=== PATIENT | female | born 1995 | race African-American/Black ===

== ENCOUNTER 2017-05-15 10:48 | Emergency (ER) | payer OTHER ==
[2017-05-15 11:00] VITALS: RESP 18
[2017-05-15] MEDS ORDERED: SODIUM CHLORIDE 0.9% 500 ML IV STA (11:07)
[2017-05-15] MEDS ORDERED: ONDANSETRON 4 MG/2 ML VIAL IVP STA (11:07)
--- NOTE | 2017-05-15 11:17 | ED ---
Abdominal Pain HPI - General Chief Complaint: Abdominal Pain Stated Complaint: right side pain Time Seen by Provider: 05/15/17 11:05 Source: patient, RN notes reviewed Mode of arrival: ambulatory Limitations: no limitations - History of Present Illness Initial Comments: This a 21-year-old female presents emergency Department chief complaint of lower abdominal pain. Patient states started 3 days ago with nausea. Patient states that the pain is nonradiating but states the pain is now migrating to the right side to the left side. Patient denies any dysuria, hematuria, vaginal bleeding, vaginal discharge. She states that her last mental cycle was 2 weeks ago. Patient denies any surgeries in her abdomen the past. She states nothing seems to make the pain feel better or worse. Patient denies vomiting, diarrhea or constipation. - Related Data Home Medications Medication Instructions Recorded Confirmed Insulin Glargine [Lantus] 30 unit SQ HS 12/29/13 05/15/17 Insulin Aspart [NovoLOG] See Protocol SQ ACHS 03/10/15 05/15/17 Previous Rx's Medication Instructions Recorded Ciprofloxacin HCl [Cipro] 500 mg PO Q12HR #14 tablet 05/15/17 Ondansetron Odt [Zofran Odt] 4 mg PO Q8HR PRN #10 tab 05/15/17 Allergies Allergy/AdvReac Type Severity Reaction Status Date / Time No Known Allergies Allergy Verified 05/15/17 11:22 Review of Systems ROS Statement: Those systems with pertinent positive or pertinent negative responses have been documented in the HPI. ROS Other: All systems not noted in ROS Statement are negative. Past Medical History Past Medical History: Diabetes Mellitus History of Any Multi-Drug Resistant Organisms: None Reported Past Surgical History: No Surgical Hx Reported Past Psychological History: No Psychological Hx Reported Smoking Status: Never smoker Past Alcohol Use History: None Reported Past Drug Use History: None Reported General Exam Limitations: no limitations General appearance: alert, in no apparent distress Head exam: Present: atraumatic, normocephalic, normal inspection Respiratory exam: Present: normal lung sounds bilaterally. Absent: respiratory distress, wheezes, rales, rhonchi, stridor Cardiovascular Exam: Present: regular rate, normal rhythm, normal heart sounds. Absent: systolic murmur, diastolic murmur, rubs, gallop, clicks GI/Abdominal exam: Present: soft, tenderness (Mild suprapubic tenderness), normal bowel sounds. Absent: distended, guarding, rebound, rigid Back exam: Absent: CVA tenderness (R), CVA tenderness (L) Skin exam: Present: warm, dry, intact, normal color. Absent: rash Course Vital Signs 05/15/17 05/15/17 10:58 11:40 Temperature 98.1 F Pulse Rate 92 83 Respiratory 18 18 Rate Blood Pressure 141/80 136/76 O2 Sat by Pulse 99 97 Oximetry Medical Decision Making - Medical Decision Making 21-year-old female presented for lower abdominal pain. Patient has urinary tract infection. Patient treated this with antibiotics. Patient also has some her glycemia secondary to her not taking any insulin this morning. Patient was given insulin here in emergency department and hydrated and given Rocephin. Patient will follow PCP tomorrow return parameters were discussed. - Lab Data Result diagrams: 05/15/17 11:35 05/15/17 11:35 Lab Results 05/15/17 05/15/17 05/15/17 Range/Units 11:35 11:35 11:35 WBC 9.4 (3.8-10.6) k/uL RBC 5.42 H (3.80-5.40) m/uL Hgb 13.3 (11.4-16.0) gm/dL Hct 43.4 (34.0-46.0) % MCV 80.2 (80.0-100.0) fL MCH 24.6 L (25.0-35.0) pg MCHC 30.7 L (31.0-37.0) g/dL RDW 14.5 (11.5-15.5) % Plt Count 353 (150-450) k/uL Neutrophils % 68 % Lymphocytes % 25 % Monocytes % 4 % Eosinophils % 2 % Basophils % 1 % Neutrophils # 6.4 (1.3-7.7) k/uL Lymphocytes # 2.3 (1.0-4.8) k/uL Monocytes # 0.4 (0-1.0) k/uL Eosinophils # 0.2 (0-0.7) k/uL Basophils # 0.1 (0-0.2) k/uL Sodium 133 L (137-145) mmol/L Potassium 4.7 (3.5-5.1) mmol/L Chloride 99 (98-107) mmol/L Carbon Dioxide 20 L (22-30) mmol/L Anion Gap 14 mmol/L BUN 6 L (7-17) mg/dL Creatinine 0.38 L (0.52-1.04) mg/dL Est GFR (MDRD) Af Amer >60 (>60 ml/min/1.73 sqM) Est GFR (MDRD) Non-Af >60 (>60 ml/min/1.73 sqM) Glucose 483 H* (74-99) mg/dL Calcium 9.7 (8.4-10.2) mg/dL Total Bilirubin 0.6 (0.2-1.3) mg/dL AST 13 L (14-36) U/L ALT 22 (9-52) U/L Alkaline Phosphatase 143 H (38-126) U/L Total Protein 8.5 H (6.3-8.2) g/dL Albumin 4.4 (3.5-5.0) g/dL Amylase <30 L (30-110) U/L Lipase 50 (23-300) U/L Urine Color Urine Appearance (Clear) Urine pH (5.0-8.0) Ur Specific [place] (1.001-1.035) Urine Protein (Negative) Urine Glucose (UA) (Negative) Urine Ketones (Negative) Urine Blood (Negative) Urine Nitrite (Negative) Urine Bilirubin (Negative) Urine Urobilinogen (<2.0) mg/dL Ur Leukocyte Esterase (Negative) Urine RBC (0-5) /hpf Urine WBC (0-5) /hpf Ur Squamous Epith Cells (0-4) /hpf Urine Bacteria (None) /hpf Urine HCG, Qual Not Detected (Not Detectd) 05/15/17 Range/Units 11:35 WBC (3.8-10.6) k/uL RBC (3.80-5.40) m/uL Hgb (11.4-16.0) gm/dL Hct (34.0-46.0) % MCV (80.0-100.0) fL MCH (25.0-35.0) pg MCHC (31.0-37.0) g/dL RDW (11.5-15.5) % Plt Count (150-450) k/uL Neutrophils % % Lymphocytes % % Monocytes % % Eosinophils % % Basophils % % Neutrophils # (1.3-7.7) k/uL Lymphocytes # (1.0-4.8) k/uL Monocytes # (0-1.0) k/uL Eosinophils # (0-0.7) k/uL Basophils # (0-0.2) k/uL Sodium (137-145) mmol/L Potassium (3.5-5.1) mmol/L Chloride (98-107) mmol/L Carbon Dioxide (22-30) mmol/L Anion Gap mmol/L BUN (7-17) mg/dL Creatinine (0.52-1.04) mg/dL Est GFR (MDRD) Af Amer (>60 ml/min/1.73 sqM) Est GFR (MDRD) Non-Af (>60 ml/min/1.73 sqM) Glucose (74-99) mg/dL Calcium (8.4-10.2) mg/dL Total Bilirubin (0.2-1.3) mg/dL AST (14-36) U/L ALT (9-52) U/L Alkaline Phosphatase (38-126) U/L Total Protein (6.3-8.2) g/dL Albumin (3.5-5.0) g/dL Amylase (30-110) U/L Lipase (23-300) U/L Urine Color Light Yellow Urine Appearance Cloudy H (Clear) Urine pH 5.5 (5.0-8.0) Ur Specific [place] 1.026 (1.001-1.035) Urine Protein Trace H (Negative) Urine Glucose (UA) 4+ H (Negative) Urine Ketones 2+ H (Negative) Urine Blood Small H (Negative) Urine Nitrite Negative (Negative) Urine Bilirubin Negative (Negative) Urine Urobilinogen <2.0 (<2.0) mg/dL Ur Leukocyte Esterase Large H (Negative) Urine RBC 13 H (0-5) /hpf Urine WBC 164 H (0-5) /hpf Ur Squamous Epith Cells 1 (0-4) /hpf Urine Bacteria Rare H (None) /hpf Urine HCG, Qual (Not Detectd) Disposition Clinical Impression: Hyperglycemia, Abdominal pain, Urinary tract infection Disposition: HOME SELF-CARE Condition: Stable Instructions: Urinary Tract Infection in Women (ED) Additional Instructions: Please return to the Emergency Department if symptoms worsen or any other concerns. Prescriptions: Ciprofloxacin HCl [Cipro] 500 mg PO Q12HR #14 tablet Ondansetron Odt [Zofran Odt] 4 mg PO Q8HR PRN #10 tab PRN Reason: Nausea Referrals: Nay Rodriguez MD [Primary Care Provider] - 1-2 days Time of Disposition: 13:20
[2017-05-15 11:47] LABS: Basophils # (A) 0.1 k/uL (0-0.2); Basophils % (A) 1 %; CH 25.4; CHCM 31.7; Eosinophils # (A) 0.2 k/uL (0-0.7); Eosinophils % (A) 2 %; HCT 43.4 % (34.0-46.0); HDW 2.54; HGB 13.3 gm/dL (11.4-16.0); Luc # (Auto) 0.09; Luc % (Auto) 1; Lymphocytes # (A) 2.3 k/uL (1.0-4.8); Lymphocytes % (A) 25 %; MCH 24.6 pg (25.0-35.0); MCHC 30.7 g/dL (31.0-37.0); MCV 80.2 fL (80.0-100.0); Mean Platelet Volume 8.6; Monocytes # (A) 0.4 k/uL (0-1.0); Monocytes % (A) 4 %; Neutrophils # (A) 6.4 k/uL (1.3-7.7); Neutrophils % (A) 68 %; RBC 5.42 m/uL (3.80-5.40); RDW 14.5 % (11.5-15.5); WBC 9.4 k/uL (3.8-10.6); WBC (Perox) 9.35
[2017-05-15 11:52] LABS: Appearance,Urine Cloudy (Clear); Bacteria,Urine Rare /hpf; Bilirubin,Urine Negative (Negative); Glucose,Urine (UA) 4+ (Negative); Leukocyte Esterase,Urine Large (Negative); Nitrite,Urine Negative (Negative); PH, Urine 5.5 (5.0-8.0); Particle Count 11541; Protein,Urine Trace (Negative); RBC,Urine 13 /hpf (0-5); Specific Gravity,Urine 1.026 (1.001-1.035); Squamous Epithelial Cell,Urine 1 /hpf (0-4); UA Billing (MACRO vs. MICRO) MICRO; Urobilinogen,Urine <2.0 mg/dL (<2.0); WBC,Urine 164 /hpf (0-5)
[2017-05-15 11:58] LABS: ALT 22 U/L (9-52); AST 13 U/L (14-36); Alkaline Phosphatase 143 U/L (38-126); Amylase <30 U/L (30-110); Anion Gap 14 mmol/L; Blood Urea Nitrogen 6 mg/dL (7-17); Calcium 9.7 mg/dL (8.4-10.2); Carbon Dioxide 20 mmol/L (22-30); Chloride 99 mmol/L (98-107); Non-African American GFR(MDRD) >60 (>60 ml/min/1.73 sqM); Potassium 4.7 mmol/L (3.5-5.1); Sodium 133 mmol/L (137-145); Total Bilirubin 0.6 mg/dL (0.2-1.3); Total Protein 8.5 g/dL (6.3-8.2)
[2017-05-15 12:07] LABS: Glucose 483 mg/dL (74-99)
[2017-05-15] MEDS ORDERED: SODIUM CHLORIDE 0.9% 1,000 ML IV ONE (12:07)
[2017-05-15] MEDS ORDERED: INSULIN REGULAR 100 UNIT/ML VIAL IV ONE (12:07)
--- NOTE | 2017-05-15 12:34 | US ---
EXAMINATION TYPE: US transvaginal DATE OF EXAM: 05/15/2017 COMPARISON: NONE CLINICAL HISTORY: Pain. TECHNIQUE: Transvaginal (TV) Date of LMP: 04-22-17 EXAM MEASUREMENTS: Uterus: 9.1 x 4.4 x 5.0 cm Endometrial Stripe: 1.7 cm Right Ovary: 3.0 x 1.8 x 2.8 cm Left Ovary: 2.9 x 1.8 x 1.8 cm 1. Uterus: Anteverted 2. Endometrium: thickened and somewhat heterogeneous 3. Right Ovary: wnl 4. Left Ovary: wnl Spectral, color and waveform doppler imaging shows good arterial and venous flow within the ovaries ; there is no evidence for ovarian torsion. 5. Bilateral Adnexa: wnl 6. Posterior cul-de-sac: Small amount of ff IMPRESSION: THICKENED ENDOMETRIAL STRIPE.
[2017-05-15 12:50] LABS: Ketones,Urine 2+ (Negative)
[2017-05-15] MEDS ORDERED: PHENAZOPYRIDINE 200 MG TAB PO STA (13:06)
--- NOTE | 2017-05-15 13:08 | XR ---
EXAMINATION TYPE: XR KUB , 2 VIEWS DATE OF EXAM ORDERED: 05/15/2017 HISTORY: abdominal pain. COMPARISON: Previous study dated 11/12/2013. FINDINGS: The lung bases are clear. Within the abdomen, the abdominal gas pattern is normal. There is no evidence of obstruction or free air. No unusual calcifications are seen. IMPRESSION: NO ACUTE INTRA-ABDOMINAL ABNORMALITY.
[2017-05-15] MEDS ORDERED: METOCLOPRAMIDE 5 MG/ML 2 ML VIAL IVP STA (13:49)
[2017-05-15 14:24] LABS: Glucose,Whole Blood 282 mg/dL (75-99)
[2017-05-15 14:41] VITALS: BP 149/71; PULSE 99; TEMP 97.8
== END 2017-05-15 14:41 | disposition home or self-care (01) ==
LOC: EC 10:48
DX: E11.65 Type 2 diabetes mellitus with hyperglycemia (principal); N39.0 Urinary tract infection, site not specified; Z79.4 Long term (current) use of insulin
CPT/HCPCS: 36415; 80053; 82150; 83690; 85025; 81001; 81025; 74000; 93975; 76830; 99284; 96365; 96375 ×2; 96361 ×2; J2765; J2405; J0696

== ENCOUNTER 2018-05-15 21:26 | Emergency (ER) | payer BC ==
[2018-05-15 22:05] VITALS: TEMP 98.3
[2018-05-15] MEDS ORDERED: diphenhydrAMINE 50 MG/ML 1 ML VIAL IVP STA (22:14)
[2018-05-15] MEDS ORDERED: FAMOTIDINE 20 MG/2 ML VIAL IV STA (22:14)
--- NOTE | 2018-05-15 22:32 | ED ---
Allergic Reaction HPI - General Source: patient, RN notes reviewed Mode of arrival: ambulatory Limitations: no limitations <Sangeeta Barajas - Last Filed: 05/15/18 23:53> <Christie Arana - Last Filed: 05/16/18 03:52> - General Chief complaint: Allergic Reaction Stated complaint: allergic reaction/rash & hurts to swallow Time Seen by Provider: 05/15/18 22:03 - History of Present Illness Initial Comments: This is a 22-year-old female who presents to the emergency department with chief complaint of allergic reaction. Patient states that yesterday she developed nausea and vomiting. She states that today at around 2 PM she developed hives. Patient denies any new medications. She states the only new food she has had is a strawberry cream cheese earlier today. She denies any difficulty breathing. She denies any new laundry detergents, soaps or lotions. Patient is unsure what she may be having an allergic reaction to. Denies any fevers or chills, chest pain or shortness of breath, abdominal pain, diarrhea. Patient is unsure if she may be . Patient does state that she took a dose of Benadryl at 4 PM this evening. (Sangeeta Barajas) - Related Data Home Medications Medication Instructions Recorded Confirmed Insulin Glargine [Lantus] 34 unit SQ W/SUPPER 12/29/13 05/15/18 Insulin Aspart [NovoLOG] See Protocol SQ TID-W/MEALS 03/10/15 05/15/18 Ergocalciferol [Vitamin D2] 50,000 unit PO TH 05/15/18 05/15/18 Ibuprofen [Motrin] 600 mg PO Q8HR PRN 05/15/18 05/15/18 glipiZIDE [Glucotrol] 5 mg PO BID 05/15/18 05/15/18 metFORMIN HCL 1,000 mg PO BID 05/15/18 05/15/18 Previous Rx's Medication Instructions Recorded Famotidine [Pepcid] 20 mg PO BID #6 tablet 05/15/18 diphenhydrAMINE [Benadryl] 50 mg PO BID #6 capsule 05/15/18 predniSONE 20 mg PO DAILY #3 tab 05/15/18 Allergies Allergy/AdvReac Type Severity Reaction Status Date / Time No Known Allergies Allergy Verified 05/15/18 22:16 Review of Systems ROS Other: All systems not noted in ROS Statement are negative. <Sangeeta Barajas - Last Filed: 05/15/18 23:53> ROS Other: All systems not noted in ROS Statement are negative. <Christie Arana - Last Filed: 05/16/18 03:52> ROS Statement: Those systems with pertinent positive or pertinent negative responses have been documented in the HPI. Past Medical History Past Medical History: Diabetes Mellitus History of Any Multi-Drug Resistant Organisms: ESBL Date of last positivie culture/infection: 02/20/18 MDRO Source:: ESBL URINE Past Surgical History: No Surgical Hx Reported Past Psychological History: No Psychological Hx Reported Smoking Status: Never smoker Past Alcohol Use History: None Reported Past Drug Use History: None Reported <Sangeeta Barajas - Last Filed: 05/15/18 23:53> General Exam Limitations: no limitations <Sangeeta Barajas - Last Filed: 05/15/18 23:53> <Christie Arana - Last Filed: 05/16/18 03:52> - General Exam Comments Initial Comments: General: Awake and alert, well-developed; in no apparent distress. HEENT: Head atraumatic, normocephalic. Pupils are equal, round and reactive to light. Extraocular movements intact. Oropharynx moist without erythema or exudate. Neck: Supple. Normal ROM. Cardiovascular: Regular rate and rhythm. No murmurs, rubs or gallops. Chest symmetrical. Respiratory: Lungs clear to auscultation bilaterally. No wheezes, rales or rhonchi. Normal respiratory effort with no use of accessory muscles. Musculoskeletal: Normal ROM, no tenderness bilateral upper and lower extremities. Ambulating normally. Skin: Urticaria noted to bilateral upper arms, chest, back and bilateral lower extremities. Overlying excoriations. Neurological: Alert and oriented x3. CN II-XII grossly intact. Speech is fluent and answers are appropriate. No focal neuro deficits. Psychiatric: Normal mood and affect. No overt signs of depression or anxiety noted. (Sangeeta Barajas) Vital Signs 05/15/18 05/15/18 22:02 23:44 Temperature 98.3 F Pulse Rate 116 H 88 Respiratory 20 17 Rate Blood Pressure 128/72 118/64 O2 Sat by Pulse 99 99 Oximetry Medical Decision Making <Sangeeta Barajas - Last Filed: 05/15/18 23:53> <Christie Arana - Last Filed: 05/16/18 03:52> - Medical Decision Making This is a 22-year-old female who presents to the emergency department with chief complaint of allergic reaction. Patient is unsure what she may be having an allergic reaction to. She reports nausea and vomiting as well as a rash. Patient has diffuse urticaria and had 2 episodes of vomiting while in the emergency department. Patient was given Solu-Medrol, Pepcid and Benadryl. She was also given Zofran and a fluid bolus. Patient states that her symptoms have improved. She wishes to be discharged home. Vital signs are stable and she is in no acute distress. She will be given a starter pack for Zofran, prescriptions for prednisone, Pepcid and Benadryl. She is in agreement with plan and voices understanding. All questions were answered. (Sangeeta Barajas) I was available for consultation in the emergency department. The history and physical exam were done by the Midlevel Provider. Medical decision making was done by the Midlevel Provider. The Midlevel Provider did not contact me for this patient's care. I was not directly involved in this patient's care. (Christie Arana) - Lab Data Lab Results 05/15/18 Range/Units 22:10 Urine HCG, Qual Not Detected (Not Detectd) Disposition Is patient prescribed a controlled substance at d/c from ED?: No Time of Disposition: 23:26 <Sangeeta Barajas - Last Filed: 05/15/18 23:53> <Christie Arana - Last Filed: 05/16/18 03:52> Clinical Impression: Urticaria Disposition: HOME SELF-CARE Instructions: Ondansetron (By mouth), Urticaria (ED) Prescriptions: diphenhydrAMINE [Benadryl] 50 mg PO BID #6 capsule Famotidine [Pepcid] 20 mg PO BID #6 tablet predniSONE 20 mg PO DAILY #3 tab Referrals: Tamica Nathan MD [Primary Care Provider] - 1-2 days
[2018-05-15] MEDS ORDERED: methylPREDNISolone SOD SUCCI 125 MG/2 ML VIAL IV STA (22:42)
[2018-05-15] MEDS ORDERED: ONDANSETRON 4 MG/2 ML VIAL IVP STA (22:54)
[2018-05-15] MEDS ORDERED: SODIUM CHLORIDE 0.9% 1,000 ML IV STA (22:55)
[2018-05-15] MEDS ORDERED: ONDANSETRON 4 MG ODT STARTER PACK 2 TAB BTL PO STA (23:24)
[2018-05-15 23:48] VITALS: BP 118/64; PULSE 88; RESP 17
== END 2018-05-15 23:44 | disposition home or self-care (01) ==
LOC: EC 21:26
DX: L50.9 Urticaria, unspecified (principal); R11.2 Nausea with vomiting, unspecified; E11.9 Type 2 diabetes mellitus without complications; Z79.4 Long term (current) use of insulin; Z79.84 Long term (current) use of oral hypoglycemic drugs; Z79.899 Other long term (current) drug therapy
CPT/HCPCS: 99283; 96374; 96375 ×3; 96361; 81025; J1200; J2930; J2405; S0119

== ENCOUNTER 2018-07-02 12:50 | Emergency (ER) | payer BC ==
[2018-07-02 12:55] VITALS: BP 139/85; PULSE 107; RESP 16; TEMP 98.1
[2018-07-02] MEDS ORDERED: SODIUM CHLORIDE 0.9% 1,000 ML IV STA ×2 (13:02→14:01)
[2018-07-02] MEDS ORDERED: ONDANSETRON 4 MG/2 ML VIAL IVP STA (13:02)
--- NOTE | 2018-07-02 13:19 | ED ---
General Adult HPI - General Chief complaint: Nausea/Vomiting/Diarrhea Stated complaint: Weakness/Cramps Time Seen by Provider: 07/02/18 12:59 Source: patient, RN notes reviewed Mode of arrival: ambulatory Limitations: no limitations - History of Present Illness Initial comments: Patient 22-year-old female significant past history for diabetes, presented to the emergency room today with a chief complaint of nausea vomiting over the last 2 days. She does admit to increased abdominal cramps. States that she started a cycle 2 days ago. Patient states no signs of blood in the emesis. Denies any diarrhea. Denies any other complaints. Patient denies any recent fever, chills, shortness of breath, chest pain, back pain, headaches or visual changes, or any other complaints. - Related Data Home Medications Medication Instructions Recorded Confirmed Insulin Glargine [Lantus] 34 unit SQ W/SUPPER 12/29/13 05/15/18 Insulin Aspart [NovoLOG] See Protocol SQ TID-W/MEALS 03/10/15 05/15/18 Ergocalciferol [Vitamin D2] 50,000 unit PO TH 05/15/18 05/15/18 Ibuprofen [Motrin] 600 mg PO Q8HR PRN 05/15/18 05/15/18 glipiZIDE [Glucotrol] 5 mg PO BID 05/15/18 05/15/18 metFORMIN HCL 1,000 mg PO BID 05/15/18 05/15/18 Previous Rx's Medication Instructions Recorded Famotidine [Pepcid] 20 mg PO BID #6 tablet 05/15/18 diphenhydrAMINE [Benadryl] 50 mg PO BID #6 capsule 05/15/18 predniSONE 20 mg PO DAILY #3 tab 05/15/18 Ondansetron Odt [Zofran ODT] 4 mg PO Q8HR PRN #20 tab 07/02/18 Allergies Allergy/AdvReac Type Severity Reaction Status Date / Time No Known Allergies Allergy Verified 07/02/18 12:55 Review of Systems ROS Statement: Those systems with pertinent positive or pertinent negative responses have been documented in the HPI. ROS Other: All systems not noted in ROS Statement are negative. Past Medical History Past Medical History: Diabetes Mellitus History of Any Multi-Drug Resistant Organisms: ESBL Date of last positivie culture/infection: 7/2/18 MDRO Source:: ESBL URINE Past Surgical History: No Surgical Hx Reported Past Psychological History: No Psychological Hx Reported Smoking Status: Never smoker Past Alcohol Use History: None Reported Past Drug Use History: None Reported General Exam - General Exam Comments Initial Comments: General: The patient is awake and alert, mild distress. Eye: Pupils are equal, round and reactive to light. Extra-ocular movements are intact. No nystagmus. There is normal conjunctiva bilaterally. No signs of icterus. Ears, nose, mouth and throat: There are moist mucous membranes and no oral lesions. Neck: The neck is supple, there is no tenderness or JVD. Cardiovascular: There is a regular rate and rhythm. No murmur, rub or gallop is appreciated. Respiratory: Lungs are clear to auscultation, respirations are non-labored, breath sounds are equal. No wheezes, stridor, rales, or rhonchi. Gastrointestinal: Soft on palpation. Patient does have tenderness both left and right lower quadrant. Mild tenderness CVA left right. No rebound, guarding. Musculoskeletal: Normal ROM, no tenderness. Sensation intact. Strength 5/5. Pulses equal bilaterally 2+. Neurological: A&O x 3. CN II-XII intact, There are no obvious motor or sensory deficits. Coordination appears grossly intact. Speech is normal. Skin: Skin is warm and dry and no rashes or lesions are noted. Psychiatric: Cooperative, appropriate mood & affect, normal judgment. Limitations: no limitations Course Vital Signs 07/02/18 12:53 Temperature 98.1 F Pulse Rate 107 H Respiratory 16 Rate Blood Pressure 139/85 O2 Sat by Pulse 98 Oximetry Medical Decision Making - Medical Decision Making Patient reexamined at this time shows no signs of distress. Blood work reviewed. Does show glucose to 16 after IV fluids. Was given insulin. Emergency room. Patient states feeling much better at this time. No vomiting. Abdomen soft on palpation. Patient acetone negative. Patient's urinalysis does show large amount of blood which she states she is on her menstrual cycle. Patient will be discharged home. Patient will be continued on nausea medication. Advised increased fluids. Advised to follow-up family doctor return to emergency room symptoms increase or worsen. - Lab Data Result diagrams: 07/02/18 13:13 07/02/18 13:13 Lab Results 07/02/18 07/02/18 07/02/18 Range/Units 13:13 13:13 13:23 WBC 6.7 (3.8-10.6) k/uL RBC 4.75 (3.80-5.40) m/uL Hgb 12.2 (11.4-16.0) gm/dL Hct 38.0 (34.0-46.0) % MCV 80.0 (80.0-100.0) fL MCH 25.7 (25.0-35.0) pg MCHC 32.1 (31.0-37.0) g/dL RDW 13.6 (11.5-15.5) % Plt Count 348 (150-450) k/uL Neutrophils % 57 % Lymphocytes % 35 % Monocytes % 4 % Eosinophils % 2 % Basophils % 1 % Neutrophils # 3.8 (1.3-7.7) k/uL Lymphocytes # 2.3 (1.0-4.8) k/uL Monocytes # 0.3 (0-1.0) k/uL Eosinophils # 0.1 (0-0.7) k/uL Basophils # 0.0 (0-0.2) k/uL Sodium 137 (137-145) mmol/L Potassium 4.0 (3.5-5.1) mmol/L Chloride 102 (98-107) mmol/L Carbon Dioxide 23 (22-30) mmol/L Anion Gap 12 mmol/L BUN 9 (7-17) mg/dL Creatinine 0.35 L (0.52-1.04) mg/dL Est GFR (CKD-EPI)AfAm >90 (>60 ml/min/1.73 sqM) Est GFR (CKD-EPI)NonAf >90 (>60 ml/min/1.73 sqM) Glucose 362 H (74-99) mg/dL POC Glucose (mg/dL) (75-99) mg/dL POC Glu [employer] ID Calcium 9.5 (8.4-10.2) mg/dL Total Bilirubin 0.7 (0.2-1.3) mg/dL AST 13 L (14-36) U/L ALT 26 (9-52) U/L Alkaline Phosphatase 100 (38-126) U/L Total Protein 8.0 (6.3-8.2) g/dL Albumin 4.2 (3.5-5.0) g/dL Amylase 54 (30-110) U/L Lipase 157 (23-300) U/L Urine Color Urine Appearance (Clear) Urine pH (5.0-8.0) Ur Specific [place] (1.001-1.035) Urine Protein (Negative) Urine Glucose (UA) (Negative) Urine Ketones (Negative) Urine Blood (Negative) Urine Nitrite (Negative) Urine Bilirubin (Negative) Urine Urobilinogen (<2.0) mg/dL Ur Leukocyte Esterase (Negative) Urine RBC (0-5) /hpf Urine WBC (0-5) /hpf Urine Mucus (None) /hpf Urine HCG, Qual Not Detected (Not Detectd) Acetone, Qual Negative (Negative) 07/02/18 07/02/18 Range/Units 13:23 14:04 WBC (3.8-10.6) k/uL RBC (3.80-5.40) m/uL Hgb (11.4-16.0) gm/dL Hct (34.0-46.0) % MCV (80.0-100.0) fL MCH (25.0-35.0) pg MCHC (31.0-37.0) g/dL RDW (11.5-15.5) % Plt Count (150-450) k/uL Neutrophils % % Lymphocytes % % Monocytes % % Eosinophils % % Basophils % % Neutrophils # (1.3-7.7) k/uL Lymphocytes # (1.0-4.8) k/uL Monocytes # (0-1.0) k/uL Eosinophils # (0-0.7) k/uL Basophils # (0-0.2) k/uL Sodium (137-145) mmol/L Potassium (3.5-5.1) mmol/L Chloride (98-107) mmol/L Carbon Dioxide (22-30) mmol/L Anion Gap mmol/L BUN (7-17) mg/dL Creatinine (0.52-1.04) mg/dL Est GFR (CKD-EPI)AfAm (>60 ml/min/1.73 sqM) Est GFR (CKD-EPI)NonAf (>60 ml/min/1.73 sqM) Glucose (74-99) mg/dL POC Glucose (mg/dL) 316 H (75-99) mg/dL POC Glu [employer] ID Justine Valerio Calcium (8.4-10.2) mg/dL Total Bilirubin (0.2-1.3) mg/dL AST (14-36) U/L ALT (9-52) U/L Alkaline Phosphatase (38-126) U/L Total Protein (6.3-8.2) g/dL Albumin (3.5-5.0) g/dL Amylase (30-110) U/L Lipase (23-300) U/L Urine Color Light Red Urine Appearance Clear (Clear) Urine pH 5.5 (5.0-8.0) Ur Specific [place] 1.020 (1.001-1.035) Urine Protein 1+ H (Negative) Urine Glucose (UA) 4+ H (Negative) Urine Ketones 2+ H (Negative) Urine Blood Large H (Negative) Urine Nitrite Negative (Negative) Urine Bilirubin Negative (Negative) Urine Urobilinogen <2.0 (<2.0) mg/dL Ur Leukocyte Esterase Moderate H (Negative) Urine RBC >182 H (0-5) /hpf Urine WBC 12 H (0-5) /hpf Urine Mucus Occasional H (None) /hpf Urine HCG, Qual (Not Detectd) Acetone, Qual (Negative) Disposition Clinical Impression: Nausea & vomiting Disposition: HOME SELF-CARE Condition: Good Instructions: Acute Nausea and Vomiting (ED) Additional Instructions: Please use medication as discussed. Please follow-up with family doctor in the next 2 days of symptoms have not improved. Please return to emergency room if the symptoms increase or worsen or for any other concerns. Prescriptions: Ondansetron Odt [Zofran ODT] 4 mg PO Q8HR PRN #20 tab PRN Reason: Nausea Is patient prescribed a controlled substance at d/c from ED?: No Referrals: Tamica Nathan MD [Primary Care Provider] - 1-2 days Time of Disposition: 14:45
[2018-07-02 13:26] LABS: Basophils % (A) 1 %; Eosinophils # (A) 0.1 k/uL (0-0.7); Eosinophils % (A) 2 %; HGB 12.2 gm/dL (11.4-16.0); Lymphocytes # (A) 2.3 k/uL (1.0-4.8); Lymphocytes % (A) 35 %; MCH 25.7 pg (25.0-35.0); MCHC 32.1 g/dL (31.0-37.0); Mean Platelet Volume 7.9; Monocytes # (A) 0.3 k/uL (0-1.0); Monocytes % (A) 4 %; Neutrophils # (A) 3.8 k/uL (1.3-7.7); Neutrophils % (A) 57 %; Platelet Count 348 k/uL (150-450); RBC 4.75 m/uL (3.80-5.40); RDW 13.6 % (11.5-15.5); WBC 6.7 k/uL (3.8-10.6)
[2018-07-02] MEDS ORDERED: KETOROLAC 30 MG/ML 1 ML VIAL IVP STA (13:29)
[2018-07-02 13:37] LABS: ALT 26 U/L (9-52); AST 13 U/L (14-36); Albumin 4.2 g/dL (3.5-5.0); Alkaline Phosphatase 100 U/L (38-126); Amylase 54 U/L (30-110); Anion Gap 12 mmol/L; Blood Urea Nitrogen 9 mg/dL (7-17); Calcium 9.5 mg/dL (8.4-10.2); Carbon Dioxide 23 mmol/L (22-30); Chloride 102 mmol/L (98-107); Glucose 362 mg/dL (74-99); Lipase 157 U/L (23-300); Sodium 137 mmol/L (137-145); Total Bilirubin 0.7 mg/dL (0.2-1.3)
[2018-07-02 13:41] LABS: Appearance,Urine Clear (Clear); Bilirubin,Urine Negative (Negative); Blood,Urine Large (Negative); Color,Urine Light Red; Glucose,Urine (UA) 4+ (Negative); Leukocyte Esterase,Urine Moderate (Negative); Mucus,Urine Occasional /hpf; Nitrite,Urine Negative (Negative); PH, Urine 5.5 (5.0-8.0); Protein,Urine 1+ (Negative); RBC,Urine >182 /hpf (0-5); Urobilinogen,Urine <2.0 mg/dL (<2.0)
[2018-07-02 13:44] LABS: Ketones,Urine 2+ (Negative)
[2018-07-02 14:06] LABS: Glucose,Whole Blood 316 mg/dL (75-99)
[2018-07-02] MEDS ORDERED: INSULIN ASPART 100 UNIT/ML 1 ML 10 ML VIAL SQ ONE (14:06)
[2018-07-03 11:11] LABS: Hemoglobin A1C 9.8 % (4.0-6.0)
== END 2018-07-02 15:04 | disposition home or self-care (01) ==
LOC: EC 12:50
DX: R11.2 Nausea with vomiting, unspecified (principal); R10.9 Unspecified abdominal pain; R19.7 Diarrhea, unspecified; R53.1 Weakness; E11.9 Type 2 diabetes mellitus without complications; Z79.4 Long term (current) use of insulin
CPT/HCPCS: 36415; 80053; 82150; 82009; 83690; 85025; 81001; 81025; 87086; 83036; 99284; 96374; 96375; 96361 ×2; J2405; J1885

== ENCOUNTER → 2018-07-24 | Outpatient (CLI) | payer BC ==
--- NOTE | 2018-07-24 17:52 | US ---
EXAMINATION TYPE: US transvaginal DATE OF EXAM: 07/24/2018 COMPARISON: US 2017 CLINICAL HISTORY: R10.31 Abdominal Pain, R10.32 Bilateral lower quad. Intermittent pelvic pain x coup le months, 0 TECHNIQUE: Transvaginal only per ordering physician. Date of LMP: 06/27/2018 EXAM MEASUREMENTS: Uterus: 8.6 x 4.2 x 5.3 cm Endometrial Stripe: 1.6 cm Right Ovary: 3.3 x 2.7 x 2.5 cm Left Ovary: 2.5 x 0.9 x 2.3 cm 1. Uterus: anteverted, mildly heterogenous 2. Endometrium: thickened, heterogeneous 3. Right Ovary: 2.4 x 1.9 x 2.0cm complex area 4. Left Ovary: wnl 5. Bilateral Adnexa: wnl 6. Posterior cul-de-sac: wnl IMPRESSION: No adnexal mass. Thickened endometrium could relate to hyperplasia. No free fluid.
== END | disposition home or self-care (01) ==
LOC: RADUSWWP 15:36
PROVIDERS: ATTEND Family Medicine
DX: R93.89 Abnormal findings on diagnostic imaging of other specified body structures (principal)
CPT/HCPCS: 76830

== ENCOUNTER 2018-08-16 17:10 | Emergency (ER) | payer BC ==
[2018-08-16 17:46] VITALS: PULSE 98
[2018-08-16 19:44] VITALS: RESP 16
[2018-08-16 19:56] LABS: Basophils # (A) 0.1 k/uL (0-0.2); Basophils % (A) 1 %; Eosinophils # (A) 0.2 k/uL (0-0.7); Eosinophils % (A) 2 %; HCT 38.9 % (34.0-46.0); HGB 11.9 gm/dL (11.4-16.0); Hypochromasia Slight; Lymphocytes # (A) 3.1 k/uL (1.0-4.8); Lymphocytes % (A) 40 %; MCH 23.8 pg (25.0-35.0); MCHC 30.5 g/dL (31.0-37.0); MCV 77.9 fL (80.0-100.0); Mean Platelet Volume 7.9; Monocytes # (A) 0.3 k/uL (0-1.0); Monocytes % (A) 3 %; Neutrophils % (A) 52 %; Platelet Count 367 k/uL (150-450); RBC 4.99 m/uL (3.80-5.40); RDW 13.3 % (11.5-15.5); WBC 7.7 k/uL (3.8-10.6)
[2018-08-16 19:58] LABS: Appearance,Urine Cloudy (Clear); Bilirubin,Urine Negative (Negative); Blood,Urine Moderate (Negative); Color,Urine Yellow; Glucose,Urine (UA) 4+ (Negative); Ketones,Urine Negative (Negative); Leukocyte Esterase,Urine Moderate (Negative); Mucus,Urine Rare /hpf; Nitrite,Urine Negative (Negative); Protein,Urine Trace (Negative); RBC,Urine 4 /hpf (0-5); Specific Gravity,Urine 1.024 (1.001-1.035); Squamous Epithelial Cell,Urine 9 /hpf (0-4); Urobilinogen,Urine <2.0 mg/dL (<2.0)
[2018-08-16 20:08] LABS: ALT 24 U/L (9-52); AST 15 U/L (14-36); Alkaline Phosphatase 85 U/L (38-126); Anion Gap 10 mmol/L; Blood Urea Nitrogen 9 mg/dL (7-17); Carbon Dioxide 27 mmol/L (22-30); Chloride 100 mmol/L (98-107); Glucose 286 mg/dL (74-99); Potassium 4.3 mmol/L (3.5-5.1); Sodium 137 mmol/L (137-145); Total Bilirubin 0.4 mg/dL (0.2-1.3); Total Protein 7.6 g/dL (6.3-8.2)
--- NOTE | 2018-08-16 21:05 | US ---
EXAMINATION TYPE: US transvaginal DATE OF EXAM: 08/16/2018 COMPARISON: NONE CLINICAL HISTORY: Pain. Abnormal bleeding and pain. TECHNIQUE: Transvaginal (TV). EXAM MEASUREMENTS: Uterus: 8.9 x 4.2 x 6.0 cm Endometrial Stripe: 2.2 cm Right Ovary: 3.5 x 2.5 x 2.0 Cm Left Ovary: 2.1 x 1.7 x 1.9 cm 1. Uterus: Anteverted wnl 2. Endometrium: Enlarged 3. Right Ovary: wnl 4. Left Ovary: wnl Spectral, color and waveform doppler imaging shows good arterial and venous flow within the ovaries ; there is no evidence for ovarian torsion. 5. Bilateral Adnexa: wnl 6. Posterior cul-de-sac: wnl IMPRESSION: Endometrium measures 2.1 cm. No mass seen. This is consistent with hyperplasia. no evide nce of ovarian torsion.
--- NOTE | 2018-08-16 21:27 | CT ---
EXAMINATION TYPE: CT abdomen pelvis w con DATE OF EXAM: 08/16/2018 COMPARISON: 07/25/2013 HISTORY: pain, vaginal/rectal bleeding CT DLP: 1234.6 mGycm Automated exposure control for dose reduction was used. TECHNIQUE: Helical acquisition of images was performed from the lung bases through the pelvis. CONTRAST: Performed without Oral Contrast and with IV Contrast, patient injected with 100 mL of Isovue 300. FINDINGS: Lung bases are clear. There is no pleural effusion. Heart size is normal. There is no pericardial eff usion. Liver shows no focal defect. Spleen pancreas gallbladder appear normal. Bile ducts are not dilated. The bony pelvis is intact. Lumbar spine is intact. There is no adrenal mass. Kidneys show normal size and contour. There is normal contrast opacificatio n of the kidneys. There is no hydronephrosis. Ureters are not dilated. There is no evidence of a karma l calculus. There is no retroperitoneal adenopathy. There is small umbilical hernia that contains fat . Appendix appears normal. Bladder distends smoothly. Uterus is anteverted. I see no evidence of a ananth wel obstruction. There is no evidence of inguinal hernia. There is no mesenteric edema. There are a f ew mesenteric lymph nodes. There is no evidence of a bowel obstruction. IMPRESSION: NORMAL APPENDIX. NO SIGN OF ACUTE ABDOMEN AND PELVIS. NO RENAL STONE OR OBSTRUCTION. NO ADVERSE HARE E COMPARED TO OLD EXAM.
[2018-08-16] MEDS ORDERED: FLUCONAZOLE 150 MG TAB PO STA (22:31)
[2018-08-16] MEDS ORDERED: cefTRIAXone 250 MG VIAL IM STA (22:31)
--- NOTE | 2018-08-16 22:34 | ED ---
Female Urogenital HPI - General Chief complaint: Vaginal Bleeding Stated complaint: Vaginal bleeding Source: patient Mode of arrival: ambulatory Limitations: no limitations - History of Present Illness Initial comments: 22-year-old female with PMH of DMII presenting today for chief complaint of abnormal vaginal bleeding, lower pelvic pressure/cramping and external irritation of the vagina. Patient states that for the past 2 days she has been experiencing vaginal bleeding however she states he menses ended July 29 and this is not scheduled time. Patient does admit to lower pelvic pressure and cramping. Patient states at times it is sharp and stabbing. Patient notes that she has seen clots the toilet with bowel movement, she is concerned this is coming from the rectum. Patient denies any cold intolerance, palpitations. Patient denies any severe abdominal pain, back pain, nausea, vomiting, breast tenderness, risk of . Patient denies vaginal discharge or pain with sex. Pt has noted irritation of external vagina, stating she is concerned for yeast infection. Pt states she did notice blood in toilet with BM yesterday. Denies heavy rectal bleeding. Pt denies fever, chills or nightweats, urgency, or dysuria. Remainder of ROS (-). Pt well appearing. VS within acceptable limits. Last Menstrual Period: 07/29/18 - Related Data Home Medications Medication Instructions Recorded Confirmed Insulin Glargine [Lantus] 34 unit SQ AC-SUPPER 12/29/13 08/16/18 Insulin Aspart [NovoLOG] See Protocol SQ TID-W/MEALS 03/10/15 08/16/18 Ergocalciferol [Vitamin D2] 50,000 unit PO TH 05/15/18 08/16/18 metFORMIN HCL 1,000 mg PO BID 05/15/18 08/16/18 glipiZIDE [Glucotrol] 20 mg PO AC-BRKFST 08/16/18 08/16/18 Previous Rx's Medication Instructions Recorded Cephalexin [Keflex] 500 mg PO Q12HR 5 Days #10 cap 08/16/18 Allergies Allergy/AdvReac Type Severity Reaction Status Date / Time No Known Allergies Allergy Verified 08/16/18 19:34 Review of Systems ROS Statement: Those systems with pertinent positive or pertinent negative responses have been documented in the HPI. ROS Other: All systems not noted in ROS Statement are negative. Constitutional: Denies: fever, chills, night sweats ENT: Denies: ear pain, throat pain Respiratory: Denies: cough, dyspnea, wheezes Cardiovascular: Denies: chest pain, palpitations Endocrine: Denies: fatigue Gastrointestinal: Reports: abdominal pain, hematochezia. Denies: nausea, vomiting, diarrhea, constipation, hematemesis, melena Genitourinary: Reports: frequency, abnormal menses. Denies: urgency, dysuria, hematuria, discharge, dyspareunia Musculoskeletal: Denies: back pain Skin: Denies: rash, lesions Neurological: Denies: headache, weakness, numbness, paresthesias, confusion Past Medical History Past Medical History: Diabetes Mellitus History of Any Multi-Drug Resistant Organisms: ESBL Date of last positivie culture/infection: 02/20/18 MDRO Source:: ESBL URINE Past Surgical History: No Surgical Hx Reported Past Psychological History: No Psychological Hx Reported Smoking Status: Never smoker Past Alcohol Use History: None Reported Past Drug Use History: None Reported General Exam - General Exam Comments Initial Comments: General: The patient is awake and alert, in no distress, and does not appear acutely ill. Eye: Pupils are equal, round and reactive to light, extra-ocular movements are intact. No nystagmus. There is normal conjunctiva bilaterally. No signs of icterus. Ears, nose, mouth and throat: There are moist mucous membranes and no oral lesions. Neck: The neck is supple, there is no tenderness or JVD. Cardiovascular: There is a regular rate and rhythm. No murmur, rub or gallop is appreciated. Respiratory: Lungs are clear to auscultation, respirations are non-labored, breath sounds are equal. No wheezes, stridor, rales, or rhonchi. Gastrointestinal: Soft, non-distended, abdomen without masses or organomegaly noted. Mild tenderness to palpation of the LLQ and pevlic region with deep palpation. There is no rebound or guarding present. No CVA tenderness. Bowel sounds are unremarkable. Musculoskeletal: Normal ROM, no tenderness. Strength 5/5. Sensation intact. Pulses equal bilaterally 2+. Neurological: A&O x 3. CN II-XII intact, There are no obvious motor or sensory deficits. Coordination appears grossly intact. Speech is normal. Skin: Skin is warm and dry and no rashes or lesions are noted. Psychiatric: Cooperative, appropriate mood & affect, normal judgment. Normal female hair pattern. Vaginal mucosa is moist, pink and well rugated area there is no noted external vaginal lesions, mild erythema of the external vagina. Small amount of vaginal discharge in vault, clots coming from eyes. Cervix pink without lesions. No cervical motion tenderness or adnexal tenderness noted. Limitations: no limitations Course Vital Signs 08/16/18 08/16/18 08/16/18 17:44 19:43 23:09 Temperature 98.1 F 98.6 F Pulse Rate 98 98 Respiratory 18 16 16 Rate Blood Pressure 140/79 127/87 O2 Sat by Pulse 98 97 Oximetry Medical Decision Making - Medical Decision Making Laboratory studies revealed an elevated glucose, remainder within acceptable limits. Urinalysis revealed findings concerning for infection. Patient be started on Keflex patient does admit to frequency. Pelvic ultrasound revealed thickened endometrium however remainder unremarkable. No free fluid evidence of torsion or ectopic . Urine hCG negative. Pelvic exam revealed blood in vault small amount of discharge and clot compromise no cervical motion tenderness or adnexal tenderness. CT the abdomen and pelvis was obtained getting complaints of rectal bleeding with left lower quadrant abdominal pain on examination. CT negative for acute process. No hemorrhoids palpable on rectal exam. At this time we feel patient is stable for discharge. With OB/ [facility] primary care follow-up in the next 1-2 days. Patient is agreeable to plan. She states the pain has come and go throughout stay. Patient will be treated prophylactically to vaginal discharge on examination for STDs. Patient was only given ceftriaxone given findings were concerning for yeast infection rather than sexually transmitted disease. Patient will be contacted with results and azithromycin will be administered for positive findings. Rapid Trichomonas negative. Case discussed with Dr. ramsey who agreed with impression and plan. Pt discharged in stable condition appearing well. All return parameters discussed at length prior to discharge, patient verbalized understanding. Patient denies questions at this time - Lab Data Result diagrams: 08/16/18 19:31 08/16/18 19:31 Lab Results 08/16/18 08/16/18 08/16/18 Range/Units 19:31 19:31 19:31 WBC 7.7 (3.8-10.6) k/uL RBC 4.99 (3.80-5.40) m/uL Hgb 11.9 (11.4-16.0) gm/dL Hct 38.9 (34.0-46.0) % MCV 77.9 L (80.0-100.0) fL MCH 23.8 L (25.0-35.0) pg MCHC 30.5 L (31.0-37.0) g/dL RDW 13.3 (11.5-15.5) % Plt Count 367 (150-450) k/uL Neutrophils % 52 % Lymphocytes % 40 % Monocytes % 3 % Eosinophils % 2 % Basophils % 1 % Neutrophils # 4.0 (1.3-7.7) k/uL Lymphocytes # 3.1 (1.0-4.8) k/uL Monocytes # 0.3 (0-1.0) k/uL Eosinophils # 0.2 (0-0.7) k/uL Basophils # 0.1 (0-0.2) k/uL Hypochromasia Slight Sodium 137 (137-145) mmol/L Potassium 4.3 (3.5-5.1) mmol/L Chloride 100 (98-107) mmol/L Carbon Dioxide 27 (22-30) mmol/L Anion Gap 10 mmol/L BUN 9 (7-17) mg/dL Creatinine 0.39 L (0.52-1.04) mg/dL Est GFR (CKD-EPI)AfAm >90 (>60 ml/min/1.73 sqM) Est GFR (CKD-EPI)NonAf >90 (>60 ml/min/1.73 sqM) Glucose 286 H (74-99) mg/dL Calcium 10.0 (8.4-10.2) mg/dL Total Bilirubin 0.4 (0.2-1.3) mg/dL AST 15 (14-36) U/L ALT 24 (9-52) U/L Alkaline Phosphatase 85 (38-126) U/L Total Protein 7.6 (6.3-8.2) g/dL Albumin 4.0 (3.5-5.0) g/dL Urine Color Urine Appearance (Clear) Urine pH (5.0-8.0) Ur Specific [place] (1.001-1.035) Urine Protein (Negative) Urine Glucose (UA) (Negative) Urine Ketones (Negative) Urine Blood (Negative) Urine Nitrite (Negative) Urine Bilirubin (Negative) Urine Urobilinogen (<2.0) mg/dL Ur Leukocyte Esterase (Negative) Urine RBC (0-5) /hpf Urine WBC (0-5) /hpf Ur Squamous Epith Cells (0-4) /hpf Urine Mucus (None) /hpf Urine HCG, Qual Not Detected (Not Detectd) Trichomonas Ag (Rapid) (Negative) 08/16/18 08/16/18 Range/Units 19:31 22:30 WBC (3.8-10.6) k/uL RBC (3.80-5.40) m/uL Hgb (11.4-16.0) gm/dL Hct (34.0-46.0) % MCV (80.0-100.0) fL MCH (25.0-35.0) pg MCHC (31.0-37.0) g/dL RDW (11.5-15.5) % Plt Count (150-450) k/uL Neutrophils % % Lymphocytes % % Monocytes % % Eosinophils % % Basophils % % Neutrophils # (1.3-7.7) k/uL Lymphocytes # (1.0-4.8) k/uL Monocytes # (0-1.0) k/uL Eosinophils # (0-0.7) k/uL Basophils # (0-0.2) k/uL Hypochromasia Sodium (137-145) mmol/L Potassium (3.5-5.1) mmol/L Chloride (98-107) mmol/L Carbon Dioxide (22-30) mmol/L Anion Gap mmol/L BUN (7-17) mg/dL Creatinine (0.52-1.04) mg/dL Est GFR (CKD-EPI)AfAm (>60 ml/min/1.73 sqM) Est GFR (CKD-EPI)NonAf (>60 ml/min/1.73 sqM) Glucose (74-99) mg/dL Calcium (8.4-10.2) mg/dL Total Bilirubin (0.2-1.3) mg/dL AST (14-36) U/L ALT (9-52) U/L Alkaline Phosphatase (38-126) U/L Total Protein (6.3-8.2) g/dL Albumin (3.5-5.0) g/dL Urine Color Yellow Urine Appearance Cloudy H (Clear) Urine pH 6.0 (5.0-8.0) Ur Specific [place] 1.024 (1.001-1.035) Urine Protein Trace H (Negative) Urine Glucose (UA) 4+ H (Negative) Urine Ketones Negative (Negative) Urine Blood Moderate H (Negative) Urine Nitrite Negative (Negative) Urine Bilirubin Negative (Negative) Urine Urobilinogen <2.0 (<2.0) mg/dL Ur Leukocyte Esterase Moderate H (Negative) Urine RBC 4 (0-5) /hpf Urine WBC 17 H (0-5) /hpf Ur Squamous Epith Cells 9 H (0-4) /hpf Urine Mucus Rare H (None) /hpf Urine HCG, Qual (Not Detectd) Trichomonas Ag (Rapid) Negative (Negative) Disposition Clinical Impression: Vaginal bleeding Disposition: HOME SELF-CARE Condition: Good Instructions: Dysfunctional Uterine Bleeding (ED) Additional Instructions: Please use medication as discussed. Please follow-up with family doctor in the next 2 days, he is follow-up with your OBGYN in next 1-2 weeks. Please return to emergency room if the symptoms increase or worsen or for any other concerns. Prescriptions: Cephalexin [Keflex] 500 mg PO Q12HR 5 Days #10 cap Is patient prescribed a controlled substance at d/c from ED?: No Referrals: Tamica Nathan MD [Primary Care Provider] - 1-2 days Michele Miller DO [Doctor of Osteopathic Medicine] - 1-2 days Time of Disposition: 22:33
[2018-08-16 23:10] VITALS: BP 127/87; TEMP 98.6
[2018-08-18 14:02] LABS: N. gonorrhoeae,PCR Negative (Neg,Equiv); Neisseria Source Vagina
[2018-08-19 09:20] LABS: C. trachomatis,PCR Negative (Neg,Equiv); Chlamydia trachomatis Source Vagina
== END 2018-08-16 23:08 | disposition home or self-care (01) ==
LOC: EC 17:10
DX: N93.9 Abnormal uterine and vaginal bleeding, unspecified (principal); E11.65 Type 2 diabetes mellitus with hyperglycemia; R93.89 Abnormal findings on diagnostic imaging of other specified body structures; K62.5 Hemorrhage of anus and rectum; R10.32 Left lower quadrant pain; B37.9 Candidiasis, unspecified; Z79.4 Long term (current) use of insulin
CPT/HCPCS: 36415; 80053; 85025; 81001; 81025; 87808; 87491; 87591; 87070; 87086; 93975; 76830; 74177; 99284; 96372; J0696; Q9967; 87205

== ENCOUNTER 2019-01-22 06:52 | Emergency (ER) | payer BC ==
[2019-01-22] MEDS ORDERED: ONDANSETRON 4 MG/2 ML VIAL IVP STA ×2 (07:06→09:05)
[2019-01-22] MEDS ORDERED: SODIUM CHLORIDE 0.9% 1,000 ML IV STA ×2 (07:08→08:21)
--- NOTE | 2019-01-22 07:48 | ED ---
Nausea/Vomiting/Diarrhea HPI - General Chief complaint: Nausea/Vomiting/Diarrhea Stated complaint: Vomiting Time Seen by Provider: 01/22/19 06:59 Source: patient Mode of arrival: ambulatory Limitations: no limitations - History of Present Illness Initial comments: Patient is a 23-year-old female complaining of nausea and vomiting times yesterday. Admits to upper abdominal pain and lower abdominal cramping. States her menstrual cycle started yesterday, however her cramps are worse than normal. Denies abdominal surgeries in the past. Last bowel movement was yesterday and was normal. Denies eating anything out of the ordinary. Denies fever, chills, shortness of breath, headache. - Related Data Home Medications Medication Instructions Recorded Confirmed Insulin Glargine [Lantus] 37 unit SQ HS 12/29/13 01/22/19 INSULIN ASPART (NovoLOG) [NovoLOG 12 unit SQ AC-LUNCH 01/22/19 01/22/19 (formulary)] INSULIN ASPART (NovoLOG) [NovoLOG 26 unit SQ AC-SUPPER 01/22/19 01/22/19 (formulary)] INSULIN ASPART (NovoLOG) [NovoLOG 26 units SQ AC-BRKFST 01/22/19 01/22/19 (formulary)] metFORMIN HCL [Glucophage] 500 mg PO BID 01/22/19 01/22/19 Previous Rx's Medication Instructions Recorded Ondansetron Odt [Zofran Odt] 4 mg PO Q8HR PRN #10 tab 01/22/19 Allergies Allergy/AdvReac Type Severity Reaction Status Date / Time No Known Allergies Allergy Verified 01/22/19 07:46 Review of Systems ROS Statement: Those systems with pertinent positive or pertinent negative responses have been documented in the HPI. ROS Other: All systems not noted in ROS Statement are negative. Past Medical History Past Medical History: Diabetes Mellitus History of Any Multi-Drug Resistant Organisms: ESBL Date of last positivie culture/infection: 02/20/18 MDRO Source:: ESBL URINE Past Surgical History: No Surgical Hx Reported Past Psychological History: No Psychological Hx Reported Smoking Status: Never smoker Past Alcohol Use History: None Reported Past Drug Use History: None Reported General Exam - General Exam Comments Initial Comments: GENERAL: Well-appearing, well-nourished and in no acute distress. HEAD: Atraumatic, normocephalic. EYES: Pupils equal round and reactive to light, extraocular movements intact, sclera anicteric, conjunctiva are normal. ENT: TMs normal, nares patent, oropharynx clear without exudates. Moist mucous membranes. NECK: Normal range of motion, supple without lymphadenopathy or JVD. LUNGS: Breath sounds clear to auscultation bilaterally and equal. No wheezes rales or rhonchi. HEART: Regular rate and rhythm without murmurs, rubs or gallops. ABDOMEN: Generalized abdominal tenderness, increased tenderness and upper left and right quadrants .Soft, normoactive bowel sounds. No guarding, no rebound. No masses appreciated. : Deferred EXTREMITIES: Normal range of motion, no pitting or edema. No clubbing or cyanosis. NEUROLOGICAL: Cranial nerves II through XII grossly intact. Normal speech, normal gait. PSYCH: Normal mood, normal affect. SKIN: Warm, Dry, normal turgor, no rashes or lesions noted. Limitations: no limitations Course Vital Signs 01/22/19 01/22/19 01/22/19 06:55 08:55 08:58 Temperature 98.3 F 97.8 F Pulse Rate 91 85 Respiratory 18 16 Rate Blood Pressure 141/84 152/82 O2 Sat by Pulse 100 100 98 Oximetry 01/22/19 01/22/19 01/22/19 09:00 09:30 10:00 Temperature Pulse Rate Respiratory Rate Blood Pressure 152/82 139/80 135/81 O2 Sat by Pulse 95 98 97 Oximetry Medical Decision Making - Medical Decision Making Patient is a 23-year-old female complaining of nausea and vomiting times last night. Also admits to upper abdominal pain and generalized lower abdominal cramping. CT abdomen shows no acute changes. CBC, CMP were normal. UA showed glucose and ketones. Patient's symptoms improved with Toradol, Zofran, and fluids. Patient discharged home. - Lab Data Result diagrams: 01/22/19 07:37 01/22/19 07:37 Lab Results 01/22/19 01/22/19 01/22/19 Range/Units 07:37 07:37 07:37 WBC 7.7 (3.8-10.6) k/uL RBC 5.22 (3.80-5.40) m/uL Hgb 12.7 (11.4-16.0) gm/dL Hct 41.7 (34.0-46.0) % MCV 79.9 L (80.0-100.0) fL MCH 24.3 L (25.0-35.0) pg MCHC 30.5 L (31.0-37.0) g/dL RDW 15.5 (11.5-15.5) % Plt Count 333 (150-450) k/uL Neutrophils % 73 % Lymphocytes % 21 % Monocytes % 2 % Eosinophils % 2 % Basophils % 1 % Neutrophils # 5.6 (1.3-7.7) k/uL Lymphocytes # 1.6 (1.0-4.8) k/uL Monocytes # 0.2 (0-1.0) k/uL Eosinophils # 0.1 (0-0.7) k/uL Basophils # 0.1 (0-0.2) k/uL Hypochromasia Marked Sodium 139 (137-145) mmol/L Potassium 4.3 (3.5-5.1) mmol/L Chloride 103 (98-107) mmol/L Carbon Dioxide 24 (22-30) mmol/L Anion Gap 12 mmol/L BUN 8 (7-17) mg/dL Creatinine 0.38 L (0.52-1.04) mg/dL Est GFR (CKD-EPI)AfAm >90 (>60 ml/min/1.73 sqM) Est GFR (CKD-EPI)NonAf >90 (>60 ml/min/1.73 sqM) Glucose 326 H (74-99) mg/dL Calcium 9.5 (8.4-10.2) mg/dL Total Bilirubin 0.8 (0.2-1.3) mg/dL AST 14 (14-36) U/L ALT 17 (9-52) U/L Alkaline Phosphatase 110 (38-126) U/L Total Protein 8.0 (6.3-8.2) g/dL Albumin 4.5 (3.5-5.0) g/dL Lipase 113 (23-300) U/L Urine Color Yellow Urine Appearance Clear (Clear) Urine pH 8.0 (5.0-8.0) Ur Specific [place] 1.035 (1.001-1.035) Urine Protein Trace H (Negative) Urine Glucose (UA) 4+ H (Negative) Urine Ketones 3+ H (Negative) Urine Blood Moderate H (Negative) Urine Nitrite Negative (Negative) Urine Bilirubin Negative (Negative) Urine Urobilinogen <2.0 (<2.0) mg/dL Ur Leukocyte Esterase Trace H (Negative) Urine RBC >182 H (0-5) /hpf Ur Squamous Epith Cells 2 (0-4) /hpf Urine Bacteria Rare H (None) /hpf Urine Mucus Rare H (None) /hpf Disposition Clinical Impression: Gastroenteritis, Dehydration Disposition: HOME SELF-CARE Condition: Stable Instructions (If sedation given, give patient instructions): Acute Nausea and Vomiting (ED) Additional Instructions: Please return to the Emergency Department if symptoms worsen or any other concerns. Prescriptions: Ondansetron Odt [Zofran Odt] 4 mg PO Q8HR PRN #10 tab PRN Reason: Nausea Is patient prescribed a controlled substance at d/c from ED?: No Referrals: Nay Rodriguez MD [Primary Care Provider] - 1-2 days
[2019-01-22 08:09] LABS: Basophils # (A) 0.1 k/uL (0-0.2); Basophils % (A) 1 %; Eosinophils # (A) 0.1 k/uL (0-0.7); Eosinophils % (A) 2 %; HCT 41.7 % (34.0-46.0); HGB 12.7 gm/dL (11.4-16.0); Hypochromasia Marked; Lymphocytes # (A) 1.6 k/uL (1.0-4.8); Lymphocytes % (A) 21 %; MCH 24.3 pg (25.0-35.0); MCHC 30.5 g/dL (31.0-37.0); MCV 79.9 fL (80.0-100.0); Mean Platelet Volume 8.3; Monocytes # (A) 0.2 k/uL (0-1.0); Monocytes % (A) 2 %; Neutrophils # (A) 5.6 k/uL (1.3-7.7); Neutrophils % (A) 73 %; Platelet Count 333 k/uL (150-450); RBC 5.22 m/uL (3.80-5.40); RDW 15.5 % (11.5-15.5); WBC 7.7 k/uL (3.8-10.6)
[2019-01-22 08:17] LABS: ALT 17 U/L (9-52); AST 14 U/L (14-36); Albumin 4.5 g/dL (3.5-5.0); Alkaline Phosphatase 110 U/L (38-126); Anion Gap 12 mmol/L; Appearance,Urine Clear (Clear); Bacteria,Urine Rare /hpf; Bilirubin,Urine Negative (Negative); Blood Urea Nitrogen 8 mg/dL (7-17); Blood,Urine Moderate (Negative); Calcium 9.5 mg/dL (8.4-10.2); Carbon Dioxide 24 mmol/L (22-30); Chloride 103 mmol/L (98-107); Color,Urine Yellow; Glucose 326 mg/dL (74-99); Glucose,Urine (UA) 4+ (Negative); Leukocyte Esterase,Urine Trace (Negative); Lipase 113 U/L (23-300); Mucus,Urine Rare /hpf; Nitrite,Urine Negative (Negative); Potassium 4.3 mmol/L (3.5-5.1); Protein,Urine Trace (Negative); RBC,Urine >182 /hpf (0-5); Sodium 139 mmol/L (137-145); Specific Gravity,Urine 1.035 (1.001-1.035); Squamous Epithelial Cell,Urine 2 /hpf (0-4); Total Bilirubin 0.8 mg/dL (0.2-1.3); Urobilinogen,Urine <2.0 mg/dL (<2.0)
[2019-01-22 08:20] LABS: Ketones,Urine 3+ (Negative)
[2019-01-22] MEDS ORDERED: KETOROLAC 30 MG/ML 1 ML VIAL IVP STA (08:43)
--- NOTE | 2019-01-22 08:47 | CT ---
EXAMINATION TYPE: CT abdomen pelvis wo con DATE OF EXAM: 01/22/2019 COMPARISON: Prior CT abdomen pelvis 08/16/2018 HISTORY: Nausea, vomiting, generalized pain CT DLP: 772.1 mGycm Automated exposure control for dose reduction was used. TECHNIQUE: Helical acquisition of images from the lung bases through the pelvis. FINDINGS: Lack of contrast may compromise sensitivity of the exam. LUNG BASES: No significant abnormality is appreciated. AORTA: No significant abnormality is addendum:. LIVER/GB: No significant abnormality is appreciated. PANCREAS: No significant abnormality is seen. SPLEEN: No significant abnormality is seen. ADRENALS: No significant abnormality is seen. KIDNEYS: No significant abnormality is seen. REPRODUCTIVE ORGANS: No significant abnormality is seen. URINARY BLADDER: Bladder wall thickening could be due to lack of distention, correlate to exclude cy stitis BOWEL: Difficult to exclude some nonspecific small bowel wall thickening. The appendix shows no infl ammatory change. FREE AIR: No Free Air is visible. ASCITES: None visible. PELVIC ADENOPATHY: None visualized. RETROPERITONEAL ADENOPATHY: No Retroperitoneal Adenopathy visible. OSSEOUS STRUCTURES: No significant abnormality is seen. IMPRESSION: CORRELATE FOR ENTERITIS, CYSTITIS. NONCONTRAST EXAM. FOLLOW-UP INDICATED.
[2019-01-22 09:00] VITALS: RESP 16; TEMP 97.8
[2019-01-22 10:20] VITALS: BP 125/76; PULSE 83
== END 2019-01-22 10:15 | disposition home or self-care (01) ==
LOC: EC 06:52
DX: K52.9 Noninfective gastroenteritis and colitis, unspecified (principal); E86.0 Dehydration; E11.9 Type 2 diabetes mellitus without complications; Z79.4 Long term (current) use of insulin
CPT/HCPCS: 36415; 80053; 83690; 85025; 81001; 74176; 99284; 96374; 96375; 96376; 96361 ×2; J2405; J1885

== ENCOUNTER 2019-01-22 17:20 | Inpatient (IN) | payer BC ==
[2019-01-22] MEDS ORDERED: PANTOPRAZOLE 40 MG/10 ML VIAL IVP ONE (18:12)
[2019-01-22] MEDS ORDERED: ONDANSETRON 4 MG/2 ML VIAL IVP STA (18:13)
[2019-01-22] MEDS ORDERED: SODIUM CHLORIDE 0.9% 1,000 ML IV STA (18:14)
[2019-01-22] MEDS ORDERED: MORPHINE SULFATE 4 MG/ML SYRINGE IV STA (18:14)
[2019-01-22 18:54] LABS: Basophils % (A) 0 %; Eosinophils # (A) 0.2 k/uL (0-0.7); Eosinophils % (A) 2 %; HCT 38.5 % (34.0-46.0); HGB 11.7 gm/dL (11.4-16.0); Hypochromasia Moderate; Lymphocytes # (A) 1.7 k/uL (1.0-4.8); Lymphocytes % (A) 24 %; MCH 24.1 pg (25.0-35.0); MCHC 30.4 g/dL (31.0-37.0); MCV 79.4 fL (80.0-100.0); Mean Platelet Volume 7.4; Monocytes # (A) 0.3 k/uL (0-1.0); Monocytes % (A) 4 %; Neutrophils # (A) 5.1 k/uL (1.3-7.7); Neutrophils % (A) 69 %; Platelet Count 335 k/uL (150-450); RBC 4.85 m/uL (3.80-5.40); RDW 15.5 % (11.5-15.5); WBC 7.3 k/uL (3.8-10.6)
--- NOTE | 2019-01-22 19:34 | XR ---
EXAMINATION TYPE: XR chest 2V DATE OF EXAM: 01/22/2019 COMPARISON: 06/11/2015 HISTORY: Nausea and vomiting TECHNIQUE: Frontal and lateral views of the chest are obtained. FINDINGS: Heart and mediastinum are normal. Lungs are clear. Diaphragm is normal. Bony thorax is int act. IMPRESSION: Normal chest. No change.
[2019-01-22] MEDS ORDERED: ONDANSETRON 4 MG/2 ML VIAL IVP PRN (20:58)
[2019-01-22] MEDS ORDERED: NALOXONE 0.4 MG/ML 1 ML VIAL IV PRN (20:58)
--- NOTE | 2019-01-22 20:58 | ED ---
General Adult HPI - General Chief complaint: Nausea/Vomiting/Diarrhea Stated complaint: Vomiting Time Seen by Provider: 01/22/19 17:58 Source: patient, RN notes reviewed, old records reviewed Mode of arrival: wheelchair Limitations: no limitations - History of Present Illness Initial comments: 22-year-old female patient with past history of diabetes presents to ED with epigastric abdominal pain, nausea and vomiting. Patient states this is been ongoing for 2 days. Patient was seen in the emergency department earlier today at that time which displayed possible enteritis or cystitis. Patient is discharged with diagnosis of gastroenteritis. Patient returns to ER after getting to have nausea and vomiting at home and having 1 episode of hematemesis with bright red blood. Patient reports that she had a second episode of emesis that had blood streaks. Patient fourth that she has had emesis times without any blood in it. Patient went to the pain is in epigastric region. Patient denies any other complaints. Denies any chest pain shortness breath. Systemic: Pt denies fatigue, fever/chills, rash. Pt denies weakness, night sweats, weight loss. Neuro: Pt denies headache, visual disturbances, syncope or pre-syncope. HEENT: Pt denies ocular discharge or irritation, otalgia, rhinorrhea, pharyngitis or notable lymphadenopathy. Cardiopulmonary: Pt denies chest pain, SOB, heart palpitations, dyspnea on exertion. : Pt denies dysuria, burning w/ urination, frequency/urgency. Denies new onset urinary or bowel incontinence. MSK: Pt denies myalgia, loss of strength or function in extremities. Neuro: Pt denies new onset weakness, paresthesias. - Related Data Home Medications Medication Instructions Recorded Confirmed Insulin Glargine [Lantus] 37 unit SQ HS 12/29/13 01/22/19 INSULIN ASPART (NovoLOG) [NovoLOG 12 unit SQ AC-LUNCH 01/22/19 01/22/19 (formulary)] INSULIN ASPART (NovoLOG) [NovoLOG 26 unit SQ AC-SUPPER 01/22/19 01/22/19 (formulary)] INSULIN ASPART (NovoLOG) [NovoLOG 26 units SQ AC-BRKFST 01/22/19 01/22/19 (formulary)] Previous Rx's Medication Instructions Recorded Ondansetron Odt [Zofran Odt] 4 mg PO Q8HR PRN #10 tab 01/22/19 Allergies Allergy/AdvReac Type Severity Reaction Status Date / Time No Known Allergies Allergy Verified 01/22/19 17:57 Review of Systems ROS Statement: Those systems with pertinent positive or pertinent negative responses have been documented in the HPI. ROS Other: All systems not noted in ROS Statement are negative. Past Medical History Past Medical History: Diabetes Mellitus History of Any Multi-Drug Resistant Organisms: ESBL Date of last positivie culture/infection: 02/20/18 MDRO Source:: ESBL URINE Past Surgical History: No Surgical Hx Reported Past Psychological History: No Psychological Hx Reported Smoking Status: Never smoker Past Alcohol Use History: None Reported Past Drug Use History: None Reported General Exam - General Exam Comments Initial Comments: Constitutional: NAD, AOX3, Pt has pleasant affect. HEENT: NC/AT, trachea midline, neck supple, no lymphadenopathy. Posterior pharynx non erythematous, without exudates. External ears appear normal, without discharge. Mucous membranes moist. Eyes PERRLA, EOM intact. There is no scleral icterus. No pallor noted. Cardiopulmonary: RRR, no murmurs, rubs or gallops, no JVD noted. Lungs CTAB in anterior and posterior mosquera. No peripheral edema. Abdominal exam: Abdomen soft and non-distended. Abdomen mildly tender to palpation in epigastric region, no other areas of abdominal pain. No guarding no rigidity. Bowel sounds active in LLQ. No hepatosplenomegaly. No ecchymosis Neuro: CN II-XII grossly intact. No nuchal rigidity. No raccon eyes, no ovalle sign, no hemotympanum. No cervical spinal tenderness. MSK: No posterior calf tenderness bilaterally, homans sign negative bilaterally. Posterior tibialis and radial pulse +2 bilaterally. Sensation intact in upper an d lower extremities. Full active ROM in upper and lower extremities, 5/5 stregnth. Limitations: no limitations Course Vital Signs 01/22/19 17:36 Temperature 98.0 F Pulse Rate 80 Respiratory 18 Rate Blood Pressure 164/89 O2 Sat by Pulse 100 Oximetry Medical Decision Making - Medical Decision Making 22-year-old female patient with past history of diabetes presents to ED with epigastric abdominal pain, nausea and vomiting. Patient states this is been ongoing for 2 days. Patient was seen in the emergency department earlier today at that time which displayed possible enteritis or cystitis. Patient is discharged with diagnosis of gastroenteritis. Patient returns to ER after getting to have nausea and vomiting at home and having 1 episode of hematemesis with bright red blood. Patient reports that she had a second episode of emesis that had blood streaks. Patient fourth that she has had emesis times without any blood in it. Patient went to the pain is in epigastric region. Patient denies any other complaints. Denies any chest pain shortness breath. Patient vital signs stable, afebrile. Physical exam displayed: Abdomen soft and non- distended. Abdomen mildly tender to palpation in epigastric region, no other areas of abdominal pain. No guarding no rigidity. Laboratory nvestigations non-impressive. Urine hCG negative. Chest x-ray revealed no acute process. Patient be admitted for symptom control and GI consult. Patient started on Protonix. Case discussed with Dr. Healy. - Lab Data Result diagrams: 01/22/19 18:39 Lab Results 01/22/19 01/22/19 01/22/19 Range/Units 16:40 16:57 18:39 WBC 7.3 (3.8-10.6) k/uL RBC 4.85 (3.80-5.40) m/uL Hgb 11.7 (11.4-16.0) gm/dL Hct 38.5 (34.0-46.0) % MCV 79.4 L (80.0-100.0) fL MCH 24.1 L (25.0-35.0) pg MCHC 30.4 L (31.0-37.0) g/dL RDW 15.5 (11.5-15.5) % Plt Count 335 (150-450) k/uL Neutrophils % 69 % Lymphocytes % 24 % Monocytes % 4 % Eosinophils % 2 % Basophils % 0 % Neutrophils # 5.1 (1.3-7.7) k/uL Lymphocytes # 1.7 (1.0-4.8) k/uL Monocytes # 0.3 (0-1.0) k/uL Eosinophils # 0.2 (0-0.7) k/uL Basophils # 0.0 (0-0.2) k/uL Hypochromasia Moderate Urine HCG, Qual (Not Detectd) Blood Type B Positive Blood Type Confirm B Positive Blood Type Recheck CABO Indicated Antibody Screen NEGATIVE Spec Expiration Date 01/25/2019 - 233901/22/19 Range/Units 20:00 WBC (3.8-10.6) k/uL RBC (3.80-5.40) m/uL Hgb (11.4-16.0) gm/dL Hct (34.0-46.0) % MCV (80.0-100.0) fL MCH (25.0-35.0) pg MCHC (31.0-37.0) g/dL RDW (11.5-15.5) % Plt Count (150-450) k/uL Neutrophils % % Lymphocytes % % Monocytes % % Eosinophils % % Basophils % % Neutrophils # (1.3-7.7) k/uL Lymphocytes # (1.0-4.8) k/uL Monocytes # (0-1.0) k/uL Eosinophils # (0-0.7) k/uL Basophils # (0-0.2) k/uL Hypochromasia Urine HCG, Qual Not Detected (Not Detectd) Blood Type Blood Type Confirm Blood Type Recheck Antibody Screen Spec Expiration Date Disposition Clinical Impression: Gastritis Disposition: ADMITTED IP TO THIS [facility] Condition: Serious Is patient prescribed a controlled substance at d/c from ED?: No Referrals: Nay Rodriguez MD [Primary Care Provider] - 1-2 days
[2019-01-22 21:03] LABS: ALT 7 U/L (9-52); AST 28 U/L (14-36); Albumin 4.2 g/dL (3.5-5.0); Alkaline Phosphatase 102 U/L (38-126); Anion Gap 12 mmol/L; Blood Urea Nitrogen 9 mg/dL (7-17); Calcium 8.9 mg/dL (8.4-10.2); Carbon Dioxide 20 mmol/L (22-30); Chloride 106 mmol/L (98-107); Glucose 281 mg/dL (74-99); Potassium 4.8 mmol/L (3.5-5.1); Sodium 138 mmol/L (137-145); Total Bilirubin 1.1 mg/dL (0.2-1.3); Total Protein 7.8 g/dL (6.3-8.2)
[2019-01-22 23:11] VITALS: BMI 37.0
[2019-01-22] MEDS: SODIUM CHLORIDE 0.9% 1,000 ML IV SCH (23:13)
[2019-01-23] MEDS: MORPHINE SULFATE 4 MG/ML SYRINGE IV PRN ×2 (00:35→06:53)
[2019-01-23] MEDS: SODIUM CHLORIDE 0.9% 1,000 ML IV SCH ×2 (06:45→19:15)
[2019-01-23 06:47] LABS: Glucose,Whole Blood 228 mg/dL (75-99)
[2019-01-23] MEDS: INSULIN ASPART (NovoLOG) 100 UNIT/ML VIAL SQ SCH ×5 (06:56→21:10)
[2019-01-23] MEDS ORDERED: PANTOPRAZOLE 40 MG/10 ML VIAL IV SCH (09:00)
[2019-01-23] MEDS: HYDROcodone/APAP 5-325MG 1 EACH TAB PO PRN ×2 (12:00→22:44)
[2019-01-23 12:09] LABS: Glucose,Whole Blood 220 mg/dL (75-99)
--- NOTE | 2019-01-23 12:21 | P.CONS ---
History of Present Illness - Reason for Consult Consult date: 01/23/19 Epigastric pain nausea vomiting Requesting physician: Jesus Mcleod - Chief Complaint Epigastric pain nausea vomiting - History of Present Illness 23-year-old female with a history of insulin-dependent diabetes mellitus diagnosed at 14, occasional marijuana usage, presents with a three-day history of intractable epigastric pain nausea vomiting chills felt feverish and new onset of coffee-ground emesis. Patient was evaluated in the emergency room a few days ago and discharged. She returns with worsening epigastric pain new- onset of coffee-ground tinged emesis 1. No history of peptic ulcer disease. No aspirin and NSAIDs alcohol. No history of EGD. No diarrhea or constipation. Denies hematemesis or melena. Symptoms are improving since admission no further episodes of coffee-ground emesis. Requesting water. Pain is sharp localized to the epigastric region. Reports her blood glucose levels to be running higher than normal. Prior to onset of GI symptoms denies odynophagia dysphagia or heartburn. Hemoglobin last night 11.7. White count 7.3. Platelets 335. BUN 9. Creatinine 0.3. LFTs within normal limits. Acetone negative. Previous hemoglobin yesterday morning was 12.7. CT abdomen correlate for enteritis possible cystitis. Review of Systems Constitutional: Denies fever, chills, sweats, weight gain, or loss. HEENT: Negative for migraines, blurred vision or loss, earaches, drainage, tinnitus, oral mucosal lesions, dysphagia, or odynophagia. CARDIAC: Negative for chest pain, arrhythmias, or palpitation. RESPIRATORY: Negative for shortness of breath, hemoptysis, cough, or sputum production. GI: See HPI for pertinent findings. : Negative for hematuria, urgency, frequency, polyuria, or dysuria. GYNc: Denies possibility of . Negative vaginal discharge. MUSCULOSKELETAL: Negative for muscle aches, swelling, arthritis, and arthralgias. NEUROLOGIC: Negative for stroke or TIA. ENDOCRINE: Negative for thyroid problems. SKIN: Negative for rash or itching. PSYCHIATRIC: Negative history for depression and anxiety Past Medical History Past Medical History: Diabetes Mellitus History of Any Multi-Drug Resistant Organisms: ESBL Year Discovered:: 02/20/18 MDRO Source:: ESBL URINE Past Surgical History: No Surgical Hx Reported Past Psychological History: No Psychological Hx Reported Smoking Status: Never smoker Past Alcohol Use History: None Reported Past Drug Use History: None Reported - Past Family History Sister(s) Family Medical History: Thyroid Disorder Medications and Allergies Home Medications Medication Instructions Recorded Confirmed Type Insulin Glargine [Lantus] 37 unit SQ HS 12/29/13 01/22/19 History INSULIN ASPART (NovoLOG) [NovoLOG 12 unit SQ AC-LUNCH 01/22/19 01/22/19 History (formulary)] INSULIN ASPART (NovoLOG) [NovoLOG 26 unit SQ AC-SUPPER 01/22/19 01/22/19 History (formulary)] INSULIN ASPART (NovoLOG) [NovoLOG 26 units SQ AC-BRKFST 01/22/19 01/22/19 History (formulary)] Ondansetron Odt [Zofran Odt] 4 mg PO Q8HR PRN #10 tab 01/22/19 01/22/19 Rx Allergies Allergy/AdvReac Type Severity Reaction Status Date / Time No Known Allergies Allergy Verified 01/22/19 23:33 Physical Exam Vitals: Vital Signs Temp Pulse Pulse Resp BP BP Pulse Ox 01/23/19 08:17 98.3 F 84 20 115/75 97 01/23/19 07:00 98.2 F 80 16 111/67 96 01/22/19 23:51 75 16 01/22/19 23:00 98 F 75 16 129/83 98 01/22/19 21:00 79 18 117/71 100 01/22/19 20:35 98 F 75 16 129/83 98 01/22/19 17:36 98.0 F 80 18 164/89 100 Intake and Output 01/22/19 01/23/19 01/23/19 22:59 06:59 14:59 Other: Voiding Method Toilet # Voids 1 1 Weight 94.801 kg General appearance: The patient is alert, oriented, in no acute distress. HET: Head is normocephalic and atraumatic. Pupils are equal and reactive. Oropharynx is clear without lesions. Neck: Supple without lymphadenopathy. Trachea midline. Heart: S1 S2. Regular rate and rhythm. Lungs: No crackles or wheezes are heard. Abdomen: Soft, mild midepigastric tenderness, nondistended with bowel sounds. No peritoneal signs. No palpable organomegaly or masses. Extremities: Normal skin color and turgor. No cyanosis, rash, ulceration, clu bbing, or edema. Radial and pedal pulses are 2/4 bilaterally. Neurological: No focal deficits. Strength and sensation are grossly intact. Results CBC & Chem 7: 01/22/19 18:39 01/22/19 18:39 Labs: Abnormal Lab Results - Last 24 Hours (Table) 01/22/19 01/22/19 01/23/19 Range/Units 18:39 18:39 06:46 MCV 79.4 L (80.0-100.0) fL MCH 24.1 L (25.0-35.0) pg MCHC 30.4 L (31.0-37.0) g/dL Carbon Dioxide 20 L (22-30) mmol/L Creatinine 0.35 L (0.52-1.04) mg/dL Glucose 281 H (74-99) mg/dL POC Glucose (mg/dL) 228 H (75-99) mg/dL ALT 7 L (9-52) U/L 01/23/19 Range/Units 12:05 MCV (80.0-100.0) fL MCH (25.0-35.0) pg MCHC (31.0-37.0) g/dL Carbon Dioxide (22-30) mmol/L Creatinine (0.52-1.04) mg/dL Glucose (74-99) mg/dL POC Glucose (mg/dL) 220 H (75-99) mg/dL ALT (9-52) U/L CT scan - abdomen: report reviewed (Dr. Baires) Assessment and Plan (1) Epigastric abdominal pain Narrative/Plan: 23-year-old female underlying history of juvenile insulin dependent diabetes mellitus presents with a three-day history of epigastric pain nausea vomiting with isolated episode of coffee-ground emesis possible Nuvia-Mcpherson tear, CT abdomen reported features of enteritis suspect underlying gastroenteritis possible gastritis esophagitis duodenitis. Current Visit: Yes Status: Acute Code(s): R10.13 - EPIGASTRIC PAIN SNOMED Code(s): 24428289 (2) Insulin dependent diabetes mellitus Current Visit: Yes Status: Acute Code(s): E11.9 - TYPE 2 DIABETES MELLITUS WITHOUT COMPLICATIONS; Z79.4 - HALFWAY (CURRENT) USE OF INSULIN SNOMED Code(s): 78428095 Plan: 1. Symptomatically she is improving no further episodes of coffee-ground emesis, abdominal pain improving. No episodes of melena or hematochezia. Patient is requesting diet advancement. 2. Will allow clear liquid diet. Protonix 40 mg twice daily. Zofran 4 mg every 6 hours. The patient does not clinically improve inpatient EGD was discussed with reevaluate in a.m. Continue with synthetic supportive measures. Glycemic control. Thank you for this kind referral and the opportunity to participate in the care of your patient. This consultation was discussed with Dr. Baires. The impression and plan of care have been directed as dictated.
[2019-01-23] MEDS: ONDANSETRON 4 MG/2 ML VIAL IVP SCH ×2 (13:23→20:10)
--- NOTE | 2019-01-23 13:24 | P.HPIM ---
History of Present Illness Patient is a pleasant 23-year-old female with the insulin-dependent diabetes mellitus, marijuana usage came in with comments of nausea vomiting epigastric abdominal burning sensation with coffee-ground emesis patient came to ER was s ubsequently discharged came back again because of coffee-ground emesis. Patient was comparing of diffuse moderate amount of abdominal pain she cannot really dated from 1-10 no NSAID use. Patient denied any diarrhea, melena or hematochezia. Review of Systems REVIEW OF SYSTEMS: CONSTITUTIONAL: No fever, no malaise, no fatigue. HEENT: No recent visual problems or hearing problems. Denied any sore throat. CARDIOVASCULAR: No chest pain, orthopnea, PND, no palpitations, no syncope. PULMONARY: No shortness of breath, no cough, no hemoptysis. GASTROINTESTINAL: As mentioned in HPI NEUROLOGICAL: No headaches, no weakness, no numbness. HEMATOLOGICAL: Denies any bleeding or petechiae. GENITOURINARY: Denies any burning micturition, frequency, or urgency. MUSCULOSKELETAL/RHEUMATOLOGICAL: Denies any joint pain, swelling, or any muscle pain. ENDOCRINE: Denies any polyuria or polydipsia. The rest of the 14-point review of systems is negative. Past Medical History Past Medical History: Diabetes Mellitus History of Any Multi-Drug Resistant Organisms: ESBL Date of last positivie culture/infection: 02/20/18 MDRO Source:: ESBL URINE Past Surgical History: No Surgical Hx Reported Past Psychological History: No Psychological Hx Reported Smoking Status: Never smoker Past Alcohol Use History: None Reported Past Drug Use History: None Reported - Past Family History Sister(s) Family Medical History: Thyroid Disorder Medications and Allergies Home Medications Medication Instructions Recorded Confirmed Type Insulin Glargine [Lantus] 37 unit SQ HS 12/29/13 01/22/19 History INSULIN ASPART (NovoLOG) [NovoLOG 12 unit SQ AC-LUNCH 01/22/19 01/22/19 History (formulary)] INSULIN ASPART (NovoLOG) [NovoLOG 26 unit SQ AC-SUPPER 01/22/19 01/22/19 History (formulary)] INSULIN ASPART (NovoLOG) [NovoLOG 26 units SQ AC-BRKFST 01/22/19 01/22/19 History (formulary)] Ondansetron Odt [Zofran Odt] 4 mg PO Q8HR PRN #10 tab 01/22/19 01/22/19 Rx Allergies Allergy/AdvReac Type Severity Reaction Status Date / Time No Known Allergies Allergy Verified 01/22/19 23:33 Physical Exam Vitals: Vital Signs Temp Pulse Pulse Resp BP BP Pulse Ox 01/23/19 11:58 98.2 F 73 20 114/73 96 01/23/19 08:17 98.3 F 84 20 115/75 97 01/23/19 07:00 98.2 F 80 16 111/67 96 01/22/19 23:51 75 16 01/22/19 23:00 98 F 75 16 129/83 98 01/22/19 21:00 79 18 117/71 100 01/22/19 20:35 98 F 75 16 129/83 98 01/22/19 17:36 98.0 F 80 18 164/89 100 Intake and Output 01/22/19 01/23/19 01/23/19 22:59 06:59 14:59 Other: Voiding Method Toilet # Voids 1 1 Weight 94.801 kg PHYSICAL EXAMINATION: GENERAL: The patient is alert and oriented x3, not in any acute distress. Well developed, well nourished. HEENT: Pupils are round and equally reacting to light. EOMI. No scleral icterus. No conjunctival pallor. Normocephalic, atraumatic. No pharyngeal erythema. No thyromegaly. CARDIOVASCULAR: S1 and S2 present. No murmurs, rubs, or gallops. PULMONARY: Chest is clear to auscultation, no wheezing or crackles. ABDOMEN: Soft, very minimal diffuse tenderness, nondistended, normoactive bowel sounds. No palpable organomegaly. MUSCULOSKELETAL: No joint swelling or deformity. EXTREMITIES: No cyanosis, clubbing, or pedal edema. NEUROLOGICAL: Gross neurological examination did not reveal any focal deficits. SKIN: No rashes. Results CBC & Chem 7: 01/22/19 18:39 01/22/19 18:39 Labs: Abnormal Lab Results - Last 24 Hours (Table) 01/22/19 01/22/19 01/23/19 Range/Units 18:39 18:39 06:46 MCV 79.4 L (80.0-100.0) fL MCH 24.1 L (25.0-35.0) pg MCHC 30.4 L (31.0-37.0) g/dL Carbon Dioxide 20 L (22-30) mmol/L Creatinine 0.35 L (0.52-1.04) mg/dL Glucose 281 H (74-99) mg/dL POC Glucose (mg/dL) 228 H (75-99) mg/dL ALT 7 L (9-52) U/L 01/23/19 Range/Units 12:05 MCV (80.0-100.0) fL MCH (25.0-35.0) pg MCHC (31.0-37.0) g/dL Carbon Dioxide (22-30) mmol/L Creatinine (0.52-1.04) mg/dL Glucose (74-99) mg/dL POC Glucose (mg/dL) 220 H (75-99) mg/dL ALT (9-52) U/L Thrombosis Risk Factor Assmnt - Choose All That Apply Any of the Below Risk Factors Present?: Yes Each Factor Represents 1 point: Obesity (BMI >25) Other Risk Factors: No Other congenital or acquired thrombophilia - If yes, enter type in comment: No Thrombosis Risk Factor Assessment Total Risk Factor Score: 1 Thrombosis Risk Factor Assessment Level: Low Risk Assessment and Plan Plan: -Abdominal pain nausea vomiting: Probably viral gastroenteritis or gastritis along with hematemesis probably related to Nuvia-Mcpherson tear. Patient will c ontinue on Protonix. Will use [place] and Tylenol for pain. A she was started on diet advance as tolerated. -type 1 diabetes mellitus with elevated blood sugars now patient the diet will be bit different now since nausea and vomiting because of which I'll cut down pre-meal insulin to 12 units 3 times a day before meals and the 30 units at bedtime. Patient can does urine her regular regimen upon discharge. -Marijuana use: Counseling was provided DVT prophylaxis early ambulation
[2019-01-23 16:29] LABS: Appearance,Urine Cloudy (Clear); Bilirubin,Urine Negative (Negative); Blood,Urine Large (Negative); Color,Urine Light Red; Glucose,Urine (UA) 3+ (Negative); Leukocyte Esterase,Urine Moderate (Negative); Mucus,Urine Many /hpf; Nitrite,Urine Negative (Negative); Protein,Urine 1+ (Negative); RBC,Urine >182 /hpf (0-5); Specific Gravity,Urine 1.025 (1.001-1.035); Squamous Epithelial Cell,Urine 7 /hpf (0-4); Urobilinogen,Urine <2.0 mg/dL (<2.0); WBC,Urine 6 /hpf (0-5)
[2019-01-23 16:38] LABS: Ketones,Urine 2+ (Negative)
[2019-01-23] MEDS ORDERED: MORPHINE SULFATE 4 MG/ML SYRINGE IVP PRN (16:43)
[2019-01-23 17:49] LABS: Glucose,Whole Blood 170 mg/dL (75-99)
[2019-01-23 19:43] LABS: Glucose,Whole Blood 121 mg/dL (75-99)
[2019-01-23 20:59] LABS: Glucose,Whole Blood 116 mg/dL (75-99)
[2019-01-23] MEDS ORDERED: INSULIN DETEMIR (LEVEMIR) 100 UNIT/ML SYR SQ SCH (21:00)
[2019-01-23] MEDS: PANTOPRAZOLE 40 MG/10 ML VIAL IV SCH (21:10)
[2019-01-24] MEDS: ONDANSETRON 4 MG/2 ML VIAL IVP SCH ×2 (03:02→08:06)
[2019-01-24] MEDS: SODIUM CHLORIDE 0.9% 1,000 ML IV SCH (03:02)
[2019-01-24 07:07] LABS: Glucose,Whole Blood 95 mg/dL (75-99)
[2019-01-24] MEDS: PANTOPRAZOLE 40 MG/10 ML VIAL IV SCH (08:04)
[2019-01-24] MEDS: INSULIN ASPART (NovoLOG) 100 UNIT/ML VIAL SQ SCH ×2 (08:18)
--- NOTE | 2019-01-24 09:11 | P.PN ---
Subjective Progress Note Date: 01/24/19 Principal diagnosis: Gastroenteritis nausea vomiting epigastric pain Feeling better. No emesis. Pain improved. Tolerating advance diet. Afebrile. Objective - Vital Signs Vital signs: Vital Signs Temp 98.2 F 01/23/19 23:35 Pulse 83 01/23/19 23:35 Resp 16 01/23/19 23:35 BP 120/74 01/23/19 23:35 Pulse Ox 98 01/23/19 23:35 Intake & Output 01/23/19 01/24/19 01/24/19 18:59 06:59 18:59 Other: Voiding Method Toilet Toilet # Voids 2 1 - Exam General appearance: The patient is alert, oriented, in no acute distress. HET: Head is normocephalic and atraumatic. Pupils are equal and reactive. Oropharynx is clear without lesions. Neck: Supple without lymphadenopathy. Trachea midline. Heart: S1 S2. Regular rate and rhythm. Lungs: No crackles or wheezes are heard. Abdomen: Soft, mild midepigastric tenderness, nondistended with bowel sounds. No peritoneal signs. No palpable organomegaly or masses. Extremities: Normal skin color and turgor. No cyanosis, rash, ulceration, clubbing, or edema. Radial and pedal pulses are 2/4 bilaterally. Neurological: No focal deficits. Strength and sensation are grossly intact. - Labs CBC & Chem 7: 01/22/19 18:39 01/22/19 18:39 Labs: Abnormal Lab Results - Last 24 Hours (Table) 01/23/19 01/23/19 01/23/19 Range/Units 12:05 16:20 17:46 POC Glucose (mg/dL) 220 H 170 H (75-99) mg/dL Urine Appearance Cloudy H (Clear) Urine Protein 1+ H (Negative) Urine Glucose (UA) 3+ H (Negative) Urine Ketones 2+ H (Negative) Urine Blood Large H (Negative) Ur Leukocyte Esterase Moderate H (Negative) Urine RBC >182 H (0-5) /hpf Urine WBC 6 H (0-5) /hpf Ur Squamous Epith Cells 7 H (0-4) /hpf Urine Mucus Many H (None) /hpf 01/23/19 01/23/19 Range/Units 19:41 20:47 POC Glucose (mg/dL) 121 H 116 H (75-99) mg/dL Urine Appearance (Clear) Urine Protein (Negative) Urine Glucose (UA) (Negative) Urine Ketones (Negative) Urine Blood (Negative) Ur Leukocyte Esterase (Negative) Urine RBC (0-5) /hpf Urine WBC (0-5) /hpf Ur Squamous Epith Cells (0-4) /hpf Urine Mucus (None) /hpf Assessment and Plan (1) Epigastric abdominal pain Narrative/Plan: 23-year-old female underlying history of juvenile insulin dependent diabetes mellitus presents with a three-day history of epigastric pain nausea vomiting with isolated episode of coffee-ground emesis possible Nuvia-Mcpherson tear, CT abdomen reported features of enteritis suspect underlying gastroenteritis possible gastritis esophagitis duodenitis. Current Visit: Yes Status: Acute Code(s): R10.13 - EPIGASTRIC PAIN SNOMED Code(s): 04741129 (2) Insulin dependent diabetes mellitus Current Visit: Yes Status: Acute Code(s): E11.9 - TYPE 2 DIABETES MELLITUS WITHOUT COMPLICATIONS; Z79.4 - DETENTION (CURRENT) USE OF INSULIN SNOMED Code(s): 68145340 Plan: 1. Symptomatically she is improving no further episodes of coffee-ground emesis, abdominal pain improving. Agreeable for discharge. [place] diet for the next 2-3 days. We'll discharge with Protonix and Zofran. Follow-up in office in 2-3 weeks for reevaluation. Assessment and plan a care discussed with Dr. Condon
[2019-01-24 12:00] LABS: Glucose,Whole Blood 127 mg/dL (75-99)
--- NOTE | 2019-01-24 13:16 | P.DS ---
Providers Date of admission: 01/23/19 14:13 Attending physician: Jesus Mcleod Consults: 01/22/19 20:58 Consult Physician Stat Consulting Provider: Norman Zavala Consult Reason/Comments: gastritis Do you want consulting provider notified?: Yes Primary care physician: Jennifer Tee [facility] Course: Patient was admitted for nausea vomiting secondary to viral gastroenteritis leading to possible focal Nuvia Fernando tear or peptic ulcer disease. Patient has little bit of nausea coffee-ground emesis resolved patient is cleared from gastroenterology perspective patient will follow up with gastroenterology as an outpatient. Patient is being discharged on Zofran and Protonix. PHYSICAL EXAMINATION: GENERAL: The patient is alert and oriented x3, not in any acute distress. Well developed, well nourished. HEENT: Pupils are round and equally reacting to light. EOMI. No scleral icterus. No conjunctival pallor. Normocephalic, atraumatic. No pharyngeal erythema. No thyromegaly. CARDIOVASCULAR: S1 and S2 present. No murmurs, rubs, or gallops. PULMONARY: Chest is clear to auscultation, no wheezing or crackles. ABDOMEN: Soft, nontender, nondistended, normoactive bowel sounds. No palpable organomegaly. MUSCULOSKELETAL: No joint swelling or deformity. EXTREMITIES: No cyanosis, clubbing, or pedal edema. NEUROLOGICAL: Gross neurological examination did not reveal any focal deficits. SKIN: No rashes. The rest of the chronic medical problems and has physician course please refer to my HPI from yesterday Patient Condition at Discharge: Serious Plan - Discharge Summary Discharge Rx Participant: Yes New Discharge Prescriptions: New Pantoprazole [Protonix] 40 mg PO DAILY #30 tablet. Ondansetron [Zofran] 4 mg PO Q8HR PRN #15 tab PRN Reason: Nausea No Action Insulin Glargine [Lantus] 37 unit SQ HS INSULIN ASPART (NovoLOG) [NovoLOG (formulary)] 12 unit SQ AC-LUNCH INSULIN ASPART (NovoLOG) [NovoLOG (formulary)] 26 units SQ AC-BRKFST INSULIN ASPART (NovoLOG) [NovoLOG (formulary)] 26 unit SQ AC-SUPPER Ondansetron Odt [Zofran Odt] 4 mg PO Q8HR PRN #10 tab PRN Reason: Nausea Discharge Medication List Insulin Glargine [Lantus] 37 unit SQ HS 12/29/13 [History] INSULIN ASPART (NovoLOG) [NovoLOG (formulary)] 12 unit SQ AC-LUNCH 01/22/19 [History] INSULIN ASPART (NovoLOG) [NovoLOG (formulary)] 26 unit SQ AC-SUPPER 01/22/19 [History] INSULIN ASPART (NovoLOG) [NovoLOG (formulary)] 26 units SQ AC-BRKFST 01/22/19 [H istory] Ondansetron Odt [Zofran Odt] 4 mg PO Q8HR PRN #10 tab 01/22/19 [Rx] Ondansetron [Zofran] 4 mg PO Q8HR PRN #15 tab 01/24/19 [Rx] Pantoprazole [Protonix] 40 mg PO DAILY #30 tablet. 01/24/19 [Rx] Follow up Appointment(s)/Referral(s): Nay Rodriguez MD [Primary Care Provider] - 3 Days (TuesdayJanuary 29 1:50) Makeda Maurer PAC [REFERRING] - 02/20/19 1:15 pm Activity/Diet/Wound Care/Special Instructions: FOLLOW UP DIRECTED AND TAKE MEDS ADVISED. FOLLOW UP SOONER OR RETURN TO ER FOR WORSENING PROBLEMS OR CONCERNS. Discharge Disposition: HOME SELF-CARE
[2019-01-24 13:21] VITALS: BP 129/81; PULSE 70; RESP 20; TEMP 98.2
== END 2019-01-24 12:31 | disposition home or self-care (01) | DRG 391 ==
LOC: EC 17:20 → 6PED 20:35 → OBSVTOIN 01-23 14:13
PROVIDERS: ADMIT Hospitalist; ATTEND Hospitalist
DX: A08.4 Viral intestinal infection, unspecified (principal); K22.6 Gastro-esophageal laceration-hemorrhage syndrome; K27.4 Chronic or unspecified peptic ulcer, site unspecified, with hemorrhage; E10.65 Type 1 diabetes mellitus with hyperglycemia; F12.90 Cannabis use, unspecified, uncomplicated; Z71.51 Drug abuse counseling and surveillance of drug abuser; Z79.4 Long term (current) use of insulin
CPT/HCPCS: 36415; 71046; 80053; 81001; 81025; 82009; 85025; 86850; 86900; 86901; 96361; 96374; 96375; 99285

== ENCOUNTER 2019-02-20 01:24 | Emergency (ER) | payer BC ==
[2019-02-20 01:44] VITALS: RESP 18
[2019-02-20 02:48] VITALS: TEMP 97.6
[2019-02-20] MEDS ORDERED: ONDANSETRON ODT 4 MG TAB PO STA (03:54)
[2019-02-20] MEDS ORDERED: ONDANSETRON 4 MG ODT STARTER PACK 2 TAB BTL PO STA (03:54)
--- NOTE | 2019-02-20 04:09 | ED ---
General Adult HPI - General Chief complaint: Nausea/Vomiting/Diarrhea Stated complaint: Nausea/Chills/Abd Pain Time Seen by Provider: 02/20/19 02:15 Source: patient, RN notes reviewed, old records reviewed Mode of arrival: ambulatory Limitations: no limitations - History of Present Illness Initial comments: 23-year-old female patient passed no history of diabetes, gastritis parents to ED with nausea vomiting bodyaches, fevers and chills. Patient reports that this has been ongoing since today. Patient denies any abdominal pain. Patient denies any cough or congestion. Denies any chest pain shortness breath. Denies any other complaints at this time. Systemic: Pt denies fatigue, rash. Pt denies weakness, night sweats, weight loss. Neuro: Pt denies headache, visual disturbances, syncope or pre-syncope. HEENT: Pt denies ocular discharge or irritation, otalgia, rhinorrhea, pharyngitis or notable lymphadenopathy. Cardiopulmonary: Pt denies chest pain, SOB, heart palpitations, dyspnea on exertion. Abdominal/GI: Pt denies abdominal pain. : Pt denies dysuria, burning w/ urination, frequency/urgency. Denies new onset urinary or bowel incontinence. MSK: Pt denies myalgia, loss of strength or function in extremities. Neuro: Pt denies new onset weakness, paresthesias. - Related Data Home Medications Medication Instructions Recorded Confirmed Insulin Glargine [Lantus] 37 unit SQ HS 12/29/13 01/22/19 INSULIN ASPART (NovoLOG) [NovoLOG 12 unit SQ AC-LUNCH 01/22/19 01/22/19 (formulary)] INSULIN ASPART (NovoLOG) [NovoLOG 26 unit SQ AC-SUPPER 01/22/19 01/22/19 (formulary)] INSULIN ASPART (NovoLOG) [NovoLOG 26 units SQ AC-BRKFST 01/22/19 01/22/19 (formulary)] Previous Rx's Medication Instructions Recorded Ondansetron Odt [Zofran Odt] 4 mg PO Q8HR PRN #10 tab 01/22/19 Ondansetron [Zofran] 4 mg PO Q8HR PRN #15 tab 01/24/19 Pantoprazole [Protonix] 40 mg PO DAILY #30 tablet. 01/24/19 Allergies Allergy/AdvReac Type Severity Reaction Status Date / Time No Known Allergies Allergy Verified 02/20/19 01:44 Review of Systems ROS Statement: Those systems with pertinent positive or pertinent negative responses have been documented in the HPI. ROS Other: All systems not noted in ROS Statement are negative. Past Medical History Past Medical History: Diabetes Mellitus History of Any Multi-Drug Resistant Organisms: ESBL Date of last positivie culture/infection: 02/20/18 MDRO Source:: ESBL URINE Past Surgical History: No Surgical Hx Reported Past Psychological History: No Psychological Hx Reported Smoking Status: Never smoker Past Alcohol Use History: None Reported Past Drug Use History: None Reported - Past Family History Sister(s) Family Medical History: Thyroid Disorder General Exam - General Exam Comments Initial Comments: Constitutional: NAD, AOX3, Pt has pleasant affect. HEENT: NC/AT, trachea midline, neck supple, no lymphadenopathy. Posterior pharynx non erythematous, without exudates. External ears appear normal, without discharge. Mucous membranes moist. Eyes PERRLA, EOM intact. There is no scleral icterus. No pallor noted. Cardiopulmonary: RRR, no murmurs, rubs or gallops, no JVD noted. Lungs CTAB in anterior and posterior mosquera. No peripheral edema. Abdominal exam: Abdomen soft and non-distended. Abdomen non-tender to palpation in all 4 quadrants. Bowel sounds active in LLQ. No hepatosplenomegaly. No ecchymosis Neuro: CN II-XII grossly intact. No nuchal rigidity. No raccon eyes, no ovalle sign, no hemotympanum. No cervical spinal tenderness. MSK: No posterior calf tenderness bilaterally, homans sign negative bilaterally. Posterior tibialis and radial pulse +2 bilaterally. Sensation intact in upper and lower extremities. Full active ROM in upper and lower extremities, 5/5 stregnth. Limitations: no limitations Course Vital Signs 02/20/19 02/20/19 02/20/19 01:42 01:44 03:00 Temperature 98.8 F 97.6 F Pulse Rate 94 92 Respiratory 18 Rate Blood Pressure 144/80 146/81 O2 Sat by Pulse 97 98 Oximetry Medical Decision Making - Medical Decision Making 23-year-old female patient passed no history of diabetes, gastritis parents to ED with nausea vomiting bodyaches, fevers and chills. Patient reports that this has been ongoing since today. Patient denies any abdominal pain. Patient denies any cough or congestion. Denies any chest pain shortness breath. Denies any other complaints at this time. Patient also in stable, nonfebrile. Physical exam did not display acute pathology. Abdomen soft and nontender. Patient signed out with laboratory investigations and imaging pending to attending physician Dr. Arana. - Lab Data Result diagrams: 02/20/19 03:51 02/20/19 03:51 Lab Results 02/20/19 02/20/19 02/20/19 Range/Units 03:01 03:51 03:51 WBC 8.0 (3.8-10.6) k/uL RBC 5.28 (3.80-5.40) m/uL Hgb 13.1 (11.4-16.0) gm/dL Hct 41.1 (34.0-46.0) % MCV 77.8 L (80.0-100.0) fL MCH 24.9 L (25.0-35.0) pg MCHC 32.0 (31.0-37.0) g/dL RDW 14.3 (11.5-15.5) % Plt Count 332 (150-450) k/uL Neutrophils % 78 % Lymphocytes % 18 % Monocytes % 2 % Eosinophils % 1 % Basophils % 0 % Neutrophils # 6.2 (1.3-7.7) k/uL Lymphocytes # 1.4 (1.0-4.8) k/uL Monocytes # 0.2 (0-1.0) k/uL Eosinophils # 0.0 (0-0.7) k/uL Basophils # 0.0 (0-0.2) k/uL Sodium 138 (137-145) mmol/L Potassium 5.1 (3.5-5.1) mmol/L Chloride 102 (98-107) mmol/L Carbon Dioxide 21 L (22-30) mmol/L Anion Gap 15 mmol/L BUN 9 (7-17) mg/dL Creatinine 0.27 L (0.52-1.04) mg/dL Est GFR (CKD-EPI)AfAm >90 (>60 ml/min/1.73 sqM) Est GFR (CKD-EPI)NonAf >90 (>60 ml/min/1.73 sqM) Glucose 351 H (74-99) mg/dL Calcium 9.5 (8.4-10.2) mg/dL Total Bilirubin 0.7 (0.2-1.3) mg/dL AST 23 (14-36) U/L ALT 14 (9-52) U/L Alkaline Phosphatase 109 (38-126) U/L Total Protein 8.5 H (6.3-8.2) g/dL Albumin 4.7 (3.5-5.0) g/dL HCG, Qual Not Detected Urine Color Light Red Urine Appearance Cloudy H (Clear) Urine pH 8.0 (5.0-8.0) Ur Specific [place] 1.031 (1.001-1.035) Urine Protein 1+ H (Negative) Urine Glucose (UA) 4+ H (Negative) Urine Ketones 4+ H (Negative) Urine Blood Large H (Negative) Urine Nitrite Negative (Negative) Urine Bilirubin Negative (Negative) Urine Urobilinogen <2.0 (<2.0) mg/dL Ur Leukocyte Esterase Large H (Negative) Urine RBC >182 H (0-5) /hpf Urine WBC 15 H (0-5) /hpf Ur Squamous Epith Cells 4 (0-4) /hpf Urine Bacteria Rare H (None) /hpf Influenza Type A RNA (Not Detectd) Influenza Type B (PCR) (Not Detectd) 02/20/19 Range/Units 03:51 WBC (3.8-10.6) k/uL RBC (3.80-5.40) m/uL Hgb (11.4-16.0) gm/dL Hct (34.0-46.0) % MCV (80.0-100.0) fL MCH (25.0-35.0) pg MCHC (31.0-37.0) g/dL RDW (11.5-15.5) % Plt Count (150-450) k/uL Neutrophils % % Lymphocytes % % Monocytes % % Eosinophils % % Basophils % % Neutrophils # (1.3-7.7) k/uL Lymphocytes # (1.0-4.8) k/uL Monocytes # (0-1.0) k/uL Eosinophils # (0-0.7) k/uL Basophils # (0-0.2) k/uL Sodium (137-145) mmol/L Potassium (3.5-5.1) mmol/L Chloride (98-107) mmol/L Carbon Dioxide (22-30) mmol/L Anion Gap mmol/L BUN (7-17) mg/dL Creatinine (0.52-1.04) mg/dL Est GFR (CKD-EPI)AfAm (>60 ml/min/1.73 sqM) Est GFR (CKD-EPI)NonAf (>60 ml/min/1.73 sqM) Glucose (74-99) mg/dL Calcium (8.4-10.2) mg/dL Total Bilirubin (0.2-1.3) mg/dL AST (14-36) U/L ALT (9-52) U/L Alkaline Phosphatase (38-126) U/L Total Protein (6.3-8.2) g/dL Albumin (3.5-5.0) g/dL HCG, Qual Urine Color Urine Appearance (Clear) Urine pH (5.0-8.0) Ur Specific [place] (1.001-1.035) Urine Protein (Negative) Urine Glucose (UA) (Negative) Urine Ketones (Negative) Urine Blood (Negative) Urine Nitrite (Negative) Urine Bilirubin (Negative) Urine Urobilinogen (<2.0) mg/dL Ur Leukocyte Esterase (Negative) Urine RBC (0-5) /hpf Urine WBC (0-5) /hpf Ur Squamous Epith Cells (0-4) /hpf Urine Bacteria (None) /hpf Influenza Type A RNA Not Detected (Not Detectd) Influenza Type B (PCR) Not Detected (Not Detectd) Disposition Clinical Impression: Gastritis Disposition: HOME SELF-CARE Condition: Good Instructions (If sedation given, give patient instructions): Gastritis (ED) Is patient prescribed a controlled substance at d/c from ED?: No Referrals: Nay Rodriguez MD [Primary Care Provider] - 1-2 days
[2019-02-20 04:17] LABS: HCG,Qualitative Serum Not Detected
[2019-02-20 04:22] LABS: African American GFR (CKD) >90 (>60 ml/min/1.73 sqM); Albumin 4.7 g/dL (3.5-5.0); Anion Gap 15 mmol/L; Blood Urea Nitrogen 9 mg/dL (7-17); Calcium 9.5 mg/dL (8.4-10.2); Carbon Dioxide 21 mmol/L (22-30); Chloride 102 mmol/L (98-107); Glucose 351 mg/dL (74-99); Sodium 138 mmol/L (137-145); Total Bilirubin 0.7 mg/dL (0.2-1.3); Total Protein 8.5 g/dL (6.3-8.2)
[2019-02-20 04:27] LABS: ALT 14 U/L (9-52); AST 23 U/L (14-36); Alkaline Phosphatase 109 U/L (38-126); Potassium 5.1 mmol/L (3.5-5.1)
[2019-02-20 04:29] LABS: Basophils % (A) 0 %; Eosinophils % (A) 1 %; HCT 41.1 % (34.0-46.0); HGB 13.1 gm/dL (11.4-16.0); Lymphocytes # (A) 1.4 k/uL (1.0-4.8); Lymphocytes % (A) 18 %; MCH 24.9 pg (25.0-35.0); MCV 77.8 fL (80.0-100.0); Mean Platelet Volume 8.7; Monocytes # (A) 0.2 k/uL (0-1.0); Monocytes % (A) 2 %; Neutrophils # (A) 6.2 k/uL (1.3-7.7); Neutrophils % (A) 78 %; Platelet Count 332 k/uL (150-450); RBC 5.28 m/uL (3.80-5.40); RDW 14.3 % (11.5-15.5)
[2019-02-20 04:32] LABS: Appearance,Urine Cloudy (Clear); Bacteria,Urine Rare /hpf; Bilirubin,Urine Negative (Negative); Blood,Urine Large (Negative); Color,Urine Light Red; Glucose,Urine (UA) 4+ (Negative); Leukocyte Esterase,Urine Large (Negative); Nitrite,Urine Negative (Negative); Protein,Urine 1+ (Negative); RBC,Urine >182 /hpf (0-5); Specific Gravity,Urine 1.031 (1.001-1.035); Squamous Epithelial Cell,Urine 4 /hpf (0-4); Urobilinogen,Urine <2.0 mg/dL (<2.0); WBC,Urine 15 /hpf (0-5)
[2019-02-20 04:44] LABS: Ketones,Urine 4+ (Negative)
[2019-02-20] MEDS ORDERED: INSULIN ASPART (NovoLOG) 100 UNIT/ML VIAL SQ ONE (04:51)
[2019-02-20] MEDS ORDERED: METOCLOPRAMIDE 5 MG/ML 2 ML VIAL IVP STA (04:53)
[2019-02-20] MEDS ORDERED: diphenhydrAMINE 50 MG/ML 1 ML VIAL IVP STA (04:53)
[2019-02-20] MEDS ORDERED: PANTOPRAZOLE 40 MG/10 ML VIAL IVP STA (04:55)
--- NOTE | 2019-02-20 06:03 | XR ---
EXAM: XR Chest, 2 Views CLINICAL HISTORY: ITS.REASON XR Reason: Pain TECHNIQUE: Frontal and lateral views of the chest. COMPARISON: Chest radiograph on 01/22/2019 FINDINGS: Hardware: None. Lungs/pleura: Mild bibasilar atelectasis. No focal consolidation. No pleural effusion or pneumothorax. Heart/mediastinum: Normal. No cardiomegaly. Soft tissues: Unremarkable. Bones: No acute fracture. Upper abdomen: Normal. IMPRESSION: No acute disease identified.
[2019-02-20 06:30] VITALS: BP 146/81; PULSE 92
[2019-02-20] MEDS ORDERED: KETOROLAC 30 MG/ML 1 ML VIAL IVP STA (06:34)
== END 2019-02-20 06:53 | disposition home or self-care (01) ==
LOC: EC 01:24
DX: K29.70 Gastritis, unspecified, without bleeding (principal); E11.9 Type 2 diabetes mellitus without complications; Z79.4 Long term (current) use of insulin
CPT/HCPCS: 36415; 80053; 85025; 81001; 84703; 87502; 71046; 99284; 96374; 96375 ×3; J1200; J2765; J1885; S0119; C9113

== ENCOUNTER 2019-03-24 15:50 | Emergency (ER) | payer BC ==
[2019-03-24 16:35] LABS: Amorphous Sediment,Urine Rare /hpf; Appearance,Urine Cloudy (Clear); Bilirubin,Urine Negative (Negative); Blood,Urine Negative (Negative); Color,Urine Yellow; Glucose,Urine (UA) 4+ (Negative); Ketones,Urine 1+ (Negative); Leukocyte Esterase,Urine Small (Negative); Mucus,Urine Rare /hpf; Nitrite,Urine Negative (Negative); Protein,Urine Trace (Negative); RBC,Urine 5 /hpf (0-5); Specific Gravity,Urine 1.043 (1.001-1.035); Squamous Epithelial Cell,Urine 9 /hpf (0-4); Urobilinogen,Urine <2.0 mg/dL (<2.0)
--- NOTE | 2019-03-24 17:34 | ED ---
Female Urogenital HPI - General Chief complaint: Urogenital Stated complaint: Female Time Seen by Provider: 03/24/19 16:13 Source: patient, RN notes reviewed, old records reviewed Mode of arrival: ambulatory Limitations: no limitations - History of Present Illness Initial comments: Patient is a 23-year-old female who presents today with vaginal discharge 3 days. She is concerned for possible early bacterial vaginosis. She also states that she took a test over the past week and was faintly positive. Patient states that she's had no bleeding. She denies any abdominal pain or cramping. Patient denies any other significant complaints. Last Menstrual Period: 02/19/19 - Related Data Home Medications Medication Instructions Recorded Confirmed Insulin Glargine [Lantus] 37 unit SQ HS 12/29/13 01/22/19 INSULIN ASPART (NovoLOG) [NovoLOG 12 unit SQ AC-LUNCH 01/22/19 01/22/19 (formulary)] INSULIN ASPART (NovoLOG) [NovoLOG 26 unit SQ AC-SUPPER 01/22/19 01/22/19 (formulary)] INSULIN ASPART (NovoLOG) [NovoLOG 26 units SQ AC-BRKFST 01/22/19 01/22/19 (formulary)] Previous Rx's Medication Instructions Recorded Ondansetron Odt [Zofran Odt] 4 mg PO Q8HR PRN #10 tab 01/22/19 Ondansetron [Zofran] 4 mg PO Q8HR PRN #15 tab 01/24/19 Pantoprazole [Protonix] 40 mg PO DAILY #30 tablet. 01/24/19 Cephalexin [Keflex] 500 mg PO Q6HR 3 Days #12 cap 03/24/19 Clotrimazole [Clotrimazole 2% (3 1 applicator VAGINAL DAILY 7 Days 03/24/19 day)] Zna-Fsto-Dqdlm Acid 1 cap PO DAILY #20 cap 03/24/19 [-U Capsule (formulary)] Allergies Allergy/AdvReac Type Severity Reaction Status Date / Time No Known Allergies Allergy Verified 03/24/19 16:00 Review of Systems ROS Statement: Those systems with pertinent positive or pertinent negative responses have been documented in the HPI. ROS Other: All systems not noted in ROS Statement are negative. Past Medical History Past Medical History: Diabetes Mellitus History of Any Multi-Drug Resistant Organisms: ESBL Date of last positivie culture/infection: 02/20/18 MDRO Source:: ESBL URINE Past Surgical History: No Surgical Hx Reported Past Psychological History: No Psychological Hx Reported Smoking Status: Never smoker Past Alcohol Use History: None Reported Past Drug Use History: None Reported - Past Family History Sister(s) Family Medical History: Thyroid Disorder General Exam - General Exam Comments Initial Comments: This is a 23-year-old female. Alert and oriented. No distress. General: Well appearing, well nourished, in no distress. Oriented x 3, normal mood and affect . Ambulating without difficulty. Skin: Good turgor, no rash, unusual bruising or prominent lesions Hair: Normal texture and distribution. HEENT: Head: Normocephalic, atraumatic, no visible or palpable masses, depressions, or scaring. Eyes: Visual acuity intact, conjunctiva clear, sclera non-icteric, EOM intact, PERRL. Neck: Supple, without lesions, bruits, or adenopathy, thyroid non-enlarged and non-tender Heart: No cardiomegaly or thrills; regular rate and rhythm, no murmur or gallop Lungs: Clear to auscultation and percussion Abdomen: Bowel sounds normal, no tenderness, organomegaly, masses, or hernia Back: Spine normal without deformity or tenderness, no CVA tenderness Neurologic: CN 2-12 normal. Sensation to pain, touch, and proprioception normal. DTRs normal in upper and lower extremities. No pathologic reflexes. Psychiatric: Oriented X3, intact recent and remote memory, judgment and insight, normal mood and affect. Pelvic: Vagina and cervix with white adherent discharge. . Uterus and adnexa/parametria nontender without masses. Breast: No nipple abnormality, dominant masses, tenderness to palpation, axillary or supraclavicular adenopathy. Limitations: no limitations Course Vital Signs 03/24/19 03/24/19 15:58 18:02 Temperature 97.8 F 98.0 F Pulse Rate 95 106 H Respiratory 16 18 Rate Blood Pressure 142/93 125/85 O2 Sat by Pulse 100 98 Oximetry Medical Decision Making - Medical Decision Making This is a 23-year-old female presents today for evaluation with complaints of vaginal discharge, dysuria. At this time Patient was also observed possibly . Her urine hCG is positive. Patient pelvic exam did show some white adherent discharge concern for yeast infection. She is a diabetic. I did discuss the Patient was started on vitamins and discuss close follow-up with [facility]. Patient is advised to monitor blood sugars well. I discussed treating previous infection with intravaginal antifungal. - Lab Data Lab Results 03/24/19 03/24/19 03/24/19 Range/Units 16:20 16:20 16:30 Urine Color Yellow Urine Appearance Cloudy H (Clear) Urine pH 6.0 (5.0-8.0) Ur Specific [place] 1.043 H (1.001-1.035) Urine Protein Trace H (Negative) Urine Glucose (UA) 4+ H (Negative) Urine Ketones 1+ H (Negative) Urine Blood Negative (Negative) Urine Nitrite Negative (Negative) Urine Bilirubin Negative (Negative) Urine Urobilinogen <2.0 (<2.0) mg/dL Ur Leukocyte Esterase Small H (Negative) Urine RBC 5 (0-5) /hpf Urine WBC 5 (0-5) /hpf Ur Squamous Epith Cells 9 H (0-4) /hpf Amorphous Sediment Rare H (None) /hpf Urine Mucus Rare H (None) /hpf Urine HCG, Qual Detected (Not Detectd) Chlamydia Source Vagina Chlamydia DNA (PCR) Negative (Neg,Equiv) N. gonorrhoeae Source N.gonorrhoeae DNA Probe (Neg,Equiv) Trichomonas Ag (Rapid) (Negative) 03/24/19 03/24/19 Range/Units 16:30 16:30 Urine Color Urine Appearance (Clear) Urine pH (5.0-8.0) Ur Specific [place] (1.001-1.035) Urine Protein (Negative) Urine Glucose (UA) (Negative) Urine Ketones (Negative) Urine Blood (Negative) Urine Nitrite (Negative) Urine Bilirubin (Negative) Urine Urobilinogen (<2.0) mg/dL Ur Leukocyte Esterase (Negative) Urine RBC (0-5) /hpf Urine WBC (0-5) /hpf Ur Squamous Epith Cells (0-4) /hpf Amorphous Sediment (None) /hpf Urine Mucus (None) /hpf Urine HCG, Qual (Not Detectd) Chlamydia Source Chlamydia DNA (PCR) (Neg,Equiv) N. gonorrhoeae Source Vagina N.gonorrhoeae DNA Probe Negative (Neg,Equiv) Trichomonas Ag (Rapid) Negative (Negative) Disposition Clinical Impression: , Yeast infection, UTI (urinary tract infection) Disposition: HOME SELF-CARE Condition: Good Additional Instructions: Patient has a take antibiotic as prescribed. Have close follow-up with your primary care physician. Return to the emergency department if any alarming signs or symptoms occur. Prescriptions: Clotrimazole [Clotrimazole 2% (3 day)] 1 applicator VAGINAL DAILY 7 Days Cephalexin [Keflex] 500 mg PO Q6HR 3 Days #12 cap [id number]-[id number] Acid [-U Capsule (formulary)] 1 cap PO DAILY #20 cap Is patient prescribed a controlled substance at d/c from ED?: No Referrals: Nay Rodriguez MD [Primary Care Provider] - 1-2 days Time of Disposition: 17:31
[2019-03-24 18:03] VITALS: BP 125/85; PULSE 106; RESP 18; TEMP 98
[2019-03-25 14:57] LABS: N. gonorrhoeae,PCR Negative (Neg,Equiv); Neisseria Source Vagina
[2019-03-25 15:14] LABS: C. trachomatis,PCR Negative (Neg,Equiv); Chlamydia trachomatis Source Vagina
== END 2019-03-24 18:04 | disposition home or self-care (01) ==
LOC: EC 15:50
DX: O23.40 Unspecified infection of urinary tract in pregnancy, unspecified trimester (principal); O23.599 Infection of other part of genital tract in pregnancy, unspecified trimester; O24.319 Unspecified pre-existing diabetes mellitus in pregnancy, unspecified trimester; E11.9 Type 2 diabetes mellitus without complications; Z3A.00 Weeks of gestation of pregnancy not specified; Z79.4 Long term (current) use of insulin
CPT/HCPCS: 81001; 81025; 87070; 87205; 87491; 87591; 87808; 99284

== ENCOUNTER 2019-05-06 11:40 | Emergency (ER) | payer BC, OTHER ==
[2019-05-06 11:51] VITALS: RESP 18
[2019-05-06] MEDS ORDERED: SODIUM CHLORIDE 0.9% 1,000 ML IV ONE (11:53)
--- NOTE | 2019-05-06 12:21 | ED ---
Female Urogenital HPI - General Chief complaint: OB/Uterine Contractions Stated complaint: 11wks preg, abd pain Time Seen by Provider: 05/06/19 11:43 Source: patient, RN notes reviewed, old records reviewed Mode of arrival: ambulatory Limitations: no limitations - History of Present Illness Initial comments: This Patient is a 23-year-old female, who presents the emergency department today for evaluation with chief complaint of lower abdominal pain and cramping for the past day. Patient states she is approximately 11 weeks based off her last menstrual cycle. She is supposed to see a physician in [facility] starting next week but has not seen any turbine operator as of this time. This is her first . She denies any vaginal bleeding. - Related Data Home Medications Medication Instructions Recorded Confirmed Insulin Glargine [Lantus] 37 unit SQ HS 12/29/13 01/22/19 INSULIN ASPART (NovoLOG) [NovoLOG 12 unit SQ AC-LUNCH 01/22/19 01/22/19 (formulary)] INSULIN ASPART (NovoLOG) [NovoLOG 26 unit SQ AC-SUPPER 01/22/19 01/22/19 (formulary)] INSULIN ASPART (NovoLOG) [NovoLOG 26 units SQ AC-BRKFST 01/22/19 01/22/19 (formulary)] Previous Rx's Medication Instructions Recorded Ondansetron Odt [Zofran Odt] 4 mg PO Q8HR PRN #10 tab 01/22/19 Ondansetron [Zofran] 4 mg PO Q8HR PRN #15 tab 01/24/19 Pantoprazole [Protonix] 40 mg PO DAILY #30 tablet. 01/24/19 Cephalexin [Keflex] 500 mg PO Q6HR 3 Days #12 cap 03/24/19 Clotrimazole [Clotrimazole 2% (3 1 applicator VAGINAL DAILY 7 Days 03/24/19 day)] Uwa-Saei-Urjka Acid 1 cap PO DAILY #20 cap 03/24/19 [-U Capsule (formulary)] Allergies Allergy/AdvReac Type Severity Reaction Status Date / Time No Known Allergies Allergy Verified 03/24/19 16:00 Review of Systems ROS Statement: Those systems with pertinent positive or pertinent negative responses have been documented in the HPI. ROS Other: All systems not noted in ROS Statement are negative. Past Medical History Past Medical History: Diabetes Mellitus History of Any Multi-Drug Resistant Organisms: ESBL Date of last positivie culture/infection: 02/20/18 MDRO Source:: ESBL URINE Past Surgical History: No Surgical Hx Reported Past Psychological History: No Psychological Hx Reported Smoking Status: Never smoker Past Alcohol Use History: None Reported Past Drug Use History: None Reported - Past Family History Sister(s) Family Medical History: Thyroid Disorder General Exam - General Exam Comments Initial Comments: 23-year-old female. Alert and oriented. No significant distress. Limitations: no limitations General appearance: alert, in no apparent distress Head exam: Present: atraumatic, normocephalic, normal inspection Eye exam: Present: normal appearance, PERRL, EOMI. Absent: scleral icterus, conjunctival injection, periorbital swelling ENT exam: Present: normal exam, mucous membranes moist Neck exam: Present: normal inspection. Absent: tenderness, meningismus, lymph adenopathy Respiratory exam: Present: normal lung sounds bilaterally Cardiovascular Exam: Present: regular rate, normal rhythm, normal heart sounds. Absent: systolic murmur, diastolic murmur, rubs, gallop, clicks GI/Abdominal exam: Present: soft, normal bowel sounds. Absent: distended, tenderness, guarding, rebound, rigid Back exam: Present: normal inspection Neurological exam: Present: alert, oriented X3, CN II-XII intact Psychiatric exam: Present: normal affect, normal mood Skin exam: Present: warm, dry, intact, normal color. Absent: rash Course Vital Signs 05/06/19 05/06/19 11:46 14:41 Temperature 98.6 F 98 F Pulse Rate 90 80 Respiratory 18 18 Rate Blood Pressure 131/80 125/75 O2 Sat by Pulse 98 98 Oximetry Medical Decision Making - Medical Decision Making 23 year old female presents today with CC of lower abdominal cramping in . She is 11 weeks , and she denies vaginal bleeding. Patient has no other symptoms including vaginal bleeding. She has normal labs. UA shows contamination. PAtient has US showing IUP and small subchorionic bleed. Patient adamently denies bleeding and declines pelvic exam. Patient hasappt with OB next week. Discussed return parameters. Patient pain is likely due to uterine stretching. - Lab Data Result diagrams: 05/06/19 12:13 05/06/19 12:13 Lab Results 05/06/19 05/06/19 05/06/19 Range/Units 12:01 12:13 12:13 WBC (3.8-10.6) k/uL RBC (3.80-5.40) m/uL Hgb (11.4-16.0) gm/dL Hct (34.0-46.0) % MCV (80.0-100.0) fL MCH (25.0-35.0) pg MCHC (31.0-37.0) g/dL RDW (11.5-15.5) % Plt Count (150-450) k/uL Neutrophils % % Lymphocytes % % Monocytes % % Eosinophils % % Basophils % % Neutrophils # (1.3-7.7) k/uL Lymphocytes # (1.0-4.8) k/uL Monocytes # (0-1.0) k/uL Eosinophils # (0-0.7) k/uL Basophils # (0-0.2) k/uL Sodium 135 L (137-145) mmol/L Potassium 4.6 (3.5-5.1) mmol/L Chloride 104 (98-107) mmol/L Carbon Dioxide 19 L (22-30) mmol/L Anion Gap 12 mmol/L BUN 6 L (7-17) mg/dL Creatinine 0.30 L (0.52-1.04) mg/dL Est GFR (CKD-EPI)AfAm >90 (>60 ml/min/1.73 sqM) Est GFR (CKD-EPI)NonAf >90 (>60 ml/min/1.73 sqM) Glucose 170 H (74-99) mg/dL Calcium 9.3 (8.4-10.2) mg/dL HCG, Quant 91712.7 mIU/mL Urine Color Yellow Urine Appearance Clear (Clear) Urine pH 6.0 (5.0-8.0) Ur Specific [place] 1.017 (1.001-1.035) Urine Protein Negative (Negative) Urine Glucose (UA) 3+ H (Negative) Urine Ketones Negative (Negative) Urine Blood Negative (Negative) Urine Nitrite Negative (Negative) Urine Bilirubin Negative (Negative) Urine Urobilinogen <2.0 (<2.0) mg/dL Ur Leukocyte Esterase Small H (Negative) Urine RBC <1 (0-5) /hpf Urine WBC 1 (0-5) /hpf Ur Squamous Epith Cells 14 H (0-4) /hpf Urine Bacteria Many H (None) /hpf Hyaline Casts 2 (0-2) /lpf Urine Mucus Rare H (None) /hpf Blood Type B Positive Blood Type Recheck B Pos Bld Type Recheck Status No 05/06/19 Range/Units 12:13 WBC 7.9 (3.8-10.6) k/uL RBC 4.40 (3.80-5.40) m/uL Hgb 11.4 (11.4-16.0) gm/dL Hct 35.3 (34.0-46.0) % MCV 80.3 (80.0-100.0) fL MCH 25.8 (25.0-35.0) pg MCHC 32.1 (31.0-37.0) g/dL RDW 14.9 (11.5-15.5) % Plt Count 309 (150-450) k/uL Neutrophils % 57 % Lymphocytes % 33 % Monocytes % 3 % Eosinophils % 4 % Basophils % 1 % Neutrophils # 4.5 (1.3-7.7) k/uL Lymphocytes # 2.6 (1.0-4.8) k/uL Monocytes # 0.3 (0-1.0) k/uL Eosinophils # 0.3 (0-0.7) k/uL Basophils # 0.1 (0-0.2) k/uL Sodium (137-145) mmol/L Potassium (3.5-5.1) mmol/L Chloride (98-107) mmol/L Carbon Dioxide (22-30) mmol/L Anion Gap mmol/L BUN (7-17) mg/dL Creatinine (0.52-1.04) mg/dL Est GFR (CKD-EPI)AfAm (>60 ml/min/1.73 sqM) Est GFR (CKD-EPI)NonAf (>60 ml/min/1.73 sqM) Glucose (74-99) mg/dL Calcium (8.4-10.2) mg/dL HCG, Quant mIU/mL Urine Color Urine Appearance (Clear) Urine pH (5.0-8.0) Ur Specific [place] (1.001-1.035) Urine Protein (Negative) Urine Glucose (UA) (Negative) Urine Ketones (Negative) Urine Blood (Negative) Urine Nitrite (Negative) Urine Bilirubin (Negative) Urine Urobilinogen (<2.0) mg/dL Ur Leukocyte Esterase (Negative) Urine RBC (0-5) /hpf Urine WBC (0-5) /hpf Ur Squamous Epith Cells (0-4) /hpf Urine Bacteria (None) /hpf Hyaline Casts (0-2) /lpf Urine Mucus (None) /hpf Blood Type Blood Type Recheck Bld Type Recheck Status - Radiology Data Radiology results: report reviewed Viable uterine gestation with a gestational age of 10 weeks and 5 days. Estimated date of confinement based on this examination is 11/27/2019. Note is made of subchorionic bleed. Short term follow up may be worthwhile. Disposition Clinical Impression: Abdominal pain during Disposition: HOME SELF-CARE Condition: Good Instructions (If sedation given, give patient instructions): Abdominal Pain (ED) Additional Instructions: Follow Up with [facility]. Return to emergency department if any alarming signs or symptoms occur. Is patient prescribed a controlled substance at d/c from ED?: No Referrals: Nay Rodriguez MD [Primary Care Provider] - 1-2 days Time of Disposition: 14:16
[2019-05-06 12:31] LABS: Basophils # (A) 0.1 k/uL (0-0.2); Basophils % (A) 1 %; Eosinophils # (A) 0.3 k/uL (0-0.7); Eosinophils % (A) 4 %; HCT 35.3 % (34.0-46.0); HGB 11.4 gm/dL (11.4-16.0); Lymphocytes # (A) 2.6 k/uL (1.0-4.8); Lymphocytes % (A) 33 %; MCH 25.8 pg (25.0-35.0); MCHC 32.1 g/dL (31.0-37.0); MCV 80.3 fL (80.0-100.0); Mean Platelet Volume 7.6; Monocytes # (A) 0.3 k/uL (0-1.0); Monocytes % (A) 3 %; Neutrophils # (A) 4.5 k/uL (1.3-7.7); Neutrophils % (A) 57 %; Platelet Count 309 k/uL (150-450); RDW 14.9 % (11.5-15.5); WBC 7.9 k/uL (3.8-10.6)
[2019-05-06 12:38] LABS: African American GFR (CKD) >90 (>60 ml/min/1.73 sqM); Anion Gap 12 mmol/L; Blood Urea Nitrogen 6 mg/dL (7-17); Calcium 9.3 mg/dL (8.4-10.2); Carbon Dioxide 19 mmol/L (22-30); Chloride 104 mmol/L (98-107); Glucose 170 mg/dL (74-99); Sodium 135 mmol/L (137-145)
[2019-05-06 12:40] LABS: Bacteria,Urine Many /hpf; Hyaline Casts,Urine 2 /lpf (0-2); Mucus,Urine Rare /hpf; RBC,Urine <1 /hpf (0-5); Squamous Epithelial Cell,Urine 14 /hpf (0-4)
[2019-05-06 12:46] LABS: Potassium 4.6 mmol/L (3.5-5.1)
[2019-05-06 13:10] LABS: Appearance,Urine Clear (Clear); Bilirubin,Urine Negative (Negative); Blood,Urine Negative (Negative); Color,Urine Yellow; Glucose,Urine (UA) 3+ (Negative); Ketones,Urine Negative (Negative); Leukocyte Esterase,Urine Small (Negative); Nitrite,Urine Negative (Negative); Protein,Urine Negative (Negative); Specific Gravity,Urine 1.017 (1.001-1.035); Urobilinogen,Urine <2.0 mg/dL (<2.0)
--- NOTE | 2019-05-06 13:18 | US ---
EXAMINATION TYPE: Transabdominal DATE OF EXAM: 05/06/2019 1:04 PM COMPARISON: NONE CLINICAL HISTORY: pain. EC patient stated has pelvic cramping x 2 days; ; diabetic EXAM PERFORMED: Transabdominal (TA) EXAM MEASUREMENTS: GESTATIONAL AGE / DATING Physician Established: Not yet established Dates by LMP: (11 weeks/6 days) EDC: 11/19/2019 Dates by First Scan: No previous. Dates by Current Scan for: (10 weeks/ 5 days) EDC: 11/27/2019 MATERNAL ANATOMY Uterus: 12.7 x 8.4 x 7.3cm Right Ovary: 4.5 x 3.2 x 3.3cm Left Ovary: not seen Post CDS / Adnexa: wnl Presence of free fluid: no Presence of corpus luteal cyst: in right ovary = 2.6 x 1.6 x 2.4cm Presence of subchorionic bleed: hypoechoic are is seen superior subchorionic area = 2.2 x 1.5 x 1.1c m. GESTATION / SURVEY CRL: 3.8cm (10 weeks/5 days) Yolk Sac: not seen Heart Rate: 171 bpm Rhythm: Normal IUP: Single Date of LMP: 02/12/2019 Beta HcG (if available): NA Single, live IUP,10 weeks/ 5 days, EDC: 11/27/2019, [id number]; presence of subchorionic bleed is not ed superiorly. IMPRESSION: VIABLE UTERINE GESTATION WITH A GESTATIONAL AGE OF 10 WEEKS 5 DAYS +/- 5 DAYS. ESTIMATED DATE OF CONF INEMENT BASED ON THIS EXAMINATION IS 11/27/2019. NOTE IS MADE OF A SMALL SUBCHORIONIC BLEED. SHORT-TERM FOLLOW-UP MAY BE WORTHWHILE.
[2019-05-06 13:21] LABS: HCG,Quantitative Serum 71715.7 mIU/mL
[2019-05-06 14:42] VITALS: BP 125/75; PULSE 80; TEMP 98
== END 2019-05-06 14:41 | disposition home or self-care (01) ==
LOC: EC 11:40
DX: O99.89 Other specified diseases and conditions complicating pregnancy, childbirth and the puerperium (principal); R10.30 Lower abdominal pain, unspecified; O20.8 Other hemorrhage in early pregnancy; O99.281 Endocrine, nutritional and metabolic diseases complicating pregnancy, first trimester; E11.9 Type 2 diabetes mellitus without complications; Z53.29 Procedure and treatment not carried out because of patient's decision for other reasons; Z79.4 Long term (current) use of insulin; Z3A.10 10 weeks gestation of pregnancy
CPT/HCPCS: 36415; 76801; 80048; 81001; 84702; 85025; 86900; 86901; 96360; 99284

== ENCOUNTER → 2019-06-12 | Outpatient (CLI) | payer OTHER | END | disposition home or self-care (01) | LOC: LABWHC1 11:10 | PROVIDERS: ATTEND Obstetrics & Gynecology | DX: O24.912 Unspecified diabetes mellitus in pregnancy, second trimester (principal); Z3A.00 Weeks of gestation of pregnancy not specified | CPT/HCPCS: 36415; 93005 ==

== ENCOUNTER 2019-07-02 22:12 | Emergency (ER) | payer OTHER ==
[2019-07-02] MEDS ORDERED: SODIUM CHLORIDE 0.9% 1,000 ML IV STA (22:50)
[2019-07-02 23:13] LABS: Appearance,Urine Cloudy (Clear); Bacteria,Urine Many /hpf; Bilirubin,Urine Negative (Negative); Blood,Urine Negative (Negative); Color,Urine Yellow; Glucose,Urine (UA) 3+ (Negative); Ketones,Urine Negative (Negative); Leukocyte Esterase,Urine Small (Negative); Mucus,Urine Occasional /hpf; Nitrite,Urine Negative (Negative); Protein,Urine 1+ (Negative); RBC,Urine 1 /hpf (0-5); Specific Gravity,Urine 1.024 (1.001-1.035); Squamous Epithelial Cell,Urine 11 /hpf (0-4); WBC,Urine 2 /hpf (0-5)
[2019-07-02 23:25] LABS: Basophils % (A) 0 %; Eosinophils # (A) 0.2 k/uL (0-0.7); Eosinophils % (A) 2 %; HCT 32.9 % (34.0-46.0); HGB 10.8 gm/dL (11.4-16.0); Lymphocytes # (A) 2.8 k/uL (1.0-4.8); Lymphocytes % (A) 32 %; MCH 27.8 pg (25.0-35.0); MCHC 32.8 g/dL (31.0-37.0); MCV 84.8 fL (80.0-100.0); Mean Platelet Volume 6.9; Monocytes # (A) 0.4 k/uL (0-1.0); Monocytes % (A) 5 %; Neutrophils # (A) 5.1 k/uL (1.3-7.7); Neutrophils % (A) 59 %; Platelet Count 291 k/uL (150-450); RBC 3.88 m/uL (3.80-5.40); RDW 13.2 % (11.5-15.5); WBC 8.7 k/uL (3.8-10.6)
[2019-07-02 23:37] LABS: ALT 17 U/L (9-52); AST 16 U/L (14-36); African American GFR (CKD) >90 (>60 ml/min/1.73 sqM); Albumin 3.5 g/dL (3.5-5.0); Alkaline Phosphatase 56 U/L (38-126); Amylase 56 U/L (30-110); Anion Gap 5 mmol/L; Blood Urea Nitrogen 8 mg/dL (7-17); Calcium 9.3 mg/dL (8.4-10.2); Carbon Dioxide 22 mmol/L (22-30); Chloride 110 mmol/L (98-107); Glucose 115 mg/dL (74-99); Potassium 4.1 mmol/L (3.5-5.1); Sodium 137 mmol/L (137-145); Total Bilirubin 0.2 mg/dL (0.2-1.3); Total Protein 6.9 g/dL (6.3-8.2)
--- NOTE | 2019-07-03 00:36 | ED ---
Abdominal Pain HPI - General Chief Complaint: Abdominal Pain Stated Complaint: Lower Abd Pain-19 wks Time Seen by Provider: 07/02/19 22:33 Source: patient Mode of arrival: ambulatory Limitations: no limitations - History of Present Illness Initial Comments: 23-year-old female patient presents to the emergency department today for evaluation of lower abdominal pain and right flank pain. Patient is currently 19 weeks 3 days , . Patient states pain started earlier in the day today. States she does have some nausea however this has been present throughout her . She denies fever or chills. Denies any abnormal vaginal bleeding or discharge. Denies any hematuria, dysuria, urinary frequency, urinary urgency. Denies constipation or diarrhea. Patient denies any recent rash, shortness breath, chest pain, numbness, tingling, dizziness, weakness, headache, visual changes, or any other complaints. - Related Data Home Medications Medication Instructions Recorded Confirmed Insulin Glargine [Lantus] 37 unit SQ HS 12/29/13 01/22/19 INSULIN ASPART (NovoLOG) [NovoLOG 12 unit SQ AC-LUNCH 01/22/19 01/22/19 (formulary)] INSULIN ASPART (NovoLOG) [NovoLOG 26 unit SQ AC-SUPPER 01/22/19 01/22/19 (formulary)] INSULIN ASPART (NovoLOG) [NovoLOG 26 units SQ AC-BRKFST 01/22/19 01/22/19 (formulary)] Previous Rx's Medication Instructions Recorded Ondansetron Odt [Zofran Odt] 4 mg PO Q8HR PRN #10 tab 01/22/19 Ondansetron [Zofran] 4 mg PO Q8HR PRN #15 tab 01/24/19 Pantoprazole [Protonix] 40 mg PO DAILY #30 tablet. 01/24/19 Cephalexin [Keflex] 500 mg PO Q6HR 3 Days #12 cap 03/24/19 Clotrimazole [Clotrimazole 2% (3 1 applicator VAGINAL DAILY 7 Days 03/24/19 day)] Lqf-Bibf-Fcdwb Acid 1 cap PO DAILY #20 cap 03/24/19 [-U Capsule (formulary)] Cephalexin [Keflex] 500 mg PO Q6H #28 cap 07/03/19 Allergies Allergy/AdvReac Type Severity Reaction Status Date / Time No Known Allergies Allergy Verified 03/24/19 16:00 Review of Systems ROS Statement: Those systems with pertinent positive or pertinent negative responses have been documented in the HPI. ROS Other: All systems not noted in ROS Statement are negative. Past Medical History Past Medical History: Diabetes Mellitus History of Any Multi-Drug Resistant Organisms: ESBL Date of last positivie culture/infection: 02/20/18 MDRO Source:: ESBL URINE Past Surgical History: No Surgical Hx Reported Past Psychological History: No Psychological Hx Reported Smoking Status: Never smoker Past Alcohol Use History: None Reported Past Drug Use History: None Reported - Past Family History Sister(s) Family Medical History: Thyroid Disorder General Exam Limitations: no limitations General appearance: alert, in no apparent distress, other (This is a well- developed, well-nourished adult female patient in no acute distress. Vital signs upon presentation are temperature 97.6F, pulse 91, respirations 18, blood pressure 150/87, pulse ox 98% on room air.) Eye exam: Present: normal appearance, PERRL, EOMI. Absent: scleral icterus, conjunctival injection, periorbital swelling ENT exam: Present: normal exam, normal oropharynx, mucous membranes moist Respiratory exam: Present: normal lung sounds bilaterally. Absent: respiratory distress, wheezes, rales, rhonchi, stridor Cardiovascular Exam: Present: regular rate, normal rhythm, normal heart sounds. Absent: systolic murmur, diastolic murmur, rubs, gallop, clicks GI/Abdominal exam: Present: soft, tenderness (Suprapubic tenderness), normal bowel sounds. Absent: distended, guarding, rebound, rigid Back exam: Present: normal inspection, CVA tenderness (R). Absent: CVA tenderness (L) Neurological exam: Present: alert, oriented X3, CN II-XII intact Psychiatric exam: Present: normal affect, normal mood Skin exam: Present: warm, dry, intact, normal color. Absent: rash Course Vital Signs 07/02/19 07/03/19 07/03/19 22:23 00:34 01:50 Temperature 97.6 F 98.4 F 97.6 F Pulse Rate 91 96 72 Respiratory 18 16 18 Rate Blood Pressure 150/87 159/70 132/78 O2 Sat by Pulse 98 99 98 Oximetry Medical Decision Making - Medical Decision Making 23-year-old female patient presents to the emergency department today for evaluation of superpubic abdominal pain and right flank pain. Physical examina tion did reveal mild suprapubic abdominal tenderness. Labs reviewed and are unremarkable. Urinalysis did reveal bacteriuria. Ultrasound of the fetus was obtained and showed no, again process with satisfactory growth. I did discuss findings and results with the patient. We'll treat the bacteriuria with Keflex. She'll be discharged to follow up with her [facility]INSM[facility] APPRENTICE for recheck as an as possible. Return parameters discussed in detail. Verbalizes understanding and agree with this plan. - Lab Data Result diagrams: 07/02/19 23:04 07/02/19 23:04 Lab Results 07/02/19 07/02/19 07/02/19 Range/Units 23:00 23:04 23:04 WBC 8.7 (3.8-10.6) k/uL RBC 3.88 (3.80-5.40) m/uL Hgb 10.8 L (11.4-16.0) gm/dL Hct 32.9 L (34.0-46.0) % MCV 84.8 (80.0-100.0) fL MCH 27.8 (25.0-35.0) pg MCHC 32.8 (31.0-37.0) g/dL RDW 13.2 (11.5-15.5) % Plt Count 291 (150-450) k/uL Neutrophils % 59 % Lymphocytes % 32 % Monocytes % 5 % Eosinophils % 2 % Basophils % 0 % Neutrophils # 5.1 (1.3-7.7) k/uL Lymphocytes # 2.8 (1.0-4.8) k/uL Monocytes # 0.4 (0-1.0) k/uL Eosinophils # 0.2 (0-0.7) k/uL Basophils # 0.0 (0-0.2) k/uL Sodium 137 (137-145) mmol/L Potassium 4.1 (3.5-5.1) mmol/L Chloride 110 H (98-107) mmol/L Carbon Dioxide 22 (22-30) mmol/L Anion Gap 5 mmol/L BUN 8 (7-17) mg/dL Creatinine 0.26 L (0.52-1.04) mg/dL Est GFR (CKD-EPI)AfAm >90 (>60 ml/min/1.73 sqM) Est GFR (CKD-EPI)NonAf >90 (>60 ml/min/1.73 sqM) Glucose 115 H (74-99) mg/dL Calcium 9.3 (8.4-10.2) mg/dL Total Bilirubin 0.2 (0.2-1.3) mg/dL AST 16 (14-36) U/L ALT 17 (9-52) U/L Alkaline Phosphatase 56 (38-126) U/L Total Protein 6.9 (6.3-8.2) g/dL Albumin 3.5 (3.5-5.0) g/dL Amylase 56 (30-110) U/L Lipase 63 (23-300) U/L Urine Color Yellow Urine Appearance Cloudy H (Clear) Urine pH 7.0 (5.0-8.0) Ur Specific [place] 1.024 (1.001-1.035) Urine Protein 1+ H (Negative) Urine Glucose (UA) 3+ H (Negative) Urine Ketones Negative (Negative) Urine Blood Negative (Negative) Urine Nitrite Negative (Negative) Urine Bilirubin Negative (Negative) Urine Urobilinogen 2.0 (<2.0) mg/dL Ur Leukocyte Esterase Small H (Negative) Urine RBC 1 (0-5) /hpf Urine WBC 2 (0-5) /hpf Ur Squamous Epith Cells 11 H (0-4) /hpf Urine Bacteria Many H (None) /hpf Urine Mucus Occasional H (None) /hpf - Radiology Data Radiology results: report reviewed Ultrasound of the fetus was obtained. Report was reviewed in its entirety. Impression by Dr. Cowan shows satisfactory growth compared to previous exam of 05/06/2019. No complicating process seen. Disposition Clinical Impression: Abdominal pain, Flank pain, Bacteriuria during Disposition: HOME SELF-CARE Condition: Good Instructions (If sedation given, give patient instructions): Abdominal Pain (ED), Flank Pain (ED), Urinary Tract Infection in (ED) Additional Instructions: Increase fluids. Rest. Complete antibiotic prescription in full. Follow-up with your [facility]SM[facility] APPRENTICE for recheck as soon as possible. Follow up with your primary care physician for recheck in 1-2 days. Return to the emergency department immediately for any new, worsening, or concerning symptoms. Prescriptions: Cephalexin [Keflex] 500 mg PO Q6H #28 cap Is patient prescribed a controlled substance at d/c from ED?: No Referrals: Nay Rodriguez MD [Primary Care Provider] - 1-2 days Time of Disposition: 01:38
--- NOTE | 2019-07-03 00:45 | US ---
EXAMINATION TYPE: US OB >= 14 wk fetus DATE OF EXAM: 07/03/2019 COMPARISON: US 05/06/2019 CLINICAL HISTORY: back pain; abd painAbdominal and back pain x 2 days. . TECHNIQUE: Transabdominal (TA) GESTATIONAL AGE / DATING Physician Established: (19 weeks/1 day) EDC: 11/25/2019 Dates by LMP: ( weeks/ days) EDC: 11/19/2019 Dates by First Scan: (18 weeks/6 days) EDC: 11/27/2019 Dates by Current Scan: (18 weeks/6 days) EDC: 11/27/2019 SURVEY IUP: Single PLACENTA: Anterior PREVIA: No Previa seen TATYANA: 14.67 cm Normal CERVICAL LENGTH (transabdominal: norm > 3.0cm): 3.14 cm BIOMETRY PRESENTATION: Breech LIE: Transverse BPD: 4.39 cm 19 weeks / 2 days HC: 16.56 cm 19 weeks / 2 days AC: 13.63 cm 19 weeks / 1 day FL: 2.86 cm 18 weeks / 5 days ESTIMATED WEIGHT IN GRAMS: 267.79 grams ESTIMATED WEIGHT IN LBS/OZ: 0 lbs. 9 oz. WEIGHT PERCENTAGE BASED ON ESTABLISHED DATES: 36.2% HC/AC: 1.22 Normal FL/AC: 21.01 HEART RATE: 141 bpm RHYTHM: Normal IMPRESSION: There is satisfactory growth compared to previous exam of 05/06/2019. No complicating process seen.
[2019-07-03] MEDS ORDERED: CEPHALEXIN 500MG STARTER PACK 4 CAP BTL PO STA (01:36)
[2019-07-03 02:05] VITALS: BP 132/78; PULSE 72; RESP 18; TEMP 97.6
== END 2019-07-03 01:53 | disposition home or self-care (01) ==
LOC: EC 22:12
DX: O23.42 Unspecified infection of urinary tract in pregnancy, second trimester (principal); R82.71 Bacteriuria; O24.912 Unspecified diabetes mellitus in pregnancy, second trimester; Z79.4 Long term (current) use of insulin; Z3A.18 18 weeks gestation of pregnancy
CPT/HCPCS: 36415; 76805; 80053; 81001; 82150; 83690; 85025; 96360; 96361; 99284

== ENCOUNTER 2019-08-04 07:25 | Emergency (ER) | payer OTHER ==
[2019-08-04 07:36] VITALS: RESP 18
[2019-08-04] MEDS ORDERED: TOPICAL SKIN ADHESIVE 1 EACH AMP TOPICAL ONE (07:58)
--- NOTE | 2019-08-04 08:00 | ED ---
Wound/Laceration HPI - General Chief Complaint: Wound/Laceration Stated Complaint: Hand Lac-24 wks Time Seen by Provider: 08/04/19 07:38 Source: patient, RN notes reviewed, old records reviewed Mode of arrival: ambulatory Limitations: no limitations - History of Present Illness Initial Comments: Patient is a 23-year-old female presents today for evaluation for a cut to her left second digit. Patient reports that she cut on the glass screen per of her phone. She reports that she has full range motion her finger. Tetanus is up-to-date. She is 24 weeks . - Related Data Home Medications Medication Instructions Recorded Confirmed Insulin Glargine [Lantus] 37 unit SQ HS 12/29/13 01/22/19 INSULIN ASPART (NovoLOG) [NovoLOG 12 unit SQ AC-LUNCH 01/22/19 01/22/19 (formulary)] INSULIN ASPART (NovoLOG) [NovoLOG 26 unit SQ AC-SUPPER 01/22/19 01/22/19 (formulary)] INSULIN ASPART (NovoLOG) [NovoLOG 26 units SQ AC-BRKFST 01/22/19 01/22/19 (formulary)] Previous Rx's Medication Instructions Recorded Ondansetron Odt [Zofran Odt] 4 mg PO Q8HR PRN #10 tab 01/22/19 Ondansetron [Zofran] 4 mg PO Q8HR PRN #15 tab 01/24/19 Pantoprazole [Protonix] 40 mg PO DAILY #30 tablet. 01/24/19 Cephalexin [Keflex] 500 mg PO Q6HR 3 Days #12 cap 03/24/19 Clotrimazole [Clotrimazole 2% (3 1 applicator VAGINAL DAILY 7 Days 03/24/19 day)] Rct-Klnn-Ytdhe Acid 1 cap PO DAILY #20 cap 03/24/19 [-U Capsule (formulary)] Cephalexin [Keflex] 500 mg PO Q6H #28 cap 07/03/19 Allergies Allergy/AdvReac Type Severity Reaction Status Date / Time No Known Allergies Allergy Verified 08/04/19 07:36 Review of Systems ROS Statement: Those systems with pertinent positive or pertinent negative responses have been documented in the HPI. ROS Other: All systems not noted in ROS Statement are negative. Past Medical History Past Medical History: Diabetes Mellitus History of Any Multi-Drug Resistant Organisms: ESBL Date of last positivie culture/infection: 02/20/18 MDRO Source:: ESBL URINE Past Surgical History: No Surgical Hx Reported Past Psychological History: No Psychological Hx Reported Smoking Status: Never smoker Past Alcohol Use History: None Reported Past Drug Use History: None Reported - Past Family History Sister(s) Family Medical History: Thyroid Disorder General Exam Limitations: no limitations General appearance: alert, in no apparent distress Head exam: Present: atraumatic, normocephalic, normal inspection Eye exam: Present: normal appearance, PERRL, EOMI. Absent: scleral icterus, conjunctival injection, periorbital swelling ENT exam: Present: normal exam, mucous membranes moist Neck exam: Present: normal inspection. Absent: tenderness, meningismus, lymphadenopathy Respiratory exam: Present: normal lung sounds bilaterally. Absent: respiratory distress, wheezes, rales, rhonchi, stridor Cardiovascular Exam: Present: regular rate, normal rhythm, normal heart sounds. Absent: systolic murmur, diastolic murmur, rubs, gallop, clicks GI/Abdominal exam: Present: soft, normal bowel sounds. Absent: distended, tenderness, guarding, rebound, rigid Extremities exam: Present: normal inspection, full ROM, normal capillary refill, other (Patient is a less than 1 cm abrasion over the proximal aspect of the left second digit. Full range of motion noted. The wound is not gaping.). Absent: tenderness, pedal edema, joint swelling, calf tenderness Back exam: Present: normal inspection Neurological exam: Present: alert, oriented X3, CN II-XII intact Psychiatric exam: Present: normal affect, normal mood Skin exam: Present: warm, dry, intact, normal color. Absent: rash Course Vital Signs 08/04/19 07:35 Temperature 98.2 F Pulse Rate 89 Respiratory 18 Rate Blood Pressure 149/82 O2 Sat by Pulse 97 Oximetry Medical Decision Making - Medical Decision Making 23-year-old female with a minor laceration of her left digit. She reports she cut it on the screen of her cell phone with cracked glass. She has a small abr asion at the proximal left second digit interphalangeal joint. Patient has full range of motion. Tetanus up-to-date. The wound was cleaned. A small amount Dermabond was placed over this. A bandage was applied. Patient discharged home. Disposition Clinical Impression: Finger abrasion Disposition: HOME SELF-CARE Condition: Good Instructions (If sedation given, give patient instructions): Abrasion (ED) Additional Instructions: Patient advised to allow the skin glue to follow up on its own. Please follow up with family doctor if symptoms have not improved over the next two days. Please return to the emergency room if your symptoms increase or worsen or for any other concerns. Is patient prescribed a controlled substance at d/c from ED?: No Referrals: Nay Rodriguez MD [Primary Care Provider] - 1-2 days Time of Disposition: 08:00
[2019-08-04 08:50] VITALS: BP 128/74; PULSE 69; TEMP 97.4
== END 2019-08-04 08:48 | disposition home or self-care (01) ==
LOC: EC 07:25
DX: O9A.212 Injury, poisoning and certain other consequences of external causes complicating pregnancy, second trimester (principal); S60.411A Abrasion of left index finger, initial encounter; O24.312 Unspecified pre-existing diabetes mellitus in pregnancy, second trimester; E11.9 Type 2 diabetes mellitus without complications; Z79.4 Long term (current) use of insulin; W25.XXXA Contact with sharp glass, initial encounter; Z3A.24 24 weeks gestation of pregnancy
CPT/HCPCS: 12001; 99283

== ENCOUNTER 2019-09-10 04:55 | Outpatient (CLI) | payer BC, OTHER ==
[2019-09-10 05:19] LABS: Glucose,Whole Blood 125 mg/dL (75-99)
[2019-09-10 06:01] LABS: Appearance,Urine Clear (Clear); Bilirubin,Urine Negative (Negative); Blood,Urine Negative (Negative); Color,Urine Light Yellow; Glucose,Urine (UA) Negative (Negative); Ketones,Urine Negative (Negative); Leukocyte Esterase,Urine Negative (Negative); Nitrite,Urine Negative (Negative); PH, Urine 6.5 (5.0-8.0); Protein,Urine Trace (Negative); Specific Gravity,Urine 1.004 (1.001-1.035); Urobilinogen,Urine <2.0 mg/dL (<2.0)
--- NOTE | 2019-09-10 07:51 | US ---
EXAMINATION TYPE: US OB >= 14 wk fetus Third trimester ultrasound DATE OF EXAM: 09/10/2019 COMPARISON: US second trimester July 02, 2019. CLINICAL HISTORY: Bleeding 1 episode of spotting 2 hours prior to exam, 1 TECHNIQUE: Transabdominal (TA) GESTATIONAL AGE / DATING Physician Established: (29 weeks/1 days) EDC: 11/25/2019 Dates by LMP: (30 weeks/0 days) EDC: 11/19/2019 Dates by First Scan: (28 weeks/6 days) EDC: 11/27/2019 Dates by Current Scan: (28 weeks/6 days) EDC: 11/27/2019 SURVEY IUP: Single PLACENTA: Anterior PREVIA: No Previa TATYANA: 14.6 cm Normal CERVICAL LENGTH (transabdominal: norm > 3.0cm): 3.4 cm BIOMETRY PRESENTATION: Vertex BPD: 7.5 cm 30 weeks / 0 days HC: 27.3 cm 29 weeks / 5 days AC: 24.6 cm 28 weeks / 6 days FL: 5.4 cm 28 weeks / 4 days ESTIMATED WEIGHT IN GRAMS: 1304 grams ESTIMATED WEIGHT IN LBS/OZ: 2 lbs. 14 oz. WEIGHT PERCENTAGE BASED ON ESTABLISHED DATES: 29% HC/AC: 1.11 Normal FL/AC: 21.95 Normal HEART RATE: 144 bpm RHYTHM: Normal MATERNAL WALL MEASUREMENT: 4.6 cm from skin to anterior uterine wall (if exam limited due to body hab itus). Viable single IUP measuring 28 weeks 6 days with a heart rate of 144bpm and estimated delivery date o f 11/27/2019. Redemonstration of single live intrauterine gestation. Normal cephalad presentation on current study. No cervical thinning. No placenta previa. Calculated amniotic fluid index within normal limits. Feta l biometry measurements are congruent and within normal limits. IMPRESSION: As above. Satisfactory interval progression.
[2019-09-10 08:05] VITALS: BP 137/82; PULSE 97; RESP 16; TEMP 96.8
--- NOTE | 2019-10-02 11:48 | P.MSEPDOC ---
Presenting Problems - Arrival Data Date of Arrival on Unit: 09/10/19 Time of Arrival on Unit: 05:01 Mode of Transport: Wheelchair - Complaint OB-Reason for Admission/Chief Complaint: Vaginal Bleeding Medical History - Information : 1 Para: 0 Term: 0 : 0 Abortions: Spontaneous or Elective: 0 Number of Living Children: 0 - Gestational Age Gestational Age by CATHERINE (wks/days): 29 Weeks and 2 Days - History Comment: diabetes type 1 Review of Systems - Review of Systems Constitutional: No problems Breast: No problems ENT: No problems Cardiovascular: No problems Respiratory: No problems Gastrointestinal: No problems Genitourinary: No problems Musculoskeletal: No problems Neurological: No problems Skin: No problems Vital Signs - Temperature Temperature: 96.8 F Temperature Source: Temporal Artery Scan - Pulse Right Sitting Pulse Rate: 97 Pulse Assessment Method: Auscultation - Respirations Respiratory Rate: 16 Oxygen Delivery Method: Room Air - Blood Pressure Right Arm Blood Pressure: 137/82 Blood Pressure Mean: 100 Blood Pressure Source: Automatic Cuff Medical Screen Scoring (Pre) - Cervical Exam Dilation: Exam Deferred Effacement: Exam Deferred Membranes: Intact - Uterine Contractions Frequency: N/A - Maternal Vital Signs Maternal Temperature: N/A Maternal Blood Pressure: N/A Signs of Preeclampsia: N/A Maternal Respirations: N/A - Maternal Trauma Maternal Trauma: N/A - Assessment - Baby A Baseline FHR: 140 Heart Rate - NICHD Category: Category I (Normal) = 0 NST: Reactive Position: N/A Station: N/A - Total Score - Baby A Total Score - Baby A: 0 - Total Score - Baby B Total Score - Baby B: 0 - Total Score - Baby C Total Score - Baby C: 0 - Level of Risk - Baby A Level of Risk - Baby A: Low (0-5) - Level of Risk - Baby B Level of Risk - Baby B: Low (0-5) - Level of Risk - Baby C Level of Risk - Baby C: Low (0-5) Physician Notification (Pre) - Physician Notified Physician Notified Date: 09/10/19 Physician Notified Time: 07:42 New Order Received: Yes (D/c home if no bleeding noted on spec exam) Disposition - Disposition OB Disposition: Discharge to home Discharge Date: 01/20/20 Discharge Time: 07:53 I agree with the RN Medical Screening Exam: No Physician's MSE Comment: inadequate documentation Risk & Benefit of care provided described in d/c instruction: No Diagnosis: vaginal bleeding in
== END 2019-09-10 07:53 | disposition home or self-care (01) ==
LOC: FBPOP 04:55
PROVIDERS: ATTEND Obstetrics & Gynecology
DX: O46.93 Antepartum hemorrhage, unspecified, third trimester (principal); Z3A.28 28 weeks gestation of pregnancy
CPT/HCPCS: 59025; 76805; 81003; 99213

== ENCOUNTER → 2019-10-16 | Outpatient (CLI) | payer OTHER ==
[2019-10-17 01:53] LABS: Hemoglobin A1C 6.7 % (4.0-6.0)
== END | disposition home or self-care (01) ==
LOC: LABWHC1 16:03
PROVIDERS: ATTEND Internal Medicine Endocrinology, Diabetes & Metabolism
DX: E10.65 Type 1 diabetes mellitus with hyperglycemia (principal)
CPT/HCPCS: 36415; 83036

== ENCOUNTER 2019-11-09 09:48 | Outpatient (CLI) | payer BC, OTHER ==
[2019-11-09 10:38] LABS: Glucose,Whole Blood 124 mg/dL (75-99)
[2019-11-09 10:46] LABS: Appearance,Urine Cloudy (Clear); Bacteria,Urine Many /hpf; Bilirubin,Urine Negative (Negative); Blood,Urine Negative (Negative); Color,Urine Yellow; Glucose,Urine (UA) Negative (Negative); Ketones,Urine 4+ (Negative); Leukocyte Esterase,Urine Large (Negative); Mucus,Urine Few /hpf; Nitrite,Urine Negative (Negative); PH, Urine 6.5 (5.0-8.0); Protein,Urine 2+ (Negative); RBC,Urine 2 /hpf (0-5); Specific Gravity,Urine 1.014 (1.001-1.035); Squamous Epithelial Cell,Urine 16 /hpf (0-4); Urobilinogen,Urine <2.0 mg/dL (<2.0); WBC,Urine 27 /hpf (0-5)
[2019-11-09] MEDS ORDERED: ONDANSETRON 4 MG/2 ML VIAL IVP STA (11:35)
[2019-11-09] MEDS: LACTATED RINGERS 1,000 ML IV SCH ×3 (12:00→13:00)
[2019-11-09 15:59] VITALS: BP 137/76; PULSE 90; RESP 16; TEMP 98.1
== END 2019-11-09 14:10 | disposition home or self-care (01) ==
LOC: FBPOP 09:48
PROVIDERS: ATTEND Obstetrics & Gynecology
DX: O99.89 Other specified diseases and conditions complicating pregnancy, childbirth and the puerperium (principal); E86.0 Dehydration; Z3A.37 37 weeks gestation of pregnancy
CPT/HCPCS: 59025; 99214; 96361; 96374; 81001; J2405; 96360; 96375

== ENCOUNTER 2019-12-15 19:34 | Emergency (ER) | payer BC, OTHER ==
[2019-12-15 19:46] VITALS: BP 136/96; PULSE 112; RESP 20; TEMP 98.2
--- NOTE | 2019-12-15 20:04 | ED ---
General Adult HPI - General Chief complaint: Extremity Problem,Nontraumatic Stated complaint: Toe pain Time Seen by Provider: 12/15/19 19:38 Source: patient, RN notes reviewed Mode of arrival: ambulatory Limitations: no limitations - History of Present Illness Initial comments: 24-year-old female presents to the emergency department for a chief complaint of toenail injury. Patient states that 2 weeks ago she cracked the toenail on her left foot and when she was taking off her sock it pulled part of her nail off. States she saw her doctor was given antibiotics. States that she thinks that there is still some nail left in the proximal nail fold and then immediately because appears in pain. She denies any redness drainage or swelling. Patient has no other complaints at this time including shortness of breath, chest pain, abdominal pain, nausea or vomiting, headache, or visual changes. - Related Data Home Medications Medication Instructions Recorded Confirmed Insulin Glargine,Hum.rec.anlog 44 unit SQ HS 09/10/19 11/09/19 [Basaglar Kwikpen U-100] Insulin Lispro [Admelog] 20 unit SQ AC-TID 09/10/19 11/09/19 Previous Rx's Medication Instructions Recorded Aaw-Auyc-Dxqpn Acid 1 cap PO DAILY #20 cap 03/24/19 [-U Capsule (formulary)] Allergies Allergy/AdvReac Type Severity Reaction Status Date / Time No Known Allergies Allergy Verified 12/15/19 19:46 Review of Systems ROS Statement: Those systems with pertinent positive or pertinent negative responses have been documented in the HPI. ROS Other: All systems not noted in ROS Statement are negative. Past Medical History Past Medical History: Diabetes Mellitus History of Any Multi-Drug Resistant Organisms: ESBL Date of last positivie culture/infection: 02/20/18 MDRO Source:: ESBL URINE Past Surgical History: No Surgical Hx Reported Past Psychological History: No Psychological Hx Reported Smoking Status: Never smoker Past Alcohol Use History: None Reported Past Drug Use History: None Reported - Past Family History Sister(s) Family Medical History: Thyroid Disorder General Exam Limitations: no limitations General appearance: alert, in no apparent distress Head exam: Present: atraumatic, normocephalic, normal inspection Eye exam: Present: normal appearance, PERRL, EOMI. Absent: scleral icterus, conjunctival injection, periorbital swelling ENT exam: Present: normal exam, mucous membranes moist Neck exam: Present: normal inspection. Absent: tenderness, meningismus, lymphadenopathy Respiratory exam: Present: normal lung sounds bilaterally. Absent: respiratory distress, wheezes, rales, rhonchi, stridor Cardiovascular Exam: Present: regular rate, normal rhythm, normal heart sounds. Absent: systolic murmur, diastolic murmur, rubs, gallop, clicks Extremities exam: Present: other (DD pulse 2+. Medial nail fold of the left toenail does appear to be avulsed. I do not see any signs of infection. I do not see any obvious ingrown toenail. At this) Course Vital Signs 12/15/19 19:40 Temperature 98.2 F Pulse Rate 112 H Respiratory 20 Rate Blood Pressure 136/96 O2 Sat by Pulse 96 Oximetry Medical Decision Making - Medical Decision Making HPI and physical exam is documented. There is no sign of acute infection or ingrown toenail. Patient will follow up with podiatry and primary care. She'll return for any worsening symptoms. Disposition Clinical Impression: Toenail avulsion Disposition: HOME SELF-CARE Condition: Good Instructions (If sedation given, give patient instructions): Nail Avulsion (ED) Additional Instructions: Please follow up with primary care or podiatry. If you have any worsening symptoms return to the emergency department. Is patient prescribed a controlled substance at d/c from ED?: No Referrals: Nay Rodriguez MD [Primary Care Provider] - 1-2 days Seun Moore DPM [STAFF PHYSICIAN] - 1-2 days Time of Disposition: 20:02
== END 2019-12-15 20:20 | disposition home or self-care (01) ==
LOC: EC 19:34
DX: S91.202A Unspecified open wound of left great toe with damage to nail, initial encounter (principal); E11.9 Type 2 diabetes mellitus without complications; Z79.4 Long term (current) use of insulin; X58.XXXA Exposure to other specified factors, initial encounter; Y93.89 Activity, other specified
CPT/HCPCS: 99283

== ENCOUNTER 2020-03-05 17:32 | Emergency (ER) | payer BC, OTHER ==
[2020-03-05 17:37] VITALS: RESP 18; TEMP 97.8
[2020-03-05] MEDS ORDERED: SODIUM CHLORIDE 0.9% 500 ML 500 ML IV ONE (17:54)
[2020-03-05 18:18] LABS: Basophils % (A) 0 %; Eosinophils # (A) 0.3 k/uL (0-0.7); Eosinophils % (A) 3 %; HCT 39.8 % (34.0-46.0); HGB 13.1 gm/dL (11.4-16.0); Lymphocytes # (A) 3.4 k/uL (1.0-4.8); Lymphocytes % (A) 37 %; MCH 28.2 pg (25.0-35.0); MCV 85.4 fL (80.0-100.0); Mean Platelet Volume 8.1; Monocytes # (A) 0.2 k/uL (0-1.0); Monocytes % (A) 3 %; Neutrophils # (A) 5.2 k/uL (1.3-7.7); Neutrophils % (A) 56 %; Platelet Count 291 k/uL (150-450); RBC 4.66 m/uL (3.80-5.40); RDW 12.8 % (11.5-15.5); WBC 9.2 k/uL (3.8-10.6)
[2020-03-05 18:19] LABS: Appearance,Urine Clear (Clear); Bilirubin,Urine Negative (Negative); Blood,Urine Negative (Negative); Color,Urine Light Yellow; Glucose,Urine (UA) 4+ (Negative); Ketones,Urine Negative (Negative); Leukocyte Esterase,Urine Negative (Negative); Nitrite,Urine Negative (Negative); Protein,Urine Negative (Negative); Specific Gravity,Urine 1.022 (1.001-1.035); Urobilinogen,Urine <2.0 mg/dL (<2.0)
[2020-03-05 18:32] LABS: ALT 15 U/L (4-34); AST 20 U/L (14-36); African American GFR (CKD) >90 (>60 ml/min/1.73 sqM); Albumin 4.1 g/dL (3.5-5.0); Alkaline Phosphatase 92 U/L (38-126); Anion Gap 8 mmol/L; Blood Urea Nitrogen 9 mg/dL (7-17); Calcium 9.6 mg/dL (8.4-10.2); Carbon Dioxide 24 mmol/L (22-30); Chloride 100 mmol/L (98-107); Glucose 285 mg/dL (74-99); Non-African American GFR(CKD) >90 (>60 ml/min/1.73 sqM); Potassium 3.7 mmol/L (3.5-5.1); Sodium 132 mmol/L (137-145); Total Bilirubin 0.5 mg/dL (0.2-1.3); Total Protein 7.4 g/dL (6.3-8.2)
[2020-03-05 18:49] LABS: HCG,Quantitative Serum 13134.6 mIU/mL
[2020-03-05] MEDS ORDERED: INSULIN REGULAR 100 UNIT/ML VIAL SQ ONE (18:55)
--- NOTE | 2020-03-05 19:20 | US ---
EXAMINATION TYPE: Transabdominal DATE OF EXAM: 03/05/2020 6:54 PM COMPARISON: US, first for this . CLINICAL HISTORY: /cramping. Cramping x 2 days.. EXAM PERFORMED: Transvaginal (TV) and Transabdominal (TA) EXAM MEASUREMENTS: GESTATIONAL AGE / DATING Physician Established: Not yet established. Dates by LMP: (6 weeks/5 days) EDC: 10/24/2020 Dates by First Scan: This is first scan Dates by Current Scan for: (6 weeks/2 days) EDC: 10/27/2020 MATERNAL ANATOMY Uterus: 10.9 x 8.4 x 7.5 cm. Right Ovary: 3.3 x 2.2 x 2.4 cm. Left Ovary: 2.5 x 1.3 x 1.2 cm. Post CDS / Adnexa: Appear wnl Presence of free fluid: Not seen Presence of corpus luteal cyst: Area of mixed echogenicity and peripheral vascularity seen within rig ht ovary: 2.2 x 1.8 x 2.3 cm. Presence of subchorionic bleed: Not seen GESTATION / SURVEY CRL: 0.54 cm (6 weeks/2 days) Yolk Sac (normal less than 6mm): 3.2 mm. Heart Rate: 127 bpm, second measure TV: 132 bpm. Rhythm: Normal IUP: Viable IUP Date of LMP: 01/18/2020 Beta HcG (if available): 13,134.6 IMPRESSION: 1. Single viable intrauterine . 2. Possible hemorrhagic cyst right ovary.
--- NOTE | 2020-03-05 19:34 | ED ---
Abdominal Pain HPI - General Chief Complaint: Abdominal Pain Stated Complaint: Rt sided flank pain Time Seen by Provider: 03/05/20 17:39 Source: patient Mode of arrival: ambulatory Limitations: no limitations - History of Present Illness Initial Comments: 24-year-old female G 3 presenting for right lower pelvic pain and . Patient is a type I diabetic insulin-dependent she states her sugars have been slightly higher for the past day. She states she recently was treated for urinary tract infections as a dysuria urgency frequency. Patient that she completed antibiotics 2 days ago. Patient states that she positive test last week schedule appointment with her [employer]PA[employer] HELPER for March 20. Patient states that the pain started today. Denies any vaginal bleeding. Patient denies upper abdominal pain, vomiting,or nausea. Patient denies diarrhea or fevers. patient has no additional complaints. Upon arrival patient appears well no acute distress. - Related Data Home Medications Medication Instructions Recorded Confirmed Insulin Glargine,Hum.rec.anlog 44 unit SQ HS 09/10/19 11/09/19 [Basaglar Kwikpen U-100] Insulin Lispro [Admelog] 20 unit SQ AC-TID 09/10/19 11/09/19 Previous Rx's Medication Instructions Recorded Gba-Vxvm-Epoah Acid 1 cap PO DAILY #20 cap 03/24/19 [-U Capsule (formulary)] Allergies Allergy/AdvReac Type Severity Reaction Status Date / Time No Known Allergies Allergy Verified 03/05/20 17:37 Review of Systems ROS Statement: Those systems with pertinent positive or pertinent negative responses have been documented in the HPI. ROS Other: All systems not noted in ROS Statement are negative. Past Medical History Past Medical History: Diabetes Mellitus History of Any Multi-Drug Resistant Organisms: ESBL Date of last positivie culture/infection: 02/20/18 MDRO Source:: ESBL URINE Past Surgical History: No Surgical Hx Reported Past Psychological History: No Psychological Hx Reported Smoking Status: Never smoker Past Alcohol Use History: None Reported Past Drug Use History: None Reported - Past Family History Sister(s) Family Medical History: Thyroid Disorder General Exam - General Exam Comments Initial Comments: General: The patient is awake and alert, in no distress Eye: +3 mmp pupils are equal, round and reactive to light, extra-ocular movements are intact. No nystagmus. There is normal conjunctiva bilaterally. No signs of icterus. Cardiovascular: There is a regular rate and rhythm. No murmur, rub or gallop is appreciated. Respiratory: Lungs are clear to auscultation, respirations are non-labored, breath sounds are equal. No wheezes, stridor, rales, or rhonchi. Gastrointestinal: Soft, non-distended, mild tenderness right lower pelvic region of abdomen without masses or organomegaly noted. There is no rebound or guarding present. Refused pelvic. Musculoskeletal: Normal ROM, no tenderness. Strength 5/5. Sensation intact. Radial pulses equal bilaterally 2+. Neurological: A&O x 3. CN II-XII intact grossly, There are no obvious motor or sensory deficits. Coordination appears grossly intact. Speech is normal. Skin: Skin is warm and dry and no rashes or lesions are noted. Psychiatric: Cooperative, appropriate mood & affect, normal judgment. Limitations: no limitations Course Vital Signs 03/05/20 17:33 Temperature 97.8 F Pulse Rate 98 Respiratory 18 Rate Blood Pressure 139/80 O2 Sat by Pulse 98 Oximetry Medical Decision Making - Medical Decision Making Abdomen mild tenderness, No vaginal bleeding. UA glucose. Anion gap closed. No Ketones in urine. Patient Given 1 dose SQ insulin. Patient states that she is currently at a high risk clinic. Patient US revealed IUP with a HR and proportionate HCG. Patient US also revealed an ovarian cyst likely cause of pain. Patient otherwise appears well pain controlled. I recommend OBGYN In next week, return for worsening symptoms. Tylenol for pain, and close monitoring of sugars with PCP and OB. Patient is agreeable to care plan and is attending Dr. Singh. Patient discharged appearing well agreeable to care plan. - Lab Data Result diagrams: 03/05/20 18:07 03/05/20 18:07 Lab Results 03/05/20 03/05/20 03/05/20 Range/Units 18:07 18:07 18:07 WBC 9.2 (3.8-10.6) k/uL RBC 4.66 (3.80-5.40) m/uL Hgb 13.1 (11.4-16.0) gm/dL Hct 39.8 (34.0-46.0) % MCV 85.4 (80.0-100.0) fL MCH 28.2 (25.0-35.0) pg MCHC 33.0 (31.0-37.0) g/dL RDW 12.8 (11.5-15.5) % Plt Count 291 (150-450) k/uL Neutrophils % 56 % Lymphocytes % 37 % Monocytes % 3 % Eosinophils % 3 % Basophils % 0 % Neutrophils # 5.2 (1.3-7.7) k/uL Lymphocytes # 3.4 (1.0-4.8) k/uL Monocytes # 0.2 (0-1.0) k/uL Eosinophils # 0.3 (0-0.7) k/uL Basophils # 0.0 (0-0.2) k/uL Sodium 132 L (137-145) mmol/L Potassium 3.7 (3.5-5.1) mmol/L Chloride 100 (98-107) mmol/L Carbon Dioxide 24 (22-30) mmol/L Anion Gap 8 mmol/L BUN 9 (7-17) mg/dL Creatinine 0.35 L (0.52-1.04) mg/dL Est GFR (CKD-EPI)AfAm >90 (>60 ml/min/1.73 sqM) Est GFR (CKD-EPI)NonAf >90 (>60 ml/min/1.73 sqM) Glucose 285 H (74-99) mg/dL Calcium 9.6 (8.4-10.2) mg/dL Total Bilirubin 0.5 (0.2-1.3) mg/dL AST 20 (14-36) U/L ALT 15 (4-34) U/L Alkaline Phosphatase 92 (38-126) U/L Total Protein 7.4 (6.3-8.2) g/dL Albumin 4.1 (3.5-5.0) g/dL HCG, Quant 93165.6 mIU/mL Urine Color Light Yellow Urine Appearance Clear (Clear) Urine pH 6.0 (5.0-8.0) Ur Specific [place] 1.022 (1.001-1.035) Urine Protein Negative (Negative) Urine Glucose (UA) 4+ H (Negative) Urine Ketones Negative (Negative) Urine Blood Negative (Negative) Urine Nitrite Negative (Negative) Urine Bilirubin Negative (Negative) Urine Urobilinogen <2.0 (<2.0) mg/dL Ur Leukocyte Esterase Negative (Negative) Disposition Clinical Impression: Right ovarian cyst, Elevated glucose, Early stage of , Glucose found in urine on examination Disposition: HOME SELF-CARE Condition: Good Instructions (If sedation given, give patient instructions): Abdominal Pain in (ED) Additional Instructions: Please use medication as discussed. Please follow-up with OBGYN in the week. Please return to emergency room if the symptoms increase or worsen or for any other concerns. Is patient prescribed a controlled substance at d/c from ED?: No Referrals: Nay Rodriguez MD [Primary Care Provider] - 1-2 days Time of Disposition: 19:33
[2020-03-05 20:13] VITALS: BP 154/98; PULSE 82
== END 2020-03-05 20:11 | disposition home or self-care (01) ==
LOC: EC 17:32
DX: O34.80 Maternal care for other abnormalities of pelvic organs, unspecified trimester (principal); N83.201 Unspecified ovarian cyst, right side; O99.89 Other specified diseases and conditions complicating pregnancy, childbirth and the puerperium; R81 Glycosuria; O24.019 Pre-existing type 1 diabetes mellitus, in pregnancy, unspecified trimester; E10.65 Type 1 diabetes mellitus with hyperglycemia; Z3A.00 Weeks of gestation of pregnancy not specified
CPT/HCPCS: 36415; 76801; 76817; 80053; 81003; 84702; 85025; 99284

== ENCOUNTER 2020-03-25 18:32 | Emergency (ER) | payer OTHER ==
[2020-03-25 18:40] VITALS: RESP 16; TEMP 98.5
[2020-03-25] MEDS ORDERED: METOCLOPRAMIDE 5 MG/ML 2 ML VIAL IVP STA (19:17)
[2020-03-25] MEDS ORDERED: SODIUM CHLORIDE 0.9% 1,000 ML IV STA (19:17)
--- NOTE | 2020-03-25 19:18 | ED ---
General Adult HPI - General Chief complaint: Abdominal Pain Stated complaint: 9weeks Preg, discharge Time Seen by Provider: 03/25/20 19:05 Source: patient, RN notes reviewed Mode of arrival: ambulatory Limitations: no limitations - History of Present Illness Initial comments: Patient is a 24-year-old female female currently estimated to be about 9 weeks presents to the emergency department for a chief complaint of spotting. Patient reports that she started to have dark brown spotting earlier today. She does not have any pain or cramping with this. Denies any heavy bleeding. Patient reports she has had an ultrasound here however it did not show a fetus at that time. Reports this was at about 5 weeks. 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 Patient has no other complaints at this time including shortness of breath, chest pain, abdominal pain, nausea or vomiting, headache, or visual changes. - Related Data Home Medications Medication Instructions Recorded Confirmed Insulin Glargine,Hum.rec.anlog 40 unit SQ HS 09/10/19 03/25/20 [Basaglar Kwikpen U-100] Insulin Lispro [Admelog] See Protocol SQ AC-TID 09/10/19 03/25/20 Previous Rx's Medication Instructions Recorded Zem-Oqlr-Bfddy Acid 1 cap PO DAILY #20 cap 03/24/19 [-U Capsule (formulary)] Allergies Allergy/AdvReac Type Severity Reaction Status Date / Time No Known Allergies Allergy Verified 03/25/20 19:55 Review of Systems ROS Statement: Those systems with pertinent positive or pertinent negative responses have been documented in the HPI. ROS Other: All systems not noted in ROS Statement are negative. Past Medical History Past Medical History: Diabetes Mellitus History of Any Multi-Drug Resistant Organisms: ESBL Date of last positivie culture/infection: 02/20/18 MDRO Source:: ESBL URINE Past Surgical History: No Surgical Hx Reported Past Psychological History: No Psychological Hx Reported Smoking Status: Never smoker Past Alcohol Use History: None Reported Past Drug Use History: None Reported - Past Family History Sister(s) Family Medical History: Thyroid Disorder General Exam Limitations: no limitations General appearance: alert, in no apparent distress Head exam: Present: atraumatic, normocephalic, normal inspection Eye exam: Present: normal appearance, PERRL, EOMI. Absent: scleral icterus, conjunctival injection, periorbital swelling ENT exam: Present: normal exam, mucous membranes moist Neck exam: Present: normal inspection, full ROM. Absent: tenderness, meningi smus, lymphadenopathy Respiratory exam: Present: normal lung sounds bilaterally. Absent: respiratory distress, wheezes, rales, rhonchi, stridor Cardiovascular Exam: Present: regular rate, normal rhythm, normal heart sounds. Absent: bradycardia, tachycardia, irregular rhythm GI/Abdominal exam: Present: soft, normal bowel sounds. Absent: distended, tenderness, guarding, rebound, rigid Course Vital Signs 03/25/20 03/25/20 18:39 19:38 Temperature 98.5 F Pulse Rate 99 90 Respiratory 16 16 Rate Blood Pressure 133/80 141/77 O2 Sat by Pulse 97 94 L Oximetry Medical Decision Making - Medical Decision Making Vitals are stable. CBC is unremarkable. CMP does show hyperglycemia of 278 with 4+ glucose in the urine. Anion gap of 9. Patient is a type I diabetic and takes insulin. Ultrasound shows gestational age of 9 weeks and 4 days. Possible small subchorionic hemorrhage. Slightly elevated heart rate. These were discussed with her. I did give patient a liter of fluids and Reglan and her nausea has significantly improved. I did recommend rechecking patient's glucose but she reports she does not this done and wants to go home so she can eat and then take her insulin as she normally does. She does not want insulin here right now. States she has been managing her diabetes for several years and this is what is best for her. She does have an appointment with her OB tomorrow. She will return if she has any worsening symptoms. - Lab Data Result diagrams: 03/25/20 19:25 03/25/20 19:25 Lab Results 03/25/20 03/25/20 03/25/20 Range/Units 19:25 19:25 19:25 WBC 8.1 (3.8-10.6) k/uL RBC 4.65 (3.80-5.40) m/uL Hgb 12.3 (11.4-16.0) gm/dL Hct 39.2 (34.0-46.0) % MCV 84.3 (80.0-100.0) fL MCH 26.5 (25.0-35.0) pg MCHC 31.5 (31.0-37.0) g/dL RDW 12.5 (11.5-15.5) % Plt Count 316 (150-450) k/uL Neutrophils % 61 % Lymphocytes % 32 % Monocytes % 3 % Eosinophils % 2 % Basophils % 1 % Neutrophils # 4.9 (1.3-7.7) k/uL Lymphocytes # 2.6 (1.0-4.8) k/uL Monocytes # 0.3 (0-1.0) k/uL Eosinophils # 0.1 (0-0.7) k/uL Basophils # 0.1 (0-0.2) k/uL Sodium 133 L (137-145) mmol/L Potassium 4.3 (3.5-5.1) mmol/L Chloride 101 (98-107) mmol/L Carbon Dioxide 23 (22-30) mmol/L Anion Gap 9 mmol/L BUN 6 L (7-17) mg/dL Creatinine 0.32 L (0.52-1.04) mg/dL Est GFR (CKD-EPI)AfAm >90 (>60 ml/min/1.73 sqM) Est GFR (CKD-EPI)NonAf >90 (>60 ml/min/1.73 sqM) Glucose 278 H (74-99) mg/dL Calcium 9.6 (8.4-10.2) mg/dL Total Bilirubin 0.4 (0.2-1.3) mg/dL AST 17 (14-36) U/L ALT 13 (4-34) U/L Alkaline Phosphatase 76 (38-126) U/L Total Protein 7.2 (6.3-8.2) g/dL Albumin 3.9 (3.5-5.0) g/dL Amylase 34 (30-110) U/L Lipase 68 (23-300) U/L HCG, Quant 34270.4 mIU/mL Urine Color Yellow Urine Appearance Clear (Clear) Urine pH 6.5 (5.0-8.0) Ur Specific [place] 1.021 (1.001-1.035) Urine Protein 1+ H (Negative) Urine Glucose (UA) 4+ H (Negative) Urine Ketones 1+ H (Negative) Urine Blood Negative (Negative) Urine Nitrite Negative (Negative) Urine Bilirubin Negative (Negative) Urine Urobilinogen <2.0 (<2.0) mg/dL Ur Leukocyte Esterase Negative (Negative) Urine WBC 2 (0-5) /hpf Ur Squamous Epith Cells 4 (0-4) /hpf Urine Bacteria Rare H (None) /hpf Urine Mucus Occasional H (None) /hpf Blood Type Blood Type Recheck Bld Type Recheck Status 03/25/20 Range/Units 19:25 WBC (3.8-10.6) k/uL RBC (3.80-5.40) m/uL Hgb (11.4-16.0) gm/dL Hct (34.0-46.0) % MCV (80.0-100.0) fL MCH (25.0-35.0) pg MCHC (31.0-37.0) g/dL RDW (11.5-15.5) % Plt Count (150-450) k/uL Neutrophils % % Lymphocytes % % Monocytes % % Eosinophils % % Basophils % % Neutrophils # (1.3-7.7) k/uL Lymphocytes # (1.0-4.8) k/uL Monocytes # (0-1.0) k/uL Eosinophils # (0-0.7) k/uL Basophils # (0-0.2) k/uL Sodium (137-145) mmol/L Potassium (3.5-5.1) mmol/L Chloride (98-107) mmol/L Carbon Dioxide (22-30) mmol/L Anion Gap mmol/L BUN (7-17) mg/dL Creatinine (0.52-1.04) mg/dL Est GFR (CKD-EPI)AfAm (>60 ml/min/1.73 sqM) Est GFR (CKD-EPI)NonAf (>60 ml/min/1.73 sqM) Glucose (74-99) mg/dL Calcium (8.4-10.2) mg/dL Total Bilirubin (0.2-1.3) mg/dL AST (14-36) U/L ALT (4-34) U/L Alkaline Phosphatase (38-126) U/L Total Protein (6.3-8.2) g/dL Albumin (3.5-5.0) g/dL Amylase (30-110) U/L Lipase (23-300) U/L HCG, Quant mIU/mL Urine Color Urine Appearance (Clear) Urine pH (5.0-8.0) Ur Specific [place] (1.001-1.035) Urine Protein (Negative) Urine Glucose (UA) (Negative) Urine Ketones (Negative) Urine Blood (Negative) Urine Nitrite (Negative) Urine Bilirubin (Negative) Urine Urobilinogen (<2.0) mg/dL Ur Leukocyte Esterase (Negative) Urine WBC (0-5) /hpf Ur Squamous Epith Cells (0-4) /hpf Urine Bacteria (None) /hpf Urine Mucus (None) /hpf Blood Type B Positive Blood Type Recheck B Pos Bld Type Recheck Status No Disposition Clinical Impression: Vaginal bleeding during Disposition: HOME SELF-CARE Condition: Good Instructions (If sedation given, give patient instructions): Threatened Miscarriage (ED) Additional Instructions: please drink plenty of fluids. Make sure to closely manage her glucose. Follow-up with your OB at your scheduled appointment tomorrow. Return here to the emergency room for any worsening symptoms. Is patient prescribed a controlled substance at d/c from ED?: No Referrals: Nay Rodriguez MD [Primary Care Provider] - 1-2 days Time of Disposition: 21:30
[2020-03-25 19:44] LABS: Basophils # (A) 0.1 k/uL (0-0.2); Basophils % (A) 1 %; Eosinophils # (A) 0.1 k/uL (0-0.7); Eosinophils % (A) 2 %; HCT 39.2 % (34.0-46.0); HGB 12.3 gm/dL (11.4-16.0); Lymphocytes # (A) 2.6 k/uL (1.0-4.8); Lymphocytes % (A) 32 %; MCH 26.5 pg (25.0-35.0); MCHC 31.5 g/dL (31.0-37.0); MCV 84.3 fL (80.0-100.0); Mean Platelet Volume 8.2; Monocytes # (A) 0.3 k/uL (0-1.0); Monocytes % (A) 3 %; Neutrophils # (A) 4.9 k/uL (1.3-7.7); Neutrophils % (A) 61 %; Platelet Count 316 k/uL (150-450); RBC 4.65 m/uL (3.80-5.40); RDW 12.5 % (11.5-15.5); WBC 8.1 k/uL (3.8-10.6)
[2020-03-25 19:45] LABS: ALT 13 U/L (4-34); AST 17 U/L (14-36); African American GFR (CKD) >90 (>60 ml/min/1.73 sqM); Albumin 3.9 g/dL (3.5-5.0); Alkaline Phosphatase 76 U/L (38-126); Amylase 34 U/L (30-110); Anion Gap 9 mmol/L; Appearance,Urine Clear (Clear); Bacteria,Urine Rare /hpf; Bilirubin,Urine Negative (Negative); Blood Urea Nitrogen 6 mg/dL (7-17); Blood,Urine Negative (Negative); Calcium 9.6 mg/dL (8.4-10.2); Carbon Dioxide 23 mmol/L (22-30); Chloride 101 mmol/L (98-107); Color,Urine Yellow; Glucose 278 mg/dL (74-99); Glucose,Urine (UA) 4+ (Negative); Ketones,Urine 1+ (Negative); Leukocyte Esterase,Urine Negative (Negative); Mucus,Urine Occasional /hpf; Nitrite,Urine Negative (Negative); Non-African American GFR(CKD) >90 (>60 ml/min/1.73 sqM); PH, Urine 6.5 (5.0-8.0); Potassium 4.3 mmol/L (3.5-5.1); Protein,Urine 1+ (Negative); Sodium 133 mmol/L (137-145); Specific Gravity,Urine 1.021 (1.001-1.035); Squamous Epithelial Cell,Urine 4 /hpf (0-4); Total Bilirubin 0.4 mg/dL (0.2-1.3); Total Protein 7.2 g/dL (6.3-8.2); Urobilinogen,Urine <2.0 mg/dL (<2.0); WBC,Urine 2 /hpf (0-5)
[2020-03-25 20:34] LABS: HCG,Quantitative Serum 58191.4 mIU/mL
--- NOTE | 2020-03-25 21:04 | US ---
EXAMINATION TYPE: Transabdominal DATE OF EXAM: 03/25/2020 8:45 PM COMPARISON: US 2019 CLINICAL HISTORY: spotting. Spotting x 1 day. G 2 P1. Hx ovarian cyst. EXAM PERFORMED: Transabdominal (TA) *No transvaginal ultrasound necessary per PA. EXAM MEASUREMENTS: GESTATIONAL AGE / DATING Physician Established: (9 weeks/4 days) EDC: 10/24/2020 Dates by LMP: (9 weeks/4 days) EDC: 10/24/2020 Dates by First Scan: (9 weeks/1 day) EDC: 10/27/2020 Dates by Current Scan for: (9 weeks/4 days) EDC: 10/24/2020 MATERNAL ANATOMY Uterus: 11.3 x 7.8 x 7.5 cm. Slightly hypoechoic, ill-defined area seen adjacent to the gestational s ac measurin.9 x 3.6 x 2.9 cm. Right Ovary: 2.9 x 2.0 x 2.0 cm. Left Ovary: Not seen Post CDS / Adnexa: Appear wnl Presence of free fluid: Not seen Presence of corpus luteal cyst: Not seen Presence of subchorionic bleed: Possible. As mentioned above: Slightly hypoechoic, ill-defined area s een adjacent to the gestational sac measurin.9 x 3.6 x 2.9 cm. GESTATION / SURVEY CRL: 2.71 cm. (9 weeks/4 days) Yolk Sac (normal less than 6mm): 3.9 mm Heart Rate: 171 bpm, Second and third measurement at 168 bpm. Rhythm: Slightly elevated heart rate first measurement. IUP: Viable IUP Date of LMP: 01/18/2020 Beta HcG (if available): 58,191.4 IMPRESSION: The ultrasound gestational age is 9 weeks and 4 days. This possible small subchorionic hemorrhage.
[2020-03-25 21:49] VITALS: BP 152/100; PULSE 96
[2020-03-26 14:33] LABS: C. trachomatis,PCR Negative (Neg,Equiv); Chlamydia trachomatis Source Urine; N. gonorrhoeae,PCR Negative (Neg,Equiv); Neisseria Source Urine
== END 2020-03-25 21:50 | disposition home or self-care (01) ==
LOC: EC 18:32
DX: O20.9 Hemorrhage in early pregnancy, unspecified (principal); O99.89 Other specified diseases and conditions complicating pregnancy, childbirth and the puerperium; O24.911 Unspecified diabetes mellitus in pregnancy, first trimester; E10.65 Type 1 diabetes mellitus with hyperglycemia; R00.0 Tachycardia, unspecified; Z79.4 Long term (current) use of insulin; Z3A.09 9 weeks gestation of pregnancy
CPT/HCPCS: 36415; 86900; 86901; 80053; 82150; 83690; 85025; 81001; 84702; 87491; 87591; 76801; 99284; 96374; 96361 ×2; J2765

== ENCOUNTER 2020-04-01 12:23 | Emergency (ER) | payer OTHER ==
[2020-04-01 12:45] VITALS: BP 138/91; PULSE 96; RESP 18
--- NOTE | 2020-04-01 13:25 | ED ---
General Adult HPI - General Chief complaint: Upper Respiratory Infection Stated complaint: 10 wks Preg Nausea Time Seen by Provider: 04/01/20 12:45 Source: patient, RN notes reviewed, old records reviewed Mode of arrival: ambulatory Limitations: no limitations - History of Present Illness Initial comments: This is a 24-year-old female presents emergency Department stating she is 11 weeks . Patient states over the last few days she's been having an increased cough and as of this morning she is coughing up some sputum. Patient denies any fever. Patient denies shortness of breath. Patient states she occasionally has had some chest pain when she is coughing really hard or taking a very deep breath. Patient states aside from those to time she has no chest pain. Patient states the chest pain is very sharp and transient only lasting 1- 2 seconds. Patient denies any swelling to her legs or calf tenderness. Patient denies any lightheadedness or dizziness. Patient denies any vomiting or diarrhea. Patient denies abdominal pain. - Related Data Home Medications Medication Instructions Recorded Confirmed Insulin Glargine,Hum.rec.anlog 40 unit SQ HS 09/10/19 03/25/20 [Basaglar Kwikpen U-100] Insulin Lispro [Admelog] See Protocol SQ AC-TID 09/10/19 03/25/20 Previous Rx's Medication Instructions Recorded Cjb-Bmhl-Qqjpd Acid 1 cap PO DAILY #20 cap 03/24/19 [-U Capsule (formulary)] Azithromycin [Zithromax Tri-Berhane] 500 mg PO DAILY #3 tab 04/01/20 Allergies Allergy/AdvReac Type Severity Reaction Status Date / Time No Known Allergies Allergy Verified 04/01/20 12:45 Review of Systems ROS Statement: Those systems with pertinent positive or pertinent negative responses have been documented in the HPI. ROS Other: All systems not noted in ROS Statement are negative. Past Medical History Past Medical History: Diabetes Mellitus History of Any Multi-Drug Resistant Organisms: ESBL Date of last positivie culture/infection: 02/20/18 MDRO Source:: ESBL URINE Past Surgical History: No Surgical Hx Reported Past Psychological History: No Psychological Hx Reported Smoking Status: Never smoker Past Alcohol Use History: None Reported Past Drug Use History: None Reported - Past Family History Sister(s) Family Medical History: Thyroid Disorder General Exam - General Exam Comments Initial Comments: GENERAL: Patient is well-developed and well-nourished. Patient is nontoxic and well- hydrated and is in mild distress. ENT: Neck is soft and supple. No significant lymphadenopathy is noted. Oropharynx is clear. Moist mucous membranes. Neck has full range of motion without eliciting any pain. EYES: The sclera were anicteric and conjunctiva were pink and moist. Extraocular movements were intact and pupils were equal round and reactive to light. Eyelids were unremarkable. PULMONARY: Unlabored respirations. Good breath sounds bilaterally. No audible rales rhonchi or wheezing was noted. CARDIOVASCULAR: There is a regular rate and rhythm without any murmurs gallops or rubs. ABDOMEN: Soft and nontender with normal bowel sounds. SKIN: Skin is clear with no lesions or rashes and otherwise unremarkable. NEUROLOGIC: Patient is alert and oriented x3. Cranial nerves II through XII are grossly intact. Motor and sensory are also intact. Normal speech, volume and content. Symmetrical smile. Cerebellar exam grossly intact. MUSCULOSKELETAL: Normal extremities with adequate strength and full range of motion. No lower extremity swelling or edema. No calf tenderness. LYMPHATICS: No significant lymphadenopathy is noted PSYCHIATRIC: Normal psychiatric evaluation. Limitations: no limitations Course Vital Signs 04/01/20 12:41 Temperature 97.8 F Pulse Rate 96 Respiratory 18 Rate Blood Pressure 138/91 O2 Sat by Pulse 100 Oximetry Medical Decision Making - Medical Decision Making Patient refuses x-ray. Disposition Clinical Impression: Acute bronchitis Disposition: HOME SELF-CARE Condition: Good Instructions (If sedation given, give patient instructions): Acute Bronchitis (ED) Prescriptions: Azithromycin [Zithromax Tri-Berhane] 500 mg PO DAILY #3 tab Is patient prescribed a controlled substance at d/c from ED?: No Referrals: Nay Rodriguez MD [Primary Care Provider] - 1-2 days Time of Disposition: 13:25
[2020-04-01 13:32] VITALS: TEMP 98.3
== END 2020-04-01 13:35 | disposition home or self-care (01) ==
LOC: EC 12:23
DX: O24.911 Unspecified diabetes mellitus in pregnancy, first trimester (principal); O99.511 Diseases of the respiratory system complicating pregnancy, first trimester; J20.9 Acute bronchitis, unspecified; Z3A.11 11 weeks gestation of pregnancy; Z79.4 Long term (current) use of insulin
CPT/HCPCS: 99283

== ENCOUNTER 2020-04-17 18:36 | Emergency (ER) | payer OTHER ==
[2020-04-17 18:46] VITALS: RESP 18
[2020-04-17 19:34] LABS: Basophils % (A) 0 %; Eosinophils # (A) 0.3 k/uL (0-0.7); Eosinophils % (A) 3 %; HCT 37.8 % (34.0-46.0); HGB 12.2 gm/dL (11.4-16.0); Lymphocytes % (A) 31 %; MCH 27.4 pg (25.0-35.0); MCHC 32.2 g/dL (31.0-37.0); MCV 85.1 fL (80.0-100.0); Mean Platelet Volume 8.1; Monocytes # (A) 0.3 k/uL (0-1.0); Monocytes % (A) 3 %; Neutrophils % (A) 62 %; Platelet Count 317 k/uL (150-450); RBC 4.44 m/uL (3.80-5.40); RDW 12.4 % (11.5-15.5); WBC 9.7 k/uL (3.8-10.6)
[2020-04-17 19:44] LABS: Appearance,Urine Cloudy (Clear); Bacteria,Urine Many /hpf; Bilirubin,Urine Negative (Negative); Blood,Urine Negative (Negative); Color,Urine Yellow; Glucose,Urine (UA) Negative (Negative); Ketones,Urine Negative (Negative); Leukocyte Esterase,Urine Small (Negative); Mucus,Urine Few /hpf; Nitrite,Urine Negative (Negative); Protein,Urine 1+ (Negative); RBC,Urine 1 /hpf (0-5); Specific Gravity,Urine 1.023 (1.001-1.035); Squamous Epithelial Cell,Urine 6 /hpf (0-4); Urobilinogen,Urine <2.0 mg/dL (<2.0); WBC,Urine 4 /hpf (0-5)
[2020-04-17 19:50] LABS: ALT 14 U/L (4-34); AST 18 U/L (14-36); African American GFR (CKD) >90 (>60 ml/min/1.73 sqM); Albumin 3.7 g/dL (3.5-5.0); Alkaline Phosphatase 68 U/L (38-126); Anion Gap 8 mmol/L; Blood Urea Nitrogen 8 mg/dL (7-17); Calcium 9.5 mg/dL (8.4-10.2); Carbon Dioxide 24 mmol/L (22-30); Chloride 104 mmol/L (98-107); Glucose 132 mg/dL (74-99); Non-African American GFR(CKD) >90 (>60 ml/min/1.73 sqM); Potassium 4.3 mmol/L (3.5-5.1); Sodium 136 mmol/L (137-145); Total Bilirubin 0.3 mg/dL (0.2-1.3); Total Protein 7.1 g/dL (6.3-8.2)
--- NOTE | 2020-04-17 20:07 | XR ---
EXAMINATION: XR chest 2V DATE AND TIME: 04/17/2020 7:29 PM CLINICAL INDICATION: PHH; cough TECHNIQUE: Departmental protocol COMPARISON: 02/20/2019 FINDINGS: Limitation: The overlying soft tissues are prominent. The lungs appear to be clear. The pleural spaces are negative. The cardiac silhouette is not enlarged. The remainder of the mediastinal silhouette is unremarkable. The skeletal structures and soft tissues are negative for acute findings. IMPRESSION: No acute radiographic process.
[2020-04-17 20:49] LABS: HCG,Quantitative Serum 72234.6 mIU/mL
[2020-04-17] MEDS ORDERED: CEPHALEXIN 500 MG CAP PO STA (20:54)
[2020-04-17 21:06] VITALS: BP 139/95; PULSE 102; TEMP 96.8
--- NOTE | 2020-04-17 21:08 | ED ---
General Adult HPI - General Chief complaint: Upper Respiratory Infection Stated complaint: Cough, SOB Time Seen by Provider: 04/17/20 19:00 Source: patient Mode of arrival: ambulatory Limitations: no limitations - History of Present Illness Initial comments: 24-year-old female patient presents to ED for evaluation for cough. Patient fourth that she has had a persistent cough for the last 5 weeks or so. She denies any chest pain. She reports that sometimes when she walks around her low bit of shortness of breath. Denies any chest pain shortness of breath this time. She denies any abdominal pain and vaginal bleeding. She reports that somebody cough that she has low bit of cramping. Patient does report that she had a previous ultrasound that displayed a intrauterine about 2 weeks ago. Reports that she is taking prenatals. Systemic: Pt denies fatigue, fever/chills, rash. Pt denies weakness, night sweats, weight loss. Neuro: Pt denies headache, visual disturbances, syncope or pre-syncope. HEENT: Pt denies ocular discharge or irritation, otalgia, rhinorrhea, pharyngitis or notable lymphadenopathy. Cardiopulmonary: Pt denies chest pain, heart palpitations, dyspnea on exertion. Abdominal/GI: Pt denies abdominal pain, n/v/d. : Pt denies dysuria, burning w/ urination, frequency/urgency. Denies new onset urinary or bowel incontinence. MSK: Pt denies myalgia, loss of strength or function in extremities. Neuro: Pt denies new onset weakness, paresthesias. - Related Data Home Medications Medication Instructions Recorded Confirmed Insulin Glargine,Hum.rec.anlog 40 unit SQ HS 09/10/19 03/25/20 [Basaglar Kwikpen U-100] Insulin Lispro [Admelog] See Protocol SQ AC-TID 09/10/19 03/25/20 Previous Rx's Medication Instructions Recorded Hwe-Twcb-Cjinj Acid 1 cap PO DAILY #20 cap 03/24/19 [-U Capsule (formulary)] Azithromycin [Zithromax Tri-Berhane] 500 mg PO DAILY #3 tab 04/01/20 Albuterol Inhaler [Ventolin Hfa 1 puff INHALATION RT-QID PRN #1 04/17/20 Inhaler] inhaler Cephalexin [Keflex] 500 mg PO Q12HR 3 Days #6 cap 04/17/20 Allergies Allergy/AdvReac Type Severity Reaction Status Date / Time No Known Allergies Allergy Verified 04/17/20 18:45 Review of Systems ROS Statement: Those systems with pertinent positive or pertinent negative responses have been documented in the HPI. ROS Other: All systems not noted in ROS Statement are negative. Past Medical History Past Medical History: Diabetes Mellitus History of Any Multi-Drug Resistant Organisms: ESBL Date of last positivie culture/infection: 02/20/18 MDRO Source:: ESBL URINE Past Surgical History: No Surgical Hx Reported Past Psychological History: No Psychological Hx Reported Smoking Status: Never smoker Past Alcohol Use History: None Reported Past Drug Use History: None Reported - Past Family History Sister(s) Family Medical History: Thyroid Disorder General Exam - General Exam Comments Initial Comments: Constitutional: NAD, AOX3, Pt has pleasant affect. HEENT: NC/AT, trachea midline, neck supple, no lymphadenopathy. External ears appear normal, without discharge. Mucous membranes moist. Eyes PERRLA, EOM intact. There is no scleral icterus. No pallor noted. Cardiopulmonary: RRR, no murmurs, rubs or gallops, no JVD noted. Lungs CTAB in a nterior and posterior mosquera. No peripheral edema. Abdominal exam: Abdomen soft and non-distended. Abdomen non-tender to palpation in all 4 quadrants. Bowel sounds active in LLQ. No hepatosplenomegaly. No ecchymosis Neuro: CN II-XII grossly intact. MSK: No posterior calf tenderness bilaterally, homans sign negative bilaterally. Posterior tibialis and radial pulse +2 bilaterally. Sensation intact in upper and lower extremities. Full active ROM in upper and lower extremities, 5/5 stregnth. Limitations: no limitations Course Vital Signs 04/17/20 18:43 Temperature 98.3 F Pulse Rate 100 Respiratory 18 Rate Blood Pressure 141/84 O2 Sat by Pulse 99 Oximetry Medical Decision Making - Medical Decision Making 24-year-old female patient presents to ED for evaluation for cough. Patient fourth that she has had a persistent cough for the last 5 weeks or so. She denies any chest pain. She reports that sometimes when she walks around her low bit of shortness of breath. Denies any chest pain shortness of breath this time. She denies any abdominal pain and vaginal bleeding. She reports that somebody cough that she has low bit of cramping. Patient does report that she had a previous ultrasound that displayed a intrauterine about 2 weeks ago. Pt VSS, afebrile. Physical exam did not display acute pathology. Lungs are clear. Chest x-ray revealed no acute process. UA did display a few white blood cells. laboratory investigations unremarkable otherwise. D-dimer is negative. Patient was treated with Keflex. Patient experiencing bronchitis will be advised to use honey and water or dextromorphan without alcohol and then will be given emergency inhaler to use. Patient does have a history of bronchospasm and reports she has had some wheezing at home. I did advise patient to only use the inhaler as needed and caution about overuse. Pt is declining ultrasound. Patient will f/u with PCP and traveling plant operator tomorrow and return to ED with any worsening symptoms. Case disucssed with Dr. Campos. - Lab Data Result diagrams: 04/17/20 19:20 04/17/20 19:20 Lab Results 04/17/20 04/17/20 04/17/20 Range/Units 19:20 19:20 19:20 WBC 9.7 (3.8-10.6) k/uL RBC 4.44 (3.80-5.40) m/uL Hgb 12.2 (11.4-16.0) gm/dL Hct 37.8 (34.0-46.0) % MCV 85.1 (80.0-100.0) fL MCH 27.4 (25.0-35.0) pg MCHC 32.2 (31.0-37.0) g/dL RDW 12.4 (11.5-15.5) % Plt Count 317 (150-450) k/uL Neutrophils % 62 % Lymphocytes % 31 % Monocytes % 3 % Eosinophils % 3 % Basophils % 0 % Neutrophils # 6.0 (1.3-7.7) k/uL Lymphocytes # 3.0 (1.0-4.8) k/uL Monocytes # 0.3 (0-1.0) k/uL Eosinophils # 0.3 (0-0.7) k/uL Basophils # 0.0 (0-0.2) k/uL D-Dimer (<0.60) mg/L FEU Sodium 136 L (137-145) mmol/L Potassium 4.3 (3.5-5.1) mmol/L Chloride 104 (98-107) mmol/L Carbon Dioxide 24 (22-30) mmol/L Anion Gap 8 mmol/L BUN 8 (7-17) mg/dL Creatinine 0.37 L (0.52-1.04) mg/dL Est GFR (CKD-EPI)AfAm >90 (>60 ml/min/1.73 sqM) Est GFR (CKD-EPI)NonAf >90 (>60 ml/min/1.73 sqM) Glucose 132 H (74-99) mg/dL Calcium 9.5 (8.4-10.2) mg/dL Total Bilirubin 0.3 (0.2-1.3) mg/dL AST 18 (14-36) U/L ALT 14 (4-34) U/L Alkaline Phosphatase 68 (38-126) U/L Total Protein 7.1 (6.3-8.2) g/dL Albumin 3.7 (3.5-5.0) g/dL HCG, Quant 42730.6 mIU/mL Urine Color Yellow Urine Appearance Cloudy H (Clear) Urine pH 6.0 (5.0-8.0) Ur Specific [place] 1.023 (1.001-1.035) Urine Protein 1+ H (Negative) Urine Glucose (UA) Negative (Negative) Urine Ketones Negative (Negative) Urine Blood Negative (Negative) Urine Nitrite Negative (Negative) Urine Bilirubin Negative (Negative) Urine Urobilinogen <2.0 (<2.0) mg/dL Ur Leukocyte Esterase Small H (Negative) Urine RBC 1 (0-5) /hpf Urine WBC 4 (0-5) /hpf Ur Squamous Epith Cells 6 H (0-4) /hpf Urine Bacteria Many H (None) /hpf Urine Mucus Few H (None) /hpf 04/17/20 Range/Units 19:20 WBC (3.8-10.6) k/uL RBC (3.80-5.40) m/uL Hgb (11.4-16.0) gm/dL Hct (34.0-46.0) % MCV (80.0-100.0) fL MCH (25.0-35.0) pg MCHC (31.0-37.0) g/dL RDW (11.5-15.5) % Plt Count (150-450) k/uL Neutrophils % % Lymphocytes % % Monocytes % % Eosinophils % % Basophils % % Neutrophils # (1.3-7.7) k/uL Lymphocytes # (1.0-4.8) k/uL Monocytes # (0-1.0) k/uL Eosinophils # (0-0.7) k/uL Basophils # (0-0.2) k/uL D-Dimer 0.36 (<0.60) mg/L FEU Sodium (137-145) mmol/L Potassium (3.5-5.1) mmol/L Chloride (98-107) mmol/L Carbon Dioxide (22-30) mmol/L Anion Gap mmol/L BUN (7-17) mg/dL Creatinine (0.52-1.04) mg/dL Est GFR (CKD-EPI)AfAm (>60 ml/min/1.73 sqM) Est GFR (CKD-EPI)NonAf (>60 ml/min/1.73 sqM) Glucose (74-99) mg/dL Calcium (8.4-10.2) mg/dL Total Bilirubin (0.2-1.3) mg/dL AST (14-36) U/L ALT (4-34) U/L Alkaline Phosphatase (38-126) U/L Total Protein (6.3-8.2) g/dL Albumin (3.5-5.0) g/dL HCG, Quant mIU/mL Urine Color Urine Appearance (Clear) Urine pH (5.0-8.0) Ur Specific [place] (1.001-1.035) Urine Protein (Negative) Urine Glucose (UA) (Negative) Urine Ketones (Negative) Urine Blood (Negative) Urine Nitrite (Negative) Urine Bilirubin (Negative) Urine Urobilinogen (<2.0) mg/dL Ur Leukocyte Esterase (Negative) Urine RBC (0-5) /hpf Urine WBC (0-5) /hpf Ur Squamous Epith Cells (0-4) /hpf Urine Bacteria (None) /hpf Urine Mucus (None) /hpf - EKG Data -: EKG Interpreted by Me (and Dr. Campos) EKG Comments: Ventricular rate 98, GA interval 130, QRS 80, QT/QTC 330/412. Normal sinus rhythm, normal EKG, no concern for acute ischemia. Disposition Clinical Impression: Cough Disposition: HOME SELF-CARE Condition: Stable Instructions (If sedation given, give patient instructions): Acute Bronchitis (ED) Additional Instructions: Follow up with PCP and traveling plant operator tomorrow. You may use over the counter Delsym (dextromorphan). Make sure that the medication you buy does not contain alcohol and is safe in . Confirm with pharmacist prior to your purchase. Use th e albuterol inhaler as needed for wheezing. Return to ED with any worsening symptoms. Recommend self quarantined until results from Covid test. Prescriptions: Cephalexin [Keflex] 500 mg PO Q12HR 3 Days #6 cap Albuterol Inhaler [Ventolin Hfa Inhaler] 1 puff INHALATION RT-QID PRN #1 inhaler PRN Reason: wheezing Is patient prescribed a controlled substance at d/c from ED?: No Referrals: Nay Rodriguez MD [Primary Care Provider] - 1-2 days
== END 2020-04-17 21:13 | disposition home or self-care (01) ==
LOC: EC 18:36
DX: R05 Cough (principal); R06.02 Shortness of breath; J40 Bronchitis, not specified as acute or chronic; E11.9 Type 2 diabetes mellitus without complications; Z79.4 Long term (current) use of insulin
CPT/HCPCS: 36415; 93005; 85379; 80053; 85025; 81001; 84702; 71046; 99284; U0003

== ENCOUNTER 2020-04-25 14:29 | Emergency (ER) | payer OTHER ==
[2020-04-25 14:39] VITALS: TEMP 97.9
[2020-04-25] MEDS ORDERED: diphenhydrAMINE 50 MG/ML 1 ML VIAL IVP STA (14:42)
[2020-04-25] MEDS ORDERED: METOCLOPRAMIDE 5 MG/ML 2 ML VIAL IVP STA (14:42)
[2020-04-25] MEDS ORDERED: SODIUM CHLORIDE 0.9% 1,000 ML IV STA (14:42)
--- NOTE | 2020-04-25 14:44 | ED ---
Abdominal Pain HPI - General Chief Complaint: Abdominal Pain Stated Complaint: 14 wks pregant - Abd Pain, Vomiting Time Seen by Provider: 04/25/20 14:40 Source: patient Mode of arrival: ambulatory Limitations: no limitations - History of Present Illness Initial Comments: Patient is a 24-year-old female, , 14 week presenting to emergency Department with a chief complaint of abdominal cramping nausea vomiting. Patient reports her symptoms initially began with an onset of nausea and vomiting approximately 3 hours prior to arrival. Patient reports after having several nonbilious and nonbloody vomiting episodes, she developed the lower abdominal cramping. Patient reports the cramping is constant with no alleviating or aggravating factors. States the cramping is not postprandial. States she is not able to tolerate any orals at this time. Denies dysuria, increased urgency or frequency. Denies any vaginal discharge, bleeding or foul smell. She denies any night sweats fevers or chills. Denies chest pain shortness of breath. - Related Data Home Medications Medication Instructions Recorded Confirmed Insulin Glargine,Hum.rec.anlog 35 unit SQ HS 09/10/19 04/25/20 [Basaglar Kwikpen U-100] Insulin Lispro [Admelog] See Protocol SQ AC-TID 09/10/19 04/25/20 Previous Rx's Medication Instructions Recorded Xge-Atsb-Hhyru Acid 1 cap PO DAILY #20 cap 03/24/19 [-U Capsule (formulary)] Cephalexin [Keflex] 500 mg PO BID 5 Days #10 cap 04/25/20 Allergies Allergy/AdvReac Type Severity Reaction Status Date / Time No Known Allergies Allergy Verified 04/25/20 14:56 Review of Systems ROS Statement: Those systems with pertinent positive or pertinent negative responses have been documented in the HPI. ROS Other: All systems not noted in ROS Statement are negative. Past Medical History Past Medical History: Diabetes Mellitus History of Any Multi-Drug Resistant Organisms: ESBL Date of last positivie culture/infection: 02/20/18 MDRO Source:: ESBL URINE Past Surgical History: No Surgical Hx Reported Past Psychological History: No Psychological Hx Reported Smoking Status: Never smoker Past Alcohol Use History: None Reported Past Drug Use History: None Reported - Past Family History Sister(s) Family Medical History: Thyroid Disorder General Exam Limitations: no limitations General appearance: alert, in no apparent distress Head exam: Present: atraumatic, normocephalic, normal inspection Eye exam: Present: normal appearance, PERRL, EOMI Pupils: Present: normal accommodation ENT exam: Present: normal exam, normal oropharynx, mucous membranes moist Neck exam: Present: normal inspection, full ROM. Absent: tenderness Respiratory exam: Present: normal lung sounds bilaterally. Absent: respiratory distress, wheezes, rales, rhonchi, stridor, decreased breath sounds Cardiovascular Exam: Present: regular rate, normal rhythm, normal heart sounds GI/Abdominal exam: Present: soft, tenderness (Mild lower abdominal tenderness). Absent: distended, guarding, rebound, rigid Extremities exam: Present: normal inspection, full ROM, normal capillary refill, other (+2 ulnar and radial pulse and laterally.). Absent: tenderness, pedal edema, joint swelling, calf tenderness Back exam: Present: normal inspection, full ROM, CVA tenderness (R) (Mild right CVA tenderness). Absent: tenderness, CVA tenderness (L) Neurological exam: Present: alert, oriented X3, CN II-XII intact, normal gait Psychiatric exam: Present: normal affect, normal mood Skin exam: Present: warm, dry, intact, normal color Course Vital Signs 04/25/20 14:37 Temperature 97.9 F Pulse Rate 93 Respiratory 20 Rate Blood Pressure 131/79 O2 Sat by Pulse 99 Oximetry Medical Decision Making - Medical Decision Making Patient is a 24-year-old female, , 14 week presenting to the emergency room a chief complaint abdominal cramping and nausea and vomiting. On exam patient does have mild lower abdominal tenderness. CBC is unremarkable. CMP reveals mild hyponatremia with slight decrease in BUN and creatinine. Patient is diabetic and is seeing a high-risk physician. States her glucose levels are controlled well with insulin. Blood glucose is 160. Patient has +3 ketones in the urine suggesting dehydration. Anion gap is 7, low c oncern for DKA. Patient given fluids, Reglan and Benadryl. Reevaluation patient reports great improvement in symptoms. States the cramping and nausea has resolved. Patient offered pelvic examination, she declined. Ultrasound reveals a single, live intrauterine with no complications seen. Ultrasound dates the baby at 13 weeks. Patient already has an appointment with her OB, Dr.Garima, on Tuesday. UA did show asymptomatic bacteriuria and will be treated with Keflex. Return parameters were thoroughly discussed with patient was worsening and agreeable. Case discussed with physician. - Lab Data Result diagrams: 04/25/20 14:56 04/25/20 14:56 Lab Results 04/25/20 04/25/20 04/25/20 Range/Units 14:56 14:56 14:56 WBC 9.0 (3.8-10.6) k/uL RBC 4.68 (3.80-5.40) m/uL Hgb 12.5 (11.4-16.0) gm/dL Hct 39.2 (34.0-46.0) % MCV 83.7 (80.0-100.0) fL MCH 26.7 (25.0-35.0) pg MCHC 31.9 (31.0-37.0) g/dL RDW 12.3 (11.5-15.5) % Plt Count 297 (150-450) k/uL Neutrophils % 65 % Lymphocytes % 27 % Monocytes % 3 % Eosinophils % 3 % Basophils % 1 % Neutrophils # 5.8 (1.3-7.7) k/uL Lymphocytes # 2.5 (1.0-4.8) k/uL Monocytes # 0.3 (0-1.0) k/uL Eosinophils # 0.2 (0-0.7) k/uL Basophils # 0.1 (0-0.2) k/uL Sodium 133 L (137-145) mmol/L Potassium 4.4 (3.5-5.1) mmol/L Chloride 106 (98-107) mmol/L Carbon Dioxide 20 L (22-30) mmol/L Anion Gap 7 mmol/L BUN 5 L (7-17) mg/dL Creatinine 0.32 L (0.52-1.04) mg/dL Est GFR (CKD-EPI)AfAm >90 (>60 ml/min/1.73 sqM) Est GFR (CKD-EPI)NonAf >90 (>60 ml/min/1.73 sqM) Glucose 160 H (74-99) mg/dL Calcium 9.4 (8.4-10.2) mg/dL Total Bilirubin 0.6 (0.2-1.3) mg/dL AST 20 (14-36) U/L ALT 15 (4-34) U/L Alkaline Phosphatase 82 (38-126) U/L Total Protein 7.7 (6.3-8.2) g/dL Albumin 4.0 (3.5-5.0) g/dL Lipase 58 (23-300) U/L Urine Color Yellow Urine Appearance Cloudy H (Clear) Urine pH 7.0 (5.0-8.0) Ur Specific [place] 1.026 (1.001-1.035) Urine Protein 2+ H (Negative) Urine Glucose (UA) Negative (Negative) Urine Ketones 3+ H (Negative) Urine Blood Negative (Negative) Urine Nitrite Negative (Negative) Urine Bilirubin Negative (Negative) Urine Urobilinogen 2.0 (<2.0) mg/dL Ur Leukocyte Esterase Negative (Negative) Urine RBC 2 (0-5) /hpf Urine WBC 3 (0-5) /hpf Ur Squamous Epith Cells 21 H (0-4) /hpf Urine Bacteria Moderate H (None) /hpf Hyaline Casts 1 (0-2) /lpf Urine Mucus Moderate H (None) /hpf Disposition Clinical Impression: Abdominal cramping, Nausea & vomiting Disposition: HOME SELF-CARE Condition: Stable Instructions (If sedation given, give patient instructions): Gestational Diabetes (ED) Additional Instructions: Take prescribed medication as directed. Drink plenty of fluids. Follow with her OB. Return to emergency department if symptoms worsen. Prescriptions: Cephalexin [Keflex] 500 mg PO BID 5 Days #10 cap Is patient prescribed a controlled substance at d/c from ED?: No Referrals: Nay Rodriguez MD [Primary Care Provider] - 1-2 days Time of Disposition: 16:30
[2020-04-25] MEDS ORDERED: ACETAMINOPHEN TAB 325 MG TAB PO STA (14:51)
[2020-04-25 15:09] LABS: Basophils # (A) 0.1 k/uL (0-0.2); Basophils % (A) 1 %; Eosinophils # (A) 0.2 k/uL (0-0.7); Eosinophils % (A) 3 %; HCT 39.2 % (34.0-46.0); HGB 12.5 gm/dL (11.4-16.0); Lymphocytes # (A) 2.5 k/uL (1.0-4.8); Lymphocytes % (A) 27 %; MCH 26.7 pg (25.0-35.0); MCHC 31.9 g/dL (31.0-37.0); MCV 83.7 fL (80.0-100.0); Mean Platelet Volume 8.1; Monocytes # (A) 0.3 k/uL (0-1.0); Monocytes % (A) 3 %; Neutrophils # (A) 5.8 k/uL (1.3-7.7); Neutrophils % (A) 65 %; Platelet Count 297 k/uL (150-450); RBC 4.68 m/uL (3.80-5.40); RDW 12.3 % (11.5-15.5)
[2020-04-25 15:15] LABS: ALT 15 U/L (4-34); AST 20 U/L (14-36); African American GFR (CKD) >90 (>60 ml/min/1.73 sqM); Alkaline Phosphatase 82 U/L (38-126); Anion Gap 7 mmol/L; Blood Urea Nitrogen 5 mg/dL (7-17); Calcium 9.4 mg/dL (8.4-10.2); Carbon Dioxide 20 mmol/L (22-30); Chloride 106 mmol/L (98-107); Glucose 160 mg/dL (74-99); Non-African American GFR(CKD) >90 (>60 ml/min/1.73 sqM); Potassium 4.4 mmol/L (3.5-5.1); Sodium 133 mmol/L (137-145); Total Bilirubin 0.6 mg/dL (0.2-1.3); Total Protein 7.7 g/dL (6.3-8.2)
[2020-04-25 15:16] LABS: Appearance,Urine Cloudy (Clear); Bacteria,Urine Moderate /hpf; Bilirubin,Urine Negative (Negative); Blood,Urine Negative (Negative); Color,Urine Yellow; Glucose,Urine (UA) Negative (Negative); Hyaline Casts,Urine 1 /lpf (0-2); Ketones,Urine 3+ (Negative); Leukocyte Esterase,Urine Negative (Negative); Mucus,Urine Moderate /hpf; Nitrite,Urine Negative (Negative); Protein,Urine 2+ (Negative); RBC,Urine 2 /hpf (0-5); Specific Gravity,Urine 1.026 (1.001-1.035); Squamous Epithelial Cell,Urine 21 /hpf (0-4); WBC,Urine 3 /hpf (0-5)
--- NOTE | 2020-04-25 16:04 | US ---
EXAMINATION TYPE: Transabdominal DATE OF EXAM: 04/25/2020 3:49 PM COMPARISON: Pelvic OB ultrasound 03/25/2020. CLINICAL HISTORY: abd cramping. EXAM PERFORMED: Transabdominal (TA) EXAM MEASUREMENTS: GESTATIONAL AGE / DATING Physician Established: Not yet established ( Dates by LMP: 14 weeks/0 days) EDC: 10/24/2020 Dates by First Scan: No previous this is first scan Dates by Current Scan for: (13 weeks/0 days) EDC: 10/31/2020 MATERNAL ANATOMY Uterus: 13.5 x 8.7 x 9.4 cm Right Ovary: 2.2 x 1.8 x 1.6 cm Left Ovary: 2.2 x 1.2 x 2.3 cm Post CDS / Adnexa: wnl Presence of free fluid: wnl Presence of corpus luteal cyst: No Presence of subchorionic bleed: No GESTATION / SURVEY CRL: 6.7cm (13 weeks/0 days) Heart Rate: 158 bpm Rhythm: Normal IUP: Viable IUP Date of LMP: Unsure Beta HcG (if available): Not available at this time Viable IUP with an CATHERINE of 10/31/2020. Hypoechoic lesion of the posterior uterus may represent fibroid, measuring 1.5 x 1.0 x 1.7 cm normal grayscale appearance of the bilateral ovaries. IMPRESSION: 1. Single live intrauterine , heart rate of 150 bpm. Estimated ultrasound gestational age 13 weeks 0 days. 2. Normal ovaries bilaterally. 3. No free fluid.
[2020-04-25 16:40] VITALS: BP 152/88; PULSE 95; RESP 16
== END 2020-04-25 16:42 | disposition home or self-care (01) ==
LOC: EC 14:29
DX: O21.9 Vomiting of pregnancy, unspecified (principal); O99.89 Other specified diseases and conditions complicating pregnancy, childbirth and the puerperium; R10.30 Lower abdominal pain, unspecified; O24.912 Unspecified diabetes mellitus in pregnancy, second trimester; O99.282 Endocrine, nutritional and metabolic diseases complicating pregnancy, second trimester; O23.92 Unspecified genitourinary tract infection in pregnancy, second trimester; Z3A.14 14 weeks gestation of pregnancy; Z79.4 Long term (current) use of insulin
CPT/HCPCS: 99284; 96374; 96375; 96361; 36415; 80053; 83690; 85025; 81001; 76801; J1200; J2765

== ENCOUNTER 2020-09-01 | Inpatient (IN) | payer OTHER ==
[2020-09-01] MEDS ORDERED: LACTATED RINGERS 1,000 ML IV ONE (00:38)
[2020-09-01] MEDS ORDERED: CITRIC ACID-SODIUM CITRATE 15 ML CUP PO ONE (00:38)
[2020-09-01] MEDS ORDERED: LACTATED RINGERS 1,000 ML IV SCH (00:45)
[2020-09-01 00:55] LABS: Basophils % (A) 0 %; Eosinophils # (A) 0.1 k/uL (0-0.7); Eosinophils % (A) 1 %; HCT 35.9 % (34.0-46.0); HGB 11.4 gm/dL (11.4-16.0); Lymphocytes # (A) 2.2 k/uL (1.0-4.8); Lymphocytes % (A) 17 %; MCH 26.7 pg (25.0-35.0); MCHC 31.6 g/dL (31.0-37.0); MCV 84.4 fL (80.0-100.0); Mean Platelet Volume 8.7; Monocytes # (A) 0.5 k/uL (0-1.0); Monocytes % (A) 4 %; Neutrophils # (A) 10.4 k/uL (1.3-7.7); Neutrophils % (A) 78 %; Platelet Count 258 k/uL (150-450); RBC 4.26 m/uL (3.80-5.40); WBC 13.3 k/uL (3.8-10.6)
[2020-09-01] MEDS ORDERED: SODIUM CHLORIDE 0.9% 100 ML BAG ONE (00:59)
[2020-09-01] MEDS ORDERED: ONDANSETRON 4 MG/2 ML VIAL ONE (00:59)
[2020-09-01] MEDS ORDERED: ceFAZolin 1,000 MG VIAL ONE (00:59)
[2020-09-01] MEDS ORDERED: SUCCINYLCHOLINE CHLORIDE 100 MG/5 ML SYR IV ONE (00:59)
[2020-09-01] MEDS ORDERED: PROPOFOL 10 MG/ML 20 ML VIAL IV ONE (00:59)
[2020-09-01] MEDS ORDERED: fentaNYL (PF) 50 MCG/ML 2 ML AMP ONE (00:59)
--- NOTE | 2020-09-01 02:26 | P.HPOB ---
History of Present Illness H&P Date: 09/01/20 Chief Complaint: Contractions This is a 24-year-old female 2 para 1, with an estimated date of confinement of 10/28/2020, estimated gestational age of 31-3/7 weeks, who presented to labor and delivery with complaints of contractions. She stated she had been feeling Schaller Linder contractions all day but then began feeling strong contractions approximately 1 hour higher to her arrival. Upon arrival to triage, she had spontaneous rupture membranes with clear fluid noted. She had heart tones in the 170s to 180s with minimal variability and variable decelerations. No accelerations were noted. She stated she had care with a doctor down in [place] and had been getting regular care. She stated her last ultrasound was this past Tuesday and baby was estimated at 3-1/2 pounds. She is diabetic and is on insulin. Obstetrical history: . History of 1 vaginal delivery at full-term with no complications. Review of Systems Constitutional: Denies chills, Denies fever Eyes: denies blurred vision, denies pain Ears, nose, mouth and throat: Denies headache, Denies sore throat Cardiovascular: Denies chest pain, Denies shortness of breath Respiratory: Denies cough Gastrointestinal: Reports abdominal pain (Contractions) Genitourinary: Reports pelvic pain, Reports Musculoskeletal: Reports low back pain Past Medical History Past Medical History: Diabetes Mellitus History of Any Multi-Drug Resistant Organisms: ESBL Date of last positivie culture/infection: 02/20/18 MDRO Source:: ESBL URINE Past Surgical History: No Surgical Hx Reported Past Psychological History: No Psychological Hx Reported Smoking Status: Never smoker Past Alcohol Use History: None Reported Past Drug Use History: None Reported - Past Family History Sister(s) Family Medical History: Thyroid Disorder Medications and Allergies Home Medications Medication Instructions Recorded Confirmed Type Jup-Akgg-Cxprh Acid 1 cap PO DAILY #20 cap 03/24/19 04/25/20 Rx [-U Capsule (formulary)] Insulin Lispro [Admelog] See Protocol SQ AC-TID 09/10/19 04/25/20 History Insulin Glargine,Hum.rec.anlog 40 unit SQ HS 09/01/20 09/01/20 History [Lantus Solostar] Metoclopramide HCl [Reglan] 10 mg PO PRN 09/01/20 History Allergies Allergy/AdvReac Type Severity Reaction Status Date / Time No Known Allergies Allergy Verified 09/01/20 00:07 Exam Osteopathic Statement: *. No significant issues noted on an osteopathic structural exam other than those noted in the History and Physical/Consult. Intake and Output 08/31/20 08/31/20 09/01/20 14:59 22:59 06:59 Other: Weight 108.862 kg Gen.: Well-developed well-nourished -[place] female in mild distress HEENT: Within normal limits Heart: Regular rate and rhythm Lungs: Clear to auscultation bilaterally Abdomen: Cervix: 3-1/2 cm/7080%/-2 station, vertex, grossly ruptured clear fluid heart tones: 170s to 180s with minimal variability and variable decelerations. No accelerations seen. Contractions: Every 3-4 minutes Extremities: Negative Homans Results Result Diagrams: 09/01/20 00:36 Abnormal Lab Results - Last 24 Hours (Table) 09/01/20 Range/Units 00:36 WBC 13.3 H (3.8-10.6) k/uL Neutrophils # 10.4 H (1.3-7.7) k/uL Assessment and Plan (1) 31 weeks gestation of Current Visit: Yes Status: Acute Code(s): Z3A.31 - 31 WEEKS GESTATION OF SNOMED Code(s): 15383867 (2) distress affecting delivery of second Current Visit: Yes Status: Acute Code(s): O77.9 - LABOR AND DELIVERY COMPLICATED BY STRESS, UNSPECIFIED SNOMED Code(s): 70429281 (3) Insulin dependent diabetes mellitus Current Visit: No Status: Acute Code(s): E11.9 - TYPE 2 DIABETES MELLITUS WITHOUT COMPLICATIONS; Z79.4 - SELF SEALING FUEL TANK REPAIRER (CURRENT) USE OF INSULIN SNOMED Code(s): 92432899 Plan: Admission with preparations for emergency section. Anesthesia and pediatrics have both been called. Patient and her fianc are advised that baby is not tolerating the intrauterine environment and that she needs an emergency section. She is counseled on risks and benefits of section and has consented to the above procedure. I have discussed the risks, benefits, and alternative therapies for the above- mentioned procedure and for both sedation/anesthesia as well as necessary blood products administration, if indicated, as they pertain to this patient. The patient has indicated her understanding and acceptance of the risks and procedures discussed.
[2020-09-01] MEDS ORDERED: ACETAMINOPHEN TAB 325 MG TAB PO PRN (02:30)
[2020-09-01] MEDS ORDERED: OXYTOCIN 30 UNITS/500 ML NS 30 UNIT in SALINE 1 500ML.BAG IV SCH (02:30)
[2020-09-01] MEDS ORDERED: LANOLIN CREAM 5 GM TUBE TOPICAL PRN (02:30)
[2020-09-01] MEDS ORDERED: NALOXONE 0.4 MG/ML 1 ML VIAL IV PRN (02:30)
[2020-09-01] MEDS ORDERED: diphenhydrAMINE 50 MG/ML 1 ML VIAL IVP PRN ×2 (02:30)
[2020-09-01] MEDS ORDERED: ONDANSETRON 4 MG/2 ML VIAL IVP PRN (02:30)
[2020-09-01] MEDS ORDERED: IBUPROFEN 600 MG TAB PO PRN (02:30)
[2020-09-01] MEDS ORDERED: ZOLPIDEM 5 MG TAB PO PRN (02:30)
[2020-09-01] MEDS ORDERED: HYDROcodone/APAP 7.5-325MG 1 EACH TAB PO PRN (02:30)
[2020-09-01] MEDS ORDERED: diphenhydrAMINE 50 MG CAP PO PRN (02:30)
[2020-09-01] MEDS ORDERED: SIMETHICONE 80 MG CHEWABLE PO PRN (02:30)
[2020-09-01] MEDS ORDERED: METOCLOPRAMIDE 5 MG/ML 2 ML VIAL IVP PRN (02:30)
[2020-09-01] MEDS ORDERED: diphenhydrAMINE 25 MG CAP PO PRN (02:30)
--- NOTE | 2020-09-01 02:35 | P.OP ---
Date of Procedure: 09/01/20 Preoperative Diagnosis: 1. Intrauterine at 31-3/7 weeks. 2. tachycardia with minimal variability. 3. labor. 4. And insulin-dependent diabetes. Postoperative Diagnosis: Same Procedure(s) Performed: Primary low transverse section Anesthesia: NGHIA Surgeon: Viviana Huerta Rocket Test Fire Worker #1: Avani Ponce Estimated Blood Loss (ml): 400 Pathology: other (Placenta plus cord gases) Condition: stable Disposition: floor Indications for Procedure: This is a 24-year-old female 2 para 1 at 31-3/7 weeks who presented in active labor with spontaneous rupture of membranes and tachycardia with minimal variability. She is counseled regarding the need for emergent section. I have discussed the risks, benefits, and alternative therapies for the above- mentioned procedure and for both sedation/anesthesia as well as necessary blood products administration, if indicated, as they pertain to this patient. The patient has indicated her understanding and acceptance of the risks and procedures discussed. Operative Findings: A viable female is noted in the vertex presentation. scores and weight are pending at this time. Ovaries and tubes appeared normal. Uterus appeared essentially normal with a small posterior fibroid noted. Clear fluid is noted. There is a slight odor to the fluid and membranes consistent with possible chorioamnionitis. Description of Procedure: The patient is taken to the operating room where she is placed in the dorsal supine position with a leftward tilt. She is prepped and draped in the normal sterile fashion. Gen. anesthesia is given. Once general anesthesia is given, an incision is made with the scalpel in a Pfannenstiel fashion. A second knife was used to carry the incision down to the underlying layer of fascia. The fascia was nicked in the midline with a scalpel and then extended laterally bilaterally with Webster scissors. The superior aspect of the fascial incision was grasped with Virgil clamps, elevated and dissected off the underlying rectus muscle in the midline with Webster scissors. The inferior aspect of the fascial incision was grasped with Virgil clamps, dissected off the underlying rectus muscle in the midline with Webster scissors. Next the peritoneum was identified and tented up with 2 hemostats. Is is entered sharply with the scalpel. The peritoneal layer is extended superiorly and in fairly with Metzenbaum scissors. Next a DeLee retractor was placed and the vesicouterine peritoneum was entered sharply with Metzenbaum scissors and extended laterally bilaterally with Metzenbaum scissors. The bladder was pushed inferiorly and the bladder blade was reinserted. Next the lower uterine segment is incised in a transverse fashion with the scalpel. A hemostat was used to bluntly entered the membranes. Clear fluid was noted. The incision was extended bilaterally with 2 fingers. The lower uterine segment was slightly thick. The 's head was then delivered through the incision followed by the remainder the body. Cord was clamped and cut and a bolus immediately taken to warmer for evaluation by pediatric staff. No spontaneous movement or cry was noted with delivery. A segment of cord was taken for cord gases. Next the placenta was manually removed. The uterus was exteriorized and cleared of all clots and debris. There was noted to be very ratty membranes and a slight odor consistent with possible chorioamnionitis. Once the uterus was adequately cleaned out, the uterine incision was closed with 0 Vicryl suture in a running locked fashion. A second layer of 0 Vicryl suture was used in a running fashion for hemostasis along with several interrupted stitches. The bladder flap was noted to be hemostatic and therefore was not reapproximated. Posterior cul-de-sac was suctioned of all clots and debris. The uterus was returned to the abdomen. The incision is again inspected and appears to be hemostatic. The peritoneal layer was closed with 0 Vicryl suture in a running fashion. The muscle layer was reapproximated with 0 Vicryl suture in interrupted fashion. Good hemostasis is noted. Next the fascial layer was closed with 0 PDS suture with 2 sutures meeting in the midline and the knots buried on either side and in the midline. Next the subcutaneous tissue was closed with 2-0 Vicryl suture in a running fashion. Skin was closed with richard. All sponge and needle counts are correct. The patient is taken to recovery room in stable condition. was transported to level I nursery for further care.
[2020-09-01] MEDS: KETOROLAC 15 MG/ML 1 ML VIAL IVP PRN ×4 (02:47→21:05)
[2020-09-01] MEDS ORDERED: HYDROmorphone PCA 10 MG/50 ML BAG IV PRN (03:00)
[2020-09-01 06:49] LABS: Glucose,Whole Blood 145 mg/dL (75-99)
[2020-09-01] MEDS: SENNOSIDES-DOCUSATE SODIUM 1 EACH TAB PO SCH ×2 (08:29→17:44)
--- NOTE | 2020-09-01 10:56 | P.PNOBGPC ---
Subjective - Subjective Principal diagnosis: Status post primary low transverse section postoperative day #1 Interval history: Patient is doing okay today. She doesn't like the way she feels on narcotics and so she has not been pushing the OTR OWNER OPERATOR button very much. She has been ambulati ng and is passing flatus but no bowel movement yet. Her pain is fairly well controlled at this time. Lochia is minimal. She reports baby is doing much better at [facility]. Patient reports: Reports appetite normal, Reports voiding normally, Reports pain well controlled, Reports ambulating normally : transported Objective - Vital Signs Latest vital signs: Vital Signs Temp Pulse Resp BP Pulse Ox 09/01/20 08:00 99.1 F 115 H 18 143/79 98 09/01/20 04:02 98.4 F 102 H 20 150/82 99 09/01/20 03:32 102 H 20 158/80 100 09/01/20 03:02 97.9 F 101 H 20 155/84 100 09/01/20 02:47 98 20 153/88 100 09/01/20 02:32 100 20 153/92 100 09/01/20 02:17 100 20 153/92 99 09/01/20 02:02 97.1 F L 112 H 18 143/82 97 Intake and Output 08/31/20 09/01/20 09/01/20 22:59 06:59 14:59 Output Total 800 1400 Balance -800 -1400 Output: Urine 1000 Uretheral (Bagley) 200 Estimated Blood Loss 800 400 Other: # Voids 0 Weight 108.862 kg - Exam Extremities: Present: normal. Absent: tenderness, edema Abdomen: Present: normal appearance, soft (Positive bowel sounds 4). Absent: distention, tenderness Incision: Present: normal, dry, intact. Absent: erythematous Uterus: Present: normal, firm. Absent: tenderness - Labs Labs: Abnormal Lab Results - Last 24 Hours (Table) 09/01/20 09/01/20 Range/Units 00:36 06:45 WBC 13.3 H (3.8-10.6) k/uL Neutrophils # 10.4 H (1.3-7.7) k/uL POC Glucose (mg/dL) 145 H (75-99) mg/dL Assessment and Plan Assessment: Status post primary low transverse section postoperative day #1 (1) 31 weeks gestation of Current Visit: Yes Status: Acute Code(s): Z3A.31 - 31 WEEKS GESTATION OF SNOMED Code(s): 56637656 (2) distress affecting delivery of second Current Visit: Yes Status: Acute Code(s): O77.9 - LABOR AND DELIVERY COMPLICATED BY STRESS, UNSPECIFIED SNOMED Code(s): 37990442 (3) Insulin dependent diabetes mellitus Current Visit: No Status: Acute Code(s): E11.9 - TYPE 2 DIABETES MELLITUS WITHOUT COMPLICATIONS; Z79.4 - INTERNET MARKETING ANALYST (CURRENT) USE OF INSULIN SNOMED Code(s): 45321279 Plan: Continue postoperative care today. I have consulted medicine for diabetic management. Will switch to oral pain medication later today.
[2020-09-01 11:12] LABS: Glucose,Whole Blood 170 mg/dL (75-99)
[2020-09-01 12:56] LABS: Glucose,Whole Blood 152 mg/dL (75-99)
[2020-09-01] MEDS: INSULIN ASPART (NovoLOG) 100 UNIT/ML VIAL SQ SCH ×3 (12:59→22:15)
--- NOTE | 2020-09-01 14:19 | P.CONS ---
History of Present Illness - Reason for Consult Consult date: 09/01/20 Medical management - Chief Complaint Underlying diabetes - History of Present Illness This is a 24-year-old female with past medical history significant for morbid obesity and insulin-dependent diabetes who presented to the emergency room in labor yesterday and underwent a at 31-1/2 weeks. Patient is doing well postoperatively. I was asked to see her for diabetes management. Patient informed me that she is normally on insulin 40 units at bedtime and NovoLog 10 units before each meal. She is currently on a clear liquid diet and is having minimal by mouth intake. Blood glucose in the 150 range. She is complaining of some abdominal discomfort today. No A1c done recently. Review of Systems Review of system: 14 points review of systems were obtained and were negative except to what were mentioned in the HPI. Past Medical History Past Medical History: Diabetes Mellitus History of Any Multi-Drug Resistant Organisms: ESBL Year Discovered:: 02/20/18 MDRO Source:: ESBL URINE Past Surgical History: No Surgical Hx Reported Past Psychological History: No Psychological Hx Reported Smoking Status: Never smoker Past Alcohol Use History: None Reported Past Drug Use History: None Reported - Past Family History Sister(s) Family Medical History: Thyroid Disorder Medications and Allergies Home Medications Medication Instructions Recorded Confirmed Type Yvu-Tigg-Ffllz Acid 1 cap PO DAILY #20 cap 03/24/19 04/25/20 Rx [-U Capsule (formulary)] Insulin Lispro [Admelog] See Protocol SQ AC-TID 09/10/19 04/25/20 History Insulin Glargine,Hum.rec.anlog 40 unit SQ HS 09/01/20 09/01/20 History [Lantus Solostar] Metoclopramide HCl [Reglan] 10 mg PO PRN 09/01/20 History Allergies Allergy/AdvReac Type Severity Reaction Status Date / Time No Known Allergies Allergy Verified 09/01/20 00:07 Physical Exam Vitals: Vital Signs Temp Pulse Resp BP Pulse Ox 09/01/20 12:00 97.7 F 108 H 18 137/81 99 09/01/20 08:00 99.1 F 115 H 18 143/79 98 09/01/20 04:02 98.4 F 102 H 20 150/82 99 09/01/20 03:32 102 H 20 158/80 100 09/01/20 03:02 97.9 F 101 H 20 155/84 100 09/01/20 02:47 98 20 153/88 100 09/01/20 02:32 100 20 153/92 100 09/01/20 02:17 100 20 153/92 99 09/01/20 02:02 97.1 F L 112 H 18 143/82 97 Intake and Output 08/31/20 09/01/20 09/01/20 22:59 06:59 14:59 Output Total 800 1520 Balance -800 -1520 Output: Urine 1120 Uretheral (Bagley) 200 Estimated Blood Loss 800 400 Other: # Voids 1 Weight 108.862 kg General: The patient is awake and alert, in no distress Eye: there is normal conjunctiva bilaterally. Neck: The neck is supple, there is no JVD. Cardiovascular: Normal S1-S2, no S3-S4, no murmurs. Respiratory: Lungs clear to auscultation bilaterally Gastrointestinal: Abdomen is soft, there is mild tenderness to palpation Musculoskeletal: There is no pedal edema. Neurological:. Speech is normal. Skin: Skin is warm and dry Results CBC & Chem 7: 09/01/20 00:36 Labs: Abnormal Lab Results - Last 24 Hours (Table) 09/01/20 09/01/20 09/01/20 Range/Units 00:36 06:45 11:10 WBC 13.3 H (3.8-10.6) k/uL Neutrophils # 10.4 H (1.3-7.7) k/uL POC Glucose (mg/dL) 145 H 170 H (75-99) mg/dL 09/01/20 Range/Units 12:50 WBC (3.8-10.6) k/uL Neutrophils # (1.3-7.7) k/uL POC Glucose (mg/dL) 152 H (75-99) mg/dL Assessment and Plan Assessment: 1. Insulin-dependent diabetes mellitus, start sliding scale insulin before meals at bedtime. Levemir 5 units at bedtime and 10 units in the morning for now and titrate up as her oral intake improve. Check A1c. 2. Postoperative day #0 status post : Postoperative care per primary team. 3. Morbid obesity, counseled regarding lifestyle with defecation and exercise Today, I reviewed her medication list and lab work results. I would continue to follow up on the patient's closely with you. Thank you very much for the consultation.
[2020-09-01 17:11] LABS: Glucose,Whole Blood 121 mg/dL (75-99)
[2020-09-01] MEDS ORDERED: INSULIN DETEMIR (LEVEMIR) 100 UNIT/ML SYR SQ SCH (21:00)
[2020-09-01 21:14] LABS: Glucose,Whole Blood 133 mg/dL (75-99)
[2020-09-02] MEDS: HYDROcodone/APAP 5-325MG 1 EACH TAB PO PRN ×2 (00:03→06:27)
[2020-09-02 00:19] VITALS: RESP 18
[2020-09-02 06:58] LABS: Glucose,Whole Blood 146 mg/dL (75-99)
[2020-09-02 07:00] LABS: Basophils % (A) 0 %; Eosinophils # (A) 0.2 k/uL (0-0.7); Eosinophils % (A) 1 %; HCT 32.9 % (34.0-46.0); HGB 10.7 gm/dL (11.4-16.0); Lymphocytes # (A) 1.4 k/uL (1.0-4.8); Lymphocytes % (A) 11 %; MCH 27.7 pg (25.0-35.0); MCHC 32.7 g/dL (31.0-37.0); MCV 84.8 fL (80.0-100.0); Mean Platelet Volume 8.4; Monocytes # (A) 0.5 k/uL (0-1.0); Monocytes % (A) 4 %; Neutrophils # (A) 10.6 k/uL (1.3-7.7); Neutrophils % (A) 83 %; Platelet Count 247 k/uL (150-450); RBC 3.88 m/uL (3.80-5.40); RDW 12.7 % (11.5-15.5); WBC 12.9 k/uL (3.8-10.6)
[2020-09-02] MEDS ORDERED: INSULIN DETEMIR (LEVEMIR) 100 UNIT/ML SYR SQ SCH (07:00)
[2020-09-02] MEDS: INSULIN ASPART (NovoLOG) 100 UNIT/ML VIAL SQ SCH ×2 (07:50→12:23)
[2020-09-02] MEDS: SENNOSIDES-DOCUSATE SODIUM 1 EACH TAB PO SCH (08:00)
[2020-09-02 09:15] VITALS: BP 112/68; PULSE 98; TEMP 98.5
--- NOTE | 2020-09-02 09:15 | P.DS ---
Providers Date of admission: 09/01/20 00:46 Expected date of discharge: 09/02/20 Attending physician: Viviana Huerta Consults: 09/01/20 02:30 Consult Physician Urgent Consulting Provider: Tere Collins Consult Reason/Comments: Diabetes/medical management Do you want consulting provider notified?: Yes Primary care physician: Stated None - Discharge Diagnosis(es) (1) 31 weeks gestation of Current Visit: Yes Status: Acute (2) distress affecting delivery of second Current Visit: Yes Status: Acute (3) Insulin dependent diabetes mellitus Current Visit: No Status: Acute Hospital Course: This is a 24-year-old female 2 para 1 at 31-3/7 weeks who presented with spontaneous rupture of membranes in active labor with nonreassuring heart tones with tachycardia and decreased variability. She underwent a primary low transverse section on 09/01/2020 and delivered a viable female with scores of 1 at 1 minute 2 at 5 minutes and 4 at 10 minutes and infant weight of 4 pounds 1.3 ounces. Baby was transferred to [facility]. Her postoperative course has been essentially uncomplicated. She is ambulating and urinating without difficulty. She is tolerating regular diet. She is not passing flatus or bowel movement yet however she does want to go home if she is able to do this later today. Her pain is fairly well controlled just with ibuprofen. Vital signs are stable. Abdomen is soft with positive bowel sounds 4. Incision is clean dry and intact with richard in place. Lochia is minimal. Extremities show negative Homans. Impression is status post primary low transverse section postoperative day #2. Plan is to discharge home later today as long as she is able to pass some flatus. She did have consultation with medicine for her diabetes control. She will follow up with her regular doctor for this. She will be given a prescription for ibuprofen. She is advised follow-up in the office in 1 week for a postoperative check and in 6 weeks for check. She is advised to call the office if she has any further questions or concerns prior to her appointment time. Procedures: Primary low transverse section on 09/01/2020 Patient Condition at Discharge: Stable Plan - Discharge Summary New Discharge Prescriptions: New Ibuprofen [Motrin] 600 mg PO Q6HR PRN #60 tab PRN Reason: Mild Pain Or Fever >= 100.5 Continue Adb-Iqrm-Pmyym Acid [-U Capsule (formulary)] 1 cap PO DAILY #20 cap No Action Insulin Lispro [Admelog] See Protocol SQ AC-TID Insulin Glargine,Hum.rec.anlog [Lantus Solostar] 40 unit SQ HS Metoclopramide HCl [Reglan] 10 mg PO PRN PRN Reason: Nausea Discharge Medication List Iik-Agbt-Nqkuw Acid [-U Capsule (formulary)] 1 cap PO DAILY #20 cap 03/24/19 [Rx] Insulin Lispro [Admelog] See Protocol SQ AC-TID 09/10/19 [History] Insulin Glargine,Hum.rec.anlog [Lantus Solostar] 40 unit SQ HS 09/01/20 [History] Metoclopramide HCl [Reglan] 10 mg PO PRN 09/01/20 [History] Ibuprofen [Motrin] 600 mg PO Q6HR PRN #60 tab 09/02/20 [Rx] Follow up Appointment(s)/Referral(s): Viviana Huerta DO [Doctor of Osteopathic Medicine] - 1 Week Activity/Diet/Wound Care/Special Instructions: Instructions 1. Do not begin any exercise program for 3 weeks. 2. Do not resume sexual relations for 3 weeks or longer if uncomfortable. 3. You may take tub baths or showers at any time. 4. You may use tampons if desired after 3 weeks. 5. Keep the area of episiotomy (stitches) clean and dry. 6. If you are not nursing, wear a good fitting, supportive bra during the day and limit fluid intake for at least 1 week to prevent breast engorgement. 7. Call the office, [phone], within the next week to make appointment for your 6 week checkup if it has not already been made. 8. Report any of the following occurrences to the doctor promptly: a. Heavy, excessive bleeding b. Chills, fever c. Burning or frequency of urination d. Pain or redness and breasts if nursing e. Increasing pain or swelling in episiotomy (stitches). In addition to the above instructions, the following additional should be followed: 1. No heavy lifting or straining (exercising) until after 6 week checkup. 2. Keep abdominal incision clean and dry: You may wear a dressing if more comfortable. 3. Make office appointment for 10 days after going home or as instructed by her doctor. Discharge Disposition: HOME SELF-CARE
[2020-09-02 11:05] LABS: Glucose,Whole Blood 133 mg/dL (75-99)
[2020-09-02 11:50] LABS: Glucose,Whole Blood 153 mg/dL (75-99)
--- NOTE | 2020-09-02 11:53 | P.PN ---
Subjective Progress Note Date: 09/02/20 Patient is doing fairly well today. Her appetite is picking up. Blood glucose within acceptable range. Objective - Vital Signs Vital signs: Vital Signs Temp 98.5 F 09/02/20 08:00 Pulse 98 09/02/20 08:00 Resp 18 09/02/20 08:00 BP 112/68 09/02/20 08:00 Pulse Ox 97 09/02/20 08:00 Intake & Output 09/01/20 09/02/20 09/02/20 18:59 06:59 18:59 Output Total 1520 200 Balance -1520 -200 Output: Urine 1120 200 Uretheral (Bagley) 200 Estimated Blood Loss 400 Other: # Voids 1 1 # Bowel Movements 0 - Exam General: The patient is awake and alert, in no distress Eye: there is normal conjunctiva bilaterally. Neck: The neck is supple, there is no JVD. Cardiovascular: Normal S1-S2, no S3-S4, no murmurs. Respiratory: Lungs clear to auscultation bilaterally Gastrointestinal: Abdomen is soft, nontender Musculoskeletal: There is no pedal edema. Neurological:. Speech is normal. Skin: Skin is warm and dry - Labs CBC & Chem 7: 09/02/20 06:41 Labs: Abnormal Lab Results - Last 24 Hours (Table) 09/01/20 09/01/20 09/01/20 Range/Units 12:50 17:02 21:12 WBC (3.8-10.6) k/uL Hgb (11.4-16.0) gm/dL Hct (34.0-46.0) % Neutrophils # (1.3-7.7) k/uL POC Glucose (mg/dL) 152 H 121 H 133 H (75-99) mg/dL 09/02/20 09/02/20 09/02/20 Range/Units 06:41 06:56 10:57 WBC 12.9 H (3.8-10.6) k/uL Hgb 10.7 L (11.4-16.0) gm/dL Hct 32.9 L (34.0-46.0) % Neutrophils # 10.6 H (1.3-7.7) k/uL POC Glucose (mg/dL) 146 H 133 H (75-99) mg/dL 01/12/21 Range/Units 11:47 WBC (3.8-10.6) k/uL Hgb (11.4-16.0) gm/dL Hct (34.0-46.0) % Neutrophils # (1.3-7.7) k/uL POC Glucose (mg/dL) 153 H (75-99) mg/dL Assessment and Plan Assessment: 1. Insulin-dependent diabetes mellitus, blood glucose within acceptable range. I advised the patient to continue with Lantus 15 units at bedtime and NovoLog per sliding scale. She will follow-up with her accountant controller for further management of her insulin dosage. She may require gradual increase of her Lantus insulin if blood glucose is not well controlled. She will continue to monitor her blood glucose at home closely. 2. Postoperative day #1 status post : Postoperative care per primary team. 3. Morbid obesity, counseled regarding lifestyle with defecation and exercise Patient will be discharged home today. Thank you very much for involving me in the care of this kind patient.
[2020-09-02] MEDS ORDERED: GLYCERIN ADULT SUPPOSITORY 1 EACH RECTAL STA (13:11)
[2020-09-02 17:25] LABS: Hemoglobin A1C 6.9 % (4.0-6.0)
== END 2020-09-02 15:45 | disposition home or self-care (01) | DRG 786 ==
LOC: FBPOP → 4FBP 00:46
PROVIDERS: ADMIT Obstetrics & Gynecology; ATTEND Obstetrics & Gynecology
PROC: 10D00Z1 Extraction of Products of Conception, Low, Open Approach (ICD-10-PCS; principal; 2020-09-01 00:59)
DX: O76 Abnormality in fetal heart rate and rhythm complicating labor and delivery (principal); O24.12 Pre-existing type 2 diabetes mellitus, in childbirth; O60.14X0 Preterm labor third trimester with preterm delivery third trimester, not applicable or unspecified; E11.9 Type 2 diabetes mellitus without complications; E66.01 Morbid (severe) obesity due to excess calories; Z79.4 Long term (current) use of insulin; O99.214 Obesity complicating childbirth; Z37.0 Single live birth; Z3A.31 31 weeks gestation of pregnancy; O34.13 Maternal care for benign tumor of corpus uteri, third trimester; D25.9 Leiomyoma of uterus, unspecified; Z79.899 Other long term (current) drug therapy; Z86.19 Personal history of other infectious and parasitic diseases; Z71.3 Dietary counseling and surveillance; Z83.49 Family history of other endocrine, nutritional and metabolic diseases
CPT/HCPCS: 82803; 83036; 84112; 85025; 86850; 86900; 86901; 88307; 99215

== ENCOUNTER 2021-02-06 19:56 | Emergency (ER) | payer OTHER ==
[2021-02-06 20:01] VITALS: RESP 18
[2021-02-06] MEDS ORDERED: SODIUM CHLORIDE 0.9% 1,000 ML IV STA (20:17)
--- NOTE | 2021-02-06 20:23 | ED ---
General Adult HPI - General Chief complaint: Chest Pain Stated complaint: Left side chest pain Time Seen by Provider: 02/06/21 20:04 Source: patient Mode of arrival: ambulatory Limitations: no limitations - History of Present Illness Initial comments: 25 year-old female patient with history of diabetes presents to the emergency department for evaluation of left sided chest pain. Patient states that she has had the pain for almost a week. Describes it as an intermittent aching pain that radiates through to her back. Denies cough, fever, or chills. States she was evaluated at [facility] emergency department due to fainting and chest pain. She was diagnosed with dehydration and discharged. She has not yet followed up. She denies any leg pain or swelling. Denies increase in physical activity or heavy lifting. Patient denies any recent rash, fever, chills, abdominal pain, nausea, vomiting, diarrhea, constipation, back pain, numbness, tingling, dizziness, weakness, hematuria, dysuria, urinary urgency, urinary frequency, headache, visual changes, or any other complaints. - Related Data Home Medications Medication Instructions Recorded Confirmed Insulin Lispro [Admelog] See Protocol SQ AC-TID 09/10/19 04/25/20 Previous Rx's Medication Instructions Recorded Uol-Qdmu-Agrti Acid 1 cap PO DAILY #20 cap 03/24/19 [-U Capsule (formulary)] Ibuprofen [Motrin] 600 mg PO Q6HR PRN #60 tab 09/02/20 Insulin Glargine,Hum.rec.anlog 15 unit SQ HS #0 09/02/20 [Lantus Solostar] Allergies Allergy/AdvReac Type Severity Reaction Status Date / Time No Known Allergies Allergy Verified 02/06/21 20:01 Review of Systems ROS Statement: Those systems with pertinent positive or pertinent negative responses have been documented in the HPI. ROS Other: All systems not noted in ROS Statement are negative. Past Medical History Past Medical History: Diabetes Mellitus History of Any Multi-Drug Resistant Organisms: ESBL Date of last positivie culture/infection: 02/20/18 MDRO Source:: ESBL URINE Past Surgical History: No Surgical Hx Reported Past Psychological History: No Psychological Hx Reported Smoking Status: Never smoker Past Alcohol Use History: Occasional Past Drug Use History: None Reported, Marijuana - Past Family History Sister(s) Family Medical History: Thyroid Disorder General Exam Limitations: no limitations General appearance: alert, in no apparent distress, other (This is a well-develo ped, well-nourished adult female patient in no acute distress. Vital signs upon presentation temperature 97.5F, pulse 99, respirations 18, blood pressure 136/85, pulse ox 98% on room air.) Eye exam: Present: normal appearance, PERRL, EOMI. Absent: scleral icterus, conjunctival injection, periorbital swelling ENT exam: Present: normal exam, normal oropharynx, mucous membranes moist Respiratory exam: Present: normal lung sounds bilaterally. Absent: respiratory distress, wheezes, rales, rhonchi, stridor Cardiovascular Exam: Present: regular rate, normal rhythm, normal heart sounds. Absent: systolic murmur, diastolic murmur, rubs, gallop, clicks GI/Abdominal exam: Present: soft, normal bowel sounds. Absent: distended, tenderness, guarding, rebound, rigid Neurological exam: Present: alert, oriented X3, CN II-XII intact Psychiatric exam: Present: normal affect, normal mood Skin exam: Present: warm, dry, intact, normal color. Absent: rash Course Vital Signs 02/06/21 02/06/21 02/06/21 19:58 21:16 22:26 Temperature 97.5 F L 98.2 F Pulse Rate 99 100 98 Respiratory 18 18 18 Rate Blood Pressure 136/85 135/78 128/75 O2 Sat by Pulse 98 98 99 Oximetry 02/06/21 22:57 Temperature Pulse Rate 95 Respiratory 18 Rate Blood Pressure 141/89 O2 Sat by Pulse 100 Oximetry EKG Findings - EKG Comments: EKG Findings:: EKG obtained at 2005 shows normal sinus rhythm with a ventricular rate of 89, ID interval 138, QRS duration 80, QT 352, QTc 428. No evidence of ST elevation or depression. Medical Decision Making - Medical Decision Making 25-year-old female patient presents to the emergency department today for evaluation of left-sided chest pain started about a week ago. Physical examination reveals clear equal lung sounds. Abdomen soft and nontender. Vital signs are within normal range. EKG showed normal sinus rhythm with no ST elevation or depression. Labs reviewed and revealed normal troponin and negative d-dimer. Upon reevaluation she is resting comfortable in bed. I did discuss findings and results with her. She will be discharged to follow-up with cardiology and her primary care physician as soon as possible. Return parameters were discussed in detail. She verbalizes understanding and agrees this plan. Case discussed with my attending Dr. Alfonso. - Lab Data Result diagrams: 02/06/21 21:37 02/06/21 21:37 Lab Results 02/06/21 02/06/21 02/06/21 Range/Units 21:37 21:37 21:37 WBC 7.9 (3.8-10.6) k/uL RBC 5.12 (3.80-5.40) m/uL Hgb 14.3 (11.4-16.0) gm/dL Hct 41.7 (34.0-46.0) % MCV 81.5 (80.0-100.0) fL MCH 28.0 (25.0-35.0) pg MCHC 34.4 (31.0-37.0) g/dL RDW 12.3 (11.5-15.5) % Plt Count 287 (150-450) k/uL MPV 8.6 Neutrophils % 51 % Lymphocytes % 39 % Monocytes % 4 % Eosinophils % 4 % Basophils % 1 % Neutrophils # 4.0 (1.3-7.7) k/uL Lymphocytes # 3.0 (1.0-4.8) k/uL Monocytes # 0.3 (0-1.0) k/uL Eosinophils # 0.3 (0-0.7) k/uL Basophils # 0.1 (0-0.2) k/uL PT 9.5 (9.0-12.0) sec INR 0.9 (<1.2) APTT 23.8 (22.0-30.0) sec D-Dimer 0.34 (<0.60) mg/L FEU Sodium (137-145) mmol/L Potassium (3.5-5.1) mmol/L Chloride (98-107) mmol/L Carbon Dioxide (22-30) mmol/L Anion Gap mmol/L BUN (7-17) mg/dL Creatinine (0.52-1.04) mg/dL Est GFR (CKD-EPI)AfAm (>60 ml/min/1.73 sqM) Est GFR (CKD-EPI)NonAf (>60 ml/min/1.73 sqM) Glucose (74-99) mg/dL Calcium (8.4-10.2) mg/dL Magnesium (1.6-2.3) mg/dL Total Bilirubin (0.2-1.3) mg/dL AST (14-36) U/L ALT (4-34) U/L Alkaline Phosphatase (38-126) U/L Troponin I (0.000-0.034) ng/mL Total Protein (6.3-8.2) g/dL Albumin (3.5-5.0) g/dL Urine Color Yellow Urine Appearance Clear (Clear) Urine pH 6.0 (5.0-8.0) Ur Specific [place] 1.041 H (1.001-1.035) Urine Protein Trace H (Negative) Urine Glucose (UA) 4+ H (Negative) Urine Ketones Negative (Negative) Urine Blood Negative (Negative) Urine Nitrite Negative (Negative) Urine Bilirubin Negative (Negative) Urine Urobilinogen <2.0 (<2.0) mg/dL Ur Leukocyte Esterase Negative (Negative) Urine HCG, Qual (Not Detectd) 02/06/21 02/06/21 02/06/21 Range/Units 21:37 21:37 21:37 WBC (3.8-10.6) k/uL RBC (3.80-5.40) m/uL Hgb (11.4-16.0) gm/dL Hct (34.0-46.0) % MCV (80.0-100.0) fL MCH (25.0-35.0) pg MCHC (31.0-37.0) g/dL RDW (11.5-15.5) % Plt Count (150-450) k/uL MPV Neutrophils % % Lymphocytes % % Monocytes % % Eosinophils % % Basophils % % Neutrophils # (1.3-7.7) k/uL Lymphocytes # (1.0-4.8) k/uL Monocytes # (0-1.0) k/uL Eosinophils # (0-0.7) k/uL Basophils # (0-0.2) k/uL PT (9.0-12.0) sec INR (<1.2) APTT (22.0-30.0) sec D-Dimer (<0.60) mg/L FEU Sodium 136 L (137-145) mmol/L Potassium 4.2 (3.5-5.1) mmol/L Chloride 101 (98-107) mmol/L Carbon Dioxide 24 (22-30) mmol/L Anion Gap 11 mmol/L BUN 10 (7-17) mg/dL Creatinine 0.34 L (0.52-1.04) mg/dL Est GFR (CKD-EPI)AfAm >90 (>60 ml/min/1.73 sqM) Est GFR (CKD-EPI)NonAf >90 (>60 ml/min/1.73 sqM) Glucose 260 H (74-99) mg/dL Calcium 9.4 (8.4-10.2) mg/dL Magnesium 1.7 (1.6-2.3) mg/dL Total Bilirubin 0.2 (0.2-1.3) mg/dL AST 19 (14-36) U/L ALT 17 (4-34) U/L Alkaline Phosphatase 116 (38-126) U/L Troponin I <0.012 (0.000-0.034) ng/mL Total Protein 7.4 (6.3-8.2) g/dL Albumin 4.2 (3.5-5.0) g/dL Urine Color Urine Appearance (Clear) Urine pH (5.0-8.0) Ur Specific [place] (1.001-1.035) Urine Protein (Negative) Urine Glucose (UA) (Negative) Urine Ketones (Negative) Urine Blood (Negative) Urine Nitrite (Negative) Urine Bilirubin (Negative) Urine Urobilinogen (<2.0) mg/dL Ur Leukocyte Esterase (Negative) Urine HCG, Qual Not Detected (Not Detectd) - Radiology Data Radiology results: report reviewed, image reviewed Two-view x-ray of the chest is obtained. Report was reviewed in its entirety. Impression by Dr. Cowan shows normal chest. No change. Disposition Clinical Impression: Chest pain Disposition: HOME SELF-CARE Condition: Good Instructions (If sedation given, give patient instructions): Chest Pain (ED) Additional Instructions: Take Tylenol and Motrin. Follow up with cardiology as directed. Follow-up through primary care physician for recheck in 1-2 days. Return for any new, worsening, or concerning symptoms. Is patient prescribed a controlled substance at d/c from ED?: No Referrals: None,Stated [REFERRING] - 1-2 days David Duenas MD [STAFF PHYSICIAN] - 1-2 days Time of Disposition: 22:48
--- NOTE | 2021-02-06 21:03 | XR ---
EXAMINATION TYPE: XR chest 2V DATE OF EXAM: 02/06/2021 COMPARISON: 04/17/2020 HISTORY: Chest pain TECHNIQUE: FINDINGS: Heart and mediastinum are normal. Lungs are clear. Diaphragm is normal. Bony thorax appears normal. IMPRESSION: Normal chest. No change.
[2021-02-06 21:39] VITALS: TEMP 98.2
[2021-02-06 21:50] LABS: Appearance,Urine Clear (Clear); Bilirubin,Urine Negative (Negative); Blood,Urine Negative (Negative); Color,Urine Yellow; Glucose,Urine (UA) 4+ (Negative); Ketones,Urine Negative (Negative); Leukocyte Esterase,Urine Negative (Negative); Nitrite,Urine Negative (Negative); Protein,Urine Trace (Negative); Specific Gravity,Urine 1.041 (1.001-1.035); Urobilinogen,Urine <2.0 mg/dL (<2.0)
[2021-02-06 21:58] LABS: Basophils # (A) 0.1 k/uL (0-0.2); Basophils % (A) 1 %; Eosinophils # (A) 0.3 k/uL (0-0.7); Eosinophils % (A) 4 %; HCT 41.7 % (34.0-46.0); HGB 14.3 gm/dL (11.4-16.0); Lymphocytes % (A) 39 %; MCHC 34.4 g/dL (31.0-37.0); MCV 81.5 fL (80.0-100.0); Mean Platelet Volume 8.6; Monocytes # (A) 0.3 k/uL (0-1.0); Monocytes % (A) 4 %; Neutrophils % (A) 51 %; Platelet Count 287 k/uL (150-450); RBC 5.12 m/uL (3.80-5.40); RDW 12.3 % (11.5-15.5); WBC 7.9 k/uL (3.8-10.6)
[2021-02-06 22:01] LABS: ALT 17 U/L (4-34); AST 19 U/L (14-36); African American GFR (CKD) >90 (>60 ml/min/1.73 sqM); Albumin 4.2 g/dL (3.5-5.0); Alkaline Phosphatase 116 U/L (38-126); Anion Gap 11 mmol/L; Blood Urea Nitrogen 10 mg/dL (7-17); Calcium 9.4 mg/dL (8.4-10.2); Carbon Dioxide 24 mmol/L (22-30); Chloride 101 mmol/L (98-107); Glucose 260 mg/dL (74-99); Magnesium 1.7 mg/dL (1.6-2.3); Non-African American GFR(CKD) >90 (>60 ml/min/1.73 sqM); Potassium 4.2 mmol/L (3.5-5.1); Sodium 136 mmol/L (137-145); Total Bilirubin 0.2 mg/dL (0.2-1.3); Total Protein 7.4 g/dL (6.3-8.2)
[2021-02-06 22:11] LABS: D-Dimer 0.34 mg/L FEU (<0.60); INR 0.9 (<1.2); Partial Thromboplastin Time 23.8 sec (22.0-30.0); Prothrombin Time 9.5 sec (9.0-12.0)
[2021-02-06 23:03] VITALS: BP 141/89; PULSE 95
== END 2021-02-06 23:04 | disposition home or self-care (01) ==
LOC: EC 19:56
DX: R07.89 Other chest pain (principal); E11.9 Type 2 diabetes mellitus without complications; F12.90 Cannabis use, unspecified, uncomplicated; Z79.4 Long term (current) use of insulin; Z79.1 Long term (current) use of non-steroidal anti-inflammatories (NSAID)
CPT/HCPCS: 36415; 71046; 80053; 81003; 81025; 83735; 84484; 85025; 85379; 85610; 85730; 93005; 96360; 99285

== ENCOUNTER 2021-02-24 06:51 | Emergency (ER) | payer OTHER ==
[2021-02-24 06:56] VITALS: BP 141/102; PULSE 94; RESP 20; TEMP 98
[2021-02-24] MEDS ORDERED: MORPHINE SULFATE 4 MG/ML SYRINGE IV STA (07:22)
[2021-02-24] MEDS ORDERED: LIDOCAINE 5% PATCH TOPICAL STA (07:23)
--- NOTE | 2021-02-24 07:27 | ED ---
General Adult HPI - General Chief complaint: Chest Pain Stated complaint: Chest pain Time Seen by Provider: 02/24/21 07:09 Source: patient Mode of arrival: ambulatory Limitations: no limitations - History of Present Illness Initial comments: Dictation was produced using [email or web address] dictation software. please excuse any grammatical, word or spelling errors. Chief Complaint: 25-year-old female past medical history of diabetes presents to the emergency department for right-sided back pain History of Present Illness: 25-year-old female she has past medical history of diabetes. Patient's insulin-dependent. She states that her last few days she's developed worsening right-sided pain. She states that she has pain in her right shoulder, right lateral thoracic area and right lower back. States that the pain is constant and sharp. Exacerbated with movement and deep breath. Patient reports that the pain is severe. She also feels short of breath. Patient has any trauma to the area. The ROS documented in this emergency department record has been reviewed and confirmed by me. Those systems with pertinent positive or negative responses have been documented in the HPI. All other systems are other negative and/or noncontributory. PHYSICAL EXAM: General Impression: Alert and oriented x3, acute distress secondary to pain HEENT: Normocephalic atraumatic, extra-ocular movements intact, pupils equal and reactive to light bilaterally, mucous membranes moist. Cardiovascular: Heart regular rate and rhythm Chest: Able to complete full sentences, no retractions, no tachypnea, tenderness to palpation over the right lateral thoracic area overlying the ribs Abdomen: abdomen soft, non-tender, non-distended, no organomegaly Musculoskeletal: Pulses present and equal in all extremities, no peripheral edema Motor: no focal deficits noted Neurological: CN II-XII grossly intact, no focal motor or sensory deficits noted Skin: Intact with no visualized rashes Psych: Tearful ED course: 25-year-old female presents with reported severe pain to the right lower back, right lateral chest. Vital signs upon arrival are within acceptable limits. At rest, patient's well-appearing at the bedside. She does become tearful when the right lateral ribs are palpated. She does not have a physical examination suggestive of aortic dissection. She has equal pulses to the bilateral upper extremities. EKGs benign and appears to be at baseline. CBC unremarkable. Coag panel is negative. D-dimer is 0.3. Metabolic panel is negative. Troponin is negative. Urine hCG is negative. For panel virus PCR is negative for influenza RSV and coronavirus. Chest x-ray is limited due to poor inspiration however radiologist commented on possible bilateral central opacities extending posteriorly inferiorly. Patient not showing any signs of respiratory distress. She is not coughing or having any respiratory symptoms. Patient given analgesia reevaluated at bedside at 9:30 AM found to be in stable medical condition she is sleeping comfortably and not showing any signs of distress.. All results were discussed with patient. At this point there are no signs of life-threatening issues. Repeat vital signs are negative. Patient's symptoms likely secondary to myalgias. Patient will be discharged. She is advised to take [id number] analgesics for symptom control. EKG interpretation: Ventricular rate 96, normal sinus rhythm, FL interval 144, QRS 80, QTC 427. No FL prolongation, no QTC prolongation, no ST or T-wave changes noted. EKG compared to 02/06/2021 showing no changes. Overall, this EKG is unremarkable - Related Data Home Medications Medication Instructions Recorded Confirmed Marlene 0.35mg 0.35 mg PO DAILY 02/24/21 02/24/21 INSULIN LISPRO (HumaLOG) [humaLOG] 12 units SQ AC-TID 02/24/21 02/24/21 Ibuprofen [Motrin] 800 mg PO Q8H PRN 02/24/21 02/24/21 Insulin Glargine,Hum.rec.anlog 35 unit SQ HS 02/24/21 02/24/21 [Lantus Solostar] Allergies Allergy/AdvReac Type Severity Reaction Status Date / Time No Known Allergies Allergy Verified 02/24/21 08:56 Review of Systems ROS Statement: Those systems with pertinent positive or pertinent negative responses have been documented in the HPI. ROS Other: All systems not noted in ROS Statement are negative. Past Medical History Past Medical History: Diabetes Mellitus History of Any Multi-Drug Resistant Organisms: None Reported Date of last positivie culture/infection: 02/20/18 MDRO Source:: ESBL URINE Past Surgical History: No Surgical Hx Reported, Section Past Psychological History: No Psychological Hx Reported Smoking Status: Never smoker Past Alcohol Use History: Occasional Past Drug Use History: None Reported, Marijuana - Past Family History Sister(s) Family Medical History: Thyroid Disorder General Exam Limitations: no limitations Course Vital Signs 02/24/21 06:52 Temperature 98 F Pulse Rate 94 Respiratory 20 Rate Blood Pressure 141/102 O2 Sat by Pulse 97 Oximetry Medical Decision Making - Lab Data Result diagrams: 02/24/21 07:34 02/24/21 07:34 Lab Results 02/24/21 02/24/21 02/24/21 Range/Units 07:34 07:34 07:34 WBC 9.6 (3.8-10.6) k/uL RBC 4.86 (3.80-5.40) m/uL Hgb 13.4 (11.4-16.0) gm/dL Hct 39.7 (34.0-46.0) % MCV 81.8 (80.0-100.0) fL MCH 27.6 (25.0-35.0) pg MCHC 33.8 (31.0-37.0) g/dL RDW 12.1 (11.5-15.5) % Plt Count 327 (150-450) k/uL MPV 8.4 Neutrophils % 50 % Lymphocytes % 42 % Monocytes % 4 % Eosinophils % 2 % Basophils % 1 % Neutrophils # 4.8 (1.3-7.7) k/uL Lymphocytes # 4.0 (1.0-4.8) k/uL Monocytes # 0.4 (0-1.0) k/uL Eosinophils # 0.2 (0-0.7) k/uL Basophils # 0.1 (0-0.2) k/uL PT 9.6 (9.0-12.0) sec INR 0.9 (<1.2) APTT 22.6 (22.0-30.0) sec D-Dimer 0.30 (<0.60) mg/L FEU Sodium (137-145) mmol/L Potassium (3.5-5.1) mmol/L Chloride (98-107) mmol/L Carbon Dioxide (22-30) mmol/L Anion Gap mmol/L BUN (7-17) mg/dL Creatinine (0.52-1.04) mg/dL Est GFR (CKD-EPI)AfAm (>60 ml/min/1.73 sqM) Est GFR (CKD-EPI)NonAf (>60 ml/min/1.73 sqM) Glucose (74-99) mg/dL Calcium (8.4-10.2) mg/dL Magnesium (1.6-2.3) mg/dL Total Bilirubin (0.2-1.3) mg/dL AST (14-36) U/L ALT (4-34) U/L Alkaline Phosphatase (38-126) U/L Troponin I (0.000-0.034) ng/mL Total Protein (6.3-8.2) g/dL Albumin (3.5-5.0) g/dL Urine HCG, Qual Not Detected (Not Detectd) Influenza Type A (PCR) (Not Detectd) Influenza Type B (PCR) (Not Detectd) RSV (PCR) (Not Detectd) SARS-CoV-2 (PCR) (Not Detectd) 02/24/21 02/24/21 02/24/21 Range/Units 07:34 07:34 08:31 WBC (3.8-10.6) k/uL RBC (3.80-5.40) m/uL Hgb (11.4-16.0) gm/dL Hct (34.0-46.0) % MCV (80.0-100.0) fL MCH (25.0-35.0) pg MCHC (31.0-37.0) g/dL RDW (11.5-15.5) % Plt Count (150-450) k/uL MPV Neutrophils % % Lymphocytes % % Monocytes % % Eosinophils % % Basophils % % Neutrophils # (1.3-7.7) k/uL Lymphocytes # (1.0-4.8) k/uL Monocytes # (0-1.0) k/uL Eosinophils # (0-0.7) k/uL Basophils # (0-0.2) k/uL PT (9.0-12.0) sec INR (<1.2) APTT (22.0-30.0) sec D-Dimer (<0.60) mg/L FEU Sodium 135 L (137-145) mmol/L Potassium 4.4 (3.5-5.1) mmol/L Chloride 98 (98-107) mmol/L Carbon Dioxide 28 (22-30) mmol/L Anion Gap 9 mmol/L BUN 12 (7-17) mg/dL Creatinine 0.38 L (0.52-1.04) mg/dL Est GFR (CKD-EPI)AfAm >90 (>60 ml/min/1.73 sqM) Est GFR (CKD-EPI)NonAf >90 (>60 ml/min/1.73 sqM) Glucose 326 H (74-99) mg/dL Calcium 10.0 (8.4-10.2) mg/dL Magnesium 1.7 (1.6-2.3) mg/dL Total Bilirubin 0.2 (0.2-1.3) mg/dL AST 18 (14-36) U/L ALT 14 (4-34) U/L Alkaline Phosphatase 158 H (38-126) U/L Troponin I <0.012 (0.000-0.034) ng/mL Total Protein 7.4 (6.3-8.2) g/dL Albumin 4.2 (3.5-5.0) g/dL Urine HCG, Qual (Not Detectd) Influenza Type A (PCR) Not Detected (Not Detectd) Influenza Type B (PCR) Not Detected (Not Detectd) RSV (PCR) Not Detected (Not Detectd) SARS-CoV-2 (PCR) Not Detected (Not Detectd) Disposition Clinical Impression: Myalgia Disposition: HOME SELF-CARE Condition: Good Instructions (If sedation given, give patient instructions): Chest Pain (ED) Is patient prescribed a controlled substance at d/c from ED?: No Referrals: Nay Rodriguez MD [Primary Care Provider] - 1-2 days
[2021-02-24 07:46] LABS: Basophils # (A) 0.1 k/uL (0-0.2); Basophils % (A) 1 %; Eosinophils # (A) 0.2 k/uL (0-0.7); Eosinophils % (A) 2 %; HCT 39.7 % (34.0-46.0); HGB 13.4 gm/dL (11.4-16.0); Lymphocytes % (A) 42 %; MCH 27.6 pg (25.0-35.0); MCHC 33.8 g/dL (31.0-37.0); MCV 81.8 fL (80.0-100.0); Mean Platelet Volume 8.4; Monocytes # (A) 0.4 k/uL (0-1.0); Monocytes % (A) 4 %; Neutrophils # (A) 4.8 k/uL (1.3-7.7); Neutrophils % (A) 50 %; Platelet Count 327 k/uL (150-450); RBC 4.86 m/uL (3.80-5.40); RDW 12.1 % (11.5-15.5); WBC 9.6 k/uL (3.8-10.6)
[2021-02-24 07:55] LABS: ALT 14 U/L (4-34); AST 18 U/L (14-36); African American GFR (CKD) >90 (>60 ml/min/1.73 sqM); Albumin 4.2 g/dL (3.5-5.0); Alkaline Phosphatase 158 U/L (38-126); Anion Gap 9 mmol/L; Blood Urea Nitrogen 12 mg/dL (7-17); Carbon Dioxide 28 mmol/L (22-30); Chloride 98 mmol/L (98-107); Glucose 326 mg/dL (74-99); Magnesium 1.7 mg/dL (1.6-2.3); Non-African American GFR(CKD) >90 (>60 ml/min/1.73 sqM); Potassium 4.4 mmol/L (3.5-5.1); Sodium 135 mmol/L (137-145); Total Bilirubin 0.2 mg/dL (0.2-1.3); Total Protein 7.4 g/dL (6.3-8.2)
[2021-02-24 08:04] LABS: D-Dimer 0.3 mg/L FEU (<0.60); INR 0.9 (<1.2); Partial Thromboplastin Time 22.6 sec (22.0-30.0); Prothrombin Time 9.6 sec (9.0-12.0)
--- NOTE | 2021-02-24 08:07 | XR ---
EXAMINATION TYPE: XR chest 2V DATE OF EXAM: 02/24/2021 COMPARISON: Chest x-ray February 06, 2021 HISTORY: Pain on inspiration. TECHNIQUE: Frontal and lateral views of the chest are obtained. FINDINGS: There is poor inspiration with increased central opacities. The cardiac silhouette size i s slightly more prominent but remains within normal limits. No pleural effusion or pneumothorax noted . The osseous structures are intact. IMPRESSION: Poor inspiration with bilateral central opacities extending posteriorly and inferiorly c ould reflect edema and/or developing infiltrates. Correlate clinically.
[2021-02-24] MEDS ORDERED: KETOROLAC 15 MG/ML 1 ML VIAL IVP STA (08:17)
== END 2021-02-24 09:47 | disposition home or self-care (01) ==
LOC: EC 06:51
DX: M79.10 Myalgia, unspecified site (principal); E11.9 Type 2 diabetes mellitus without complications; F12.90 Cannabis use, unspecified, uncomplicated; Z79.4 Long term (current) use of insulin; Z79.1 Long term (current) use of non-steroidal anti-inflammatories (NSAID); Z83.49 Family history of other endocrine, nutritional and metabolic diseases
CPT/HCPCS: 36415; 93005; 85379; 80053; 83735; 84484; 85025; 85610; 85730; 81025; 87636; 71046; 96374; 96375; 99285; J2270; J1885

== ENCOUNTER 2021-05-13 11:20 | Emergency (ER) | payer OTHER ==
[2021-05-13 11:26] VITALS: RESP 18; TEMP 98.6
[2021-05-13] MEDS ORDERED: SODIUM CHLORIDE 0.9% 1,000 ML IV ONE (12:08)
--- NOTE | 2021-05-13 12:26 | ED ---
General Adult HPI - General Chief complaint: Abdominal Pain Stated complaint: newly preg, low back pain Time Seen by Provider: 05/13/21 11:26 Source: patient, RN notes reviewed Mode of arrival: ambulatory Limitations: no limitations - History of Present Illness Initial comments: 25-year-old female presents to the emergency room for a chief complaint of abdominal pain. Patient states she found out a few days ago that she was . Patient states about a week ago she started to have sharp stabbing right lower quadrant pain that came and went. States it resolved for a few days but then started again today. Patient states that she found that she was she wanted to be checked out. Patient states her last period was about 2 months ago or so she thinks. Patient denies syncope. Patient denies vaginal bleeding.Patient has no other complaints at this time including shortness of breath, chest pain, nausea or vomiting, headache, or visual changes. - Related Data Home Medications Medication Instructions Recorded Confirmed INSULIN LISPRO (HumaLOG) [humaLOG] 12 units SQ AC-TID 02/24/21 05/13/21 Insulin Glargine,Hum.rec.anlog 40 unit SQ HS 02/24/21 05/13/21 [Lantus Solostar Pen] Allergies Allergy/AdvReac Type Severity Reaction Status Date / Time No Known Allergies Allergy Verified 05/13/21 12:01 Review of Systems ROS Statement: Those systems with pertinent positive or pertinent negative responses have been documented in the HPI. ROS Other: All systems not noted in ROS Statement are negative. Past Medical History Past Medical History: Diabetes Mellitus History of Any Multi-Drug Resistant Organisms: None Reported Date of last positivie culture/infection: 02/20/18 MDRO Source:: ESBL URINE Past Surgical History: Section Past Psychological History: No Psychological Hx Reported Smoking Status: Never smoker Past Alcohol Use History: None Reported Past Drug Use History: Marijuana - Past Family History Sister(s) Family Medical History: Thyroid Disorder General Exam Limitations: no limitations General appearance: alert, in no apparent distress Head exam: Present: atraumatic Eye exam: Present: normal appearance, PERRL, EOMI. Absent: scleral icterus, c onjunctival injection ENT exam: Present: normal exam, mucous membranes moist Neck exam: Present: normal inspection, full ROM. Absent: tenderness Respiratory exam: Present: normal lung sounds bilaterally. Absent: respiratory distress, wheezes Cardiovascular Exam: Present: regular rate, normal rhythm, normal heart sounds GI/Abdominal exam: Present: soft, tenderness (Mild right lower quadrant tenderness without guarding or rebound), normal bowel sounds. Absent: distended , guarding, rebound Course Vital Signs 05/13/21 05/13/21 11:21 14:04 Temperature 98.6 F Pulse Rate 100 98 Respiratory 18 18 Rate Blood Pressure 95/64 144/83 O2 Sat by Pulse 98 100 Oximetry Medical Decision Making - Medical Decision Making Vitals are stable. CBC is unremarkable. CMP does show hyperglycemia. Urinalysis does show 4+ glucose 1+ ketones however anion gap is normal. Patient is diabetic and takes insulin. HCG is 11,000. Ultrasound revealed heart tones that cannot be identified within the irregular contour of the gestational sac. Impression read as findings consistent with intrauterine demise and impending . However I did discuss this with Patient's PROCESS MACHINE OPERATOR Dr. Painting. Feels that at this time it could just be too early of a . Does not require repeat hCG but wants her to follow up in office next week. Patient will return here for any worsening symptoms. Patient's glucose did drop to 48. This was rechecked as she started to feel shaky. Patient did take 22 units of Humalog about an hour prior to arrival. This was rechecked after food and did increase. - Lab Data Result diagrams: 05/13/21 12:12 05/13/21 12:12 Lab Results 05/13/21 05/13/21 05/13/21 Range/Units 12:12 12:12 12:12 WBC 5.7 (3.8-10.6) k/uL RBC 4.79 (3.80-5.40) m/uL Hgb 13.4 (11.4-16.0) gm/dL Hct 40.0 (34.0-46.0) % MCV 83.5 (80.0-100.0) fL MCH 27.9 (25.0-35.0) pg MCHC 33.4 (31.0-37.0) g/dL RDW 12.3 (11.5-15.5) % Plt Count 328 (150-450) k/uL MPV 8.5 Neutrophils % 51 % Lymphocytes % 41 % Monocytes % 3 % Eosinophils % 2 % Basophils % 1 % Neutrophils # 2.9 (1.3-7.7) k/uL Lymphocytes # 2.3 (1.0-4.8) k/uL Monocytes # 0.2 (0-1.0) k/uL Eosinophils # 0.1 (0-0.7) k/uL Basophils # 0.0 (0-0.2) k/uL Sodium 134 L (137-145) mmol/L Potassium 4.5 (3.5-5.1) mmol/L Chloride 105 (98-107) mmol/L Carbon Dioxide 20 L (22-30) mmol/L Anion Gap 9 mmol/L BUN 5 L (7-17) mg/dL Creatinine 0.27 L (0.52-1.04) mg/dL Est GFR (CKD-EPI)AfAm >90 (>60 ml/min/1.73 sqM) Est GFR (CKD-EPI)NonAf >90 (>60 ml/min/1.73 sqM) Glucose 231 H (74-99) mg/dL POC Glucose (mg/dL) (75-99) mg/dL POC Glu Social Contact Worker ID Calcium 9.5 (8.4-10.2) mg/dL Total Bilirubin 0.8 (0.2-1.3) mg/dL AST 26 (14-36) U/L ALT 14 (4-34) U/L Alkaline Phosphatase 72 (38-126) U/L Total Protein 7.4 (6.3-8.2) g/dL Albumin 3.9 (3.5-5.0) g/dL HCG, Quant 51674.0 mIU/mL Urine Color Yellow Urine Appearance Cloudy H (Clear) Urine pH 6.5 (5.0-8.0) Ur Specific [place] 1.027 (1.001-1.035) Urine Protein Trace H (Negative) Urine Glucose (UA) 4+ H (Negative) Urine Ketones 1+ H (Negative) Urine Blood Negative (Negative) Urine Nitrite Negative (Negative) Urine Bilirubin Negative (Negative) Urine Urobilinogen <2.0 (<2.0) mg/dL Ur Leukocyte Esterase Small H (Negative) Urine RBC 1 (0-5) /hpf Urine WBC 1 (0-5) /hpf Ur Squamous Epith Cells 11 H (0-4) /hpf Urine Bacteria Occasional H (None) /hpf Hyaline Casts 1 (0-2) /lpf Urine Mucus Occasional H (None) /hpf Blood Type Blood Type Recheck Bld Type Recheck Status Antibody Screen Spec Expiration Date 05/13/21 05/13/21 05/13/21 Range/Units 12:12 13:47 14:04 WBC (3.8-10.6) k/uL RBC (3.80-5.40) m/uL Hgb (11.4-16.0) gm/dL Hct (34.0-46.0) % MCV (80.0-100.0) fL MCH (25.0-35.0) pg MCHC (31.0-37.0) g/dL RDW (11.5-15.5) % Plt Count (150-450) k/uL MPV Neutrophils % % Lymphocytes % % Monocytes % % Eosinophils % % Basophils % % Neutrophils # (1.3-7.7) k/uL Lymphocytes # (1.0-4.8) k/uL Monocytes # (0-1.0) k/uL Eosinophils # (0-0.7) k/uL Basophils # (0-0.2) k/uL Sodium (137-145) mmol/L Potassium (3.5-5.1) mmol/L Chloride (98-107) mmol/L Carbon Dioxide (22-30) mmol/L Anion Gap mmol/L BUN (7-17) mg/dL Creatinine (0.52-1.04) mg/dL Est GFR (CKD-EPI)AfAm (>60 ml/min/1.73 sqM) Est GFR (CKD-EPI)NonAf (>60 ml/min/1.73 sqM) Glucose (74-99) mg/dL POC Glucose (mg/dL) 48 L 55 L (75-99) mg/dL POC Glu Social Contact Worker Carleen Chery Ashley Calcium (8.4-10.2) mg/dL Total Bilirubin (0.2-1.3) mg/dL AST (14-36) U/L ALT (4-34) U/L Alkaline Phosphatase (38-126) U/L Total Protein (6.3-8.2) g/dL Albumin (3.5-5.0) g/dL HCG, Quant mIU/mL Urine Color Urine Appearance (Clear) Urine pH (5.0-8.0) Ur Specific [place] (1.001-1.035) Urine Protein (Negative) Urine Glucose (UA) (Negative) Urine Ketones (Negative) Urine Blood (Negative) Urine Nitrite (Negative) Urine Bilirubin (Negative) Urine Urobilinogen (<2.0) mg/dL Ur Leukocyte Esterase (Negative) Urine RBC (0-5) /hpf Urine WBC (0-5) /hpf Ur Squamous Epith Cells (0-4) /hpf Urine Bacteria (None) /hpf Hyaline Casts (0-2) /lpf Urine Mucus (None) /hpf Blood Type B Positive Blood Type Recheck B Pos Bld Type Recheck Status No Antibody Screen NEGATIVE Spec Expiration Date 05/16/2021 - 231105/13/21 05/13/21 Range/Units 14:22 14:55 WBC (3.8-10.6) k/uL RBC (3.80-5.40) m/uL Hgb (11.4-16.0) gm/dL Hct (34.0-46.0) % MCV (80.0-100.0) fL MCH (25.0-35.0) pg MCHC (31.0-37.0) g/dL RDW (11.5-15.5) % Plt Count (150-450) k/uL MPV Neutrophils % % Lymphocytes % % Monocytes % % Eosinophils % % Basophils % % Neutrophils # (1.3-7.7) k/uL Lymphocytes # (1.0-4.8) k/uL Monocytes # (0-1.0) k/uL Eosinophils # (0-0.7) k/uL Basophils # (0-0.2) k/uL Sodium (137-145) mmol/L Potassium (3.5-5.1) mmol/L Chloride (98-107) mmol/L Carbon Dioxide (22-30) mmol/L Anion Gap mmol/L BUN (7-17) mg/dL Creatinine (0.52-1.04) mg/dL Est GFR (CKD-EPI)AfAm (>60 ml/min/1.73 sqM) Est GFR (CKD-EPI)NonAf (>60 ml/min/1.73 sqM) Glucose (74-99) mg/dL POC Glucose (mg/dL) 95 87 (75-99) mg/dL POC Glu Social Contact Worker Carleen Chery Kyle Calcium (8.4-10.2) mg/dL Total Bilirubin (0.2-1.3) mg/dL AST (14-36) U/L ALT (4-34) U/L Alkaline Phosphatase (38-126) U/L Total Protein (6.3-8.2) g/dL Albumin (3.5-5.0) g/dL HCG, Quant mIU/mL Urine Color Urine Appearance (Clear) Urine pH (5.0-8.0) Ur Specific [place] (1.001-1.035) Urine Protein (Negative) Urine Glucose (UA) (Negative) Urine Ketones (Negative) Urine Blood (Negative) Urine Nitrite (Negative) Urine Bilirubin (Negative) Urine Urobilinogen (<2.0) mg/dL Ur Leukocyte Esterase (Negative) Urine RBC (0-5) /hpf Urine WBC (0-5) /hpf Ur Squamous Epith Cells (0-4) /hpf Urine Bacteria (None) /hpf Hyaline Casts (0-2) /lpf Urine Mucus (None) /hpf Blood Type Blood Type Recheck Bld Type Recheck Status Antibody Screen Spec Expiration Date Disposition Clinical Impression: Abdominal pain in Disposition: HOME SELF-CARE Condition: Good Instructions (If sedation given, give patient instructions): Abdominal Pain in (ED) Additional Instructions: Please see your doctor next week. Call today for an appointment. If you have any worsening symptoms return to the emergency room. Is patient prescribed a controlled substance at d/c from ED?: No Referrals: Nay Rodriguez MD [Primary Care Provider] - 1-2 days Sascha Painting MD [REFERRING] - 1-2 days Time of Disposition: 14:59
[2021-05-13 12:54] LABS: Appearance,Urine Cloudy (Clear); Bacteria,Urine Occasional /hpf; Bilirubin,Urine Negative (Negative); Blood,Urine Negative (Negative); Color,Urine Yellow; Glucose,Urine (UA) 4+ (Negative); Hyaline Casts,Urine 1 /lpf (0-2); Ketones,Urine 1+ (Negative); Leukocyte Esterase,Urine Small (Negative); Mucus,Urine Occasional /hpf; Nitrite,Urine Negative (Negative); PH, Urine 6.5 (5.0-8.0); Protein,Urine Trace (Negative); RBC,Urine 1 /hpf (0-5); Specific Gravity,Urine 1.027 (1.001-1.035); Squamous Epithelial Cell,Urine 11 /hpf (0-4); Urobilinogen,Urine <2.0 mg/dL (<2.0); WBC,Urine 1 /hpf (0-5)
[2021-05-13 12:59] LABS: ALT 14 U/L (4-34); AST 26 U/L (14-36); African American GFR (CKD) >90 (>60 ml/min/1.73 sqM); Albumin 3.9 g/dL (3.5-5.0); Alkaline Phosphatase 72 U/L (38-126); Anion Gap 9 mmol/L; Blood Urea Nitrogen 5 mg/dL (7-17); Calcium 9.5 mg/dL (8.4-10.2); Carbon Dioxide 20 mmol/L (22-30); Chloride 105 mmol/L (98-107); Glucose 231 mg/dL (74-99); Non-African American GFR(CKD) >90 (>60 ml/min/1.73 sqM); Sodium 134 mmol/L (137-145); Total Bilirubin 0.8 mg/dL (0.2-1.3); Total Protein 7.4 g/dL (6.3-8.2)
[2021-05-13 13:04] LABS: Potassium 4.5 mmol/L (3.5-5.1)
[2021-05-13 13:10] LABS: Basophils % (A) 1 %; Eosinophils # (A) 0.1 k/uL (0-0.7); Eosinophils % (A) 2 %; HGB 13.4 gm/dL (11.4-16.0); Lymphocytes # (A) 2.3 k/uL (1.0-4.8); Lymphocytes % (A) 41 %; MCH 27.9 pg (25.0-35.0); MCHC 33.4 g/dL (31.0-37.0); MCV 83.5 fL (80.0-100.0); Mean Platelet Volume 8.5; Monocytes # (A) 0.2 k/uL (0-1.0); Monocytes % (A) 3 %; Neutrophils # (A) 2.9 k/uL (1.3-7.7); Neutrophils % (A) 51 %; Platelet Count 328 k/uL (150-450); RBC 4.79 m/uL (3.80-5.40); RDW 12.3 % (11.5-15.5); WBC 5.7 k/uL (3.8-10.6)
--- NOTE | 2021-05-13 14:03 | US ---
EXAMINATION TYPE: Transabdominal DATE OF EXAM: 05/13/2021 1:38 PM COMPARISON: NONE CLINICAL HISTORY: pain. Pelvic pain x couple days. Positive beta hCG test. EXAM PERFORMED: Transvaginal (TV) and Transabdominal (TA) EXAM MEASUREMENTS: GESTATIONAL AGE / DATING Physician Established: Not yet established Dates by LMP: LMP unknown Dates by First Scan: No previous this is first scan Dates by Current Scan for: (5 weeks/6 days) EDC: 01/07/2022 MATERNAL ANATOMY Uterus: 11.1 x 5.6 x 6.6cm, Right Ovary: 2.6 x 2.1 x 2.3cm Left Ovary: 3.3 x 2.0 x 2.4cm Post CDS / Adnexa: wnl Presence of free fluid: no Presence of corpus luteal cyst: left - 2.6 x 1.2 x 2.1cm Presence of subchorionic bleed: 3.0 x 1.5 x 2.3cm superior to gestational sac GESTATION / SURVEY CRL: 0.5cm (6 weeks/2 days) MSD: 1.3cm (5 weeks/3 days) Yolk Sac (normal less than 6mm): not seen IUP: Demise Date of LMP: Unknown Beta HcG (if available): Not available at time of exam Heterogeneous anteverted uterus. Single intrauterine gestation is confirmed as gestational sac and f etal pole are identified. The yolk sac not clearly seen. heart tones cannot be detected despite multiple attempts. Gestational sac has irregular contour without significant surrounding decidual re action and is somewhat low in position. No free fluid. Both ovaries seen. Left ovary has a peripheral hypervascular corpus luteal cyst. No suspicious extra ovarian adnexal masses. IMPRESSION: Findings consistent with intrauterine demise and impending as detailed abo ve.
[2021-05-13 14:04] LABS: Glucose,Whole Blood 48 mg/dL (75-99)
[2021-05-13 14:11] VITALS: BP 144/83; PULSE 98
[2021-05-13 14:23] LABS: Glucose,Whole Blood 55 mg/dL (75-99)
[2021-05-13 14:23] LABS: Glucose,Whole Blood 95 mg/dL (75-99)
[2021-05-13 14:57] LABS: Glucose,Whole Blood 87 mg/dL (75-99)
== END 2021-05-13 15:07 | disposition home or self-care (01) ==
LOC: EC 11:20
DX: O26.891 Other specified pregnancy related conditions, first trimester (principal); R10.31 Right lower quadrant pain; O24.111 Pre-existing type 2 diabetes mellitus, in pregnancy, first trimester; E11.9 Type 2 diabetes mellitus without complications; O99.321 Drug use complicating pregnancy, first trimester; F12.90 Cannabis use, unspecified, uncomplicated; Z3A.01 Less than 8 weeks gestation of pregnancy; Z79.4 Long term (current) use of insulin; Z83.49 Family history of other endocrine, nutritional and metabolic diseases
CPT/HCPCS: 36415; 76801; 76817; 80053; 81001; 84702; 85025; 86850; 86900; 86901; 96360; 96361; 99284

== ENCOUNTER 2021-05-28 09:08 | Emergency (ER) | payer OTHER ==
[2021-05-28 09:13] VITALS: RESP 18; TEMP 98.1
[2021-05-28 09:26] LABS: Glucose,Whole Blood 202 mg/dL (75-99)
--- NOTE | 2021-05-28 09:48 | ED ---
Abdominal Pain HPI - General Chief Complaint: Abdominal Pain Stated Complaint: post D&C abd pain & no bowel movement Time Seen by Provider: 05/28/21 09:28 Source: patient, RN notes reviewed Mode of arrival: wheelchair Limitations: no limitations - History of Present Illness Initial Comments: Patient is a 25-year-old female presenting to the ED for abdominal pain that has been present since last Tuesday, May 20. Patient states that last Tuesday had a D&C at [facility] for miscarriage. Patient states that since the procedure patient has had abdominal discomfort shooting pains up her back. Patient reports been being admitted to [facility] on the first for DKA, and discharged yesterday upon improvement and because of increased COVID cases at hospital per patient Patient describes symptoms of nausea, vomiting with constipation. Patient describes discomfort and generalized pain in abdomen. Patient denies fever, any vaginal discharge or any point tenderness over abdomen. - Related Data Home Medications Medication Instructions Recorded Confirmed INSULIN LISPRO (HumaLOG) [humaLOG] 4 units SQ AC-TID 02/24/21 05/28/21 Insulin Glargine,Hum.rec.anlog 40 unit SQ HS 02/24/21 05/28/21 [Lantus Solostar Pen] Acetaminophen [Tylenol 8 Hour] 650 mg PO Q8H PRN 05/28/21 05/28/21 Docusate [Colace] 100 mg PO BID PRN 05/28/21 05/28/21 HYDROcodone/APAP 5-325MG [[place] 1 tab PO Q6H PRN 05/28/21 05/28/21 5-325] Metoclopramide [Reglan] 5 mg PO Q6H PRN 05/28/21 05/28/21 Ondansetron Odt [Zofran ODT] 4 mg PO Q4H PRN 05/28/21 05/28/21 Pantoprazole Sodium [Protonix] 40 mg PO BID 05/28/21 05/28/21 Polyethylene Glycol 3350 [Miralax] 17 gm PO DAILY PRN 05/28/21 05/28/21 Sennosides [Senna] 17.2 mg PO HS PRN 05/28/21 05/28/21 Previous Rx's Medication Instructions Recorded Metoclopramide [Reglan] 10 mg PO TID PRN #15 tab 05/28/21 Allergies Allergy/AdvReac Type Severity Reaction Status Date / Time No Known Allergies Allergy Verified 05/28/21 10:20 Review of Systems ROS Statement: Those systems with pertinent positive or pertinent negative responses have been documented in the HPI. ROS Other: All systems not noted in ROS Statement are negative. Past Medical History Past Medical History: Diabetes Mellitus History of Any Multi-Drug Resistant Organisms: None Reported Date of last positivie culture/infection: 02/20/18 MDRO Source:: ESBL URINE Past Surgical History: Section Additional Past Surgical History / Comment(s): D&C Past Psychological History: No Psychological Hx Reported Smoking Status: Never smoker Past Alcohol Use History: None Reported Past Drug Use History: Marijuana - Past Family History Sister(s) Family Medical History: Thyroid Disorder General Exam Limitations: no limitations General appearance: alert, anxious, in distress, obese Respiratory exam: Present: normal lung sounds bilaterally. Absent: respiratory distress, wheezes, rales, rhonchi, stridor Cardiovascular Exam: Present: regular rate, normal rhythm, normal heart sounds. Absent: systolic murmur, diastolic murmur, rubs, gallop, clicks GI/Abdominal exam: Present: soft, tenderness (Generalized) Neurological exam: Present: alert, oriented X3, CN II-XII intact Skin exam: Present: warm, dry, intact, normal color. Absent: rash Course Vital Signs 05/28/21 09:09 Temperature 98.1 F Pulse Rate 109 H Respiratory 18 Rate Blood Pressure 125/80 O2 Sat by Pulse 96 Oximetry Medical Decision Making - Medical Decision Making Patient's nausea has improved. Patient was well hydrated with 2 L of fluids, labs reviewed no significant mallet a. Patient does not have an anion gap. Patient discharged with Reglan and return parameters were discussed. - Lab Data Result diagrams: 05/28/21 09:58 05/28/21 09:58 Lab Results 05/28/21 05/28/21 05/28/21 Range/Units 09:24 09:58 09:58 WBC 8.4 (3.8-10.6) k/uL RBC 3.79 L (3.80-5.40) m/uL Hgb 10.5 L (11.4-16.0) gm/dL Hct 31.9 L (34.0-46.0) % MCV 84.1 (80.0-100.0) fL MCH 27.6 (25.0-35.0) pg MCHC 32.8 (31.0-37.0) g/dL RDW 12.8 (11.5-15.5) % Plt Count 477 H (150-450) k/uL MPV 7.9 Neutrophils % 63 % Lymphocytes % 30 % Monocytes % 4 % Eosinophils % 2 % Basophils % 0 % Neutrophils # 5.3 (1.3-7.7) k/uL Lymphocytes # 2.5 (1.0-4.8) k/uL Monocytes # 0.3 (0-1.0) k/uL Eosinophils # 0.2 (0-0.7) k/uL Basophils # 0.0 (0-0.2) k/uL Sodium 135 L (137-145) mmol/L Potassium 3.6 (3.5-5.1) mmol/L Chloride 99 (98-107) mmol/L Carbon Dioxide 25 (22-30) mmol/L Anion Gap 11 mmol/L BUN 5 L (7-17) mg/dL Creatinine 0.42 L (0.52-1.04) mg/dL Est GFR (CKD-EPI)AfAm >90 (>60 ml/min/1.73 sqM) Est GFR (CKD-EPI)NonAf >90 (>60 ml/min/1.73 sqM) Glucose 191 H (74-99) mg/dL POC Glucose (mg/dL) 202 H (75-99) mg/dL POC Glu [employer] Truck Driver ID Svacha, II, [place] Plasma Lactic Acid [place] (0.7-2.0) mmol/L Calcium 9.3 (8.4-10.2) mg/dL Total Bilirubin 0.9 (0.2-1.3) mg/dL AST 24 (14-36) U/L ALT 15 (4-34) U/L Alkaline Phosphatase 85 (38-126) U/L Total Protein 6.9 (6.3-8.2) g/dL Albumin 3.7 (3.5-5.0) g/dL Amylase 69 (30-110) U/L Lipase 70 (23-300) U/L Urine Color Urine Appearance (Clear) Urine pH (5.0-8.0) Ur Specific [place] (1.001-1.035) Urine Protein (Negative) Urine Glucose (UA) (Negative) Urine Ketones (Negative) Urine Blood (Negative) Urine Nitrite (Negative) Urine Bilirubin (Negative) Urine Urobilinogen (<2.0) mg/dL Ur Leukocyte Esterase (Negative) Acetone, Qual Positive (Negative) 05/28/21 05/28/21 Range/Units 09:58 11:16 WBC (3.8-10.6) k/uL RBC (3.80-5.40) m/uL Hgb (11.4-16.0) gm/dL Hct (34.0-46.0) % MCV (80.0-100.0) fL MCH (25.0-35.0) pg MCHC (31.0-37.0) g/dL RDW (11.5-15.5) % Plt Count (150-450) k/uL MPV Neutrophils % % Lymphocytes % % Monocytes % % Eosinophils % % Basophils % % Neutrophils # (1.3-7.7) k/uL Lymphocytes # (1.0-4.8) k/uL Monocytes # (0-1.0) k/uL Eosinophils # (0-0.7) k/uL Basophils # (0-0.2) k/uL Sodium (137-145) mmol/L Potassium (3.5-5.1) mmol/L Chloride (98-107) mmol/L Carbon Dioxide (22-30) mmol/L Anion Gap mmol/L BUN (7-17) mg/dL Creatinine (0.52-1.04) mg/dL Est GFR (CKD-EPI)AfAm (>60 ml/min/1.73 sqM) Est GFR (CKD-EPI)NonAf (>60 ml/min/1.73 sqM) Glucose (74-99) mg/dL POC Glucose (mg/dL) (75-99) mg/dL POC Glu [employer] Truck Driver ID Plasma Lactic Acid [place] 0.9 (0.7-2.0) mmol/L Calcium (8.4-10.2) mg/dL Total Bilirubin (0.2-1.3) mg/dL AST (14-36) U/L ALT (4-34) U/L Alkaline Phosphatase (38-126) U/L Total Protein (6.3-8.2) g/dL Albumin (3.5-5.0) g/dL Amylase (30-110) U/L Lipase (23-300) U/L Urine Color Light Yellow Urine Appearance Clear (Clear) Urine pH 6.5 (5.0-8.0) Ur Specific [place] 1.004 (1.001-1.035) Urine Protein Negative (Negative) Urine Glucose (UA) Negative (Negative) Urine Ketones 2+ H (Negative) Urine Blood Negative (Negative) Urine Nitrite Negative (Negative) Urine Bilirubin Negative (Negative) Urine Urobilinogen <2.0 (<2.0) mg/dL Ur Leukocyte Esterase Negative (Negative) Acetone, Qual (Negative) Disposition Clinical Impression: Abdominal pain, Nausea & vomiting Disposition: HOME SELF-CARE Condition: Stable Instructions (If sedation given, give patient instructions): Abdominal Pain (ED) Additional Instructions: Please return to the Emergency Department if symptoms worsen or any other concerns. Prescriptions: Metoclopramide [Reglan] 10 mg PO TID PRN #15 tab PRN Reason: Nausea Is patient prescribed a controlled substance at d/c from ED?: No Referrals: Nay Rodriguez MD [Primary Care Provider] - 1-2 days Time of Disposition: 12:45
[2021-05-28] MEDS ORDERED: ONDANSETRON 4 MG/2 ML VIAL IVP STA (09:49)
[2021-05-28] MEDS ORDERED: KETOROLAC 15 MG/ML 1 ML VIAL IVP STA (09:49)
[2021-05-28] MEDS ORDERED: SODIUM CHLORIDE 0.9% 2,000 ML IV STA (09:49)
[2021-05-28] MEDS ORDERED: HYDROmorphone 0.5 MG/0.5 ML SYRINGE IVP STA (09:56)
[2021-05-28 10:27] LABS: Basophils % (A) 0 %; Eosinophils # (A) 0.2 k/uL (0-0.7); Eosinophils % (A) 2 %; HCT 31.9 % (34.0-46.0); HGB 10.5 gm/dL (11.4-16.0); Lymphocytes # (A) 2.5 k/uL (1.0-4.8); Lymphocytes % (A) 30 %; MCH 27.6 pg (25.0-35.0); MCHC 32.8 g/dL (31.0-37.0); MCV 84.1 fL (80.0-100.0); Mean Platelet Volume 7.9; Monocytes # (A) 0.3 k/uL (0-1.0); Monocytes % (A) 4 %; Neutrophils # (A) 5.3 k/uL (1.3-7.7); Neutrophils % (A) 63 %; Platelet Count 477 k/uL (150-450); RBC 3.79 m/uL (3.80-5.40); RDW 12.8 % (11.5-15.5); WBC 8.4 k/uL (3.8-10.6)
[2021-05-28 11:00] LABS: ALT 15 U/L (4-34); AST 24 U/L (14-36); African American GFR (CKD) >90 (>60 ml/min/1.73 sqM); Albumin 3.7 g/dL (3.5-5.0); Alkaline Phosphatase 85 U/L (38-126); Amylase 69 U/L (30-110); Anion Gap 11 mmol/L; Blood Urea Nitrogen 5 mg/dL (7-17); Calcium 9.3 mg/dL (8.4-10.2); Carbon Dioxide 25 mmol/L (22-30); Chloride 99 mmol/L (98-107); Glucose 191 mg/dL (74-99); Lipase 70 U/L (23-300); Non-African American GFR(CKD) >90 (>60 ml/min/1.73 sqM); Potassium 3.6 mmol/L (3.5-5.1); Sodium 135 mmol/L (137-145); Total Bilirubin 0.9 mg/dL (0.2-1.3); Total Protein 6.9 g/dL (6.3-8.2)
[2021-05-28] MEDS ORDERED: METOCLOPRAMIDE 5 MG/ML 2 ML VIAL IVP STA (12:11)
[2021-05-28] MEDS ORDERED: diphenhydrAMINE 50 MG/ML 1 ML VIAL IVP STA (12:11)
[2021-05-28 12:20] LABS: Appearance,Urine Clear (Clear); Bilirubin,Urine Negative (Negative); Blood,Urine Negative (Negative); Color,Urine Light Yellow; Glucose,Urine (UA) Negative (Negative); Ketones,Urine 2+ (Negative); Leukocyte Esterase,Urine Negative (Negative); Nitrite,Urine Negative (Negative); PH, Urine 6.5 (5.0-8.0); Protein,Urine Negative (Negative); Specific Gravity,Urine 1.004 (1.001-1.035); Urobilinogen,Urine <2.0 mg/dL (<2.0)
[2021-05-28 12:45] VITALS: BP 156/99; PULSE 89
== END 2021-05-28 13:00 | disposition home or self-care (01) ==
LOC: EC 09:08
DX: R10.84 Generalized abdominal pain (principal); R11.2 Nausea with vomiting, unspecified; E66.9 Obesity, unspecified; E11.10 Type 2 diabetes mellitus with ketoacidosis without coma; F12.90 Cannabis use, unspecified, uncomplicated; Z79.4 Long term (current) use of insulin; Z79.899 Other long term (current) drug therapy; Z83.49 Family history of other endocrine, nutritional and metabolic diseases; Z68.35 Body mass index [BMI] 35.0-35.9, adult
CPT/HCPCS: 36415; 80053; 82150; 82009; 83605; 83690; 85025; 81003; 96374; 96375 ×3; 96361; 99284; J1200; J2765; J2405; J1170

== ENCOUNTER 2022-03-04 15:30 | Emergency (ER) | payer OTHER ==
[2022-03-04 17:20] VITALS: BP 138/78; PULSE 86; RESP 16; TEMP 98
--- NOTE | 2022-03-04 17:46 | ED ---
Female Urogenital HPI - General Chief complaint: Urogenital Stated complaint: Sent by OBGYN-17 weeks preg. Source: patient Mode of arrival: ambulatory Limitations: no limitations - History of Present Illness Initial comments: Patient is a 26-year-old -[place] female presents to the emergency room with complaints of abdominal pain after having vaginal pressure and feeling as though her uterus had dropped down. She reports the abdominal pain began after pushing her likely prolapsed uterus back up. She reports that she does continue to feel pressure in her pelvic region. She is a with her second child being delivered at 29 weeks due to complications and a miscarriage at 13 weeks in April of last year. She is also complaining of a fishy-like odor without any drainage or discharge. She denies any uterine cramping or bleeding.She is a past medical history significant for diabetes. - Related Data Home Medications Medication Instructions Recorded Confirmed INSULIN LISPRO (HumaLOG) [humaLOG] 4 units SQ AC-TID 02/24/21 05/28/21 Insulin Glargine,Hum.rec.anlog 40 unit SQ HS 02/24/21 05/28/21 [Lantus Solostar Pen] Acetaminophen [Tylenol 8 Hour] 650 mg PO Q8H PRN 05/28/21 05/28/21 Docusate [Colace] 100 mg PO BID PRN 05/28/21 05/28/21 HYDROcodone/APAP 5-325MG [[place] 1 tab PO Q6H PRN 05/28/21 05/28/21 5-325] Metoclopramide [Reglan] 5 mg PO Q6H PRN 05/28/21 05/28/21 Ondansetron Odt [Zofran ODT] 4 mg PO Q4H PRN 05/28/21 05/28/21 Pantoprazole Sodium [Protonix] 40 mg PO BID 05/28/21 05/28/21 Sennosides [Senna] 17.2 mg PO HS PRN 05/28/21 05/28/21 polyethylene glycoL 3350 [Miralax] 17 gm PO DAILY PRN 05/28/21 05/28/21 Previous Rx's Medication Instructions Recorded Metoclopramide [Reglan] 10 mg PO TID PRN #15 tab 05/28/21 Allergies Allergy/AdvReac Type Severity Reaction Status Date / Time No Known Allergies Allergy Verified 03/04/22 17:21 Review of Systems ROS Statement: Those systems with pertinent positive or pertinent negative responses have been documented in the HPI. ROS Other: All systems not noted in ROS Statement are negative. Past Medical History Past Medical History: Diabetes Mellitus History of Any Multi-Drug Resistant Organisms: None Reported Date of last positivie culture/infection: 02/20/18 MDRO Source:: ESBL URINE Past Surgical History: Section Additional Past Surgical History / Comment(s): D&C Past Psychological History: No Psychological Hx Reported Smoking Status: Never smoker Past Alcohol Use History: None Reported Past Drug Use History: Marijuana - Past Family History Sister(s) Family Medical History: Thyroid Disorder General Exam Limitations: no limitations General appearance: alert, in no apparent distress Head exam: Present: atraumatic, normocephalic, normal inspection Eye exam: Present: normal appearance ENT exam: Present: normal exam, mucous membranes moist Neck exam: Present: normal inspection. Absent: tenderness, meningismus, lymphadenopathy Respiratory exam: Absent: respiratory distress, accessory muscle use GI/Abdominal exam: Present: soft External exam: Present: other (uterine prolapse noted second grade) Extremities exam: Present: normal inspection, full ROM, normal capillary refill. Absent: tenderness, pedal edema, joint swelling, calf tenderness Neurological exam: Present: alert, oriented X3, CN II-XII intact Psychiatric exam: Present: normal affect, normal mood Skin exam: Present: warm, dry, intact, normal color. Absent: rash Course Vital Signs 03/04/22 17:18 Temperature 98 F Pulse Rate 86 Respiratory 16 Rate Blood Pressure 138/78 O2 Sat by Pulse 98 Oximetry Medical Decision Making - Medical Decision Making Uterine pus second-grade noted on exam. Will check ultrasound. Patient RD establish with high school special education teacher/GYN through [facility]. OB ultrasound shows single viable intrauterine unable to clearly visualize vaginal canal. Gestational age by measurements variable approximately 15 weeks 4 days consistent with previous ultrasound showing approximately 16 weeks. Will discharge patient home with close follow-up with her high school special education teacher/GYN whom she has already talked to advised to maintain bed rest. Case discussed with Dr. Alfonso - Radiology Data Radiology results: report reviewed, image reviewed Ultrasound OB greater than 14 weeks impression single viable intrauterine . No defined acute sonographic process. Unable to clearly visualize vaginal canal. Cervix length slightly elongated at 3.4 cm. Disposition Clinical Impression: Uterine prolapse affecting in second trimester, antepartum Disposition: HOME SELF-CARE Condition: Stable Additional Instructions: Continue take a vitamin diet daily. Please maintain bedrest and follow- up with your high school special education teacher/GYN soon. Please return to the Emergency Department if symptoms worsen or any other concerns. Is patient prescribed a controlled substance at d/c from ED?: No Referrals: None,Stated [Primary Care Provider] - 1-2 days Time of Disposition: 21:22
--- NOTE | 2022-03-04 20:49 | US ---
EXAMINATION TYPE: US OB >= 14 wk fetus DATE OF EXAM: 03/04/2022 COMPARISON: None CLINICAL HISTORY: pain, patient felt bulge within vagina and manually pushed area upwards. No bleedin g. Still feels a little bit like something is in her vaginal canal TECHNIQUE: OBTA GESTATIONAL AGE / DATING Physician Established: (16 weeks/5 days) EDC: 08/14/2022 Dates by LMP: LMP unknown Dates by First Scan: No previous this is first scan Dates by Current Scan: (15 weeks/2 days) EDC: 08/24/2022 SURVEY IUP: Single PLACENTA: Posterior PREVIA: Low Lying to marginal TATYANA: 14.2 cm Normal CERVICAL LENGTH (transabdominal: norm > 3.0cm): 3.4 cm BIOMETRY PRESENTATION: Variable BPD: 2.7 cm 14 weeks / 6 days HC: 10.2 cm 14 weeks / 6 days AC: 9.4 cm 15 weeks / 4 days FL: 1.8 cm 15 weeks / 4 days ESTIMATED WEIGHT IN GRAMS: 124 grams ESTIMATED WEIGHT IN LBS/OZ: 0 lbs. 4 oz. WEIGHT PERCENTAGE BASED ON ESTABLISHED DATES: <2%% HC/AC: 1.1 Normal FL/AC: 20% Normal HEART RATE: 136 bpm RHYTHM: Normal Unable to clearly visualize vaginal canal, either related to normal anatomy vs. prolapse. No funnelin g of membranes visualized. IMPRESSION: 1. Single viable intrauterine . 2. No definite acute sonographic process.
== END 2022-03-04 22:00 | disposition home or self-care (01) ==
LOC: EC 15:30
DX: O34.522 Maternal care for prolapse of gravid uterus, second trimester (principal); O24.112 Pre-existing type 2 diabetes mellitus, in pregnancy, second trimester; Z3A.15 15 weeks gestation of pregnancy; Z79.4 Long term (current) use of insulin
CPT/HCPCS: 76805; 99284

== ENCOUNTER 2022-07-05 13:03 | Outpatient (CLI) | payer OTHER ==
[2022-07-05 15:21] VITALS: BP 138/87; PULSE 97; RESP 18; TEMP 97.8
--- NOTE | 2022-07-10 10:44 | P.MSEPDOC ---
Presenting Problems - Arrival Data Date of Arrival on Unit: 07/05/22 Time of Arrival on Unit: 13:03 Mode of Transport: Ambulatory - Complaint OB-Reason for Admission/Chief Complaint: Pain Comment: pt presents to triage for bilateral side and abd pain, describes as sharp and intermittant Medical History - Information : 4 Para: 2 Term: 1 : 1 Abortions: Spontaneous or Elective: 1 Number of Living Children: 2 - Gestational Age Gestational Age by CATHERINE (wks/days): 34 Weeks and 2 Days - History Complications: GDM, Prior , Prior Comment: type 2 diabetic on insulin, and had 29 week delivery Review of Systems - Review of Systems Constitutional: No problems Breast: No problems ENT: No problems Cardiovascular: No problems Respiratory: No problems Gastrointestinal: No problems Genitourinary: No problems Musculoskeletal: No problems Neurological: No problems Skin: No problems Vital Signs - Temperature Temperature: 97.8 F Temperature Source: Temporal Artery Scan - Pulse Right Brachial Pulse Rate: 97 Pulse Assessment Method: Automatic Cuff - Respirations Respiratory Rate: 18 Oxygen Delivery Method: Room Air - Blood Pressure Right Arm Blood Pressure: 138/87 Blood Pressure Mean: 104 Blood Pressure Source: Automatic Cuff Medical Screen Scoring - Cervical Exam Dilation (cm): 0 - Uterine Contractions Frequency From (mins): 0 - Assessment - Baby A Baseline FHR: 130 Heart Rate - NICHD Category: Category I (Normal) NST: Reactive Physician Notification - Physician Notified Physician Notified Date: 07/05/22 Physician Notified Time: 14:05 Physician: Karthik Dalal Order Received: Yes - Notification Comment Comment: Dr. Dalal notified of reactive NST, no contractions on toco or per palpation, cervix closed/thick/high, orders to discharge pt home, she has an appt with her OB Dr. Leiva in [place] on the Jun Maternal Triage Index - Maternal Triage Index Presenting for scheduled procedure w/no complaint: No - Stat/Priority 1 Stat Priority 1: No - Urgent/Priority 2 Urgent Priority 2: No - Prompt/Priority 3 Prompt Priority 3: Yes Criteria Met for Priority 3: pt presents to triage for bilateral side and abd pain, describes as sharp and intermittant Disposition - Disposition OB Disposition: Triage, Discharge to home, Written follow up instructions reviewed Discharge Date: 07/05/22 Discharge Time: 14:20 I agree with the RN Medical Screening Exam: Yes Physician's MSE Comment: I have neither seen nor examined the patient. Case reviewed; plan agreed upon as documented in EMR&OBIX.: Yes Diagnosis: RELATED CONDITIONS, UNSPECIFIED, THIRD TRIMESTER
== END 2022-07-05 14:20 | disposition home or self-care (01) ==
LOC: FBPOP 13:03
PROVIDERS: ATTEND Obstetrics & Gynecology
DX: O26.893 Other specified pregnancy related conditions, third trimester (principal); Z3A.34 34 weeks gestation of pregnancy; R10.9 Unspecified abdominal pain
CPT/HCPCS: 59025; G0463; 99213

== ENCOUNTER 2022-08-08 13:20 | Emergency (ER) | payer OTHER ==
[2022-08-08 13:39] VITALS: RESP 16; TEMP 98
[2022-08-08 14:51] LABS: Appearance,Urine Clear (Clear); Bilirubin,Urine Negative (Negative); Blood,Urine Moderate (Negative); Color,Urine Yellow; Glucose,Urine (UA) Negative (Negative); Ketones,Urine Negative (Negative); Leukocyte Esterase,Urine Moderate (Negative); Mucus,Urine Occasional /hpf; Nitrite,Urine Negative (Negative); Protein,Urine Trace (Negative); RBC,Urine 36 /hpf (0-5); Specific Gravity,Urine 1.018 (1.001-1.035); Squamous Epithelial Cell,Urine 4 /hpf (0-4); WBC,Urine 14 /hpf (0-5)
--- NOTE | 2022-08-08 15:36 | ED ---
General Adult HPI - General Chief complaint: Recheck/Abnormal Lab/Rx Stated complaint: Post-op comp Time Seen by Provider: 08/08/22 13:58 Source: patient Mode of arrival: ambulatory Limitations: no limitations - History of Present Illness Initial comments: Patient is a 26-year-old female presenting with chief complaint of incision discomfort. Patient is postop day 5 after performed at [facility] [place]. She states that her incision has been increasingly uncomfortable. She is taking Tylenol for pain control but states that that is not providing adequate symptomatic management. Patient also states that she is feeling some increased pressure when urinating. She denies any abdominal pain, fever, chills, nausea, vomiting, chest pain, difficulty breathing, palpitations, weakness, headache, vision or hearing changes, neck pain or stiffness. - Related Data Home Medications Medication Instructions Recorded Confirmed INSULIN LISPRO (HumaLOG) [humaLOG] 14 units SQ AC-TID 02/24/21 07/05/22 Insulin Glargine,Hum.rec.anlog 25 unit SQ HS 02/24/21 07/05/22 [Lantus Solostar Pen] Aspirin [Adult Low Dose Aspirin EC] 81 mg PO DAILY 07/05/22 07/05/22 Vit No.179/Iron/Folic 1 each PO DAILY 07/05/22 07/05/22 [ Tablet] Previous Rx's Medication Instructions Recorded Cephalexin [Keflex] 500 mg PO Q12HR 7 Days #14 cap 08/08/22 Allergies Allergy/AdvReac Type Severity Reaction Status Date / Time No Known Allergies Allergy Verified 08/08/22 13:39 Review of Systems ROS Statement: Those systems with pertinent positive or pertinent negative responses have been documented in the HPI. ROS Other: All systems not noted in ROS Statement are negative. Past Medical History Past Medical History: Diabetes Mellitus History of Any Multi-Drug Resistant Organisms: None Reported Date of last positivie culture/infection: 02/20/18 MDRO Source:: ESBL URINE Past Surgical History: Section Additional Past Surgical History / Comment(s): D&C Past Psychological History: No Psychological Hx Reported Smoking Status: Never smoker Past Alcohol Use History: None Reported Past Drug Use History: None Reported - Past Family History Sister(s) Family Medical History: Thyroid Disorder General Exam Limitations: no limitations General appearance: alert, in no apparent distress Head exam: Present: atraumatic, normocephalic, normal inspection Eye exam: Present: normal appearance Neck exam: Present: normal inspection Respiratory exam: Present: normal lung sounds bilaterally. Absent: respiratory distress, wheezes, rales, rhonchi, stridor Cardiovascular Exam: Present: regular rate, normal rhythm, normal heart sounds. Absent: systolic murmur, diastolic murmur, rubs, gallop, clicks GI/Abdominal exam: Present: soft. Absent: distended, tenderness, guarding, rebound, rigid Neurological exam: Present: alert, oriented X3, CN II-XII intact Psychiatric exam: Present: normal affect, normal mood Skin exam: Present: warm, dry, intact, normal color, other (Well-healing surgical scar, no signs of erythema, discharge, warmth, induration. There are also 3 well-healed skin tears that patient states were from removing the tape from her dressing). Absent: rash Course Vital Signs 08/08/22 08/08/22 13:37 15:44 Temperature 98 F Pulse Rate 79 68 Respiratory 16 16 Rate Blood Pressure 133/78 121/76 O2 Sat by Pulse 97 100 Oximetry Medical Decision Making - Medical Decision Making Patient is a 26-year-old female presenting with chief complaint of incision discomfort as well as pressure when urinating. On physical examination incision appears to be healing well, no signs of wound dehiscence, no erythema, induration, discharge, warmth. There are 3 well-healing skin tears that the patient states were due to tape used for her incision dressing. Urine shows moderate blood, patient is continuing to have vaginal bleeding post delivery. Urine WBC 14. May be due to contamination, will send urine for culture and start patient on Keflex. Patient is instructed to continue taking Tylenol for pain and follow-up with her ROUTE AIDE. Follow-up with PCP. Report back to ER with any new or worsening symptoms. Discussed return parameters and answered all questions. Patient conveyed verbal understanding and agreed to the plan. I discussed this case in detail with my attending Dr. Welsh - Lab Data Lab Results 08/08/22 Range/Units 14:40 Urine Color Yellow Urine Appearance Clear (Clear) Urine pH 7.0 (5.0-8.0) Ur Specific Miracle 1.018 (1.001-1.035) Urine Protein Trace H (Negative) Urine Glucose (UA) Negative (Negative) Urine Ketones Negative (Negative) Urine Blood Moderate H (Negative) Urine Nitrite Negative (Negative) Urine Bilirubin Negative (Negative) Urine Urobilinogen 3.0 (<2.0) mg/dL Ur Leukocyte Esterase Moderate H (Negative) Urine RBC 36 H (0-5) /hpf Urine WBC 14 H (0-5) /hpf Ur Squamous Epith Cells 4 (0-4) /hpf Urine Mucus Occasional H (None) /hpf Disposition Clinical Impression: Dysuria Disposition: HOME SELF-CARE Condition: Good Instructions (If sedation given, give patient instructions): Urinary Tract Infection in Women (ED) Additional Instructions: Follow-up with your ROUTE AIDE. Report back to ER with any new or worsening symptoms. Take medication as prescribed. Prescriptions: Cephalexin [Keflex] 500 mg PO Q12HR 7 Days #14 cap Is patient prescribed a controlled substance at d/c from ED?: No Referrals: None,Stated [Primary Care Provider] - 1-2 days Time of Disposition: 15:36
[2022-08-08 15:45] VITALS: BP 121/76; PULSE 68
== END 2022-08-08 15:45 | disposition home or self-care (01) ==
LOC: EC 13:20
DX: R30.0 Dysuria (principal); E11.9 Type 2 diabetes mellitus without complications; Z79.4 Long term (current) use of insulin; Z79.82 Long term (current) use of aspirin
CPT/HCPCS: 81001; 87086; 99283

== ENCOUNTER 2023-01-18 12:00 | Emergency (ER) | payer OTHER ==
[2023-01-18 12:15] VITALS: TEMP 97.6
--- NOTE | 2023-01-18 13:10 | ED ---
General Adult HPI - General Source: patient, RN notes reviewed Mode of arrival: ambulatory Limitations: no limitations <Anthony Nascimento - Last Filed: 01/18/23 13:10> <Chante Phillips - Last Filed: 01/18/23 19:37> <Rimma Cole - Last Filed: 01/18/23 22:13> - General Chief complaint: Vaginal Bleeding Stated complaint: post miscarriage - vaginal bleeding Time Seen by Provider: 01/18/23 13:10 - History of Present Illness Initial comments: 27-year-old female presents emergency Department when a miscarriage. Patient states this is her fifth . Patient with a possible [place] over the weekend who told her she is having a miscarriage. She states she had no imaging or blood work. Patient states she just started bleeding continuously told her she was restrained. (Anthony Nascimento) Quick note reviewed. This is a 27-year-old -[place]ov[place] female who is A2 who presents to the emergency department with a chief complaint of vaginal bleeding. She reports vaginal bleeding that started on Tuesday01/16/2023. She reports the blood initially was heavy with clots. She reports that today it is undercover cop and more constant. She reports a history of ectopic in 2020. She denies any dizziness, lightheadedness, nausea, vomiting. She does report generalized vaginal cramping and low back pain. Her OB is out of [place]. (Chante Phillips) - Related Data Home Medications Medication Instructions Recorded Confirmed INSULIN LISPRO (HumaLOG) [humaLOG] 14 units SQ AC-TID 02/24/21 07/05/22 Insulin Glargine,Hum.rec.anlog 25 unit SQ HS 02/24/21 07/05/22 [Lantus Solostar Pen] Aspirin [Adult Low Dose Aspirin EC] 81 mg PO DAILY 07/05/22 07/05/22 Vit No.179/Iron/Folic 1 each PO DAILY 07/05/22 07/05/22 [ Tablet] Previous Rx's Medication Instructions Recorded Cephalexin [Keflex] 500 mg PO Q12HR 7 Days #14 cap 08/08/22 Allergies Allergy/AdvReac Type Severity Reaction Status Date / Time No Known Allergies Allergy Verified 01/18/23 12:15 Review of Systems ROS Other: All systems not noted in ROS Statement are negative. <Anthony Nascimento - Last Filed: 01/18/23 13:10> ROS Other: All systems not noted in ROS Statement are negative. <Chante Phillips - Last Filed: 01/18/23 19:37> ROS Other: All systems not noted in ROS Statement are negative. <Rimma Cole - Last Filed: 01/18/23 22:13> ROS Statement: Those systems with pertinent positive or pertinent negative responses have been documented in the HPI. Past Medical History Past Medical History: Diabetes Mellitus History of Any Multi-Drug Resistant Organisms: None Reported Date of last positivie culture/infection: 02/20/18 MDRO Source:: ESBL URINE Past Surgical History: Section Additional Past Surgical History / Comment(s): D&C Past Psychological History: No Psychological Hx Reported Smoking Status: Never smoker Past Alcohol Use History: None Reported Past Drug Use History: None Reported - Past Family History Sister(s) Family Medical History: Thyroid Disorder <Anthony Nascimento - Last Filed: 01/18/23 13:10> General Exam Limitations: no limitations <Anthony Nascimento - Last Filed: 01/18/23 13:10> <Chante Phillips - Last Filed: 01/18/23 19:37> - General Exam Comments Initial Comments: Visual Physical Exam Vital signs reviewed General: Well-appearing, nontoxic, no acute distress. Head: Normocephalic, atraumatic Eyes: PERRLA, EOMI ENT: Airway patent Chest: Nonlabored breathing Skin: No visual rash, normal skin tone Neuro: Alert and oriented 3 Musculoskeletal: No gross abnormalities (Anthony Nascimento) General: Alert, in no acute distress Head: atraumatic normocephalic. Eyes PERRL, EOMI intact, mucous membranes moist Respiratory: Lungs clear to auscultation bilaterally Cardiovascular: Rate regular rate and rhythm Abdominal: Soft without guarding or rebound Extremities: Normal inspection with full range of motion and normal capillary refill Neuroogic: alert and oriented 3, CN II-XII intact, able to ambulate with steady gait Skin: warm dry and intact with normal color (Chante Phillips) Course <Chante Phillips - Last Filed: 01/18/23 19:37> Vital Signs 01/18/23 01/18/23 01/18/23 12:10 18:31 20:28 Temperature 97.6 F Pulse Rate 75 78 Respiratory 18 18 16 Rate Blood Pressure 137/94 124/66 O2 Sat by Pulse 98 100 Oximetry - Reevaluation(s) Reevaluation #1: 01/18/23 17:11 external exam is without any rashes, lesions, erythema. Vaginal canal with mild blood in vaginal vault. Cervical os is visualized and is closed. There is no cervical motion tenderness for abnormal adnexal tenderness. Pelvic exam performed with foam charger, [place], instructional technology facilitator present. (Chante Phillips) Medical Decision Making - Lab Data Result diagrams: 01/18/23 14:40 01/18/23 14:52 <Chante Phillips - Last Filed: 01/18/23 19:37> - Lab Data Result diagrams: 01/18/23 14:40 01/18/23 14:52 - Radiology Data Radiology results: report reviewed, image reviewed <Rimma Cole - Last Filed: 01/18/23 22:13> - Medical Decision Making Was pt. sent in by a medical professional or institution (, PA, UTILIZATION REVIEW RN, urgent care, hospital, or long-term...) When possible be specific @ -[No] Did you speak to anyone other than the patient for history (EMS, parent, family, police, friend...)? What history was obtained from this source @ -[No] Did you review nursing and triage notes (agree or disagree)? Why? @ -[I reviewed and agree with nursing and triage notes] Were old charts reviewed (outside hosp., previous admission, EMS record, old EKG, old radiological studies, urgent care reports/EKG's, long-term records)? Report findings @ -[No old charts were reviewed] Differential Diagnosis (chest pain, altered mental status, abdominal pain women, abdominal pain men, vaginal bleeding, weakness, fever, dyspnea, syncope, headache, dizziness, GI bleed, back pain, seizure, CVA, palpatations, mental health, musculoskeletal)? @ -[not applicable] EKG interpreted by me (3pts min.). @ -[As above] X-rays interpreted by me (1pt min.). @ -[None done] CT interpreted by me (1pt min.). @ -[None done] U/S interpreted by me (1pt. min.). @ -Ultrasound reveals no IUP at this time. Does suggest left ectopic What testing was considered but not performed or refused? (CT, X-rays, U/S, labs)? Why? @ -[None] What meds were considered but not given or refused? Why? @ -[None] Did you discuss the management of the patient with other professionals (professionals i.e. , PA, UTILIZATION REVIEW RN, lab, RT, psych nurse, social worker clinical, fence rider, teacher, chief customer officer, rifle case repairer)? Give summary @ -[No] Was smoking cessation discussed for >3mins.? @ -[No] Was critical care preformed (if so, how long)? @ -[No] Were there social determinants of health that impacted care today? How? (Homelessness, low income, unemployed, alcoholism, drug addiction, transportation, low edu. Level, literacy, decrease access to med. care, correction, rehab)? @ -[No] Was there de-escalation of care discussed even if they declined (Discuss DNR or withdrawal of care, Hospice)? DNR status @ -[No] What co-morbidities impacted this encounter? (DM, HTN, Smoking, COPD, CAD, Cancer, CVA, ARF, Chemo, Hep., AIDS, mental health diagnosis, sleep apnea, morbid obesity)? @ -[None] Was patient admitted / discharged? Hospital course, mention meds given and route, prescriptions, significant lab abnormalities, going to OR and other pertinent info. @ -Disposition pending. This is a 27-year-old -[place]ov[place] female who presents to the emergency department with vaginal bleeding. Patient had a thorough history and physical exam performed. Pelvic exam reveals trace amount of blood in the vaginal vault cervical os is closed. No adnexal tenderness. Patient had lab work and imaging performed which revealed: WBC;s 4.4, hemoglobin 13.4 hCG Quant 763, pelvic ultrasound does not reveal an intrauterine at this time however it does suggest hypoechoic area of the left adnexa measuring 1 x 1 x [address] Jerry OB ventilation worker was paged multiple times during the patient's course of the ED. Patient will be signed out to KRISH Shanks in stable condition with intention for discharge. Case discussed with Dr. Alfonso [facility] who agrees with plan of care Patient will be signed out to Rimma sepulveda PA-C while awaiting recommendation from COFFEE ATTENDANT on-call. Undiagnosed new problem with uncertain prognosis? @ -[No] Drug Therapy requiring intensive monitoring for toxicity (Heparin, Nitro, Insulin, Cardizem)? @ -[No] Were any procedures done? @ -[No] Diagnosis/symptom? @ -Vaginal bleeding Vs. Threatened miscarriage Acute, or Chronic, or Acute on Chronic? @ -acute Uncomplicated (without systemic symptoms) or Complicated (systemic symptoms)? @ -Uncomplicated Side effects of treatment? @ -[No] Exacerbation, Progression, or Severe Exacerbation? @ -[No] Poses a threat to life or bodily function? How? (Chest pain, [place], [place], pneumonia, PE, COPD, DKA, ARF, appy, cholecystitis, CVA, Diverticulitis, Homicidal, Suicidal, threat to staff... and all critical care pts) @ -Low likelihood (Chante Phillips) I spoke with Dr. Noguera, COFFEE ATTENDANT. She advised that based on her hCG count, it is unclear if this is an ectopic and no methotrexate is indicated at this time. She advised a lab order to have her hCG repeated in 2 days and close follow-up with her in the office in 2 days for reevaluation. Strict return precautions were discussed with the patient, in that if she develops severe pain or severe bleeding, she should return immediately. Return precautions reviewed in depth, the patient is instructed to return to the emergency department with any new, worsening, or concerning symptoms. Patient verbalized understanding. This case was discussed in detail with the attending ED physician, Dr. Alfonso. Presentation, findings, and treatment plan discussed in detail as well. (Rimma Cole) - Lab Data Lab Results 01/18/23 01/18/23 01/18/23 Range/Units 14:40 14:52 14:52 WBC 4.4 (3.8-10.6) k/uL RBC 5.08 (3.80-5.40) m/uL Hgb 13.4 (11.4-16.0) gm/dL Hct 42.4 (34.0-46.0) % MCV 83.3 (80.0-100.0) fL MCH 26.4 (25.0-35.0) pg MCHC 31.7 (31.0-37.0) g/dL RDW 12.4 (11.5-15.5) % Plt Count 215 (150-450) k/uL MPV 10.0 Neutrophils % 46 % Lymphocytes % 45 % Monocytes % 5 % Eosinophils % 2 % Basophils % 1 % Neutrophils # 2.0 (1.3-7.7) k/uL Lymphocytes # 2.0 (1.0-4.8) k/uL Monocytes # 0.2 (0-1.0) k/uL Eosinophils # 0.1 (0-0.7) k/uL Basophils # 0.0 (0-0.2) k/uL Sodium 133 L (137-145) mmol/L Potassium 4.4 (3.5-5.1) mmol/L Chloride 99 (98-107) mmol/L Carbon Dioxide 23 (22-30) mmol/L Anion Gap 11 mmol/L BUN 5 L (7-17) mg/dL Creatinine 0.28 L (0.52-1.04) mg/dL Est GFR (CKD-EPI)AfAm >90 (>60 ml/min/1.73 sqM) Est GFR (CKD-EPI)NonAf >90 (>60 ml/min/1.73 sqM) Glucose 363 H (74-99) mg/dL Calcium 9.0 (8.4-10.2) mg/dL HCG, Quant 763.1 mIU/mL Disposition <Atnhony Nascimento - Last Filed: 01/18/23 13:10> <Chante Phillips - Last Filed: 01/18/23 19:37> Is patient prescribed a controlled substance at d/c from ED?: No <Rimma Cole - Last Filed: 01/18/23 22:13> Clinical Impression: Threatened miscarriage Disposition: HOME SELF-CARE Instructions (If sedation given, give patient instructions): Threatened Miscarriage (ED) Additional Instructions: Return to the emergency department with any new, worsening, or concerning symptoms. Take the lab slip to have your blood work repeated in 2 days. Contact COFFEE ATTENDANT as listed below and let the office know that you were seen in the emergency department and Dr. Noguera said that you needed to be seen in the office on due to possible ectopic . Referrals: Gold Al MD [Primary Care Provider] - 1-2 days Sharon Noguera MD [STAFF PHYSICIAN] - 01/20/23
--- NOTE | 2023-01-18 14:44 | US ---
EXAMINATION TYPE: Transabdominal DATE OF EXAM: 01/18/2023 2:02 PM COMPARISON: NONE CLINICAL INDICATION: Female, 27 years old with history of pain; Pain and bleeding. Hx of ectopic. EXAM PERFORMED: Transvaginal (TV) and Transabdominal (TA) EXAM MEASUREMENTS: GESTATIONAL AGE / DATING Physician Established: Not yet established Dates by LMP: LMP unknown Dates by First Scan: No previous this is first scan Dates by Current Scan for: No IUP seen at this t margie MATERNAL ANATOMY Uterus: 10.2 x 5.2 x 5.8 cm Hypoechoic area seen left side 1.7 x 1.6 x 1.8 cm. Right Ovary: obscured by bowel gas. Left Ovary: 1.8 x 1.2 cm Post CDS / Adnexa: Complex mass seen left adnexa suggestive of ectopic measuring 2.4 x 1.5 x 2.2 cm. Presence of free fluid: no Presence of corpus luteal cyst: no Presence of subchorionic bleed: no GESTATION / SURVEY IUP: No IUP seen at this time Beta HcG (if available): Not available at this time IMPRESSION: 1. Complex mass in the left adnexa suspicious for ectopic . Gynecologic consultation recomm ended. 2. No intrauterine gestational sac identified.
[2023-01-18 15:19] LABS: African American GFR (CKD) >90 (>60 ml/min/1.73 sqM); Anion Gap 11 mmol/L; Blood Urea Nitrogen 5 mg/dL (7-17); Carbon Dioxide 23 mmol/L (22-30); Chloride 99 mmol/L (98-107); Glucose 363 mg/dL (74-99); Non-African American GFR(CKD) >90 (>60 ml/min/1.73 sqM); Potassium 4.4 mmol/L (3.5-5.1); Sodium 133 mmol/L (137-145)
[2023-01-18 15:59] LABS: Basophils % (A) 1 %; Eosinophils # (A) 0.1 k/uL (0-0.7); Eosinophils % (A) 2 %; HCT 42.4 % (34.0-46.0); HGB 13.4 gm/dL (11.4-16.0); Lymphocytes % (A) 45 %; MCH 26.4 pg (25.0-35.0); MCHC 31.7 g/dL (31.0-37.0); MCV 83.3 fL (80.0-100.0); Monocytes # (A) 0.2 k/uL (0-1.0); Monocytes % (A) 5 %; Neutrophils % (A) 46 %; Platelet Count 215 k/uL (150-450); RBC 5.08 m/uL (3.80-5.40); RDW 12.4 % (11.5-15.5); WBC 4.4 k/uL (3.8-10.6)
[2023-01-18 18:33] VITALS: BP 124/66; PULSE 78
[2023-01-18 20:29] VITALS: RESP 16
== END 2023-01-18 20:29 | disposition home or self-care (01) ==
LOC: EC 12:00
DX: O20.0 Threatened abortion (principal); O24.119 Pre-existing type 2 diabetes mellitus, in pregnancy, unspecified trimester; Z3A.00 Weeks of gestation of pregnancy not specified; Z79.4 Long term (current) use of insulin
CPT/HCPCS: 36415; 76801; 76817; 80048; 84702; 85025; 99284

== ENCOUNTER → 2023-01-25 | Outpatient (CLI) | payer OTHER | END | disposition home or self-care (01) | LOC: LABWHC1 15:22 | PROVIDERS: ATTEND Physician Assistant | DX: O20.0 Threatened abortion (principal); Z3A.00 Weeks of gestation of pregnancy not specified | CPT/HCPCS: 36415; 84702 ==

== ENCOUNTER 2023-02-21 16:15 | Emergency (ER) | payer OTHER ==
[2023-02-21 17:12] LABS: Appearance,Urine Cloudy (Clear); Bacteria,Urine Rare /hpf; Bilirubin,Urine Negative (Negative); Blood,Urine Negative (Negative); Color,Urine Yellow; Glucose,Urine (UA) Negative (Negative); Ketones,Urine Negative (Negative); Leukocyte Esterase,Urine Negative (Negative); Mucus,Urine Rare /hpf; Nitrite,Urine Negative (Negative); PH, Urine 5.5 (5.0-8.0); Protein,Urine Trace (Negative); RBC,Urine 1 /hpf (0-5); Specific Gravity,Urine 1.016 (1.001-1.035); Squamous Epithelial Cell,Urine 12 /hpf (0-4); Urobilinogen,Urine <2.0 mg/dL (<2.0); WBC,Urine 1 /hpf (0-5)
--- NOTE | 2023-02-21 17:56 | ED ---
General Adult HPI - General Chief complaint: Urogenital Stated complaint: abd pain Time Seen by Provider: 02/21/23 16:28 Source: patient, RN notes reviewed Mode of arrival: ambulatory Limitations: no limitations - History of Present Illness Initial comments: 27-year-old -[place] female with no significant past medical history presents the emergency department with a chief complaint of dysuria. Patient reports urinary discomfort 4 days. She is also describing what most likely fishy odor. She denies any fevers, flank pain, hematuria, vaginal bleeding, vaginal cramping, back pain. She is not concerned for STDs at this time. She denies any vaginal discharge. She is not taken anything for his symptoms. - Related Data Home Medications Medication Instructions Recorded Confirmed INSULIN LISPRO (HumaLOG) [humaLOG] 14 units SQ AC-TID 02/24/21 07/05/22 Insulin Glargine,Hum.rec.anlog 25 unit SQ HS 02/24/21 07/05/22 [Lantus Solostar Pen] Aspirin [Adult Low Dose Aspirin EC] 81 mg PO DAILY 07/05/22 07/05/22 Vit No.179/Iron/Folic 1 each PO DAILY 07/05/22 07/05/22 [ Tablet] Previous Rx's Medication Instructions Recorded Cephalexin [Keflex] 500 mg PO Q12HR 7 Days #14 cap 08/08/22 Fluconazole [Diflucan] 150 mg PO ONCE #2 tab 02/21/23 metroNIDAZOLE 0.75% VAGINAL 1 applic VAGINAL HS #70 gm 02/21/23 [Metrogel Vaginal] Allergies Allergy/AdvReac Type Severity Reaction Status Date / Time No Known Allergies Allergy Verified 01/18/23 12:15 Review of Systems ROS Statement: Those systems with pertinent positive or pertinent negative responses have been documented in the HPI. ROS Other: All systems not noted in ROS Statement are negative. Past Medical History Past Medical History: Diabetes Mellitus History of Any Multi-Drug Resistant Organisms: None Reported Date of last positivie culture/infection: 02/20/18 MDRO Source:: ESBL URINE Past Surgical History: Section Additional Past Surgical History / Comment(s): D&C Past Psychological History: No Psychological Hx Reported Smoking Status: Never smoker Past Alcohol Use History: None Reported Past Drug Use History: None Reported - Past Family History Sister(s) Family Medical History: Thyroid Disorder General Exam - General Exam Comments Initial Comments: General: Alert, in no acute distress Head: atraumatic normocephalic. Eyes PERRL, EOMI intact, mucous membranes moist Respiratory: Lungs clear to auscultation bilaterally Cardiovascular: Heart rate regular rate and rhythm Abdominal: Soft without guarding or rebound Extremities: Normal inspection with full range of motion and normal capillary refill Neuroogic: alert and oriented 3, CN II-XII intact, able to ambulate with steady gait Skin: warm dry and intact with normal color Limitations: no limitations Course Vital Signs 02/21/23 02/21/23 16:21 18:20 Temperature 98.3 F 98.1 F Pulse Rate 86 82 Respiratory 18 16 Rate Blood Pressure 128/84 147/86 O2 Sat by Pulse 100 Oximetry Medical Decision Making - Medical Decision Making Was pt. sent in by a medical professional or institution (Dr. PA, SCRAP COLLECTOR, urgent care, hospital, or half-way...) When possible be specific @ -[No] Did you speak to anyone other than the patient for history (EMS, parent, family, police, friend...)? What history was obtained from this source @ -[No] Did you review nursing and triage notes (agree or disagree)? Why? @ -[I reviewed and agree with nursing and triage notes] Were old charts reviewed (outside hosp., previous admission, EMS record, old EKG, old radiological studies, urgent care reports/EKG's, half-way records)? Report findings @ -[No old charts were reviewed] Differential Diagnosis (chest pain, altered mental status, abdominal pain women, abdominal pain men, vaginal bleeding, weakness, fever, dyspnea, syncope, headache, dizziness, GI bleed, back pain, seizure, CVA, palpatations, mental health, musculoskeletal)? @ -[not applicable] EKG interpreted by me (3pts min.). @ -[As above] X-rays interpreted by me (1pt min.). @ -[None done] CT interpreted by me (1pt min.). @ -[None done] U/S interpreted by me (1pt. min.). @ -[None done] What testing was considered but not performed or refused? (CT, X-rays, U/S, labs)? Why? @ -[None] What meds were considered but not given or refused? Why? @ -[None] Did you discuss the management of the patient with other professionals (professionals i.e. ., PA, SCRAP COLLECTOR, lab, RT, psych nurse, social sciences chair, electrical checkout mechanic, teacher, founder and chief technical officer, case advocate)? Give summary @ -[No] Was smoking cessation discussed for >3mins.? @ -[No] Was critical care preformed (if so, how long)? @ -[No] Were there social determinants of health that impacted care today? How? (Homel essness, low income, unemployed, alcoholism, drug addiction, transportation, low edu. Level, literacy, decrease access to med. care, custodial, rehab)? @ -[No] Was there de-escalation of care discussed even if they declined (Discuss DNR or withdrawal of care, Hospice)? DNR status @ -[No] What co-morbidities impacted this encounter? (DM, HTN, Smoking, COPD, CAD, Cancer, CVA, ARF, Chemo, Hep., AIDS, mental health diagnosis, sleep apnea, morbid obesity)? @ -[None] Was patient admitted / discharged? Hospital course, mention meds given and route, prescriptions, significant lab abnormalities, going to OR and other pertinent info. @ -Discharged. This is a 27-year-old -[place] female who presents the emergency department with dysuria. Patient had a thorough history and physical exam performed physical exam essentially unremarkable. Urinalysis is negative f or any evidence of urinary tract infection patient was offered a pelvic exam however she refused. Patient was given a prescription for Flagyl and Diflucan. With strict return precautions in place. Patient discharged in stable condition. Case discussed with Dr. Welsh Stephanie who agrees with plan of care. Undiagnosed new problem with uncertain prognosis? @ -[No] Drug Therapy requiring intensive monitoring for toxicity (Heparin, Nitro, Insulin, Cardizem)? @ -[No] Were any procedures done? @ -[No] Diagnosis/symptom? @ - Dysuria Acute, or Chronic, or Acute on Chronic? @ -acute Uncomplicated (without systemic symptoms) or Complicated (systemic symptoms)? @ -uncomplicated Side effects of treatment? @ -[No] Exacerbation, Progression, or Severe Exacerbation? @ -[No] Poses a threat to life or bodily function? How? (Chest pain, [place], [place], pneumonia, PE, COPD, DKA, ARF, appy, cholecystitis, CVA, Diverticulitis, Homicidal, Suicidal, threat to staff... and all critical care pts) @ -Low likelihood - Lab Data Lab Results 02/21/23 02/21/23 Range/Units 16:56 17:43 Urine Color Yellow Urine Appearance Cloudy H (Clear) Urine pH 5.5 (5.0-8.0) Ur Specific [place] 1.016 (1.001-1.035) Urine Protein Trace H (Negative) Urine Glucose (UA) Negative (Negative) Urine Ketones Negative (Negative) Urine Blood Negative (Negative) Urine Nitrite Negative (Negative) Urine Bilirubin Negative (Negative) Urine Urobilinogen <2.0 (<2.0) mg/dL Ur Leukocyte Esterase Negative (Negative) Urine RBC 1 (0-5) /hpf Urine WBC 1 (0-5) /hpf Ur Squamous Epith Cells 12 H (0-4) /hpf Urine Bacteria Rare H (None) /hpf Urine Mucus Rare H (None) /hpf Urine HCG, Qual Not Detected (Not Detectd) Disposition Clinical Impression: Dysuria Disposition: HOME SELF-CARE Condition: Stable Instructions (If sedation given, give patient instructions): Urinary Tract Infection in Women (ED) Additional Instructions: These return to the nearest emergency department if symptoms worsen or persist Prescriptions: Fluconazole [Diflucan] 150 mg PO ONCE #2 tab metroNIDAZOLE 0.75% VAGINAL [Metrogel Vaginal] 1 applic VAGINAL HS #70 gm Is patient prescribed a controlled substance at d/c from ED?: No Referrals: Gold Al MD [Primary Care Provider] - 1-2 days Time of Disposition: 17:56
[2023-02-21 18:24] VITALS: BP 147/86; PULSE 82; RESP 16; TEMP 98.1
== END 2023-02-21 18:24 | disposition home or self-care (01) ==
LOC: EC 16:15
DX: R30.0 Dysuria (principal); E11.9 Type 2 diabetes mellitus without complications; Z79.4 Long term (current) use of insulin; Z79.82 Long term (current) use of aspirin
CPT/HCPCS: 81001; 81025; 99284

== ENCOUNTER 2023-05-16 19:24 | Emergency (ER) | payer OTHER ==
[2023-05-16 19:32] VITALS: RESP 18; TEMP 98.2
[2023-05-16 19:52] LABS: Basophils % (A) 1 %; Eosinophils # (A) 0.3 k/uL (0-0.7); Eosinophils % (A) 4 %; HCT 39.9 % (34.0-46.0); HGB 12.7 gm/dL (11.4-16.0); Lymphocytes # (A) 2.3 k/uL (1.0-4.8); Lymphocytes % (A) 38 %; MCH 27.6 pg (25.0-35.0); MCHC 31.9 g/dL (31.0-37.0); MCV 86.7 fL (80.0-100.0); Mean Platelet Volume 9.9; Monocytes # (A) 0.2 k/uL (0-1.0); Monocytes % (A) 4 %; Neutrophils # (A) 3.1 k/uL (1.3-7.7); Neutrophils % (A) 51 %; Platelet Count 258 k/uL (150-450); RBC 4.61 m/uL (3.80-5.40); RDW 12.2 % (11.5-15.5); WBC 6.1 k/uL (3.8-10.6)
[2023-05-16 20:01] LABS: INR 0.9 (<1.2); Partial Thromboplastin Time 24.6 sec (22.0-30.0); Prothrombin Time 9.5 sec (9.0-12.0)
[2023-05-16 20:06] LABS: ALT 16 U/L (4-34); AST 14 U/L (14-36); African American GFR (CKD) >90 (>60 ml/min/1.73 sqM); Albumin 3.7 g/dL (3.5-5.0); Alkaline Phosphatase 137 U/L (38-126); Anion Gap 11 mmol/L; Blood Urea Nitrogen 11 mg/dL (7-17); Calcium 9.4 mg/dL (8.4-10.2); Carbon Dioxide 21 mmol/L (22-30); Chloride 97 mmol/L (98-107); Non-African American GFR(CKD) >90 (>60 ml/min/1.73 sqM); Potassium 4.5 mmol/L (3.5-5.1); Sodium 129 mmol/L (137-145); Total Bilirubin 0.3 mg/dL (0.2-1.3)
--- NOTE | 2023-05-16 20:21 | ED ---
Dizziness HPI - General Source: patient Mode of arrival: wheelchair Limitations: no limitations <Blue García - Last Filed: 05/16/23 20:21> - General Source: RN notes reviewed, old records reviewed Mode of arrival: wheelchair Limitations: no limitations - History of Present Illness MD Complaint: dizziness, lightheadedness, near syncope -: days(s) Timing: unsure, waxing/waning, now resolved Description: sense of movement, "room spinning", lightheadedness History of Same: No History of Trauma: No Improves With: nothing Worsens With: nothing Associated Symptoms: denies other symptoms <Jerry Moore - Last Filed: 05/17/23 16:01> - General Chief Complaint: Syncope Stated Complaint: syncope Time Seen by Provider: 05/16/23 20:22 - History of Present Illness Initial Comments: 27-year-old female presenting to the ED with a chief complaint of syncope. Patient states today, had an episode when she stand up where she felt lightheaded and fell to the ground. States that she lost consciousness for approximately 20 minutes and notes that her son woke her up. Patient notes that this occurred again while she was on the phone speaking to her family. States that family reported that patient was snoring during this episode. Currently, patient reports fatigue. (Blue García) This is a 27-year-old female who states she does not feel significantly well lightheaded dizzy and weak for a few days now with multiple syncopal events. Patient's blood sugars been out of control and is usually controlled well. (Jerry Moore) - Related Data Home Medications Medication Instructions Recorded Confirmed INSULIN LISPRO (HumaLOG) [humaLOG] 14 units SQ AC-TID 02/24/21 07/05/22 Insulin Glargine,Hum.rec.anlog 25 unit SQ HS 02/24/21 07/05/22 [Lantus Solostar Pen] Aspirin [Adult Low Dose Aspirin EC] 81 mg PO DAILY 07/05/22 07/05/22 Vit No.179/Iron/Folic 1 each PO DAILY 07/05/22 07/05/22 [ Tablet] Previous Rx's Medication Instructions Recorded Cephalexin [Keflex] 500 mg PO Q12HR 7 Days #14 cap 08/08/22 Fluconazole [Diflucan] 150 mg PO ONCE #2 tab 02/21/23 metroNIDAZOLE 0.75% VAGINAL 1 applic VAGINAL HS #70 gm 02/21/23 [Metrogel Vaginal] Allergies Allergy/AdvReac Type Severity Reaction Status Date / Time No Known Allergies Allergy Verified 05/16/23 19:25 Review of Systems ROS Other: All systems not noted in ROS Statement are negative. <Blue García - Last Filed: 05/16/23 20:21> ROS Other: All systems not noted in ROS Statement are negative. <Jerry Moore - Last Filed: 05/17/23 16:01> ROS Statement: Those systems with pertinent positive or pertinent negative responses have been documented in the HPI. Past Medical History Past Medical History: Diabetes Mellitus History of Any Multi-Drug Resistant Organisms: None Reported Date of last positivie culture/infection: 02/20/18 MDRO Source:: ESBL URINE Past Surgical History: Section Additional Past Surgical History / Comment(s): D&C Past Psychological History: No Psychological Hx Reported Smoking Status: Never smoker Past Alcohol Use History: None Reported Past Drug Use History: None Reported - Past Family History Sister(s) Family Medical History: Thyroid Disorder <Blue García - Last Filed: 05/16/23 20:21> General Exam Limitations: no limitations <Blue García - Last Filed: 05/16/23 20:21> General appearance: alert, in no apparent distress Head exam: Present: atraumatic, normocephalic, normal inspection Eye exam: Present: normal appearance, PERRL, EOMI. Absent: scleral icterus, conjunctival injection, periorbital swelling ENT exam: Present: normal exam, mucous membranes moist Neck exam: Present: normal inspection. Absent: tenderness, meningismus, lymphadenopathy Respiratory exam: Present: normal lung sounds bilaterally. Absent: respiratory distress, wheezes, rales, rhonchi, stridor Cardiovascular Exam: Present: regular rate, normal rhythm, normal heart sounds. Absent: systolic murmur, diastolic murmur, rubs, gallop, clicks GI/Abdominal exam: Present: soft, normal bowel sounds. Absent: distended, tenderness, guarding, rebound, rigid Extremities exam: Present: normal inspection, full ROM, normal capillary refill. Absent: tenderness, pedal edema, joint swelling, calf tenderness Back exam: Present: normal inspection Neurological exam: Present: alert, oriented X3, CN II-XII intact Psychiatric exam: Present: normal affect, normal mood Skin exam: Present: warm, dry, intact, normal color. Absent: rash <Jerry Moore - Last Filed: 05/17/23 16:01> Course <Jerry Moore - Last Filed: 05/17/23 16:01> Vital Signs 05/16/23 05/17/23 19:25 01:14 Temperature 98.2 F Pulse Rate 84 82 Respiratory 18 18 Rate Blood Pressure 136/88 134/84 O2 Sat by Pulse 98 98 Oximetry - Reevaluation(s) Reevaluation #1: 05/17/23 00:18 Medical record is reviewed (Jerry Moore) Reevaluation #2: 05/17/23 00:18 Patient symptoms are improving (Jerry Moore) Reevaluation #3: 05/17/23 00:18 Patient informed results questions answered (Jerry Moore) Reevaluation #4: 05/17/23 00:18 Was pt. sent in by a medical professional or institution (, PA, CADD INSTRUCTOR, urgent care, hospital, or correction...) When possible be specific @ -no Did you speak to anyone other than the patient for history (EMS, parent, family, police, friend...)? What history was obtained from this source @ -no Did you review nursing and triage notes (agree or disagree)? Why? @ -agree Are old charts reviewed (outside hosp., previous admission, EMS record, old EKG, old radiological studies, urgent care reports/EKG's, correction records)? Report findings @ -yes Differential Diagnosis (chest pain, altered mental status, abdominal pain women, abdominal pain men, vaginal bleeding, weakness, fever, dyspnea, syncope, headache, dizziness, GI bleed, back pain, seizure, CVA, palpatations, mental health, musculoskeletal)? @ -prior EKG interpreted by me (3pts min.). @ -yes X-rays interpreted by me (1pt min.). @ -no CT interpreted by me (1pt min.). @ -no U/S interpreted by me (1pt. min.). @ -no What testing was considered but not performed or refused? (CT, X-rays, U/S, labs)? Why? @ -none What meds were considered but not given or refused? Why? @ -none Did you discuss the management of the patient with other professionals (professionals i.e. Dr., PA, CADD INSTRUCTOR, lab, RT, psych nurse, healthcare social worker, database coordinator, teacher, public affairs officer, director of casework department)? Give summary @ -no Was smoking cessation discussed for >3mins.? @ -no Was critical care preformed (if so, how long)? @ -no Were there social determinants of health that impacted care today? How? (Homelessness, low income, unemployed, alcoholism, drug addiction, transportation, low edu. Level, literacy, decrease access to med. care, assisted, rehab)? @ -none Was there de-escalation of care discussed even if they declined (Discuss DNR or withdrawal of care, Hospice)? DNR status @ -no What co-morbidities impacted this encounter? (DM, HTN, Smoking, COPD, CAD, Cancer, CVA, ARF, Chemo, Hep., AIDS, mental health diagnosis, sleep apnea, morbid obesity)? @ -none Was patient admitted / discharged? Hospital course, mention meds given and route, prescriptions, significant lab abnormalities, going to OR and other pertinent info. @ - 27 female to the emergency department for evaluation of not feeling well generally, recent dizziness and syncopal events. Patient does not hospital admission she feels dramatically improved with hydration blood sugar control here in the ER. Patient was concerned for coronavirus and testing is negative and she can be discharged home with no headache chest pain shortness of breath or abdominal pain currently Discharge Undiagnosed new problem with uncertain prognosis? @ -no Drug Therapy requiring intensive monitoring for toxicity (Heparin, Nitro, Insulin, Cardizem)? @ -no Were any procedures done? @ -no Diagnosis/symptom? @ -Syncope, hyperglycemia, dehydration Acute, or Chronic, or Acute on Chronic? @ -Acute Uncomplicated (without systemic symptoms) or Complicated (systemic symptoms)? @ -Complicated Side effects of treatment? @ -no Exacerbation, Progression, or Severe Exacerbation? @ -exacerbation Poses a threat to life or bodily function? How? (Chest pain, [place], [place], pneumonia, PE, COPD, DKA, ARF, appy, cholecystitis, CVA, Diverticulitis, Homicidal, Suicidal, threat to staff... and all critical care pts) @ -yes syncope can present with life-threatening illness (Jerry Moore) Reevaluation #5: 05/17/23 00:18 Differential Syncope: Valvular disease, hypertrophic cardiomyopathy, pulmonary embolism, tamponade, tachycardia, bradycardia, [place], hypovolemia, hemorrhage, dissection, anemia, intracranial hemorrhage, seizure, hypoglycemia, carbon monoxide poisoning, this is not meant to be an all-inclusive list. (Jerry Moore) EKG Findings - EKG Comments: EKG Findings:: EKG is sinus 88 CA 146 QRS 80 QTC 380 - EKG Results: EKG: interpreted by ERMD <Jerry Moore - Last Filed: 05/17/23 16:01> Medical Decision Making - Lab Data Result diagrams: 05/16/23 19:33 <Blue García - Last Filed: 05/16/23 20:21> - Lab Data Result diagrams: 05/16/23 19:33 05/16/23 19:33 - EKG Data -: EKG Interpreted by Me <Jerry Moore - Last Filed: 05/17/23 16:01> - Medical Decision Making Quicknote performed. Signed Blue García PA-C (Blue García) 27 female to the emergency department for evaluation of not feeling well generally, recent dizziness and syncopal events. Patient does not hospital admission she feels dramatically improved with hydration blood sugar control here in the ER. Patient was concerned for coronavirus and testing is negative and she can be discharged home with no headache chest pain shortness of breath or abdominal pain currently (Jerry Moore) - Lab Data Lab Results 05/16/23 05/16/23 05/16/23 Range/Units 19:33 19:33 19:33 WBC 6.1 (3.8-10.6) k/uL RBC 4.61 (3.80-5.40) m/uL Hgb 12.7 (11.4-16.0) gm/dL Hct 39.9 (34.0-46.0) % MCV 86.7 (80.0-100.0) fL MCH 27.6 (25.0-35.0) pg MCHC 31.9 (31.0-37.0) g/dL RDW 12.2 (11.5-15.5) % Plt Count 258 (150-450) k/uL MPV 9.9 Neutrophils % 51 % Lymphocytes % 38 % Monocytes % 4 % Eosinophils % 4 % Basophils % 1 % Neutrophils # 3.1 (1.3-7.7) k/uL Lymphocytes # 2.3 (1.0-4.8) k/uL Monocytes # 0.2 (0-1.0) k/uL Eosinophils # 0.3 (0-0.7) k/uL Basophils # 0.0 (0-0.2) k/uL PT 9.5 (9.0-12.0) sec INR 0.9 (<1.2) APTT 24.6 (22.0-30.0) sec Sodium 129 L (137-145) mmol/L Potassium 4.5 (3.5-5.1) mmol/L Chloride 97 L (98-107) mmol/L Carbon Dioxide 21 L (22-30) mmol/L Anion Gap 11 mmol/L BUN 11 (7-17) mg/dL Creatinine 0.49 L (0.52-1.04) mg/dL Est GFR (CKD-EPI)AfAm >90 (>60 ml/min/1.73 sqM) Est GFR (CKD-EPI)NonAf >90 (>60 ml/min/1.73 sqM) Glucose 636 H* (74-99) mg/dL POC Glucose (mg/dL) (70-110) mg/dL POC Glu Regulatory And Compliance Technician ID Calcium 9.4 (8.4-10.2) mg/dL Total Bilirubin 0.3 (0.2-1.3) mg/dL AST 14 (14-36) U/L ALT 16 (4-34) U/L Alkaline Phosphatase 137 H (38-126) U/L Troponin I (0.000-0.034) ng/mL Total Protein 7.0 (6.3-8.2) g/dL Albumin 3.7 (3.5-5.0) g/dL Urine Color Urine Appearance (Clear) Urine pH (5.0-8.0) Ur Specific [place] (1.001-1.035) Urine Protein (Negative) Urine Glucose (UA) (Negative) Urine Ketones (Negative) Urine Blood (Negative) Urine Nitrite (Negative) Urine Bilirubin (Negative) Urine Urobilinogen (<2.0) mg/dL Ur Leukocyte Esterase (Negative) Urine RBC (0-5) /hpf Urine WBC (0-5) /hpf Ur Squamous Epith Cells (0-4) /hpf Urine Bacteria (None) /hpf Acetone, Qual (Negative) Influenza Type A (PCR) (Not Detectd) Influenza Type B (PCR) (Not Detectd) RSV (PCR) (Not Detectd) SARS-CoV-2 (PCR) (Not Detectd) 05/16/23 05/16/23 05/16/23 Range/Units 19:33 19:33 21:02 WBC (3.8-10.6) k/uL RBC (3.80-5.40) m/uL Hgb (11.4-16.0) gm/dL Hct (34.0-46.0) % MCV (80.0-100.0) fL MCH (25.0-35.0) pg MCHC (31.0-37.0) g/dL RDW (11.5-15.5) % Plt Count (150-450) k/uL MPV Neutrophils % % Lymphocytes % % Monocytes % % Eosinophils % % Basophils % % Neutrophils # (1.3-7.7) k/uL Lymphocytes # (1.0-4.8) k/uL Monocytes # (0-1.0) k/uL Eosinophils # (0-0.7) k/uL Basophils # (0-0.2) k/uL PT (9.0-12.0) sec INR (<1.2) APTT (22.0-30.0) sec Sodium (137-145) mmol/L Potassium (3.5-5.1) mmol/L Chloride (98-107) mmol/L Carbon Dioxide (22-30) mmol/L Anion Gap mmol/L BUN (7-17) mg/dL Creatinine (0.52-1.04) mg/dL Est GFR (CKD-EPI)AfAm (>60 ml/min/1.73 sqM) Est GFR (CKD-EPI)NonAf (>60 ml/min/1.73 sqM) Glucose (74-99) mg/dL POC Glucose (mg/dL) (70-110) mg/dL POC Glu Regulatory And Compliance Technician ID Calcium (8.4-10.2) mg/dL Total Bilirubin (0.2-1.3) mg/dL AST (14-36) U/L ALT (4-34) U/L Alkaline Phosphatase (38-126) U/L Troponin I <0.012 (0.000-0.034) ng/mL Total Protein (6.3-8.2) g/dL Albumin (3.5-5.0) g/dL Urine Color Colorless Urine Appearance Clear (Clear) Urine pH 6.5 (5.0-8.0) Ur Specific [place] 1.030 (1.001-1.035) Urine Protein Negative (Negative) Urine Glucose (UA) 4+ H (Negative) Urine Ketones Negative (Negative) Urine Blood Negative (Negative) Urine Nitrite Negative (Negative) Urine Bilirubin Negative (Negative) Urine Urobilinogen <2.0 (<2.0) mg/dL Ur Leukocyte Esterase Small H (Negative) Urine RBC 5 (0-5) /hpf Urine WBC 8 H (0-5) /hpf Ur Squamous Epith Cells 3 (0-4) /hpf Urine Bacteria Rare H (None) /hpf Acetone, Qual Negative (Negative) Influenza Type A (PCR) (Not Detectd) Influenza Type B (PCR) (Not Detectd) RSV (PCR) (Not Detectd) SARS-CoV-2 (PCR) (Not Detectd) 05/17/23 05/17/23 05/17/23 Range/Units 00:49 01:12 02:11 WBC (3.8-10.6) k/uL RBC (3.80-5.40) m/uL Hgb (11.4-16.0) gm/dL Hct (34.0-46.0) % MCV (80.0-100.0) fL MCH (25.0-35.0) pg MCHC (31.0-37.0) g/dL RDW (11.5-15.5) % Plt Count (150-450) k/uL MPV Neutrophils % % Lymphocytes % % Monocytes % % Eosinophils % % Basophils % % Neutrophils # (1.3-7.7) k/uL Lymphocytes # (1.0-4.8) k/uL Monocytes # (0-1.0) k/uL Eosinophils # (0-0.7) k/uL Basophils # (0-0.2) k/uL PT (9.0-12.0) sec INR (<1.2) APTT (22.0-30.0) sec Sodium (137-145) mmol/L Potassium (3.5-5.1) mmol/L Chloride (98-107) mmol/L Carbon Dioxide (22-30) mmol/L Anion Gap mmol/L BUN (7-17) mg/dL Creatinine (0.52-1.04) mg/dL Est GFR (CKD-EPI)AfAm (>60 ml/min/1.73 sqM) Est GFR (CKD-EPI)NonAf (>60 ml/min/1.73 sqM) Glucose (74-99) mg/dL POC Glucose (mg/dL) 417 H 285 H (70-110) mg/dL POC Glu Regulatory And Compliance Technician Dennise Angulo Kyle Calcium (8.4-10.2) mg/dL Total Bilirubin (0.2-1.3) mg/dL AST (14-36) U/L ALT (4-34) U/L Alkaline Phosphatase (38-126) U/L Troponin I (0.000-0.034) ng/mL Total Protein (6.3-8.2) g/dL Albumin (3.5-5.0) g/dL Urine Color Urine Appearance (Clear) Urine pH (5.0-8.0) Ur Specific [place] (1.001-1.035) Urine Protein (Negative) Urine Glucose (UA) (Negative) Urine Ketones (Negative) Urine Blood (Negative) Urine Nitrite (Negative) Urine Bilirubin (Negative) Urine Urobilinogen (<2.0) mg/dL Ur Leukocyte Esterase (Negative) Urine RBC (0-5) /hpf Urine WBC (0-5) /hpf Ur Squamous Epith Cells (0-4) /hpf Urine Bacteria (None) /hpf Acetone, Qual (Negative) Influenza Type A (PCR) Not Detected (Not Detectd) Influenza Type B (PCR) Not Detected (Not Detectd) RSV (PCR) Not Detected (Not Detectd) SARS-CoV-2 (PCR) Not Detected (Not Detectd) Disposition <Blue García - Last Filed: 05/16/23 20:21> Is patient prescribed a controlled substance at d/c from ED?: No Time of Disposition: 01:00 <Jerry Moore - Last Filed: 05/17/23 16:01> Clinical Impression: Dehydration, Syncope, Hyperglycemia Disposition: HOME SELF-CARE Condition: Good Instructions (If sedation given, give patient instructions): Diabetic Hyperglycemia (ED) Referrals: Gold Al MD [Primary Care Provider] - 1-2 days
[2023-05-16 20:37] LABS: Glucose 636 mg/dL (74-99)
[2023-05-16 22:04] LABS: Appearance,Urine Clear (Clear); Bacteria,Urine Rare /hpf; Bilirubin,Urine Negative (Negative); Blood,Urine Negative (Negative); Color,Urine Colorless; Glucose,Urine (UA) 4+ (Negative); Ketones,Urine Negative (Negative); Leukocyte Esterase,Urine Small (Negative); Nitrite,Urine Negative (Negative); PH, Urine 6.5 (5.0-8.0); Protein,Urine Negative (Negative); RBC,Urine 5 /hpf (0-5); Squamous Epithelial Cell,Urine 3 /hpf (0-4); Urobilinogen,Urine <2.0 mg/dL (<2.0); WBC,Urine 8 /hpf (0-5)
[2023-05-16] MEDS ORDERED: SODIUM CHLORIDE 0.9% 2,000 ML IV STA (23:58)
[2023-05-16] MEDS ORDERED: SODIUM CHLORIDE 0.9% 500 ML 500 ML IV STA (23:58)
[2023-05-16] MEDS ORDERED: INSULIN REGULAR 100 UNIT/ML VIAL (IV) IV ONE (23:59)
[2023-05-16] MEDS ORDERED: INSULIN REGULAR 100 UNIT/ML VIAL (IM/SQ) SQ ONE (23:59)
[2023-05-17 00:51] LABS: Glucose,Whole Blood 417 mg/dL (70-110)
[2023-05-17 01:23] VITALS: BP 134/84; PULSE 82
[2023-05-17 02:14] LABS: Glucose,Whole Blood 285 mg/dL (70-110)
== END 2023-05-17 02:23 | disposition home or self-care (01) ==
LOC: EC 19:24
DX: E86.0 Dehydration (principal); R55 Syncope and collapse; E11.65 Type 2 diabetes mellitus with hyperglycemia; Z79.4 Long term (current) use of insulin; Z79.82 Long term (current) use of aspirin; Z20.822 Contact with and (suspected) exposure to COVID-19
CPT/HCPCS: 36415; 80053; 81001; 82009; 84484; 85025; 85610; 85730; 87636; 93005; 96360; 99284

== ENCOUNTER 2023-06-25 16:16 | Emergency (ER) | payer OTHER ==
[2023-06-25 16:25] VITALS: PULSE 62
--- NOTE | 2023-06-25 17:10 | ED ---
ENT HPI - General Chief complaint: Dental/Oral Stated complaint: dental pain Time Seen by Provider: 06/25/23 16:23 Source: patient Mode of arrival: ambulatory Limitations: no limitations - History of Present Illness Initial comments: 27-year-old female presenting to the ED with a chief complaint of dental pain. She states for the past week has had pain of her lower left tooth. Patient reports that was seen at urgent care 2 days ago and was prescribed amoxicillin. Despite taking this, reports pain has still been continuous and reports that she would've thought the antibiotics would've helped with the pain. No fever. No chest pain. Difficulty breathing. No difficulty swallowing. No other complaints. - Related Data Home Medications Medication Instructions Recorded Confirmed INSULIN LISPRO (HumaLOG) [humaLOG] 14 units SQ AC-TID 02/24/21 07/05/22 Insulin Glargine,Hum.rec.anlog 25 unit SQ HS 02/24/21 07/05/22 [Lantus Solostar Pen] Aspirin [Adult Low Dose Aspirin EC] 81 mg PO DAILY 07/05/22 07/05/22 Vit No.179/Iron/Folic 1 each PO DAILY 07/05/22 07/05/22 [ Tablet] Previous Rx's Medication Instructions Recorded Cephalexin [Keflex] 500 mg PO Q12HR 7 Days #14 cap 08/08/22 Fluconazole [Diflucan] 150 mg PO ONCE #2 tab 02/21/23 metroNIDAZOLE 0.75% VAGINAL 1 applic VAGINAL HS #70 gm 02/21/23 [Metrogel Vaginal] Amoxic-Pot Clav 875-125Mg 1 tab PO Q12HR 7 Days #14 tab 06/25/23 [Augmentin 875-125] Allergies Allergy/AdvReac Type Severity Reaction Status Date / Time No Known Allergies Allergy Verified 06/25/23 16:20 Review of Systems ROS Statement: Those systems with pertinent positive or pertinent negative responses have been documented in the HPI. ROS Other: All systems not noted in ROS Statement are negative. Past Medical History Past Medical History: Diabetes Mellitus History of Any Multi-Drug Resistant Organisms: None Reported Date of last positivie culture/infection: 02/20/18 MDRO Source:: ESBL URINE Past Surgical History: Section Additional Past Surgical History / Comment(s): D&C Past Psychological History: No Psychological Hx Reported Smoking Status: Never smoker Past Alcohol Use History: None Reported Past Drug Use History: None Reported - Past Family History Sister(s) Family Medical History: Thyroid Disorder General Exam Limitations: no limitations General appearance: alert, in no apparent distress ENT exam: Present: other (Poor dentition. Patient notes pain between her first and second lower left molar. In this area there appears to be no drainable abscess. There does appear to be a cavity here. No drooling. No stridor.) Respiratory exam: Present: normal lung sounds bilaterally Cardiovascular Exam: Present: regular rate, normal rhythm GI/Abdominal exam: Present: soft Neurological exam: Present: alert, oriented X3 Skin exam: Present: warm, dry Course Vital Signs 06/25/23 16:18 Temperature 98.3 F Pulse Rate 62 Respiratory 20 Rate O2 Sat by Pulse 96 Oximetry Medical Decision Making - Medical Decision Making Was pt. sent in by a medical professional or institution (, PA, CAR DUMPER OPERATOR, urgent care, hospital, or halfway...) When possible be specific @ -No Did you speak to anyone other than the patient for history (EMS, parent, family, police, friend...)? What history was obtained from this source @ -No Did you review nursing and triage notes (agree or disagree)? Why? @ -I reviewed and agree with nursing and triage notes Were old charts reviewed (outside hosp., previous admission, EMS record, old EKG, old radiological studies, urgent care reports/EKG's, halfway records)? Report findings @ -No old charts were reviewed Differential Diagnosis (chest pain, altered mental status, abdominal pain women, abdominal pain men, vaginal bleeding, weakness, fever, dyspnea, syncope, headache, dizziness, GI bleed, back pain, seizure, CVA, palpatations, mental health, musculoskeletal)? @ -Kevin angina, ANUG, apical abscess. This is not meant to be an all- inclusive list. EKG interpreted by me (3pts min.). @ -None X-rays interpreted by me (1pt min.). @ -None done CT interpreted by me (1pt min.). @ -None done U/S interpreted by me (1pt. min.). @ -None done What testing was considered but not performed or refused? (CT, X-rays, U/S, labs)? Why? @ -None What meds were considered but not given or refused? Why? @ -None Did you discuss the management of the patient with other professionals (professionals i.e. , PA, CAR DUMPER OPERATOR, lab, RT, psych nurse, 7th grade social studies teacher, division officer weapons department, teacher, field health officer, shelter case manager)? Give summary @ -No Was smoking cessation discussed for >3mins.? @ -No Was critical care preformed (if so, how long)? @ -No Were there social determinants of health that impacted care today? How? (Homelessness, low income, unemployed, alcoholism, drug addiction, otoole sportation, low edu. Level, literacy, decrease access to med. care, [facility], rehab)? @ -No Was there de-escalation of care discussed even if they declined (Discuss DNR or withdrawal of care, Hospice)? DNR status @ -No What co-morbidities impacted this encounter? (DM, HTN, Smoking, COPD, CAD, Cancer, CVA, ARF, Chemo, Hep., AIDS, mental health diagnosis, sleep apnea, morbid obesity)? @ -None Was patient admitted / discharged? Hospital course, mention meds given and route, prescriptions, significant lab abnormalities, going to OR and other pertinent info. @ -Discharge 27-year-old female presenting to the ED with a week history of dental pain. Exam shows no evidence of Kevin angina, ANUG, or drainable abscess. Exam shows no significant cervical lymphadenopathy. Patient tolerating secretions. No stridor or dyspnea. She notes that she has dentist appointment in 3 days and will follow-up. Patient provided prescription for Augmentin and a dose of Decadron here in the ED. Discharged home in stable condition. Discussed return precautions with patient who verbalizes agreement. Undiagnosed new problem with uncertain prognosis? @ -No Drug Therapy requiring intensive monitoring for toxicity (Heparin, Nitro, Insulin, Cardizem)? @ -No Were any procedures done? @ -No Diagnosis/symptom? @ -Dental pain Acute, or Chronic, or Acute on Chronic? @ -Acute Uncomplicated (without systemic symptoms) or Complicated (systemic symptoms)? @ -Uncomplicated Side effects of treatment? @ -No Exacerbation, Progression, or Severe Exacerbation? @ -No Poses a threat to life or bodily function? How? (Chest pain, [place], [place], pneumonia, PE, COPD, DKA, ARF, appy, cholecystitis, CVA, Diverticulitis, Homicidal, Suicidal, threat to staff... and all critical care pts) @ -No Disposition Clinical Impression: Pain, dental Disposition: HOME SELF-CARE Condition: Good Instructions (If sedation given, give patient instructions): Toothache (ED) Additional Instructions: Please return to the Emergency Department if symptoms worsen or any other concerns. Please follow up with your dentist as scheduled. Prescriptions: Amoxic-Pot Clav 875-125Mg [Augmentin 875-125] 1 tab PO Q12HR 7 Days #14 tab Is patient prescribed a controlled substance at d/c from ED?: No Referrals: Gold Al MD [Primary Care Provider] - 1-2 days
[2023-06-25] MEDS ORDERED: dexAMETHasone 2 MG TAB PO STA (17:15)
[2023-06-25] MEDS ORDERED: AMOXIC-POT CLAV 875MG STARTER PACK 2 TAB BTL PO STA (17:15)
[2023-06-25 17:45] VITALS: BP 122/74; RESP 18; TEMP 98.6
== END 2023-06-25 17:30 | disposition home or self-care (01) ==
LOC: EC 16:16
DX: K08.89 Other specified disorders of teeth and supporting structures (principal); E11.9 Type 2 diabetes mellitus without complications; Z79.4 Long term (current) use of insulin; Z79.82 Long term (current) use of aspirin
CPT/HCPCS: 99282; J8540

== ENCOUNTER 2023-07-09 20:46 | Emergency (ER) | payer OTHER ==
[2023-07-09] MEDS ORDERED: ONDANSETRON 4 MG/2 ML VIAL IVP STA (21:03)
[2023-07-09] MEDS ORDERED: KETOROLAC 15 MG/ML 1 ML VIAL IVP STA (21:03)
[2023-07-09] MEDS ORDERED: SODIUM CHLORIDE 0.9% 1,000 ML IV STA (21:03)
[2023-07-09 21:37] LABS: Basophils % (A) 0 %; Eosinophils # (A) 0.2 k/uL (0-0.7); Eosinophils % (A) 2 %; HCT 38.4 % (34.0-46.0); HGB 12.4 gm/dL (11.4-16.0); Lymphocytes # (A) 2.9 k/uL (1.0-4.8); Lymphocytes % (A) 38 %; MCH 27.1 pg (25.0-35.0); MCHC 32.4 g/dL (31.0-37.0); MCV 83.7 fL (80.0-100.0); Mean Platelet Volume 8.8; Monocytes # (A) 0.3 k/uL (0-1.0); Monocytes % (A) 4 %; Neutrophils # (A) 4.2 k/uL (1.3-7.7); Neutrophils % (A) 55 %; Platelet Count 338 k/uL (150-450); RBC 4.59 m/uL (3.80-5.40); RDW 12.4 % (11.5-15.5); WBC 7.7 k/uL (3.8-10.6)
[2023-07-09 21:46] LABS: ALT 17 U/L (4-34); AST 15 U/L (14-36); African American GFR (CKD) >90 (>60 ml/min/1.73 sqM); Albumin 4.1 g/dL (3.5-5.0); Alkaline Phosphatase 103 U/L (38-126); Amylase 49 U/L (30-110); Anion Gap 10 mmol/L; Blood Urea Nitrogen 7 mg/dL (7-17); Calcium 9.4 mg/dL (8.4-10.2); Carbon Dioxide 25 mmol/L (22-30); Chloride 100 mmol/L (98-107); Glucose 215 mg/dL (74-99); Non-African American GFR(CKD) >90 (>60 ml/min/1.73 sqM); Potassium 3.9 mmol/L (3.5-5.1); Sodium 135 mmol/L (137-145); Total Bilirubin 0.5 mg/dL (0.2-1.3); Total Protein 7.7 g/dL (6.3-8.2)
[2023-07-09 22:02] LABS: Lipase 91 U/L (23-300)
[2023-07-09 22:51] LABS: HCG,Qualitative Serum Not Detected
[2023-07-09 22:55] LABS: Amorphous Sediment,Urine Rare /hpf; Appearance,Urine Clear (Clear); Bilirubin,Urine 1+ (Negative); Blood,Urine Negative (Negative); Color,Urine Dark Brown; Glucose,Urine (UA) 4+ (Negative); Hyaline Casts,Urine 7 /lpf (0-2); Ketones,Urine Negative (Negative); Leukocyte Esterase,Urine Negative (Negative); Mucus,Urine Rare /hpf; Nitrite,Urine Positive (Negative); PH, Urine 5.5 (5.0-8.0); Protein,Urine Trace (Negative); RBC,Urine 5 /hpf (0-5); Specific Gravity,Urine 1.021 (1.001-1.035); Squamous Epithelial Cell,Urine 11 /hpf (0-4); WBC,Urine 12 /hpf (0-5)
[2023-07-09 23:10] VITALS: RESP 18; TEMP 98.1
[2023-07-09] MEDS ORDERED: HYDROcodone/APAP 7.5-325MG 1 EACH TAB PO ONE (23:38)
[2023-07-09] MEDS ORDERED: cefTRIAXone IN SWFI 1,000 MG/10 ML SYRINGE IVP STA (23:39)
--- NOTE | 2023-07-09 23:47 | ED ---
Abdominal Pain HPI - General Chief Complaint: Abdominal Pain Stated Complaint: Abdominal Pain Time Seen by Provider: 07/09/23 20:54 Source: patient Mode of arrival: ambulatory Limitations: no limitations - History of Present Illness Initial Comments: 27-year-old female presenting with chief complaint of abdominal pain. Patient is complaining of left-sided abdominal pain worse in the mid abdomen. There is some radiation to the back. Patient was seen at [facility] yesterday and was told she had a UTI. She states that they did not give her her CT results. She states that she was sent and antibiotic to her pharmacy which she started taking today. She admits to nausea and vomiting. She denies dysuria or hematuria. No vaginal bleeding or discharge. No chest pain or difficulty breathing. No injury or trauma. - Related Data Home Medications Medication Instructions Recorded Confirmed INSULIN LISPRO (HumaLOG) [humaLOG] 14 units SQ AC-TID 02/24/21 07/05/22 Insulin Glargine,Hum.rec.anlog 25 unit SQ HS 02/24/21 07/05/22 [Lantus Solostar Pen] Aspirin [Adult Low Dose Aspirin EC] 81 mg PO DAILY 07/05/22 07/05/22 Vit No.179/Iron/Folic 1 each PO DAILY 07/05/22 07/05/22 [ Tablet] Previous Rx's Medication Instructions Recorded Cephalexin [Keflex] 500 mg PO Q12HR 7 Days #14 cap 08/08/22 Fluconazole [Diflucan] 150 mg PO ONCE #2 tab 02/21/23 metroNIDAZOLE 0.75% VAGINAL 1 applic VAGINAL HS #70 gm 02/21/23 [Metrogel Vaginal] Amoxic-Pot Clav 875-125Mg 1 tab PO Q12HR 7 Days #14 tab 06/25/23 [Augmentin 875-125] Cephalexin [Keflex] 500 mg PO Q8HR 14 Days #42 cap 07/09/23 HYDROcodone/APAP 7.5-325MG [Terra Bella 1 tab PO Q6HR PRN 3 Days #12 tab 07/09/23 7.5-325] Ondansetron Odt [Zofran Odt] 4 mg PO Q8HR PRN #20 tab 07/09/23 Allergies Allergy/AdvReac Type Severity Reaction Status Date / Time No Known Allergies Allergy Verified 07/09/23 20:53 Review of Systems ROS Statement: Those systems with pertinent positive or pertinent negative responses have been documented in the HPI. ROS Other: All systems not noted in ROS Statement are negative. Past Medical History Past Medical History: Diabetes Mellitus History of Any Multi-Drug Resistant Organisms: None Reported Date of last positivie culture/infection: 02/20/18 MDRO Source:: ESBL URINE Past Surgical History: Section Additional Past Surgical History / Comment(s): D&C Past Psychological History: No Psychological Hx Reported Smoking Status: Never smoker Past Alcohol Use History: None Reported Past Drug Use History: None Reported - Past Family History Sister(s) Family Medical History: Thyroid Disorder General Exam Limitations: no limitations General appearance: alert, in no apparent distress Head exam: Present: atraumatic, normocephalic, normal inspection Eye exam: Present: normal appearance, EOMI Neck exam: Present: normal inspection, full ROM Respiratory exam: Present: normal lung sounds bilaterally. Absent: respiratory distress, wheezes, rales, rhonchi, stridor Cardiovascular Exam: Present: regular rate, normal rhythm, normal heart sounds. Absent: systolic murmur, diastolic murmur, rubs, gallop, clicks GI/Abdominal exam: Present: soft, tenderness. Absent: distended, guarding, rebound, rigid Neurological exam: Present: alert, oriented X3 Psychiatric exam: Present: normal affect, normal mood Skin exam: Present: warm, dry, intact, normal color. Absent: rash Course Vital Signs 07/09/23 07/09/23 07/10/23 20:48 22:59 00:24 Temperature 97.6 F 98.1 F Pulse Rate 83 82 80 Respiratory 20 18 18 Rate Blood Pressure 125/86 119/72 123/83 O2 Sat by Pulse 98 97 95 Oximetry Medical Decision Making - Medical Decision Making Was pt. sent in by a medical professional or institution (, PA, HEAD LIBRARIAN, urgent care, hospital, or long term...) When possible be specific @ -No Did you speak to anyone other than the patient for history (EMS, parent, family, police, friend...)? What history was obtained from this source @ -No Did you review nursing and triage notes (agree or disagree)? Why? @ -I reviewed and agree with nursing and triage notes Were old charts reviewed (outside hosp., previous admission, EMS record, old EKG, old radiological studies, urgent care reports/EKG's, long term records)? Report findings @ -Term yesterday's visit at [facility] were reviewed. CT shows evidence of cystitis. Patient was started home on Keflex. Differential Diagnosis (chest pain, altered mental status, abdominal pain women, abdominal pain men, vaginal bleeding, weakness, fever, dyspnea, syncope, headache, dizziness, GI bleed, back pain, seizure, CVA, palpatations, mental health, musculoskeletal)? @ -MDM Differential Abdominal Pain Women: Appendicitis, Cholecystitis, diverticulosis, ischemic bowel, pancreatitis, hepatitis, UTI, gastroenteritis, AAA, incarcerated hernia, bowel obstruction, constipation, inflammatory bowel, hepatitis, peptic ulcer disease, splenic infarction, perforated viscus, vulvitis, ovarian torsion, PID, kidney stone, placenta abruption... This is not meant to be an all-inclusive list EKG interpreted by me (3pts min.). @ -As above X-rays interpreted by me (1pt min.). @ -None done CT interpreted by me (1pt min.). @ -None done U/S interpreted by me (1pt. min.). @ -None done What testing was considered but not performed or refused? (CT, X-rays, U/S, labs)? Why? @ -None What meds were considered but not given or refused? Why? @ -None Did you discuss the management of the patient with other professionals (professionals i.e. , PA, HEAD LIBRARIAN, lab, RT, psych nurse, child welfare social worker, circus supervisor, teacher, special forces warrant officer, case checker)? Give summary @ -No Was smoking cessation discussed for >3mins.? @ -No Was critical care preformed (if so, how long)? @ -No Were there social determinants of health that impacted care today? How? (Homelessness, low income, unemployed, alcoholism, drug addiction, transportation, low edu. Level, literacy, decrease access to med. care, retirement, rehab)? @ -No Was there de-escalation of care discussed even if they declined (Discuss DNR or withdrawal of care, Hospice)? DNR status @ -No What co-morbidities impacted this encounter? (DM, HTN, Smoking, COPD, CAD, Cancer, CVA, ARF, Chemo, Hep., AIDS, mental health diagnosis, sleep apnea, morbid obesity)? @ -None Was patient admitted / discharged? Hospital course, mention meds given and route, prescriptions, significant lab abnormalities, going to OR and other pertinent info. @ -27-year-old female presented chief complaint of abdominal pain. Located mainly on the left side with some radiation to the back. Admits to nausea and vomiting. History and physical examination were conducted. Patient is given pain and nausea medication. Lab work shows no leukocytosis or anemia. Glucose 215, patient is diabetic. Negative hCG. Urine is consistent with UTI. Patient received a CT at [facility] yesterday which showed evidence of cystitis, no other acute process. It appears the patient was only given 7 days of Keflex, her course will be increased to Keflex 500 mg 3 times a day for 14 days. She'll be sent home with Zosalbador and Crista for pain as well. Follow-up with PCP. Report back to ER with any new or worsening symptoms. Discussed return parameters and answered all questions. Patient conveyed verbal understanding and agreed to the plan. I discussed this case in detail with my attending Dr. Campos Undiagnosed new problem with uncertain prognosis? @ -No Drug Therapy requiring intensive monitoring for toxicity (Heparin, Nitro, Insulin, Cardizem)? @ -No Were any procedures done? @ -No Diagnosis/symptom? @ -Pyelonephritis Acute, or Chronic, or Acute on Chronic? @ -Acute Uncomplicated (without systemic symptoms) or Complicated (systemic symptoms)? @ -Uncomplicated Side effects of treatment? @ -No Exacerbation, Progression, or Severe Exacerbation? @ -No Poses a threat to life or bodily function? How? (Chest pain, [place], [place], pneumonia, PE, COPD, DKA, ARF, appy, cholecystitis, CVA, Diverticulitis, Homicidal, Suicidal, threat to staff... and all critical care pts) @ -Low likelihood - Lab Data Result diagrams: 07/09/23 21:18 07/09/23 21:18 Lab Results 07/09/23 07/09/23 07/09/23 Range/Units :18 21:18 21:18 WBC 7.7 (3.8-10.6) k/uL RBC 4.59 (3.80-5.40) m/uL Hgb 12.4 (11.4-16.0) gm/dL Hct 38.4 (34.0-46.0) % MCV 83.7 (80.0-100.0) fL MCH 27.1 (25.0-35.0) pg MCHC 32.4 (31.0-37.0) g/dL RDW 12.4 (11.5-15.5) % Plt Count 338 (150-450) k/uL MPV 8.8 Neutrophils % 55 % Lymphocytes % 38 % Monocytes % 4 % Eosinophils % 2 % Basophils % 0 % Neutrophils # 4.2 (1.3-7.7) k/uL Lymphocytes # 2.9 (1.0-4.8) k/uL Monocytes # 0.3 (0-1.0) k/uL Eosinophils # 0.2 (0-0.7) k/uL Basophils # 0.0 (0-0.2) k/uL Sodium 135 L (137-145) mmol/L Potassium 3.9 (3.5-5.1) mmol/L Chloride 100 (98-107) mmol/L Carbon Dioxide 25 (22-30) mmol/L Anion Gap 10 mmol/L BUN 7 (7-17) mg/dL Creatinine 0.33 L (0.52-1.04) mg/dL Est GFR (CKD-EPI)AfAm >90 (>60 ml/min/1.73 sqM) Est GFR (CKD-EPI)NonAf >90 (>60 ml/min/1.73 sqM) Glucose 215 H (74-99) mg/dL Plasma Lactic Acid Hipolito 1.5 (0.7-2.0) mmol/L Calcium 9.4 (8.4-10.2) mg/dL Total Bilirubin 0.5 (0.2-1.3) mg/dL AST 15 (14-36) U/L ALT 17 (4-34) U/L Alkaline Phosphatase 103 (38-126) U/L Total Protein 7.7 (6.3-8.2) g/dL Albumin 4.1 (3.5-5.0) g/dL Amylase 49 (30-110) U/L Lipase 91 (23-300) U/L HCG, Qual Not Detected Urine Color Urine Appearance (Clear) Urine pH (5.0-8.0) Ur Specific Arg[place] (1.001-1.035) Urine Protein (Negative) Urine Glucose (UA) (Negative) Urine Ketones (Negative) Urine Blood (Negative) Urine Nitrite (Negative) Urine Bilirubin (Negative) Urine Urobilinogen (<2.0) mg/dL Ur Leukocyte Esterase (Negative) Urine RBC (0-5) /hpf Urine WBC (0-5) /hpf Ur Squamous Epith Cells (0-4) /hpf Amorphous Sediment (None) /hpf Hyaline Casts (0-2) /lpf Urine Mucus (None) /hpf 07/09/23 Range/Units 21:55 WBC (3.8-10.6) k/uL RBC (3.80-5.40) m/uL Hgb (11.4-16.0) gm/dL Hct (34.0-46.0) % MCV (80.0-100.0) fL MCH (25.0-35.0) pg MCHC (31.0-37.0) g/dL RDW (11.5-15.5) % Plt Count (150-450) k/uL MPV Neutrophils % % Lymphocytes % % Monocytes % % Eosinophils % % Basophils % % Neutrophils # (1.3-7.7) k/uL Lymphocytes # (1.0-4.8) k/uL Monocytes # (0-1.0) k/uL Eosinophils # (0-0.7) k/uL Basophils # (0-0.2) k/uL Sodium (137-145) mmol/L Potassium (3.5-5.1) mmol/L Chloride (98-107) mmol/L Carbon Dioxide (22-30) mmol/L Anion Gap mmol/L BUN (7-17) mg/dL Creatinine (0.52-1.04) mg/dL Est GFR (CKD-EPI)AfAm (>60 ml/min/1.73 sqM) Est GFR (CKD-EPI)NonAf (>60 ml/min/1.73 sqM) Glucose (74-99) mg/dL Plasma Lactic Acid Hipolito (0.7-2.0) mmol/L Calcium (8.4-10.2) mg/dL Total Bilirubin (0.2-1.3) mg/dL AST (14-36) U/L ALT (4-34) U/L Alkaline Phosphatase (38-126) U/L Total Protein (6.3-8.2) g/dL Albumin (3.5-5.0) g/dL Amylase (30-110) U/L Lipase (23-300) U/L HCG, Qual Urine Color Dark Brown Urine Appearance Clear (Clear) Urine pH 5.5 (5.0-8.0) Ur Specific [place] 1.021 (1.001-1.035) Urine Protein Trace H (Negative) Urine Glucose (UA) 4+ H (Negative) Urine Ketones Negative (Negative) Urine Blood Negative (Negative) Urine Nitrite Positive H (Negative) Urine Bilirubin 1+ H (Negative) Urine Urobilinogen 3.0 (<2.0) mg/dL Ur Leukocyte Esterase Negative (Negative) Urine RBC 5 (0-5) /hpf Urine WBC 12 H (0-5) /hpf Ur Squamous Epith Cells 11 H (0-4) /hpf Amorphous Sediment Rare H (None) /hpf Hyaline Casts 7 H (0-2) /lpf Urine Mucus Rare H (None) /hpf Disposition Clinical Impression: Pyelonephritis Disposition: HOME SELF-CARE Condition: Good Instructions (If sedation given, give patient instructions): Kidney Infection (ED) Additional Instructions: Follow-up with PCP. Report back to ER with any new or worsening symptoms. Take medication as prescribed. Prescriptions: Cephalexin [Keflex] 500 mg PO Q8HR 14 Days #42 cap HYDROcodone/APAP 7.5-325MG [Terra Bella 7.5-325] 1 tab PO Q6HR PRN 3 Days #12 tab PRN Reason: Pain Ondansetron Odt [Zofran Odt] 4 mg PO Q8HR PRN #20 tab PRN Reason: Nausea Is patient prescribed a controlled substance at d/c from ED?: No Referrals: Gold Al MD [Primary Care Provider] - 1-2 days Time of Disposition: 23:47
[2023-07-10 00:38] VITALS: BP 123/83; PULSE 80
== END 2023-07-10 00:26 | disposition home or self-care (01) ==
LOC: EC 20:46
DX: N12 Tubulo-interstitial nephritis, not specified as acute or chronic (principal); E11.9 Type 2 diabetes mellitus without complications; Z79.4 Long term (current) use of insulin; Z79.82 Long term (current) use of aspirin
CPT/HCPCS: 36415; 80053; 82150; 83605; 83690; 85025; 81001; 84703; 87086; 99284; 96374; 96375 ×2; 96361; J2405; J0696; J1885

== ENCOUNTER 2023-09-05 07:32 | Emergency (ER) | payer OTHER ==
[2023-09-05 07:59] VITALS: BP 156/103; PULSE 81; RESP 18; TEMP 98
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
[2023-09-05] MEDS ORDERED: ONDANSETRON ODT 4 MG TAB PO STA (08:11)
[2023-09-05] MEDS ORDERED: KETOROLAC 15 MG/ML 1 ML VIAL IM STA (08:11)
--- NOTE | 2023-09-05 08:43 | CT ---
EXAMINATION TYPE: CT brain wo con, CT facial bones wo con CT DLP: 1352 mGycm, Automated exposure control for dose reduction was used. DATE OF EXAM: 09/05/2023 8:36 AM COMPARISON: 05/09/2016.. CLINICAL INDICATION:Female, 27 years old with history of Head injury, TECHNIQUE: Brain: Axial CT images of the brain were obtained with coronal and sagittal reformats created and rev iewed. Contrast used: None. Oral contrast used: None. CT facial, axial imaging of the maxillary facial structures with sagittal coronal reformats. FINDINGS: Brain: Extra-axial spaces: No abnormal extra-axial fluid collections. Ventricular system: Within normal limits Cerebral parenchyma: No acute intraparenchymal hemorrhage or mass effect. The vázquez-white junction is well differentiated. Cerebellum: Unremarkable. Mass effect: No evidence of midline shift. Intracranial vasculature: unremarkable Soft tissues: Left cheek soft tissue edema. Calvarium/osseous structures: No depressed skull fracture. No facial bone are intact. No evidence of fracture. Paranasal sinuses and mastoid air cells: Mild scattered paranasal sinus disease. Visualized orbits: Orbital contents are intact. IMPRESSION: 1. No acute intracranial process. 2. No evidence for facial bone fracture. 3. Soft tissue edema over the left cheek.
[2023-09-05] MEDS ORDERED: IBUPROFEN 600 MG STARTER PACK 4 TAB BTL PO STA (08:54)
[2023-09-05] MEDS ORDERED: ONDANSETRON 4 MG ODT STARTER PACK 2 TAB BTL PO STA (08:54)
[2023-09-05] MEDS ORDERED: traMADol 50 MG STARTER PACK 3 TAB BTL PO STA (08:54)
== END 2023-09-05 09:04 | disposition home or self-care (01) ==
LOC: EC 07:32
DX: S00.11XA Contusion of right eyelid and periocular area, initial encounter (principal); S09.90XA Unspecified injury of head, initial encounter; E11.9 Type 2 diabetes mellitus without complications; F12.90 Cannabis use, unspecified, uncomplicated; Z79.4 Long term (current) use of insulin; W22.8XXA Striking against or struck by other objects, initial encounter
CPT/HCPCS: 70486; 70450; 99283; 96372; J1885; S0119

== ENCOUNTER 2023-10-11 06:30 | Emergency (ER) | payer OTHER ==
--- NOTE | 2023-10-11 06:48 | ED ---
Abdominal Pain HPI - General Source: patient, RN notes reviewed Mode of arrival: ambulatory Limitations: no limitations <Anthony Nascimento - Last Filed: 10/11/23 06:47> <Jerry Healy - Last Filed: 10/11/23 08:15> - General Chief Complaint: Abdominal Pain Stated Complaint: Pulsating pain in right abdomen Time Seen by Provider: 10/11/23 06:35 - History of Present Illness Initial Comments: 27-year-old female presents emergency department chief complaint of abdominal pain. Patient states has been going on for last 3 to 4 days in the right side of her abdomen. Patient states that she has no reported fever. Denies any significant nausea vomit diarrhea constipation no change in urination no dysuria. Denies any chance of . She states she had issues with ovarian cyst in June she denies any prior appendectomy or cholecystectomy. She had a prior section. (Anthony Nascimento) This is a 27-year-old female who presents to the emergency department complaining of right-sided abdominal pain. Patient states it started about 2 days after she started doing exercising. Patient states she been exercising for about a week. Patient denies any fever or chills. Patient is any decreased eating. Patient denies any nausea vomiting diarrhea. Patient denies any back pain. Patient denies any dysuria hematuria or urinary frequency. Patient denies any vaginal dryness. (Jerry Healy) - Related Data Home Medications Medication Instructions Recorded Confirmed Insulin Glargine,Hum.rec.anlog 40 unit SQ HS 02/24/21 09/05/23 [Lantus Solostar Pen] Insulin Aspart [NovoLOG Flexpen] See Protocol SQ AC-TID 09/05/23 09/05/23 Allergies Allergy/AdvReac Type Severity Reaction Status Date / Time No Known Allergies Allergy Verified 10/11/23 06:37 Review of Systems ROS Other: All systems not noted in ROS Statement are negative. <Anthony Nascimento - Last Filed: 10/11/23 06:47> ROS Other: All systems not noted in ROS Statement are negative. <Jerry Healy - Last Filed: 10/11/23 08:15> ROS Statement: Those systems with pertinent positive or pertinent negative responses have been documented in the HPI. Past Medical History Past Medical History: Diabetes Mellitus History of Any Multi-Drug Resistant Organisms: None Reported Date of last positivie culture/infection: 02/20/18 MDRO Source:: ESBL URINE Past Surgical History: Section Additional Past Surgical History / Comment(s): D&C Past Psychological History: No Psychological Hx Reported Smoking Status: Never smoker Past Alcohol Use History: None Reported Past Drug Use History: Marijuana - Past Family History Sister(s) Family Medical History: Thyroid Disorder <Anthony Nascimento - Last Filed: 10/11/23 06:47> General Exam Limitations: no limitations <Anthony Nascimento - Last Filed: 10/11/23 06:47> <Jerry Healy - Last Filed: 10/11/23 08:15> - General Exam Comments Initial Comments: Visual Physical Exam Vital signs reviewed General: Well-appearing, nontoxic, no acute distress. Head: Normocephalic, atraumatic Eyes: PERRLA, EOMI ENT: Airway patent Chest: Nonlabored breathing Skin: No visual rash, normal skin tone Neuro: Alert and oriented 3 Musculoskeletal: No gross abnormalities (Anthony Nascimento) GENERAL: Patient is well-developed and well-nourished. Patient is nontoxic and well- hydrated and is in no acute distress. ENT: Neck is soft and supple. No significant lymphadenopathy is noted. Oropharynx is clear. Moist mucous membranes. Neck has full range of motion without eliciting any pain. EYES: The sclera were anicteric and conjunctiva were pink and moist. Extraocular movements were intact and pupils were equal round and reactive to light. Eyelids were unremarkable. PULMONARY: Unlabored respirations. Good breath sounds bilaterally. No audible rales rhonchi or wheezing was noted. CARDIOVASCULAR: There is a regular rate and rhythm without any murmurs gallops or rubs. ABDOMEN: Soft and nontender with normal bowel sounds. I cannot elicit any tenderness in the abdomen SKIN: Skin is clear with no lesions or rashes and otherwise unremarkable. NEUROLOGIC: Patient is alert and oriented x3. Cranial nerves II through XII are grossly intact. Motor and sensory are also intact. Normal speech, volume and content. Symmetrical smile. MUSCULOSKELETAL: Normal extremities with adequate strength and full range of motion. LYMPHATICS: No significant lymphadenopathy is noted PSYCHIATRIC: Normal psychiatric evaluation. (Jerry Healy) Course Vital Signs 10/11/23 06:35 Temperature 97.9 F Pulse Rate 70 Respiratory 18 Rate Blood Pressure 146/89 O2 Sat by Pulse 100 Oximetry Medical Decision Making <Anthony Nascimento - Last Filed: 10/11/23 06:47> - Lab Data Result diagrams: 10/11/23 06:49 10/11/23 06:49 <Jerry Healy - Last Filed: 10/11/23 08:15> - Medical Decision Making I completed the quick note portion of this chart signed Anthony Nascimento PA-C (Anthony Nascimento) Was pt. sent in by a medical professional or institution (, PA, CORD CUTTER, urgent care, hospital, or alf...) When possible be specific @ -No Did you speak to anyone other than the patient for history (EMS, parent, family, police, friend...)? What history was obtained from this source @ -No Did you review nursing and triage notes (agree or disagree)? Why? @ -I reviewed and agree with nursing and triage notes Were old charts reviewed (outside hosp., previous admission, EMS record, old EKG, old radiological studies, urgent care reports/EKG's, alf records)? Report findings @ -I reviewed old charts and old lab work on this patient Differential Diagnosis (chest pain, altered mental status, abdominal pain women, abdominal pain men, vaginal bleeding, weakness, fever, dyspnea, syncope, headache, dizziness, GI bleed, back pain, seizure, CVA, palpatations, mental health, musculoskeletal)? @ -Differential Abdominal Pain Women: Appendicitis, Cholecystitis, diverticulosis, ischemic bowel, pancreatitis, hepatitis, UTI, gastroenteritis, AAA, incarcerated hernia, bowel obstruction, constipation, inflammatory bowel, hepatitis, peptic ulcer disease, splenic infarction, perforated viscus, vulvitis, ovarian torsion, PID, kidney stone, placenta abruption, this is not meant to be an all-inclusive list EKG interpreted by me (3pts min.). @ -As above X-rays interpreted by me (1pt min.). @ -None done CT interpreted by me (1pt min.). @ -None done U/S interpreted by me (1pt. min.). @ -None done What testing was considered but not performed or refused? (CT, X-rays, U/S, labs)? Why? @ -None What meds were considered but not given or refused? Why? @ -None Did you discuss the management of the patient with other professionals (carol clarke iHuie. , PA, CORD CUTTER, lab, RT, psych nurse, social insurance administrator, ammonia distiller, teacher, earth science technical officer, embedded case manager)? Give summary @ -No Was smoking cessation discussed for >3mins.? @ -No Was critical care preformed (if so, how long)? @ -No Were there social determinants of health that impacted care today? How? (Homelessness, low income, unemployed, alcoholism, drug addiction, transportation, low edu. Level, literacy, decrease access to med. care, longterm, rehab)? @ -No Was there de-escalation of care discussed even if they declined (Discuss DNR or withdrawal of care, Hospice)? DNR status @ -No What co-morbidities impacted this encounter? (DM, HTN, Smoking, COPD, CAD, Cancer, CVA, ARF, Chemo, Hep., AIDS, mental health diagnosis, sleep apnea, morbid obesity)? @ -None Was patient admitted / discharged? Hospital course, mention meds given and route, prescriptions, significant lab abnormalities, going to OR and other pertinent info. @ -I went in and examine the patient she had no abdominal tenderness. Patient states the pain started about 2 days after she started exercising and that was about 5 days ago. Patient states when she moves it seems to get worse and when she rests it is better. 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 Patient currently is not in any pain Undiagnosed new problem with uncertain prognosis? @ -No Drug Therapy requiring intensive monitoring for toxicity (Heparin, Nitro, Insulin, Cardizem)? @ -No Were any procedures done? @ -No Diagnosis/symptom? @ -Abdominal pain Acute, or Chronic, or Acute on Chronic? @ -Acute Uncomplicated (without systemic symptoms) or Complicated (systemic symptoms)? @ -Complicated Side effects of treatment? @ -No Exacerbation, Progression, or Severe Exacerbation? @ -No Poses a threat to life or bodily function? How? (Chest pain, [place], [place], pneumonia, PE, COPD, DKA, ARF, appy, cholecystitis, CVA, Diverticulitis, Homicidal, Suicidal, threat to staff... and all critical care pts) @ -No (Jerry Healy) - Lab Data Lab Results 10/11/23 10/11/23 10/11/23 Range/Units 06:49 06:49 06:53 WBC 6.8 (3.8-10.6) k/uL RBC 5.09 (3.80-5.40) m/uL Hgb 13.6 (11.4-16.0) gm/dL Hct 42.5 (34.0-46.0) % MCV 83.4 (80.0-100.0) fL MCH 26.6 (25.0-35.0) pg MCHC 31.9 (31.0-37.0) g/dL RDW 12.5 (11.5-15.5) % Plt Count 247 (150-450) k/uL MPV 9.6 Neutrophils % 46 % Lymphocytes % 46 % Monocytes % 3 % Eosinophils % 3 % Basophils % 1 % Neutrophils # 3.1 (1.3-7.7) k/uL Lymphocytes # 3.1 (1.0-4.8) k/uL Monocytes # 0.2 (0-1.0) k/uL Eosinophils # 0.2 (0-0.7) k/uL Basophils # 0.1 (0-0.2) k/uL Sodium 132 L (137-145) mmol/L Potassium 3.8 (3.5-5.1) mmol/L Chloride 98 (98-107) mmol/L Carbon Dioxide 24 (22-30) mmol/L Anion Gap 10 mmol/L BUN 11 (7-17) mg/dL Creatinine 0.39 L (0.52-1.04) mg/dL Est GFR (CKD-EPI)AfAm >90 (>60 ml/min/1.73 sqM) Est GFR (CKD-EPI)NonAf >90 (>60 ml/min/1.73 sqM) Glucose 459 H (74-99) mg/dL Calcium 9.5 (8.4-10.2) mg/dL Total Bilirubin 0.6 (0.2-1.3) mg/dL AST 19 (14-36) U/L ALT 16 (4-34) U/L Alkaline Phosphatase 162 H (38-126) U/L Total Protein 7.9 (6.3-8.2) g/dL Albumin 4.5 (3.5-5.0) g/dL Lipase 87 (23-300) U/L Urine Color Colorless Urine Appearance Clear (Clear) Urine pH 7.0 (5.0-8.0) Ur Specific Rumsey 1.027 (1.001-1.035) Urine Protein Negative (Negative) Urine Glucose (UA) 4+ H (Negative) Urine Ketones Negative (Negative) Urine Blood Negative (Negative) Urine Nitrite Negative (Negative) Urine Bilirubin Negative (Negative) Urine Urobilinogen <2.0 (<2.0) mg/dL Ur Leukocyte Esterase Negative (Negative) Urine HCG, Qual (Not Detectd) 10/11/23 Range/Units 06:53 WBC (3.8-10.6) k/uL RBC (3.80-5.40) m/uL Hgb (11.4-16.0) gm/dL Hct (34.0-46.0) % MCV (80.0-100.0) fL MCH (25.0-35.0) pg MCHC (31.0-37.0) g/dL RDW (11.5-15.5) % Plt Count (150-450) k/uL MPV Neutrophils % % Lymphocytes % % Monocytes % % Eosinophils % % Basophils % % Neutrophils # (1.3-7.7) k/uL Lymphocytes # (1.0-4.8) k/uL Monocytes # (0-1.0) k/uL Eosinophils # (0-0.7) k/uL Basophils # (0-0.2) k/uL Sodium (137-145) mmol/L Potassium (3.5-5.1) mmol/L Chloride (98-107) mmol/L Carbon Dioxide (22-30) mmol/L Anion Gap mmol/L BUN (7-17) mg/dL Creatinine (0.52-1.04) mg/dL Est GFR (CKD-EPI)AfAm (>60 ml/min/1.73 sqM) Est GFR (CKD-EPI)NonAf (>60 ml/min/1.73 sqM) Glucose (74-99) mg/dL Calcium (8.4-10.2) mg/dL Total Bilirubin (0.2-1.3) mg/dL AST (14-36) U/L ALT (4-34) U/L Alkaline Phosphatase (38-126) U/L Total Protein (6.3-8.2) g/dL Albumin (3.5-5.0) g/dL Lipase (23-300) U/L Urine Color Urine Appearance (Clear) Urine pH (5.0-8.0) Ur Specific Rumsey (1.001-1.035) Urine Protein (Negative) Urine Glucose (UA) (Negative) Urine Ketones (Negative) Urine Blood (Negative) Urine Nitrite (Negative) Urine Bilirubin (Negative) Urine Urobilinogen (<2.0) mg/dL Ur Leukocyte Esterase (Negative) Urine HCG, Qual Not Detected (Not Detectd) Disposition <Anthony Nascimento - Last Filed: 10/11/23 06:47> Is patient prescribed a controlled substance at d/c from ED?: No Time of Disposition: 08:15 <Jerry Healy - Last Filed: 10/11/23 08:15> Clinical Impression: Abdominal pain Disposition: HOME SELF-CARE Instructions (If sedation given, give patient instructions): Abdominal Pain (ED) Referrals: Gold Al MD [Primary Care Provider] - 1-2 days
[2023-10-11 06:52] VITALS: BP 146/89; PULSE 70; RESP 18; TEMP 97.9
[2023-10-11 06:58] LABS: Basophils # (A) 0.1 k/uL (0-0.2); Basophils % (A) 1 %; Eosinophils # (A) 0.2 k/uL (0-0.7); Eosinophils % (A) 3 %; HCT 42.5 % (34.0-46.0); HGB 13.6 gm/dL (11.4-16.0); Lymphocytes # (A) 3.1 k/uL (1.0-4.8); Lymphocytes % (A) 46 %; MCH 26.6 pg (25.0-35.0); MCHC 31.9 g/dL (31.0-37.0); MCV 83.4 fL (80.0-100.0); Mean Platelet Volume 9.6; Monocytes # (A) 0.2 k/uL (0-1.0); Monocytes % (A) 3 %; Neutrophils # (A) 3.1 k/uL (1.3-7.7); Neutrophils % (A) 46 %; Platelet Count 247 k/uL (150-450); RBC 5.09 m/uL (3.80-5.40); RDW 12.5 % (11.5-15.5); WBC 6.8 k/uL (3.8-10.6)
[2023-10-11 07:01] LABS: Appearance,Urine Clear (Clear); Bilirubin,Urine Negative (Negative); Blood,Urine Negative (Negative); Color,Urine Colorless; Glucose,Urine (UA) 4+ (Negative); Ketones,Urine Negative (Negative); Leukocyte Esterase,Urine Negative (Negative); Nitrite,Urine Negative (Negative); Protein,Urine Negative (Negative); Specific Gravity,Urine 1.027 (1.001-1.035); Urobilinogen,Urine <2.0 mg/dL (<2.0)
[2023-10-11 07:08] LABS: ALT 16 U/L (4-34); AST 19 U/L (14-36); African American GFR (CKD) >90 (>60 ml/min/1.73 sqM); Albumin 4.5 g/dL (3.5-5.0); Alkaline Phosphatase 162 U/L (38-126); Anion Gap 10 mmol/L; Blood Urea Nitrogen 11 mg/dL (7-17); Calcium 9.5 mg/dL (8.4-10.2); Carbon Dioxide 24 mmol/L (22-30); Chloride 98 mmol/L (98-107); Glucose 459 mg/dL (74-99); Lipase 87 U/L (23-300); Non-African American GFR(CKD) >90 (>60 ml/min/1.73 sqM); Potassium 3.8 mmol/L (3.5-5.1); Sodium 132 mmol/L (137-145); Total Bilirubin 0.6 mg/dL (0.2-1.3); Total Protein 7.9 g/dL (6.3-8.2)
[2023-10-11 08:12] LABS: Glucose,Whole Blood 299 mg/dL (70-110)
== END 2023-10-11 08:30 | disposition home or self-care (01) ==
LOC: EC 06:30
DX: R10.9 Unspecified abdominal pain (principal); E11.9 Type 2 diabetes mellitus without complications; F12.90 Cannabis use, unspecified, uncomplicated; Z79.4 Long term (current) use of insulin
CPT/HCPCS: 36415; 80053; 81003; 81025; 83690; 85025; 99284

== ENCOUNTER 2023-11-20 00:20 | Emergency (ER) | payer OTHER ==
[2023-11-20 00:49] VITALS: TEMP 98
[2023-11-20 00:54] LABS: Basophils # (A) 0.1 k/uL (0-0.2); Basophils % (A) 1 %; Eosinophils # (A) 0.2 k/uL (0-0.7); Eosinophils % (A) 3 %; HCT 39.5 % (34.0-46.0); HGB 12.4 gm/dL (11.4-16.0); Lymphocytes # (A) 2.6 k/uL (1.0-4.8); Lymphocytes % (A) 36 %; MCH 26.9 pg (25.0-35.0); MCHC 31.3 g/dL (31.0-37.0); MCV 85.9 fL (80.0-100.0); Mean Platelet Volume 9.2; Monocytes # (A) 0.3 k/uL (0-1.0); Monocytes % (A) 5 %; Neutrophils # (A) 3.9 k/uL (1.3-7.7); Neutrophils % (A) 54 %; Platelet Count 275 k/uL (150-450); RDW 13.1 % (11.5-15.5); WBC 7.2 k/uL (3.8-10.6)
[2023-11-20 01:02] LABS: ALT 16 U/L (4-34); AST 18 U/L (14-36); African American GFR (CKD) >90 (>60 ml/min/1.73 sqM); Albumin 4.1 g/dL (3.5-5.0); Alkaline Phosphatase 120 U/L (38-126); Anion Gap 8 mmol/L; Blood Urea Nitrogen 8 mg/dL (7-17); Calcium 9.7 mg/dL (8.4-10.2); Carbon Dioxide 24 mmol/L (22-30); Chloride 104 mmol/L (98-107); Glucose 339 mg/dL (74-99); Non-African American GFR(CKD) >90 (>60 ml/min/1.73 sqM); Sodium 136 mmol/L (137-145); Total Bilirubin 0.5 mg/dL (0.2-1.3); Total Protein 7.6 g/dL (6.3-8.2)
[2023-11-20 01:04] LABS: Partial Thromboplastin Time 23.7 sec (22.0-30.0); Prothrombin Time 10.6 sec (10.0-12.5)
--- NOTE | 2023-11-20 01:22 | ED ---
SOB HPI - General Chief Complaint: Shortness of Breath Stated Complaint: ARIANNA Time Seen by Provider: 11/20/23 00:30 Source: patient, EMS Mode of arrival: EMS - History of Present Illness Initial Comments: 28-year-old female with past medical history of diabetes who presents emergency department reporting shortness of breath. States that she was recently diagnosed at urgent care with bronchitis. She was started on a Ventolin inhaler and promethazine cough syrup. States that her cough has continued and worsened. She now has left-sided chest pain. EMS found the patient to have clear breath sounds. They did administer a breathing treatment. Patient denies any cardiac history. No history of DVT or PE. No fevers. No sick contacts. No other alleviating, precipitating modifying factors - Related Data Home Medications Medication Instructions Recorded Confirmed Insulin Glargine,Hum.rec.anlog 40 unit SQ HS 02/24/21 09/05/23 [Lantus Solostar Pen] Insulin Aspart [NovoLOG Flexpen] See Protocol SQ AC-TID 09/05/23 09/05/23 Previous Rx's Medication Instructions Recorded Doxycycline Hyclate 100 mg PO BID #20 tab 11/20/23 Allergies Allergy/AdvReac Type Severity Reaction Status Date / Time No Known Allergies Allergy Verified 10/11/23 06:37 Review of Systems ROS Statement: Those systems with pertinent positive or pertinent negative responses have been documented in the HPI. ROS Other: All systems not noted in ROS Statement are negative. Past Medical History Past Medical History: Diabetes Mellitus History of Any Multi-Drug Resistant Organisms: None Reported Date of last positivie culture/infection: 02/20/18 MDRO Source:: ESBL URINE Past Surgical History: Section Additional Past Surgical History / Comment(s): D&C Past Psychological History: No Psychological Hx Reported Smoking Status: Former smoker Past Alcohol Use History: None Reported Past Drug Use History: Marijuana - Past Family History Sister(s) Family Medical History: Thyroid Disorder General Exam General appearance: alert, in no apparent distress Head exam: Present: atraumatic, normocephalic, normal inspection Eye exam: Present: normal appearance, PERRL, EOMI. Absent: scleral icterus, conjunctival injection, periorbital swelling ENT exam: Present: normal exam, mucous membranes moist Neck exam: Present: normal inspection. Absent: tenderness, meningismus, lymphadenopathy Respiratory exam: Present: wheezes (Mild right-sided). Absent: respiratory distress, rales, rhonchi, stridor Cardiovascular Exam: Present: regular rate, normal rhythm, normal heart sounds. Absent: systolic murmur, diastolic murmur, rubs, gallop, clicks GI/Abdominal exam: Present: soft, normal bowel sounds. Absent: distended, tenderness, guarding, rebound, rigid Extremities exam: Present: normal inspection, full ROM, normal capillary refill. Absent: tenderness, pedal edema, joint swelling, calf tenderness Back exam: Present: normal inspection Neurological exam: Present: alert, oriented X3, CN II-XII intact Psychiatric exam: Present: normal affect, normal mood Skin exam: Present: warm, dry, intact, normal color. Absent: rash Course Vital Signs 11/20/23 11/20/23 11/20/23 00:21 00:52 02:23 Temperature 98.0 F Pulse Rate 87 82 80 Respiratory 20 19 19 Rate Blood Pressure 143/84 140/83 130/79 O2 Sat by Pulse 99 99 96 Oximetry Medical Decision Making - Medical Decision Making Was pt. sent in by a medical professional or institution (, PA, ENTRY CLERK, urgent care, hospital, or long-term...) When possible be specific @ -No Did you speak to anyone other than the patient for history (EMS, parent, family, police, friend...)? What history was obtained from this source @ -Spoke with EMS for history Did you review nursing and triage notes (agree or disagree)? Why? @ -I reviewed and agree with nursing and triage notes Were old charts reviewed (outside hosp., previous admission, EMS record, old EKG, old radiological studies, urgent care reports/EKG's, long-term records)? Report findings @ -No old charts were reviewed Differential Diagnosis (chest pain, altered mental status, abdominal pain women, abdominal pain men, vaginal bleeding, weakness, fever, dyspnea, syncope, headache, dizziness, GI bleed, back pain, seizure, CVA, palpatations, mental health, musculoskeletal)? @ -Differential Dyspnea: Coronary syndrome, arrhythmia, tamponade, asthma, COPD, pulmonary embolism, pneumonia, pneumothorax, pulmonary effusion, anaphylaxis, diabetic ketoacidosis, flailed chest, pulmonary contusion, diaphragmatic rupture, anemia, neuromuscular, this is not meant to be an all-inclusive list. EKG interpreted by me (3pts min.). @ -Yes and demonstrates sinus rhythm with a rate of 74. [place] interval 143. QRS 89. QTc of 390. No acute ST segment elevations. Mild ST depression V2 X-rays interpreted by me (1pt min.). @ -Yes and demonstrates possible infiltrate CT interpreted by me (1pt min.). @ -None done U/S interpreted by me (1pt. min.). @ -None done What testing was considered but not performed or refused? (CT, X-rays, U/S, labs)? Why? @ -None What meds were considered but not given or refused? Why? @ -None Did you discuss the management of the patient with other professionals (professionals i.e. , PA, ENTRY CLERK, lab, RT, psych nurse, social worker clinical, cat skinner, teacher, admitting officer, heel caser)? Give summary @ -No Was smoking cessation discussed for >3mins.? @ -No Was critical care preformed (if so, how long)? @ -No Were there social determinants of health that impacted care today? How? (Homelessness, low income, unemployed, alcoholism, drug addiction, transportation, low edu. Level, literacy, decrease access to med. care, [facility], rehab)? @ -No Was there de-escalation of care discussed even if they declined (Discuss DNR or withdrawal of care, Hospice)? DNR status @ -No What co-morbidities impacted this encounter? (DM, HTN, Smoking, COPD, CAD, Cancer, CVA, ARF, Chemo, Hep., AIDS, mental health diagnosis, sleep apnea, morbid obesity)? @ -Diabetes mellitus Was patient admitted / discharged? Hospital course, mention meds given and route, prescriptions, significant lab abnormalities, going to OR and other pertinent info. @ -Upon arrival patient was placed into room 2. Thorough history and physical exam was performed. IV access was established. Laboratory studies are conducted. Chest x-ray was performed which demonstrates possible pneumonia. Patient will be initiated on antibiotics. She is to continue using her inhaler every 4 hours. I did give the patient a dose of Decadron in the emergency department however will not give her any for home because of her history of diabetes. Patient is to follow-up with her primary care doctor. Return for any new or worsening symptoms. Patient was agreeable to plan she was discharged in stable condition Undiagnosed new problem with uncertain prognosis? @ -No Drug Therapy requiring intensive monitoring for toxicity (Heparin, Nitro, Insulin, Cardizem)? @ -No Were any procedures done? @ -No Diagnosis/symptom? @ -Acute respiratory insufficiency, acute pneumonia Acute, or Chronic, or Acute on Chronic? @ -Acute Uncomplicated (without systemic symptoms) or Complicated (systemic symptoms)? @ -Complicated Side effects of treatment? @ -No Exacerbation, Progression, or Severe Exacerbation? @ -No Poses a threat to life or bodily function? How? (Chest pain, [place], [place], pneumonia, PE, COPD, DKA, ARF, appy, cholecystitis, CVA, Diverticulitis, Homicidal, Suicidal, threat to staff... and all critical care pts) @ -No - Lab Data Result diagrams: 11/20/23 00:28 11/20/23 00:28 Lab Results 11/20/23 11/20/23 11/20/23 Range/Units 00:28 00:28 00:28 WBC 7.2 (3.8-10.6) k/uL RBC 4.60 (3.80-5.40) m/uL Hgb 12.4 (11.4-16.0) gm/dL Hct 39.5 (34.0-46.0) % MCV 85.9 (80.0-100.0) fL MCH 26.9 (25.0-35.0) pg MCHC 31.3 (31.0-37.0) g/dL RDW 13.1 (11.5-15.5) % Plt Count 275 (150-450) k/uL MPV 9.2 Neutrophils % 54 % Lymphocytes % 36 % Monocytes % 5 % Eosinophils % 3 % Basophils % 1 % Neutrophils # 3.9 (1.3-7.7) k/uL Lymphocytes # 2.6 (1.0-4.8) k/uL Monocytes # 0.3 (0-1.0) k/uL Eosinophils # 0.2 (0-0.7) k/uL Basophils # 0.1 (0-0.2) k/uL PT 10.6 (10.0-12.5) sec INR 1.0 (<1.2) APTT 23.7 (22.0-30.0) sec D-Dimer 0.48 (<0.60) mg/L FEU Sodium 136 L (137-145) mmol/L Potassium 4.0 (3.5-5.1) mmol/L Chloride 104 (98-107) mmol/L Carbon Dioxide 24 (22-30) mmol/L Anion Gap 8 mmol/L BUN 8 (7-17) mg/dL Creatinine 0.47 L (0.52-1.04) mg/dL Est GFR (CKD-EPI)AfAm >90 (>60 ml/min/1.73 sqM) Est GFR (CKD-EPI)NonAf >90 (>60 ml/min/1.73 sqM) Glucose 339 H (74-99) mg/dL POC Glucose (mg/dL) (70-110) mg/dL POC Glu Child Welfare Caseworker ID Plasma Lactic Acid Hipolito (0.7-2.0) mmol/L Calcium 9.7 (8.4-10.2) mg/dL Total Bilirubin 0.5 (0.2-1.3) mg/dL AST 18 (14-36) U/L ALT 16 (4-34) U/L Alkaline Phosphatase 120 (38-126) U/L Troponin I (0.000-0.034) ng/mL Total Protein 7.6 (6.3-8.2) g/dL Albumin 4.1 (3.5-5.0) g/dL Influenza Type A (PCR) (Not Detectd) Influenza Type B (PCR) (Not Detectd) RSV (PCR) (Not Detectd) SARS-CoV-2 (PCR) (Not Detectd) 11/20/23 11/20/23 11/20/23 Range/Units 00:28 00:28 00:28 WBC (3.8-10.6) k/uL RBC (3.80-5.40) m/uL Hgb (11.4-16.0) gm/dL Hct (34.0-46.0) % MCV (80.0-100.0) fL MCH (25.0-35.0) pg MCHC (31.0-37.0) g/dL RDW (11.5-15.5) % Plt Count (150-450) k/uL MPV Neutrophils % % Lymphocytes % % Monocytes % % Eosinophils % % Basophils % % Neutrophils # (1.3-7.7) k/uL Lymphocytes # (1.0-4.8) k/uL Monocytes # (0-1.0) k/uL Eosinophils # (0-0.7) k/uL Basophils # (0-0.2) k/uL PT (10.0-12.5) sec INR (<1.2) APTT (22.0-30.0) sec D-Dimer (<0.60) mg/L FEU Sodium (137-145) mmol/L Potassium (3.5-5.1) mmol/L Chloride (98-107) mmol/L Carbon Dioxide (22-30) mmol/L Anion Gap mmol/L BUN (7-17) mg/dL Creatinine (0.52-1.04) mg/dL Est GFR (CKD-EPI)AfAm (>60 ml/min/1.73 sqM) Est GFR (CKD-EPI)NonAf (>60 ml/min/1.73 sqM) Glucose (74-99) mg/dL POC Glucose (mg/dL) (70-110) mg/dL POC Glu Child Welfare Caseworker ID Plasma Lactic Acid Hipolito 1.7 (0.7-2.0) mmol/L Calcium (8.4-10.2) mg/dL Total Bilirubin (0.2-1.3) mg/dL AST (14-36) U/L ALT (4-34) U/L Alkaline Phosphatase (38-126) U/L Troponin I <0.012 (0.000-0.034) ng/mL Total Protein (6.3-8.2) g/dL Albumin (3.5-5.0) g/dL Influenza Type A (PCR) Not Detected (Not Detectd) Influenza Type B (PCR) Not Detected (Not Detectd) RSV (PCR) Not Detected (Not Detectd) SARS-CoV-2 (PCR) Not Detected (Not Detectd) 11/20/23 Range/Units 02:45 WBC (3.8-10.6) k/uL RBC (3.80-5.40) m/uL Hgb (11.4-16.0) gm/dL Hct (34.0-46.0) % MCV (80.0-100.0) fL MCH (25.0-35.0) pg MCHC (31.0-37.0) g/dL RDW (11.5-15.5) % Plt Count (150-450) k/uL MPV Neutrophils % % Lymphocytes % % Monocytes % % Eosinophils % % Basophils % % Neutrophils # (1.3-7.7) k/uL Lymphocytes # (1.0-4.8) k/uL Monocytes # (0-1.0) k/uL Eosinophils # (0-0.7) k/uL Basophils # (0-0.2) k/uL PT (10.0-12.5) sec INR (<1.2) APTT (22.0-30.0) sec D-Dimer (<0.60) mg/L FEU Sodium (137-145) mmol/L Potassium (3.5-5.1) mmol/L Chloride (98-107) mmol/L Carbon Dioxide (22-30) mmol/L Anion Gap mmol/L BUN (7-17) mg/dL Creatinine (0.52-1.04) mg/dL Est GFR (CKD-EPI)AfAm (>60 ml/min/1.73 sqM) Est GFR (CKD-EPI)NonAf (>60 ml/min/1.73 sqM) Glucose (74-99) mg/dL POC Glucose (mg/dL) 317 H (70-110) mg/dL POC Glu Child Welfare Caseworker ID Taisha Louie Plasma Lactic Acid Hipolito (0.7-2.0) mmol/L Calcium (8.4-10.2) mg/dL Total Bilirubin (0.2-1.3) mg/dL AST (14-36) U/L ALT (4-34) U/L Alkaline Phosphatase (38-126) U/L Troponin I (0.000-0.034) ng/mL Total Protein (6.3-8.2) g/dL Albumin (3.5-5.0) g/dL Influenza Type A (PCR) (Not Detectd) Influenza Type B (PCR) (Not Detectd) RSV (PCR) (Not Detectd) SARS-CoV-2 (PCR) (Not Detectd) Disposition Clinical Impression: Shortness of breath, Pneumonia, Hyperglycemia Disposition: HOME SELF-CARE Condition: Stable Instructions (If sedation given, give patient instructions): Bacterial Pneumonia (ED) Additional Instructions: Stop taking the amoxicillin and start the new antibiotic. Use your nebulizer every 4 hours. Follow-up with your primary care doctor and return for any new or worsening symptoms Prescriptions: Doxycycline Hyclate 100 mg PO BID #20 tab Is patient prescribed a controlled substance at d/c from ED?: No Referrals: Gold Al MD [Primary Care Provider] - 1-2 days Time of Disposition: 02:27
[2023-11-20 01:32] VITALS: RESP 19
--- NOTE | 2023-11-20 02:04 | XR ---
EXAM: XR Chest, 2 Views CLINICAL HISTORY: ITS.REASON XR Reason: difficulty breathing TECHNIQUE: Frontal and lateral views of the chest. COMPARISON: 02/24/2021. FINDINGS: Lungs: Right perihilar interstitial prominence suspicious for an infiltrate. No CHF. Pleural space: No pleural effusion. No pneumothorax. Heart: No cardiomegaly. Mediastinum: Unremarkable. Normal mediastinal contour. Bones/joints: Unremarkable. No acute fracture. IMPRESSION: Right perihilar interstitial prominence suspicious for a infiltrate
[2023-11-20] MEDS: cefTRIAXone IN SWFI 1,000 MG/10 ML SYRINGE IVP STA (02:17)
[2023-11-20] MEDS: SODIUM CHLORIDE 0.9% 1,000 ML IV ONE (02:17)
[2023-11-20] MEDS: DEXAMETHASONE SOD PHOSPHATE 10 MG/ML 1 ML VIAL IVP STA (02:20)
[2023-11-20 02:46] LABS: Glucose,Whole Blood 317 mg/dL (70-110)
[2023-11-20 02:49] VITALS: BP 130/79; PULSE 80
== END 2023-11-20 03:16 | disposition home or self-care (01) ==
LOC: EC 00:20
DX: J18.9 Pneumonia, unspecified organism (principal); E11.65 Type 2 diabetes mellitus with hyperglycemia; Z87.891 Personal history of nicotine dependence; Z79.4 Long term (current) use of insulin
CPT/HCPCS: 36415; 93005; 85379; 80053; 83605; 84484; 85025; 85610; 85730; 87636; 71046; 99285; 96374; 96375; 96361; J1100; J0696

== ENCOUNTER 2024-03-19 03:28 | Emergency (ER) | payer OTHER ==
[2024-03-19 04:32] LABS: Basophils % (A) 1 %; Eosinophils # (A) 0.2 k/uL (0-0.7); Eosinophils % (A) 3 %; HCT 36.5 % (34.0-46.0); HGB 11.7 gm/dL (11.4-16.0); Hypochromasia Slight; Lymphocytes # (A) 3.3 k/uL (1.0-4.8); Lymphocytes % (A) 49 %; MCH 27.6 pg (25.0-35.0); MCHC 32.1 g/dL (31.0-37.0); MCV 85.8 fL (80.0-100.0); Mean Platelet Volume 8.5; Monocytes # (A) 0.3 k/uL (0-1.0); Monocytes % (A) 4 %; Neutrophils # (A) 2.8 k/uL (1.3-7.7); Neutrophils % (A) 42 %; Platelet Count 280 k/uL (150-450); RBC 4.26 m/uL (3.80-5.40); RDW 12.9 % (11.5-15.5); WBC 6.7 k/uL (3.8-10.6)
--- NOTE | 2024-03-19 04:32 | ED ---
Extremity Problem HPI - General Chief complaint: Extremity Problem,Nontraumatic Stated complaint: Bilateral leg swelling, L leg numbness Time Seen by Provider: 03/19/24 04:05 Source: patient Mode of arrival: ambulatory Limitations: no limitations - History of Present Illness Initial comments: Patient is a 28-year-old woman who presents for evaluation of pain from the midportion of the left thigh down towards the knee. She indicates the lateral aspect. This been going on for about a day. She does not recall any specific injury. In addition she states she has had swelling of the bilateral lower portion of the legs from the mid tib area down to the ankles. She denies any associated symptoms. There is no dyspnea, cough, chest pain, palpitations, lightheadedness or syncope. She had not noted any injury to the extremities. No back pain. No change in urination or bowel movements MD Complaint: extremity pain, extremity swelling Onset/Timin -: days(s) Location: bilateral lower extremity -: Yes myalgia Quality: dull Consistency: constant Improves with: nothing Associated Symptoms: denies other symptoms - Related Data Home Medications Medication Instructions Recorded Confirmed Insulin Glargine,Hum.rec.anlog 40 unit SQ HS 02/24/21 09/05/23 [Lantus Solostar Pen] Insulin Aspart [NovoLOG Flexpen] See Protocol SQ AC-TID 09/05/23 09/05/23 Previous Rx's Medication Instructions Recorded Doxycycline Hyclate 100 mg PO BID #20 tab 11/20/23 Furosemide [Lasix] 20 mg PO DAILY PRN #10 tab 03/19/24 Allergies Allergy/AdvReac Type Severity Reaction Status Date / Time No Known Allergies Allergy Verified 03/19/24 03:33 Review of Systems ROS Statement: Those systems with pertinent positive or pertinent negative responses have been documented in the HPI. ROS Other: All systems not noted in ROS Statement are negative. Constitutional: Denies: fever, chills Respiratory: Denies: cough, dyspnea Cardiovascular: Reports: edema. Denies: chest pain, palpitations, orthopnea, syncope Gastrointestinal: Denies: abdominal pain, vomiting, diarrhea Genitourinary: Denies: dysuria, hematuria Musculoskeletal: Denies: back pain Skin: Denies: rash Neurological: Denies: headache, weakness, numbness Past Medical History Past Medical History: Diabetes Mellitus History of Any Multi-Drug Resistant Organisms: None Reported Date of last positivie culture/infection: 02/20/18 MDRO Source:: ESBL URINE Past Surgical History: Section Additional Past Surgical History / Comment(s): D&C Past Psychological History: No Psychological Hx Reported Smoking Status: Former smoker Past Alcohol Use History: None Reported Past Drug Use History: Marijuana - Past Family History Sister(s) Family Medical History: Thyroid Disorder General Exam Limitations: no limitations General appearance: alert, in no apparent distress Head exam: Present: atraumatic, normocephalic Eye exam: Present: normal appearance. Absent: scleral icterus, conjunctival injection Neck exam: Present: normal inspection Respiratory exam: Present: normal lung sounds bilaterally. Absent: respiratory distress, wheezes, rales, rhonchi, stridor, accessory muscle use Cardiovascular Exam: Present: regular rate, normal rhythm, normal heart sounds. Absent: systolic murmur, diastolic murmur, rubs, gallop GI/Abdominal exam: Present: soft. Absent: distended, tenderness, guarding, rebound, rigid, mass Extremities exam: Present: normal inspection, tenderness (Mild tenderness lateral aspect left thigh no Homans' sign, no palpable cord), normal capillary refill, pedal edema (Bilateral lower extremity edema from the mid tibial area distally, mild severity). Absent: calf tenderness Back exam: Present: normal inspection. Absent: paraspinal tenderness, vertebral tenderness Neurological exam: Present: alert. Absent: motor sensory deficit Skin exam: Present: warm, dry, intact, normal color. Absent: rash Course Vital Signs 03/19/24 03/19/24 03/19/24 03:33 05:43 06:23 Temperature 97.9 F 98.0 F Pulse Rate 80 81 80 Respiratory 16 18 16 Rate Blood Pressure 137/80 116/81 119/85 O2 Sat by Pulse 100 97 100 Oximetry Medical Decision Making - Medical Decision Making Was pt. sent in by a medical professional or institution (, PA, APPLICATION SUPPORT ADMINISTRATOR, urgent care, hospital, or skilled nursing...) When possible be specific @ -[No] Did you speak to anyone other than the patient for history (EMS, parent, family, police, friend...)? What history was obtained from this source @ -[No] Did you review nursing and triage notes (agree or disagree)? Why? @ -[I reviewed and agree with nursing and triage notes] Were old charts reviewed (outside hosp., previous admission, EMS record, old EKG, old radiological studies, urgent care reports/EKG's, skilled nursing records)? Report findings @ -[No old charts were reviewed] Differential Diagnosis (chest pain, altered mental status, abdominal pain women, abdominal pain men, vaginal bleeding, weakness, fever, dyspnea, syncope, headache, dizziness, GI bleed, back pain, seizure, CVA, palpatations, mental health, musculoskeletal)? @ -[Differential Musculoskeletal Muscular strain, contusion, ligament sprain, fracture, arthritis, septic arthritis, bursitis, cellulitis, muscle spasm, nerve compression, DVT, arterial occlusion, herpes zoster, electrolyte abnormality, tumor.... This is not meant to be in all inclusive list EKG interpreted by me (3pts min.). @ -[As above] X-rays interpreted by me (1pt min.). @ -[None done] CT interpreted by me (1pt min.). @ -[None done] U/S interpreted by me (1pt. min.). @ -[None done] What testing was considered but not performed or refused? (CT, X-rays, U/S, labs)? Why? @ -[None] What meds were considered but not given or refused? Why? @ -[None] Did you discuss the management of the patient with other professionals (professionals i.e. , PA, APPLICATION SUPPORT ADMINISTRATOR, lab, RT, psych nurse, socially responsible investment adviser, laboratory geneticist, teacher, radio officer, case consultant)? Give summary @ -[No] Was smoking cessation discussed for >3mins.? @ -[No] Was critical care preformed (if so, how long)? @ -[No] Were there social determinants of health that impacted care today? How? (Home lessness, low income, unemployed, alcoholism, drug addiction, transportation, low edu. Level, literacy, decrease access to med. care, [facility], rehab)? @ -[No] Was there de-escalation of care discussed even if they declined (Discuss DNR or withdrawal of care, Hospice)? DNR status @ -[No] What co-morbidities impacted this encounter? (DM, HTN, Smoking, COPD, CAD, Cancer, CVA, ARF, Chemo, Hep., AIDS, mental health diagnosis, sleep apnea, morbid obesity)? @ -[Diabetes Was patient admitted / discharged? Hospital course, mention meds given and route, prescriptions, significant lab abnormalities, going to OR and other pertinent info. @ -[Patient is a 28-year-old woman presenting with leg pain. The patient did have negative D-dimer, and no exam findings suggestive of DVT. She does however have hyperglycemia and also complaining of symptoms consistent with candidal yeast infection. The patient will be treated and have close follow-up. Discussed return parameters Undiagnosed new problem with uncertain prognosis? @ -[No] Drug Therapy requiring intensive monitoring for toxicity (Heparin, Nitro, Insulin, Cardizem)? @ -[No] Were any procedures done? @ -[No] Diagnosis/symptom? @ -[Acute muscle strain Acute on chronic hyperglycemia Acute candidal yeast infection Acute, or Chronic, or Acute on Chronic? @ -[Acute Uncomplicated (without systemic symptoms) or Complicated (systemic symptoms)? @ -[Uncomplicated Side effects of treatment? @ -[No] Exacerbation, Progression, or Severe Exacerbation? @ -[No] Poses a threat to life or bodily function? How? (Chest pain, [place], [place], pneumonia, PE, COPD, DKA, ARF, appy, cholecystitis, CVA, Diverticulitis, Homicidal, Suicidal, threat to staff... and all critical care pts) @ -[No] - Lab Data Result diagrams: 03/19/24 04:15 03/19/24 04:15 Lab Results 03/19/24 03/19/24 03/19/24 Range/Units 04:15 04:15 04:15 WBC 6.7 (3.8-10.6) k/uL RBC 4.26 (3.80-5.40) m/uL Hgb 11.7 (11.4-16.0) gm/dL Hct 36.5 (34.0-46.0) % MCV 85.8 (80.0-100.0) fL MCH 27.6 (25.0-35.0) pg MCHC 32.1 (31.0-37.0) g/dL RDW 12.9 (11.5-15.5) % Plt Count 280 (150-450) k/uL MPV 8.5 Neutrophils % 42 % Lymphocytes % 49 % Monocytes % 4 % Eosinophils % 3 % Basophils % 1 % Neutrophils # 2.8 (1.3-7.7) k/uL Lymphocytes # 3.3 (1.0-4.8) k/uL Monocytes # 0.3 (0-1.0) k/uL Eosinophils # 0.2 (0-0.7) k/uL Basophils # 0.0 (0-0.2) k/uL Hypochromasia Slight PT 10.4 (10.0-12.5) sec INR 0.9 (<1.2) APTT 24.4 (22.0-30.0) sec D-Dimer 0.40 (<0.60) mg/L FEU Sodium 133 L (137-145) mmol/L Potassium 4.2 (3.5-5.1) mmol/L Chloride 102 (98-107) mmol/L Carbon Dioxide 25 (22-30) mmol/L Anion Gap 6 mmol/L BUN 12 (7-17) mg/dL Creatinine 0.36 L (0.52-1.04) mg/dL Est GFR (CKD-EPI)AfAm >90 (>60 ml/min/1.73 sqM) Est GFR (CKD-EPI)NonAf >90 (>60 ml/min/1.73 sqM) Glucose 303 H (74-99) mg/dL Calcium 9.1 (8.4-10.2) mg/dL Total Bilirubin 0.8 (0.2-1.3) mg/dL AST 18 (14-36) U/L ALT 16 (4-34) U/L Alkaline Phosphatase 98 (38-126) U/L Creatine Kinase 152 H (30-135) U/L C-Reactive Protein <0.5 (<1.0) mg/dL NT-Pro-B Natriuret Pep 149 pg/mL Total Protein 6.6 (6.3-8.2) g/dL Albumin 3.8 (3.5-5.0) g/dL Disposition Clinical Impression: Edema, Yeast infection, Hyperglycemia Disposition: HOME SELF-CARE Condition: Good Instructions (If sedation given, give patient instructions): Edema (ED) Prescriptions: Furosemide [Lasix] 20 mg PO DAILY PRN #10 tab PRN Reason: Edema Is patient prescribed a controlled substance at d/c from ED?: No Referrals: Gold Al MD [Primary Care Provider] - 1-2 days
[2024-03-19 04:46] LABS: INR 0.9 (<1.2); Partial Thromboplastin Time 24.4 sec (22.0-30.0); Prothrombin Time 10.4 sec (10.0-12.5)
[2024-03-19 05:06] LABS: ALT 16 U/L (4-34); AST 18 U/L (14-36); African American GFR (CKD) >90 (>60 ml/min/1.73 sqM); Albumin 3.8 g/dL (3.5-5.0); Alkaline Phosphatase 98 U/L (38-126); Anion Gap 6 mmol/L; Blood Urea Nitrogen 12 mg/dL (7-17); C Reactive Protein <0.5 mg/dL (<1.0); Calcium 9.1 mg/dL (8.4-10.2); Carbon Dioxide 25 mmol/L (22-30); Chloride 102 mmol/L (98-107); Creatine Kinase 152 U/L (30-135); Glucose 303 mg/dL (74-99); Non-African American GFR(CKD) >90 (>60 ml/min/1.73 sqM); Potassium 4.2 mmol/L (3.5-5.1); Sodium 133 mmol/L (137-145); Total Bilirubin 0.8 mg/dL (0.2-1.3); Total Protein 6.6 g/dL (6.3-8.2)
[2024-03-19 05:12] LABS: NT-Pro-B-Type Natriuretic Pept 149 pg/mL
[2024-03-19] MEDS: FUROSEMIDE 10 MG/ML 4 ML VIAL IV STA (05:44)
[2024-03-19 06:24] VITALS: BP 119/85; PULSE 80; RESP 16; TEMP 98
[2024-03-19] MEDS: FLUCONAZOLE 150 MG TAB PO STA (06:39)
== END 2024-03-19 06:24 | disposition home or self-care (01) ==
LOC: EC 03:28
DX: S86.912A Strain of unspecified muscle(s) and tendon(s) at lower leg level, left leg, initial encounter (principal); B37.9 Candidiasis, unspecified; E11.65 Type 2 diabetes mellitus with hyperglycemia; Z79.4 Long term (current) use of insulin; Z87.891 Personal history of nicotine dependence; X58.XXXA Exposure to other specified factors, initial encounter
CPT/HCPCS: 36415; 85379; 83880; 80053; 82550; 85025; 85610; 85730; 86140; 99284; 96374; J1940

== ENCOUNTER 2024-11-02 22:16 | Emergency (ER) | payer OTHER ==
[2024-11-02 22:26] VITALS: RESP 20
--- NOTE | 2024-11-02 22:48 | ED ---
Extremity Problem HPI - General Chief complaint: Extremity Injury, Lower Stated complaint: toe infection Time Seen by Provider: 11/02/24 22:28 Source: patient, RN notes reviewed Mode of arrival: ambulatory Limitations: no limitations - History of Present Illness Initial comments: This is a 28-year-old female who presents to the emergency department for p betsy with her right great toe. States that she initially stubbed this at work and blood had collected underneath the toenail. States that the toenail started to come off and old blood then came out from underneath it. States that this had a strange smell and appearance to it and she is concerned about infection. Denies any pain at this time. Denies any fevers/chills. - Related Data Home Medications Medication Instructions Recorded Confirmed Insulin Glargine,Hum.rec.anlog 40 unit SQ HS 02/24/21 09/05/23 [Lantus Solostar Pen] Insulin Aspart [NovoLOG Flexpen] See Protocol SQ AC-TID 09/05/23 09/05/23 Previous Rx's Medication Instructions Recorded Doxycycline Hyclate 100 mg PO BID #20 tab 11/20/23 Furosemide [Lasix] 20 mg PO DAILY PRN #10 tab 03/19/24 Sulfamethox-Tmp 800-160Mg [Bactrim 1 tab PO Q12HR 7 Days #14 tab 11/02/24 DS 800-160 mg] Allergies Allergy/AdvReac Type Severity Reaction Status Date / Time No Known Allergies Allergy Verified 11/02/24 22:25 Review of Systems ROS Statement: Those systems with pertinent positive or pertinent negative responses have been documented in the HPI. ROS Other: All systems not noted in ROS Statement are negative. Past Medical History Past Medical History: Diabetes Mellitus History of Any Multi-Drug Resistant Organisms: None Reported Date of last positivie culture/infection: 02/20/18 MDRO Source:: ESBL URINE Past Surgical History: Section Additional Past Surgical History / Comment(s): D&C Past Psychological History: No Psychological Hx Reported Smoking Status: Former smoker Past Alcohol Use History: None Reported Past Drug Use History: Marijuana - Past Family History Sister(s) Family Medical History: Thyroid Disorder General Exam Limitations: no limitations General appearance: alert, in no apparent distress Head exam: Present: atraumatic, normocephalic, normal inspection Respiratory exam: Present: normal lung sounds bilaterally. Absent: respiratory distress, wheezes, rales, rhonchi, stridor Cardiovascular Exam: Present: regular rate, normal rhythm Extremities exam: Present: other (The right great toenail has fallen off and there is dried blood around it. No swelling, erythema, or tenderness. Full range of motion.) Neurological exam: Present: alert, oriented X3, CN II-XII intact Psychiatric exam: Present: normal affect, normal mood Course Vital Signs 11/02/24 11/02/24 22:24 23:51 Temperature 98.7 F 98.1 F Pulse Rate 96 98 Respiratory 20 20 Rate Blood Pressure 148/85 104/68 O2 Sat by Pulse 97 96 Oximetry Medical Decision Making - Medical Decision Making This is a 28-year-old female who presents to the emergency department for concerns of an infection to her toe. Was pt. sent in by a medical professional or institution? @ -No Did you speak to anyone other than the patient for history? @ -No Did you review nursing and triage notes? @ -Yes, and I agree, it is accurate with regards to the patient's symptoms. Were old charts reviewed? @ -No Differential Diagnosis? @ -Differential Musculoskeletal Muscular strain, contusion, ligament sprain, fracture, arthritis, septic arthritis, bursitis, cellulitis, muscle spasm, nerve compression, DVT, arterial occlusion, herpes zoster, electrolyte abnormality, tumor.... This is not meant to be in all inclusive list EKG interpreted by me (3pts min.)? @ -Not obtained X-rays interpreted by me (1pt min.)? @ -X-ray of the right great toe obtained. My interpretation identifies no acute fractures. CT interpreted by me (1pt min.)? @ -Not obtained U/S interpreted by me (1pt. min.)? @ -Not obtained What testing was considered but not performed? (CT, X-rays, U/S, labs)? Why? @ -None What meds were considered but not given? Why? @ -None Did you discuss the management of the patient with other professionals? @ -No Did you reconcile home meds? @ -No Was smoking cessation discussed for >3mins.? @ -No Was critical care preformed (if so, how long)? @ -No Were there social determinants of health that impacted care today? How? (Homelessness, low income, unemployed, alcoholism, drug addiction, transportation, low edu. Level, literacy, decrease access to med. care, alf, rehab)? @ -No Was there de-escalation of care discussed even if they declined? (Discuss DNR or withdrawal of care, Hospice)? @ -No What co-morbidities impacted this encounter? (DM, HTN, Smoking, COPD, CAD, Cancer, CVA, Hep., AIDS, mental health diagnosis, sleep apnea, morbid obesity)? @ -None Was patient admitted / discharged? @ -Discharged. X-ray of the toe obtained revealing no acute process. It appears that her toenail had come off and she had dried blood around it. This did not appear infected at this time, however given her concern of the foul smell and wanting to prevent infection, advised that we can start her on a short course of antibiotics. Bactrim prescribed. Otherwise advised follow-up with her PCP. Patient discharged home in stable condition. Case discussed with ED attending Dr. Campos. Return precautions reviewed in depth, the patient is instructed to return to the emergency department with any new, worsening, or concerning symptoms. Patient verbalized understanding. Undiagnosed new problem with uncertain prognosis? @ -None Drug Therapy requiring intensive monitoring for toxicity (Heparin, Nitro, Insulin, Cardizem)? @ -None Were any procedures done? @ -None Diagnosis/symptom? @ -Right great toenail torn off Acute, or Chronic, or Acute on Chronic? @ -Acute Uncomplicated (without systemic symptoms) or Complicated (systemic symptoms)? @ -Uncomplicated Side effects of treatment? @ -None Exacerbation, Progression, or Severe Exacerbation] @ -Not applicable Poses a threat to life or bodily function? @ -No - Radiology Data Radiology results: report reviewed, image reviewed Disposition Clinical Impression: Toenail torn away, Toe infection Disposition: HOME SELF-CARE Condition: Stable Additional Instructions: Return to the emergency department with any new, worsening, or concerning symptoms. Take the antibiotic as prescribed for 7 days. You can also apply antibiotic ointment. Follow up with your primary care provider in 1-2 days. Prescriptions: Sulfamethox-Tmp 800-160Mg [Bactrim DS 800-160 mg] 1 tab PO Q12HR 7 Days #14 tab Is patient prescribed a controlled substance at d/c from ED?: No Referrals: Gold Al MD [Primary Care Provider] - 1-2 days Time of Disposition: 22:47
[2024-11-02] MEDS: SULFAMETHOX-TMP 800-160MG 1 EACH TAB PO STA (22:57)
--- NOTE | 2024-11-02 23:23 | XR ---
EXAMINATION TYPE: XR toes RT DATE OF EXAM: 11/02/2024 11:12 PM COMPARISON: None CLINICAL INDICATION: Female, 28 years old with history of Injury; PHH, pain TECHNIQUE: XR toes RT examined in the AP, oblique, and lateral projections. FINDINGS: No evidence of any acute osseous pathology. IMPRESSION: No evidence of acute fracture. [facility], , 11/02/2024 11:21 PM
[2024-11-02 23:56] VITALS: BP 104/68; PULSE 98; TEMP 98.1
== END 2024-11-02 23:51 | disposition home or self-care (01) ==
LOC: EC 22:16
DX: L03.031 Cellulitis of right toe (principal); S91.209A Unspecified open wound of unspecified toe(s) with damage to nail, initial encounter; Z87.891 Personal history of nicotine dependence; X58.XXXA Exposure to other specified factors, initial encounter
CPT/HCPCS: 99283

== ENCOUNTER 2024-11-06 19:32 | Emergency (ER) | payer OTHER ==
--- NOTE | 2024-11-06 20:23 | ED ---
Abdominal Pain HPI - General Chief Complaint: Abdominal Pain Stated Complaint: Chest Pain,Abd pain Time Seen by Provider: 11/06/24 20:21 Source: patient, RN notes reviewed Mode of arrival: ambulatory Limitations: no limitations - History of Present Illness Initial Comments: 29-year-old female presenting for lower abdominal pain x 2 days with associated vaginal spotting. States she began to experience what feels like period cramps yesterday. States her last menstrual period was 2 weeks ago and her periods are always regular. States she had an at home test which was negative, however reports having the same symptoms with her last . Denies vaginal discharge or concern for STDs. Denies urinary symptoms, nausea, vomiting, fever. - Related Data Home Medications Medication Instructions Recorded Confirmed Insulin Glargine,Hum.rec.anlog 30 unit SQ HS 02/24/21 11/06/24 [Lantus Solostar Pen] Insulin Aspart [NovoLOG Flexpen] See Protocol SQ AC-TID 09/05/23 11/06/24 Previous Rx's Medication Instructions Recorded Sulfamethox-Tmp 800-160Mg [Bactrim 1 tab PO Q12HR 7 Days #14 tab 11/02/24 DS 800-160 mg] Allergies Allergy/AdvReac Type Severity Reaction Status Date / Time No Known Allergies Allergy Verified 11/06/24 20:55 Review of Systems ROS Statement: Those systems with pertinent positive or pertinent negative responses have been documented in the HPI. ROS Other: All systems not noted in ROS Statement are negative. Past Medical History Past Medical History: Diabetes Mellitus History of Any Multi-Drug Resistant Organisms: None Reported Date of last positivie culture/infection: 02/20/18 MDRO Source:: ESBL URINE Past Surgical History: Section Additional Past Surgical History / Comment(s): D&C Past Psychological History: No Psychological Hx Reported Smoking Status: Former smoker Past Alcohol Use History: None Reported Past Drug Use History: Marijuana - Past Family History Sister(s) Family Medical History: Thyroid Disorder General Exam Limitations: no limitations General appearance: alert, in no apparent distress Head exam: Present: atraumatic, normocephalic, normal inspection Eye exam: Present: normal appearance, PERRL, EOMI. Absent: scleral icterus, conjunctival injection, periorbital swelling GI/Abdominal exam: Present: soft, normal bowel sounds. Absent: distended, tenderness, guarding, rebound, rigid Neurological exam: Present: alert, oriented X3 Psychiatric exam: Present: normal affect, normal mood Skin exam: Present: warm, dry, intact, normal color. Absent: rash Course Vital Signs 11/06/24 11/06/24 19:54 22:13 Temperature 97.8 F 98 F Pulse Rate 92 107 H Respiratory 18 17 Rate Blood Pressure 125/82 115/78 O2 Sat by Pulse 97 100 Oximetry Medical Decision Making - Medical Decision Making Was pt. sent in by a medical professional or institution (, PA, DIRECTOR OF DIAGNOSTIC IMAGING, urgent care, hospital, or [facility]...) When possible be specific @ -No Did you speak to anyone other than the patient for history (EMS, parent, family, police, friend...)? What history was obtained from this source @ -No Did you review nursing and triage notes (agree or disagree)? Why? @ -I reviewed and agree with nursing and triage notes Were old charts reviewed (outside hosp., previous admission, EMS record, old EKG, old radiological studies, urgent care reports/EKG's, [facility] records)? Report findings @ -No old charts were reviewed Differential Diagnosis (chest pain, altered mental status, abdominal pain women, abdominal pain men, vaginal bleeding, weakness, fever, dyspnea, syncope, headache, dizziness, GI bleed, back pain, seizure, CVA, palpatations, mental he alth, musculoskeletal)? @ -Differential Vaginal Bleeding: Spontaneous , threatened , molar , ectopic , bloody show, incompetent cervix, abruptioplacenta, placenta previa, uterine rupture, dysfunctional uterine bleeding, hemorrhage, uterine fibroids, this is not meant to be an all-inclusive list. EKG interpreted by me (3pts min.). @ -None X-rays interpreted by me (1pt min.). @ -None done CT interpreted by me (1pt min.). @ -None done U/S interpreted by me (1pt. min.). @ -Pelvic ultrasound unremarkable What testing was considered but not performed or refused? (CT, X-rays, U/S, labs)? Why? @ -None What meds were considered but not given or refused? Why? @ -Patient declined pain medications today Did you discuss the management of the patient with other professionals (professionals i.e. , PA, DIRECTOR OF DIAGNOSTIC IMAGING, lab, RT, psych nurse, social service manager, parts counterperson, teacher, credit products officer, business case analyst)? Give summary @ -No Was smoking cessation discussed for >3mins.? @ -No Was critical care preformed (if so, how long)? @ -No Were there social determinants of health that impacted care today? How? (Homelessness, low income, unemployed, alcoholism, drug addiction, t ransportation, low edu. Level, literacy, decrease access to med. care, fpc, rehab)? @ -No Was there de-escalation of care discussed even if they declined (Discuss DNR or withdrawal of care, Hospice)? DNR status @ -No What co-morbidities impacted this encounter? (DM, HTN, Smoking, COPD, CAD, Cancer, CVA, ARF, Chemo, Hep., AIDS, mental health diagnosis, sleep apnea, morbid obesity)? @ -None Was patient admitted / discharged? Hospital course, mention meds given and route, prescriptions, significant lab abnormalities, going to OR and other pertinent info. @-Discharge. 29-year-old female presenting for lower abdominal cramping x 1 day with associated vaginal spotting. Vital signs within acceptable limits. Abdomen is soft and nontender. hCG quant is less than 2.4. Lab work remarkable for glucose of 374. Anion gap of 9, no ketones in the urine. Urinalysis reveals 4+ glucose. Pelvic ultrasound unremarkable. Results discussed with patient. Patient declines intervention for hyperglycemia at this time. Patient states she takes Lantus daily and will follow-up with her primary care doctor tomorrow regarding elevated blood sugar. Appropriate return precautions and follow-up care discussed. Case was discussed with my ED attending Dr. Welsh. Undiagnosed new problem with uncertain prognosis? @ -No Drug Therapy requiring intensive monitoring for toxicity (Heparin, Nitro, Insulin, Cardizem)? @ -No Were any procedures done? @ -No Diagnosis/symptom? @ -Abdominal cramping, hyperglycemia Acute, or Chronic, or Acute on Chronic? @ -Acute Uncomplicated (without systemic symptoms) or Complicated (systemic symptoms)? @ -Uncomplicated Side effects of treatment? @ -No Exacerbation, Progression, or Severe Exacerbation? @ -No Poses a threat to life or bodily function? How? (Chest pain, USA, GA, pneumonia, PE, COPD, DKA, ARF, appy, cholecystitis, CVA, Diverticulitis, Homicidal, Suicid al, threat to staff... and all critical care pts) @ -Not at this time - Lab Data Result diagrams: 11/06/24 20:42 11/06/24 20:42 Lab Results 11/06/24 11/06/24 11/06/24 Range/Units 20:42 20:42 20:42 WBC 5.8 (3.8-10.6) k/uL RBC 4.65 (3.80-5.40) m/uL Hgb 12.6 (11.4-16.0) gm/dL Hct 38.4 (34.0-46.0) % MCV 82.5 (80.0-100.0) fL MCH 27.2 (25.0-35.0) pg MCHC 32.9 (31.0-37.0) g/dL RDW 12.8 (11.5-15.5) % Plt Count 324 (150-450) k/uL MPV 8.4 Neutrophils % 43 % Lymphocytes % 48 % Monocytes % 4 % Eosinophils % 3 % Basophils % 1 % Neutrophils # 2.5 (1.3-7.7) k/uL Lymphocytes # 2.8 (1.0-4.8) k/uL Monocytes # 0.2 (0-1.0) k/uL Eosinophils # 0.2 (0-0.7) k/uL Basophils # 0.0 (0-0.2) k/uL Hypochromasia Slight Sodium 128 L (137-145) mmol/L Potassium 4.6 (3.5-5.1) mmol/L Chloride 92 L (98-107) mmol/L Carbon Dioxide 27 (22-30) mmol/L Anion Gap 9 mmol/L BUN 7 (7-17) mg/dL Creatinine 0.39 L (0.52-1.04) mg/dL Est GFR (CKD-EPI)AfAm >90 (>60 ml/min/1.73 sqM) Est GFR (CKD-EPI)NonAf >90 (>60 ml/min/1.73 sqM) Glucose 374 H (74-99) mg/dL Plasma Lactic Acid [place] (0.7-2.0) mmol/L Calcium 9.4 (8.4-10.2) mg/dL Total Bilirubin 0.6 (0.2-1.3) mg/dL AST 18 (14-36) U/L ALT 18 (4-34) U/L Alkaline Phosphatase 131 H (38-126) U/L Total Protein 8.0 (6.3-8.2) g/dL Albumin 4.5 (3.5-5.0) g/dL HCG, Quant <2.4 mIU/mL Urine Color Colorless Urine Appearance Clear (Clear) Urine pH 6.0 (5.0-8.0) Ur Specific [place] 1.028 (1.001-1.035) Urine Protein Negative (Negative) Urine Glucose (UA) 4+ H (Negative) Urine Ketones Negative (Negative) Urine Blood Negative (Negative) Urine Nitrite Negative (Negative) Urine Bilirubin Negative (Negative) Urine Urobilinogen <2.0 (<2.0) mg/dL Ur Leukocyte Esterase Negative (Negative) 11/06/24 Range/Units 20:42 WBC (3.8-10.6) k/uL RBC (3.80-5.40) m/uL Hgb (11.4-16.0) gm/dL Hct (34.0-46.0) % MCV (80.0-100.0) fL MCH (25.0-35.0) pg MCHC (31.0-37.0) g/dL RDW (11.5-15.5) % Plt Count (150-450) k/uL MPV Neutrophils % % Lymphocytes % % Monocytes % % Eosinophils % % Basophils % % Neutrophils # (1.3-7.7) k/uL Lymphocytes # (1.0-4.8) k/uL Monocytes # (0-1.0) k/uL Eosinophils # (0-0.7) k/uL Basophils # (0-0.2) k/uL Hypochromasia Sodium (137-145) mmol/L Potassium (3.5-5.1) mmol/L Chloride (98-107) mmol/L Carbon Dioxide (22-30) mmol/L Anion Gap mmol/L BUN (7-17) mg/dL Creatinine (0.52-1.04) mg/dL Est GFR (CKD-EPI)AfAm (>60 ml/min/1.73 sqM) Est GFR (CKD-EPI)NonAf (>60 ml/min/1.73 sqM) Glucose (74-99) mg/dL Plasma Lactic Acid [place] 1.1 (0.7-2.0) mmol/L Calcium (8.4-10.2) mg/dL Total Bilirubin (0.2-1.3) mg/dL AST (14-36) U/L ALT (4-34) U/L Alkaline Phosphatase (38-126) U/L Total Protein (6.3-8.2) g/dL Albumin (3.5-5.0) g/dL HCG, Quant mIU/mL Urine Color Urine Appearance (Clear) Urine pH (5.0-8.0) Ur Specific [place] (1.001-1.035) Urine Protein (Negative) Urine Glucose (UA) (Negative) Urine Ketones (Negative) Urine Blood (Negative) Urine Nitrite (Negative) Urine Bilirubin (Negative) Urine Urobilinogen (<2.0) mg/dL Ur Leukocyte Esterase (Negative) Disposition Clinical Impression: Abdominal cramping Disposition: HOME SELF-CARE Condition: Stable Additional Instructions: Follow-up with your PCP tomorrow regarding elevated blood sugar. Please return to the Emergency Department if symptoms worsen or any other concerns. Is patient prescribed a controlled substance at d/c from ED?: No Referrals: Gold Al MD [Primary Care Provider] - 1-2 days Time of Disposition: 22:01
[2024-11-06 20:53] LABS: Basophils % (A) 1 %; Eosinophils # (A) 0.2 k/uL (0-0.7); Eosinophils % (A) 3 %; HCT 38.4 % (34.0-46.0); HGB 12.6 gm/dL (11.4-16.0); Hypochromasia Slight; Lymphocytes # (A) 2.8 k/uL (1.0-4.8); Lymphocytes % (A) 48 %; MCH 27.2 pg (25.0-35.0); MCHC 32.9 g/dL (31.0-37.0); MCV 82.5 fL (80.0-100.0); Mean Platelet Volume 8.4; Monocytes # (A) 0.2 k/uL (0-1.0); Monocytes % (A) 4 %; Neutrophils # (A) 2.5 k/uL (1.3-7.7); Neutrophils % (A) 43 %; Platelet Count 324 k/uL (150-450); RBC 4.65 m/uL (3.80-5.40); RDW 12.8 % (11.5-15.5); WBC 5.8 k/uL (3.8-10.6)
[2024-11-06 21:03] LABS: Appearance,Urine Clear (Clear); Bilirubin,Urine Negative (Negative); Blood,Urine Negative (Negative); Color,Urine Colorless; Glucose,Urine (UA) 4+ (Negative); Ketones,Urine Negative (Negative); Leukocyte Esterase,Urine Negative (Negative); Nitrite,Urine Negative (Negative); Protein,Urine Negative (Negative); Specific Gravity,Urine 1.028 (1.001-1.035); Urobilinogen,Urine <2.0 mg/dL (<2.0)
[2024-11-06 21:09] LABS: ALT 18 U/L (4-34); AST 18 U/L (14-36); African American GFR (CKD) >90 (>60 ml/min/1.73 sqM); Albumin 4.5 g/dL (3.5-5.0); Alkaline Phosphatase 131 U/L (38-126); Anion Gap 9 mmol/L; Blood Urea Nitrogen 7 mg/dL (7-17); Calcium 9.4 mg/dL (8.4-10.2); Carbon Dioxide 27 mmol/L (22-30); Chloride 92 mmol/L (98-107); Glucose 374 mg/dL (74-99); Non-African American GFR(CKD) >90 (>60 ml/min/1.73 sqM); Potassium 4.6 mmol/L (3.5-5.1); Sodium 128 mmol/L (137-145); Total Bilirubin 0.6 mg/dL (0.2-1.3)
[2024-11-06 21:24] LABS: HCG,Quantitative Serum <2.4 mIU/mL
--- NOTE | 2024-11-06 21:28 | US ---
EXAMINATION TYPE: US transvaginal DATE OF EXAM: 11/06/2024 COMPARISON: us 2018 CLINICAL INDICATION: Female, 29 years old with history of lower abdominal cramping; patient states cr amping and spotting. hx c section TECHNIQUE: Transvaginal (TV). Transvaginal sonographic images were medically necessary to better assess the following anatomy: Ovar ies Doppler imaging: Color Doppler Images were obtained. Spectral doppler images were obtained. FINDINGS: Date of LMP: 10/25/2024 EXAM MEASUREMENTS: Uterus: 9.0 x 5.1 x 5.6 cm Endometrial Stripe: 0.9 cm Right Ovary: 3.0 x 2.8 x 2.5 cm Left Ovary: 2.6 x 2.2 x 1.0 cm 1. Uterus: Anteverted . Heterogeneously hypoechoic apparent circumscribed lesion along the left as pect of the uterus measuring 1.7 cm is felt to most likely represent scar. However, evaluat ion limited due to shadowing bowel gas artifact. 2. Endometrium: wnl 3. Right Ovary: Follicular changes with largest dominant follicle measuring 2.4 cm. 4. Left Ovary: wnl Spectral, color and waveform doppler imaging shows good arterial and venous flow within the ovaries ; there is no evidence for ovarian torsion. 5. Bilateral Adnexa: wnl 6. Posterior cul-de-sac: wnl IMPRESSION: Unremarkable pelvic ultrasound exam. Specifically, no sonographic evidence of ovarian torsion. O-RADS 2021 [email or web address] [facility], , 11/06/2024 9:25 PM
[2024-11-06 22:16] VITALS: BP 115/78; PULSE 107; RESP 17; TEMP 98
== END 2024-11-06 22:16 | disposition home or self-care (01) ==
LOC: EC 19:32
DX: R10.30 Lower abdominal pain, unspecified (principal); R73.9 Hyperglycemia, unspecified; Z87.891 Personal history of nicotine dependence
CPT/HCPCS: 36415; 76830; 80053; 81003; 83605; 84702; 85025; 93975; 99284